=== PATIENT | male | born 1975 | race Caucasian/White ===

== ENCOUNTER 2024-04-10 14:25 | Emergency (ER) | payer OTHER, SELFPAY ==
[2024-04-10 14:45] VITALS: BP 150/79; PULSE 92; RESP 16; TEMP 36.4; O2SAT 99
--- NOTE | 2024-04-10 14:50 | ED_ITS ---
HPI - URI/Sore Throat General Chief Complaint: Upper Respiratory Infection Stated Complaint: Sore Throat, Cough, Congestion Time Seen by Provider: 04/10/24 15:00 History of Present Illness HPI Narrative: 49-year-old male with a history of hypertension and diabetes presented for complaint of sore throat, hoarse voice, nasal congestion and cough. Onset 2 days. Denies shortness of breath, wheezing nausea vomiting diarrhea, fevers or lethargy. Daughter with similar symptoms. Related Data Allergies Allergy/AdvReac Type Severity Reaction Status Date / Time No Known Allergies Allergy Verified 04/10/24 14:49 Review of Systems Review of Systems: per HPI [facility] Past Medical History Medical History (Updated 04/10/24 @ 15:08 by Jelena Guillermo, CUSTOMER SUPPORT ADVISOR) Diabetes Exam Narrative: GENERAL: well-appearing, no acute distress. EYES: conjunctivae clear ENT: Mucous membranes moist. Right TM pearly mendez with normal light reflex; Left TM erythematous, bulging and intact; canal not erythematous, no drainage no tragal tenderness. Oropharynx erythematous without lesions. Tonsils not enlarged and without exudate. Hoarse voice. No drooling, no trismus, uvula midline. No tripod positioning, hot potato voice, or soft palate swelling. NECK: Supple. No lymphadenopathy CHEST: Clear to auscultation, breath sounds equal. No respiratory distress, spe aks in full sentences. HEART: Regular rate and rhythm. No murmur heard. SKIN: Warm, dry, no rash. NEURO: Alert and oriented x3. Course Course Emergency Course: Patient is aware of diagnosis, understands and agrees to treatment plan. Anticipatory guidance given. Patient agrees to follow-up as directed and is aware of reasons to seek care at the emergency department. Portions of this record may have been created with voice recognition software Level of Care: Express Care Visit Vital Signs Vital signs: Vital Signs Temperature 97.6 F 04/10/24 14:45 Pulse Rate 92 04/10/24 14:45 Respiratory Rate 16 04/10/24 14:45 Blood Pressure 150/79 H 04/10/24 14:45 Pulse Oximetry 99 04/10/24 14:45 Temperature 97.6 F 04/10/24 14:45 Pulse Rate 92 04/10/24 14:45 Respiratory Rate 16 04/10/24 14:45 Blood Pressure 150/79 H 04/10/24 14:45 Pulse Oximetry 99 04/10/24 14:45 MDM - URI/Sore Throat MDM Narrative Medical decision making narrative: Neg strep result reviewed with pt. noted to have left AOM on exam. Advise supportive treatments. Patient is appropriate for outpatient treatment and follow-up. Differential Diagnosis Differential diagnosis: Likely upper respiratory infection, viral infection and pharyngitis Discharge Plan Discharge Clinical Impression: Upper respiratory infection Qualifiers: URI type: unspecified URI Qualified Code(s): J06.9 - Acute upper respiratory infection, unspecified Otitis media Qualifiers: Otitis media type: suppurative Chronicity: acute Laterality: left Recurrence: non-recurrent Spontaneous tympanic membrane rupture: without spontaneous rupture Qualified Code(s): H66.002 - Acute suppurative otitis media without spontaneous rupture of ear drum, left ear Patient Disposition: Home, Self-Care Condition: Stable Instructions: Antibiotic Form, Ear Infection (ED), Upper Respiratory Infection (ED) Additional Instructions: Rapid strep swab was negative today You will be notified in a few days if the culture comes back positive for strep if symptoms are due to a viral illness, it is not treated with antibiotics. Viral symptoms can be present for up to 10-14 days. Recommendations: Flonase spray and Zyrtec for sinus congestion Cough syrup may cause drowsiness; avoid driving or take it at night time. Tylenol every 8 hours as needed for pain/fever Soft foods, cool liquids, warm tea. Gargle with warm saltwater twice a day. Chloraseptic spray and throat lozenges. Rest and stay hydrated. --Follow up with your PCP --Go to the ER immediately if you cannot swallow your saliva, trouble breathing/wheezing, throat swelling, pain is persistent and severe Patient Language: Cymro Prescriptions: New amoxicillin-pot clavulanate 875-125 mg tablet 1 tablet PO Q12H 7 Days Qty: 14 0RF Follow-up/Referrals: Ally,José Luis Devlin MD [Primary Care Provider] - Time of Disposition: 15:06
[2024-04-10 14:54] LABS: EDSTREPNEGPOS1 Negative (Negative)
--- OUTSIDE RECORDS SUMMARY | 2024-04-17 17:20 | XMS_ITS | Encounter Summary ---
Author Organization [facility] Address [address] [place] [address]. [place], [place] [phone] [place] [address] Care Team Providers Care Director Of Social Work Name Role Phone José Luis Canales MD Primary Care Provider [phone]- [phone] Encounter Details Date Type Department Care Team (Latest Contact Info) Description 11/23/2023 Punch Through Designhart Message Enc [facility] [address] [place] [phone] José Luis [place] [id number] [place] [address] Tadalafil Prescription Social History Tobacco Use Types Packs/Day Years Used Date Smoking Tobacco: Never Smokeless Tobacco: Never Comments:na Alcohol Use Standard Drinks/Week Comments Yes 0 (1 standard drink = 0.6 oz pur e alcohol) socially PHQ-2 Answer Date Recorded Patient Health Questionnaire-2 Score 0 05/07/2023 Education Answer Date Recorded What is the highest level of school you have completed or the highest degree you have received? Bachelor's degree (e.g., BA, AB, BS) 08/02/2018 Sex and Gender Information Value Date Recorded Sex Assigned at Not on file Legal Sex Male 6:09 PM CDT Gender Identity Not on file Sexual Orientation Not on file documented as of this encounter Plan of Treatment Upcoming Encounters Date Type Department Care Team (Late st Contact Info) Description 06/08/2024 1:40 PM UNARMED SECURITY OFFICER Office Visit [facility] - [address] [place] [address] [place] [address] [place] [address] Kalen Simpson, PA-C 3 [facility] [address] [place] [address] 09/30/2024 10:15 AM CDT Office Visit [facility] [address] [place] [address] Darryl Bunch MD Three [facility]. [address] [place] [address] Juliette Zavala PA 3 [facility], [address] [place] [address] documented as of this encounter Visit Diagnoses Not on filedocumented in this encounter Additional Health Concerns Assessment Noted Time PHQ-9 Depression Total Score: 0 09/19/19 21 7:53 AM CDT documented as of this encounter Care Teams Director Of Social Work Relationship Specialty Start [place] [address] [place] [address] PCP - General 07/29/22 documented as of this encounter
--- OUTSIDE RECORDS SUMMARY | 2024-04-17 17:20 | XMS_ITS | Encounter Summary ---
Author Organization [facility] Address [address] [place] [address]. [place] [address] [place] [address] Care Team Providers Care Active Directory Engineer Name Role Phone José Luis Canales MD Primary Care Provider [phone]- [phone] Encounter Details Date Type Department Care Team (Latest Contact Info) Description 02/23/2024 Travel Social History Tobacco Use Types Packs/Day Years [...] st Contact Info) Description 06/08/2024 1:40 PM VETERINARY RECEPTIONIST Office Visit [facility] Multispecialty Care - [address], [address] [place] [phone] [place] [address] [place] [address] Kalen Simpson PA-C 3 [facility] [address] [place] [address] 09/30/2024 10:15 AM CDT Office Visit [facility] [address] [place] [address] Darryl Bunch MD Three [facility]. [address] [place] [address] Juliette Zavala PA 3 [facility], [address] [place] [address] documented as of this encounter Visit Diagnoses Not on filedocumented in this encounter Additional Health Concerns Assessment Noted Time PHQ-9 Depression Total Score: 0 09/19/19 21 7:53 AM CDT documented as of this encounter Care Teams Active Directory Engineer Relationship Specialty Start [place] [address] [place] [address] PCP - General 07/29/22 documented as of this encounter
--- OUTSIDE RECORDS SUMMARY | 2024-04-17 17:20 | XMS_ITS | Encounter Summary ---
Author Organization [facility] Address [address] [place] [address]. [place], [place] [address] [place] [address] Care Team Providers Care Senior Java J2Ee Developer Name Role Phone José Luis Canales MD Primary Care Provider [phone]- [phone] Encounter Details Date Type Department Care Team (Late st Contact Info) Description 02/23/2024 MyChart Message Enc [facility] Family & Internal Medicine [facility] [id number] [place] [phone] José Luis [place]ales [place] [id number] [place] [address] Colonoscopy Social History Tobacco Use Types Packs/Day Years [...] Encounters Date Type Department Care Team (Late Contact Info) Description 06/08/2024 1:40 PM FORENSIC SCIENTIST Office Visit [facility] Multispecialty Care - [address] [place] [address] [place] [address] [place] [address] Kalen Simpson PA-C 3 [facility] [address] [place] [address] 09/30/2024 10:15 AM CDT Office Visit [facility] [address] [place] [phone] Darryl Bunch MD Three [facility]. [address] [place] [address] Juliette Zavala PA 3 [facility], [address] [place] [address] documented as of this encounter Visit Diagnoses Not on filedocumented in this encounter Additional Health Concerns Assessment Noted Time PHQ-9 Depression Total Score: 0 09/19/19 21 7:53 AM CDT documented as of this encounter Care Teams Senior Java J2Ee Developer Relationship Specialty Start [place] [address] [place] [address] PCP - General 07/29/22 documented as of this encounter
--- OUTSIDE RECORDS SUMMARY | 2024-04-17 17:20 | XMS_ITS | Clinical Summary ---
Author Organization [facility] Address [address] [place] [address]. [place], [place] [address] [place] [id number] Care Team Providers Care Wireless Communications Engineer Name Role Phone José Luis Canales MD Primary Care Provider [phone] Allergies No known active allergies Medications lisinopril-hydroC HLOROthiazide (ZESTORETIC) 20-12.5 MG tabletIndications :Essential hypertension take 1 tablet by mouth daily 90 tablet 1 4 Active lisinopril (PRINIVIL) 20 MG tabletIndications :Essential hypertension TAKE 1 TABLET(20 MG) BY MOUTH DAILY 90 tablet 1 4 Active metFORMIN ER (GLUCOPHAGE-XR) 500 MG 24 hr tabletIndications :Type 2 diabetes mellitus without complication, without long-term current use of insulin ([facility]) Take 2 tablets (1,000 mg total) by mouth daily. 180 tablet 4 Active tadalafil (CIALIS) 5 MG tabletIndications :Erectile dysfunction, unspecified erectile dysfunction type Take 1 tablet (5 mg total) by mouth daily. 90 tablet 1 4 Active SYNJARDY XR 25-1000 MG TABLET SR 24 HRIndications:Typ e 2 diabetes mellitus without complication, without long-term current use of insulin ([facility]) TAKE 1 TABLET BY MOUTH DAILY 90 tablet 1 4 Active Active Problems Problem Noted Date Diagnosed Date Family history of coronary artery disease 2023 Assessment & Plan (09/25/2023 4:04 PM CDT): Currently, his coronary calcium score is 0. His INFANTE risk score puts him at a 3.7% which is low risk for future cardiac events. I would not start stent therapy at this time. Enlarged pulmonary artery ([facility]) 09/11 Assessment & Plan (09/25/2023 4:07 PM CDT): May be related to body habitus versus sleep apnea. I don't think any further testing is warranted at this time. I discussed right heart catheterization. Precordial chest pain 08/30/2023 Assessment & Plan (09/25/2023 4:05 PM CDT): CTA coronary does not show any significant coronary artery disease can consider non-cardiac etiologies. Assessment & Plan (08/30/2023 3:32 PM CDT): Given his age and risk factors, recommend he undergo CTA coronary. Vertigo 03/11/2022 BMI 35.0-35.9,adult 07/10/2020 Assessment & Plan (09/25/2023 4:07 PM CDT): Discussed lifestyle modifications include diet and exercise. Diabetes mellitus ([facility]) 08/02/2018 Assessment & Plan (08/30/2023 3:33 PM CDT): He has diabetes, which is a coronary artery disease risk equivalent. He is currently not on statin therapy. Coronary calcium score from CTA coronary will help to determine whether or not he needs lipid-lowering therapy. Sleep apnea 09/30/2017 Essential hypertension 08/31/2012 Assessment & Plan (09/25/2023 4:05 PM CDT): Continue Lisinopril and HCTZ. Assessment & Plan (08/30/2023 3:32 PM CDT): His blood pressure is well-controlled in the office. Continue antihypertensive therapy. Resolved Problems Problem Noted Date Diagnosed Date Resolved Date Need for immunization against influenza 03/26/2021 2021 Colon cancer screening 10/10/201912/23 Encounters Date Type Department Care Team Description 04/10/2024 Scan [employer] INFO SRVCS Scanned, [facility] 03/14/[address] [address] José Luis Canales MD Information 02/23/2024 7:00 AM TRAINING AND DEVELOPMENT REP Office Visit [address] [address] José Luis Canales MD Follow Up; Diabetes 02/23/2024 Orders Only [address] [address] José Luis Canales MD 02/23/2024 MyChart Message Enc [address] [address] José Luis Canales MD Colonoscopy 02/23/2024 Travel from Last 3 Months Immunizations Name Administration Dates Next Due Fluzone (IIV3, Trivalent, 0. 5 ML Prefilled Syringe) 02/23/2024 Fluzone 6 Months+ Quad (0.5 mL Prefilled Syringe) 03/25/2021 Fluzone Adult - >Age 3 (Pref illed Syringe) 01/10/2019 Influenza (Generic) 01/10/2019, 8,12/24/2016, 016 Influenza Adult (Generic) 01/23/2020,,12/24/2016, 016 MMR (MMRII) 07/05/1992 PFIZER COVID-19 (ORIGINAL FORMULATION, PURPLE CAP) mRNA, LNP-S, PF, 30 MCG/0.3 ML DOSE 03/25/2021,08/14/2020,07/07/2020 Family History Medical History Relation Comments Heart Disease Brother 47 y/o Hypertension Father elevated psa Father Open Heart Maternal Grandmother Valve Disease Maternal Grandmother Relation Status Comments Brother Father Alive Maternal Grandmother Mother Alive Sister Alive Social History Tobacco Use Types Packs/Day Years Used Date Smoking Tobacco: Never Smokeless Tobacco: Never Tobacco Cessation:Counseling Given: No Comments:na Alcohol Use Standard Drinks/Week Comments Yes [...] on file Sexual Orientation Not on file Last Filed Vital Signs Vital Sign Reading Time Taken Comments Blood Pressure 136/86 02/23/2024 6:58 AM TRAINING AND DEVELOPMENT REP Pulse 70 02/23/2024 6:58 AM TRAINING AND DEVELOPMENT REP Temperature 37.1 ??C (98.7 ??F) 02/23/2024 6:58 AM CS T Respiratory Rate 16 02/23/2024 6:58 AM TRAINING AND DEVELOPMENT REP Oxygen Saturation 97% 02/23/2024 6:58 AM TRAINING AND DEVELOPMENT REP Inhaled Oxygen Concentration - - Weight 131.5 kg (290 lb) 02/23/2024 6:58 AM TRAINING AND DEVELOPMENT REP Height 193 cm (6' 4 ) 02/23/2024 6:58 AM TRAINING AND DEVELOPMENT REP Body Mass Index 35.3 02/23/2024 6:58 AM TRAINING AND DEVELOPMENT REP Plan of Treatment Upcoming Encounters Date Type Department Care Team (Late st Contact Info) Description 06/08/2024 1:40 PM TRAINING AND DEVELOPMENT REP Office Visit [facility] Multispecialty Care - [address] [place] [address] [place] [address] [place] [address] Kalen Simpson PA-C 3 [facility] [address] [place] [address] 09/30/2024 10:15 AM CDT [facility] [address] [place] [phone] Darryl Bunch MD Three [facility]. [address] [place] [id number] Juliette Zavala PA 3 [facility], [address] [place] [address] Health Maintenance Due Date Last Done Comments Kidney Health Evaluation 1974 Annual Physical 1977 Pneumococcal Vaccine: Pediatrics (0 to 5 Years) and At-Risk Patients (6 to 64 Years) (1 of 2 - PCV) 1980 Diabetes: Retinopathy Eye Exam 1992 Hepatitis C 1992 DTaP, Tdap and Td Vaccines (1 - Tdap) 1993 Hepatitis B Vaccines (1 of 3 - 19+ 3-dose series) 1993 COVID-19 Vaccine ( - season) 2023 03/25/2021, 08/14/2020, 07/07/2020 Zoster Vaccines (1 of 2) 2024 Lipid Panel 07/27/2024 07/28/2023, 10/22/2017 Hemoglobin A1C 08/22/2024 02/23/2024, 07/12, 01/26/2023, Additional history exists Colorectal Cancer Screening FIT-DNA (3 Years) 12/25/2024 12/25/2021, 12/25/2021 Colorectal Cancer Screening Colonoscopy (10 Years) Discontinued Influenza Adult Completed 02/23/2024, 03/13, 01/23/2020, Additional history exists Meningococcal Vaccine Aged Out No luisana tong eligible based on patient's age to complete this topic RSV Immunizations Under 20 Months Aged Out No longer eligible based on patient's age to complete this topic Procedures Procedure Name Priority Date/Time Associated Diagnosis Comments COLLECT.CAPILLARY (FNGR,HEEL,EAR) Routine 02/23/2024 7:00 AM TRAINING AND DEVELOPMENT REP Type 2 diabetes mellitus without complication, without long-term current use of insulin ([facility]) HEMOGLOBIN, GLYCOSYLATED Routine 02/23/2024 Type 2 diabetes mellitus without complication, without long-term current use of insulin ([facility]) LIPID PANEL Routine 07/28/2023 7:53 AM CDT Essential hypertension COLOGUARD (EXACT SCIENCE) Routine 12/25/2021 10:25 PM CDT Colon cancer screening COLONOSCOPY Routine TRAINING AND DEVELOPMENT REP from Last 3 Months or Most Recently Relevant to Health Maintenance Results * HEMOGLOBIN, GLYCOSYLATED (02/23/2024) HGB A1C 6.8 % -21706 [facility] 02/23/2024 José Luis Canales MD LABORATORY Final Resul t Performing Organization Address City/State/[facility] Co de Phone Number -[phone] [facility] [address] [place] [address], * LIPID PANEL (07/28/2023 7:53 AM CDT) CHOLESTEROL 123 <200 mg/dL [facility] [place], [place] HDL 45 > OR = 40 mg/dL [place] TRIGLYCERIDES 92 <150 mg/dL [place] LDL (CALCULATED) 60 mg/dL (calc) [place] Comment: Reference range: <100 Desirable range <100 mg/dL for primary prevention; ?? <70 mg/dL for patients with CHD or diabetic patients with > or = 2 CHD risk factors. LDL-C is now calculated using the Gurdeep calculation, which is a validated novel method providing better accuracy than the Friedewald equation in the estimation of LDL-C. Lemuel ROMERO et al. REJI. 2013;310(19): 1890-9912 (http://education.crowdSPRING.Retrotope/faq/FCX668) CHOL/HDL RATIO 2.7 <5.0 (calc) [facility] [place], [place] NON HDL CHOLESTEROL 78 <130 mg/dL (calc) [place] Comment: For patients with diabetes plus 1 major ASCVD risk factor, treating to a non-HDL-C goal of <100 mg/dL (LDL-C of <70 mg/dL) is considered a therapeutic option. 07/28/2023 7:53 AM CDT 07/28/2023 11:05 PM CDT Narrative Resulting Agency Comment Performing Organization Information: ?Site ID: ?Name: [facility] ?Address: [address] [place] [id number] ?Director: Carlos Brown us José Luis Canales MD LABORATORY Final Resul t [facility] - FRANK ORDERS [facility] [address], * COLOGUARD (EXACT SCIENCE) (12/25/2021 10:25 PM CDT) COLOGUARD RESULT Negative Negative [facility] (CLIA #:[id number]) Comment: NEGATIVE TEST RESULT. A negative Cologuard result indicates a low likelihood that a colorectal cancer (CRC) or advanced adenoma (adenomatous polyps with more advanced pre-malignant features) ??is present. The chance that a person with a negative Cologuard test has a colorectal cancer is less than 1 in 1500 (negative predictive value >99.9%) or has an ??advanced adenoma is less than ??5.3% (negative predictive value 94.7%). These data are based on a prospective cross-sectional study of 10,000 individuals at average risk for colorectal cancer who were screened with both Cologuard and colonoscopy. ([address]ver [address] al, N Engl J Med 2014;370(14):1286- 1297) The normal value (reference range) for this assay is negative. COLOGUARD RE-SCREENING RECOMMENDATION: Periodic colorectal cancer screening is an important part of preventive healthcare for asymptomatic individuals at average risk for colorectal cancer. ??Following a negative Cologuard result, the [place] [employer] Society and U.S. Multi-Society Task Force screening guidelines recommend a Cologuard re-screening interval of 3 years. References: [place] [employer] Guideline for Colorectal Cancer Screening: https://www.cancer.org/cancer/youlr-hscvlt-gvanro/smwpnvytn-hujxffroi-ohfjsrv/ac s-rec ommendations.html.; David DK, Adamaris GORE, Radha ColonK, Colorectal Cancer Screening: Recommendations for Physicians and Patients from the U.S. Multi-Society Task Force on Colorectal Cancer Screening , Am J Gastroenterology 2017; 112:3517-9942. TEST DESCRIPTION: Composite algorithmic analysis of stool DNA-biomarkers with hemoglobin immunoassay. ?? Quantitative values of individual biomarkers are not reportable and are not associated with individual biomarker result reference ranges. Cologuard is intended for colorectal cancer screening of adults of either sex, 45 years or older, who are at average-risk for colorectal cancer (CRC). Cologuard has been approved for use by the U.S. FDA. The performance of Cologuard was established in a cross sectional study of average-risk adults aged 50-84. Cologuard performance in patients ages 45 to 49 years was estimated by sub-group analysis of near-age groups. Colonoscopies performed for a positive result may find as the most clinically significant lesion: colorectal cancer [4.0%], advanced adenoma (including sessile serrated polyps greater than or equal to 1cm diameter) [20%] or non- advanced adenoma [31%]; or no colorectal neoplasia [45%]. These estimates are derived from a prospective cross-sectional screening study of 10,000 individuals at average risk for colorectal cancer who were screened with both Cologuard and colonoscopy. ([address]ver Lane al, N Engl J Med 2014;370(14):0514-1783.) Cologuard may produce a false negative or false positive result (no colorectal cancer or precancerous polyp present at colonoscopy follow up). A negative Cologuard test result does not guarantee the absence of CRC or advanced adenoma (pre-cancer). The current Cologuard screening interval is every 3 years. ([place] [employer] Society and U.S. Multi-Society Task Force). Cologuard performance data in a 10,000 patient pivotal study using colonoscopy as the reference method can be accessed at the following location: www.Formatta.Retrotope/results. Additional description of the Cologuard test process, warnings and precautions can be found at www.cologuard.com. STOOL STOOL SPECIMEN / Unknown 12/25/2021 10:25 PM CDT 12/27/2021 1:32 PM CDT us Jordan Moctezuma MD BODY FLUIDS AND STOOLS O RDERABLES Final Result Performing Organization Address City/[facility]/ZIP Co de Phone Number [employer] ([address]) [address] [place] [address], [employer] (CLIA #:[id number]) [address] [place] [address] * Colonoscopy ( TRAINING AND DEVELOPMENT REP) Narrative [facility] TO EPIC CONVERSION - TRAINING AND DEVELOPMENT REP Documented hx of procedure Procedure Note , Generic ConversionMD - 02/14/2018 Documented hx of procedure us Generic Conversion Md CALIX GI PROCEDURE ORDERABLES Final Result Performing Organization Address City/[facility] Co de Phone Number [facility] TO EPIC CONVERSION from Last 3 Months or Most Recently Relevant to Health Maintenance Insurance [employer] Care Teams Wireless Communications Engineer Relationship Specialty Start [place] [address] [place] [address] PCP - General 07/29/22
--- OUTSIDE RECORDS SUMMARY | 2024-04-17 17:20 | XMS_ITS | Encounter Summary ---
Author Organization [facility] Address [address] [place] [address]. [place] [address] [place] [address] Care Team Providers Care Chief Merchandising Officer Name Role Phone José Luis Canales MD Primary Care Provider [phone] Encounter Details Date Type Department Care Team (Latest Contact Info) Description 09/25/2023 Travel Social History Tobacco Use Types Packs/Day [...] st Contact Info) Description 06/08/2024 1:40 PM BUILDING COORDINATOR Office Visit [facility] Medical Group Multispecialty Care - [address], [address] [place] [phone] [place] [address] [place] [address] Kalen Simpson PA-C 3 [facility] [address] [place] [address] 09/30/2024 10:15 AM CDT Office Visit [facility] [address] [place] [address] Darryl Bunch MD Three [facility]. [address] [place] [address] Juliette Zavala PA 3 [facility], [address] [place] [address] documented as of this encounter Visit Diagnoses Not on filedocumented in this encounter Additional Health Concerns Assessment Noted Time PHQ-9 Depression Total Score: 0 09/19/19 21 7:53 AM CDT documented as of this encounter Care Teams Chief Merchandising Officer Relationship Specialty Start [place] [address] [place] [address] PCP - General 07/29/22 documented as of this encounter
--- OUTSIDE RECORDS SUMMARY | 2024-04-17 17:20 | XMS_ITS | Encounter Summary ---
Author Organization [facility] Address [address] [place] [address]. [place], [place] [id number] [place] [id number] Care Team Providers Care Type Rolling Machine Operator Name Role Phone Renaldo Canales MD Primary Care Provider [phone] Reason for Visit * Reason Comments Follow Up Diabetes Encounter Details Date Type Department Care Team (Late st Contact Info) Description 02/23/2024 7:00 AM HANDICRAFT OR HOBBY SHOP MANAGER Office Visit [facility] Family [facility] Internal Medicine [address] [id number] Renaldo Canales MD [address] [place] [address] Follow Up; Diabetes Social History Tobacco Use Types Packs/Day Years [...] on file documented as of this encounter Last Filed Vital Signs Vital Sign Reading Time Taken Comments Blood Pressure 136/86 02/23/2024 6:58 AM HANDICRAFT OR HOBBY SHOP MANAGER Pulse 70 02/23/2024 6:58 AM HANDICRAFT OR HOBBY SHOP MANAGER Temperature 37.1 ??C (98.7 ??F) 02/23/2024 6:58 AM CS T Respiratory Rate 16 02/23/2024 6:58 AM HANDICRAFT OR HOBBY SHOP MANAGER Oxygen Saturation 97% 02/23/2024 6:58 AM HANDICRAFT OR HOBBY SHOP MANAGER Inhaled Oxygen Concentration - - Weight 131.5 kg (290 lb) 02/23/2024 6:58 AM HANDICRAFT OR HOBBY SHOP MANAGER Height 193 cm (6' 4 ) 02/23/2024 6:58 AM HANDICRAFT OR HOBBY SHOP MANAGER Body Mass Index 35.3 02/23/2024 6:58 AM HANDICRAFT OR HOBBY SHOP MANAGER documented in this encounter Patient Instructions * Patient Instructions* Renaldo Canales MD - 02/23/2024 7:00 AM HANDICRAFT OR HOBBY SHOP MANAGER 1) HTN: stable on lisinopril, lisinopril-HCTZ is up to date with his vision exam and follow his renal,electrolytes and lipids 2) DM: stable on synjardy XR and will follow his hgba1-c 3) ED: stable on cialis and will follow his psa ICRAFT OR HOBBY SHOP MANAGER ICRAFT OR HOBBY SHOP MANAGER documented in this encounter Progress Notes * Renaldo Canales MD - 02/23/2024 7:00 AM CST Images from the original note were not included. Office Progress Note Reason for Visit: Follow Up and Diabetes History of Present Illness: HPI Hypertension (Follow-Up): The patient presents for follow-up of primary hypertension. The patient states he has been stable with his blood pressure control since the last visit. he has no significantinterval events. Symptoms: The patient is currently asymptomatic. Associated symptoms include no headache, no focal neurologic deficits and no memory loss. Dizziness Home monitoring: The patient checks his blood pressure sporadically.. Medications: the patient is adherent with his medication regimen.@ denies medication side effects.. Diabetes Type II (Follow-Up): The patient states he has been stable with his Type II Diabetes control since the last visit. Comorbid Illnesses: hypertension, hyperlipidemia and obesity. he has no known diabetic complications. he has no significant interval events. Symptoms: Associated symptoms include no polyuria and no polydipsia. weight loss Visual changes, rash Home monitoring: The patient checks his blood sugar sporadically.. Medications: the patient is adherent with his medication regimen.@ denies medication side effects.. Last visual exam up to date Last Foot exam up to date Pt states having some erectile difficulties unable to penetrate and denies deformity, pain, hematuria ROS: Review of Systems Constitutional: Negative for fever and malaise/fatigue. HENT: Negative for hearing loss and tinnitus. Eyes: Negative for blurred vision and double vision. Respiratory: Negative for cough, shortness of breath and wheezing. Cardiovascular: Negative for chest pain, palpitations, claudication and leg swelling. Gastrointestinal: Negative for abdominal pain and nausea. Genitourinary: Negative for dysuria, frequency and hematuria. Musculoskeletal: Negative for joint pain and myalgias. Skin: Negative for rash. Neurological: Negative for dizziness, sensory change, weakness and headaches. Endo/Heme/Allergies: Negative for polydipsia. Does not bruise/bleed easily. Psychiatric/Behavioral: Negative for depression. The patient is not nervous/anxious and does not have insomnia. Medications: Current Outpatient Medications: lisinopril (PRINIVIL) 20 MG tablet, TAKE 1 TABLET(20 MG) BY MOUTH DAILY, Disp: 90 tablet, Rfl: 1 lisinopril-hydroCHLOROthiazide (ZESTORETIC) 20-12.5 MG tablet, take 1 tablet by mouth daily, Disp: 90 tablet, Rfl: 1 metFORMIN ER (GLUCOPHAGE-XR) 500 MG 24 hr tablet, Take 2 tablets (1,000 mg total) by mouth daily., Disp: 180 tablet, Rfl: 0 SYNJARDY XR 25-1000 MG TABLET SR 24 HR, take 1 tablet by mouth daily, Disp: 90 tablet, Rfl: 1 tadalafil (CIALIS) 5 MG tablet, Take 1 tablet (5 mg total) by mouth daily., Disp: 90 tablet, Rfl: 1 Allergies: Review of patient's allergies indicates: No Known Allergies Medical History: Past Medical History: Diagnosis Date COVID-19 vaccine administered 2020 Diabetes ([facility]) Hypertension Influenza vaccine administered 2019 Surgical History: Past Surgical History: Procedure Laterality Date COLONOSCOPY STOMA DX INCLUDING COLLJ SPEC SPX 2014 Dr. Mcguire normal NONE Social History: Social History Tobacco Use Smoking status: Never Smokeless tobacco: Never Tobacco comments: na Vaping Use Vaping status: Never Used Substance Use Topics Alcohol use: Yes Comment: socially Drug use: No Comment: na Family History: Family History Problem Relation Name Age of Onset Hypertension Father DFG Other (elevated psa) Father DFG Heart Disease Brother CAG 47 y/o Open Heart Maternal Grandmother Valve Disease Maternal Grandmother PE: Physical Exam Vitals and nursing note reviewed. Constitutional: General: He is not in acute distress. HENT: Head: Normocephalic and atraumatic. Nose: Nose normal. No rhinorrhea. Eyes: General: No scleral icterus. Conjunctiva/sclera: Conjunctivae normal. Pupils: Pupils are equal, round, and reactive to light. Neck: Vascular: No carotid bruit. Cardiovascular: Rate and Rhythm: Normal rate and regular rhythm. Pulses: Normal pulses. Heart sounds: Normal heart sounds. Pulmonary: Effort: Pulmonary effort is normal. Breath sounds: No wheezing or rales. Abdominal: General: Bowel sounds are normal. There is no distension. Musculoskeletal: General: No swelling. Normal range of motion. Cervical back: Normal range of motion. Lymphadenopathy: Cervical: No cervical adenopathy. Skin: General: Skin is warm. Coloration: Skin is not jaundiced. Findings: No bruising. Neurological: General: No focal deficit present. Mental Status: He is alert and oriented to person, place, and time. Cranial Nerves: No cranial nerve deficit. Psychiatric: Mood and Affect: Mood normal. Behavior: Behavior normal. Filed Vitals: 02/23/24 0658 BP: 136/86 Pulse: 70 Resp: 16 Temp: 98.7 ??F (37.1 ??C) TempSrc: Temporal SpO2: 97% Weight: 131.5 kg (290 lb) Height: 1.93 m (6' 4 ) Body mass index is 35.3 kg/m??. Diagnoses/Impression: 1. Type 2 diabetes mellitus without complication, without long-term current use of insulin ([facility]) COLLECT.CAPILLARY (FNGR,HEEL,EAR) HEMOGLOBIN, GLYCOSYLATED Recommendations and Plan: Patient Instructions 1) HTN: stable on lisinopril, lisinopril-HCTZ is up to date with his vision exam and follow his renal,electrolytes and lipids 2) DM: stable on synjardy XR and will follow his hgba1-c 3) ED: stable on cialis and will follow his psa PCP: RENALDO CANALES MD 02/23/2024 ICRAFT OR HOBBY SHOP MANAGER * Renaldo Canales MD - 02/23/2024 7:00 AM CST Pt is aware of these results ICRAFT OR HOBBY SHOP MANAGER documented in this encounter Plan of Treatment Upcoming Encounters Date Type Department Care Team (Late st Contact Info) Description 06/08/2024 1:40 PM HANDICRAFT OR HOBBY SHOP MANAGER Office Visit [facility]pecialty [facility] - [facility] [address] [place] [address] [place] [address] [place], [place] [id number] Kalen Simpson PA-C [address] [place] [address] 09/30/2024 10:15 AM CDT Office Visit [facility] [address] [place] [id number] Darryl Bunch MD [address] [facility]. [address] [place], [place] [address] Juliette Zavala PA [address], [address] [place], [place] [id number] documented as of this encounter Procedures Procedure Name Priority Date/Time Associated Diagnosis Comments COLLECT.CAPILLARY (FNGR,HEEL,EAR) Routine 02/23/2024 7:00 AM HANDICRAFT OR HOBBY SHOP MANAGER Type 2 diabetes mellitus without complication, without long-term current use of insulin ([facility]) HEMOGLOBIN, GLYCOSYLATED Routine 02/23/2024 Type 2 diabetes mellitus without complication, without long-term current use of insulin ([facility]) documented in this encounter Results * HEMOGLOBIN, GLYCOSYLATED (02/23/2024) HGB A1C 6.8 % [id number] T [facility] 02/23/2024 us Renaldo Canales MD LABORATORY Final Resul t -[id number] [facility] [address] [place] [address], documented in this encounter Visit Diagnoses Diagnosis Type 2 diabetes mellitus without complication, without long-term current use of insulin ([facility])- Primary Need for immunization against influenza Need for prophylactic vaccination and inoculation against influenza documented in this encounter Additional Health Concerns Assessment Noted Time PHQ-9 Depression Total Score: 0 09/19/19 21 7:53 AM CDT documented as of this encounter Care Teams Type Rolling Machine Operator Relationship Specialty [place] [address] [address] [address] PCP - General 07/29/22 documented as of this encounter
--- OUTSIDE RECORDS SUMMARY | 2024-04-17 17:20 | XMS_ITS | Encounter Summary ---
Author Organization [facility] Address [address] [place] [address]. [place], [place] [id number] [place] [address] Care Team Providers Care Community Coordinator [employer] Name Role Phone José Luis Canales MD Primary Care Provider +[phone] Reason for Visit * Reason Comments Chest Pain Hypertension Encounter Details Date Type Department Care Team (Late st Contact Info) Description 09/25/2023 1:00 PM CDT [facility] [address] [place] [phone] Darryl Carrera MD [address] [address] Chest Pain; Hypertension Social History Tobacco Use Types Packs/Day Years [...] Sign Reading Time Taken Comments Blood Pressure 138/70 09/25/2023 12:42 PM CDT Pulse 75 09/25/2023 12:42 PM CDT Temperature - - Respiratory Rate - - Oxygen Saturation - - Inhaled Oxygen Concentration - - Weight 131.1 kg (289 lb) 09/25/2023 12:42 PM CDT Height 193 cm (6' 4 ) 09/25/2023 12:42 PM CDT Body Mass Index 35.18 09/25/2023 12:42 PM CDT documented in this encounter Patient Instructions * Patient Instructions* Darryl Carrera MD - 09/25/2023 1:00 PM CDT Images from the original note were not included. Patient Education Patient Education Heart Healthy Diet General With a heart healthy food plan, you will learn to make better food choices. This diet may help you lower your blood cholesterol level, manage your blood pressure, and lower your risk for heart problems. Smaller portions may also be helpful. Sodium is a type of mineral found in many foods. It helps keep the balance of fluids in your body. Too much sodium can raise your blood pressure. It can also make you take on extra water. This is called edema. Pay careful attention to how much salt or sodium is in your food. You may need to avoid salt or eat foods with less sodium. Cholesterol is a fat-like, waxy substance in your blood. It is normal to have some cholesterol in your blood because your body makes it. You also get extra cholesterol from all animal products. Theseare foods like meats, eggs, and dairy products. Too much cholesterol in your blood can block or damage your blood vessels. This can lead to a heart attack or stroke. Fats in your food have calories which give energy. Not all fats are bad. Some fats are healthy, like the fat found in fish, nuts, and olive oil. These are called unsaturated fats. They help manage body functions and lower cholesterol levels. Learn about the best fats to use in your diet and where to use them. Eating too much fat may make you more likely to weigh more than is healthy. This raises your risk of many heart problems. Fiber is found in plants. Meat and dairy products do not have fiber in them. Fiber can help you lower your unhealthy cholesterol level. You may need more water as you eat more fiber so you do not gethard stools. What lifestyle changes are needed? Eat a healthy diet and workout often. Try to use as many calories as you take in each day. What changes to diet are needed? Eat oily fish at least 2 times a week. These are fish like tuna, salmon, and mackerel. Limit sodium to no more than 2,300 mg of sodium per day. This is about 1 teaspoon (5 grams) of table salt. Use little or no salt when making food. Try other spices or seasoning instead. Limit how much cholesterol you eat to less than 300 mg per day. You can do this by having lean meats. Also eat lots of fruits, vegetables, and fat-free and low- fat dairy products. Limit how much trans fats you eat. Trans fats are found in many processed foods like stick margarine, shortening, and some fried foods. Also, lower how much hydrogenated fats you eat. They are used to make pastries, biscuits, cookies, crackers, chips, and many snack foods. Have no more than 1 drink per day of beer, wine, and mixed drinks (alcohol). Who should use this diet? A heart healthy diet is good for everyone. What foods are good to eat? Grains: Try to eat 6 to 8 servings of whole grain, high fiber foods each day. These are whole grainbread, cereals, brown rice, or pasta. Fruits and vegetables: Eat 4 to 5 servings each day. Try to pick many kinds and colors. Try to eat more that are fresh or frozen. Look for low sodium or salt- free if you choose canned. Rinse canned items before cooking or eating. Dried peas, beans, and lentils are also good. Dairy: Choose low fat (1%) or fat-free milk. Eat nonfat or low-fat products. Protein: Try to eat more low fat or lean meats like chicken and turkey. Eat less red meat and eat more fish, eggs, egg whites, and beans instead. Fats: Use good fats found in fish, nuts, and avocados. Try using olive oil, canola oil, and low-sodium and low-fat salad dressing and mayonnaise. Use corn, safflower, sunflower, and soybean oils. Condiments: Use low-sodium or salt-free broths, soups, soy sauce, and condiments. Pepper, herbs, spices, vinegar, lemon or egegik juices are great for seasoning. Sugar, cocoa powder, honey, syrup, and jams may be eaten in small amounts. Sweets: Low-fat, trans fat-free cookies, cakes, and pies; sariah crackers; animal crackers; low-fatfig bars; and sade snaps. What foods should be limited or avoided? Grains: Salted breads, rolls, crackers, quick breads, self-rising flours, biscuit mixes, regular bread crumbs, instant hot cereals, commercially-prepared rice, pasta, stuffing mixes Fruits and vegetables: Commercially-prepared potatoes and vegetable mixes, regular canned vegetables and juices, vegetables frozen with sauce or pickled vegetables, processed fruits with added sugar or salt Dairy: Whole milk, malted milk, chocolate milk, buttermilk Protein: Smoked, cured, salted, or canned meat, fish, or poultry such as willams and sausages Fats: Cut back on solid fats like butter, lard, and margarine. Condiments and snacks: Salted and canned peas, beans, and olives; salted snack foods; fried foods; soda, juices, or other sweetened drinks; commercially- softened water. Miso, salsa, ketchup, barbecuesauce, Worcestershire sauce, soy sauce, and teriyaki sauce are also high in salt. Sweets: High-fat baked goods such as muffins, donuts, pastries, commercial baked goods Helpful tips When you go to a grocery store, have a list or a meal plan. Do not shop when you are hungry to avoid cravings for foods. You need to know about the sodium and fat content of the food you eat. Read food labels with care. They will show you how much of each is in a serving. This amount is given as a percentage of the total amount you need each day. Reading the labels will help you make healthy food choices. Avoid fast foods. Watch your portions when eating out. Split an order or bring home half for another meal. Talk to a dietitian for help. Last Reviewed Date 2019-07-08 Consumer Information Use and Disclaimer This generalized information is a limited summary of diagnosis, treatment, and/or medication information. It is not meant to be comprehensive and should be used as a tool to help the user understand and/or assess potential diagnostic and treatment options. It does NOT include all information about conditions, treatments, medications, side effects, or risks that may apply to a specific patient. Itis not intended to be medical advice or a substitute for the medical advice, diagnosis, or treatment of a health care provider based on the health care provider's examination and assessment of a patient???s specific and unique circumstances. Patients must speak with a health care provider for complete information about their health, medical questions, and treatment options, including any risks orbenefits regarding use of medications. This information does not endorse any treatments or medications as safe, effective, or approved for treating a specific patient. [employer] and its affiliates disclaim any warranty or liability relating to this information or the use thereof. The use of this information is governed by the Terms of Use, available at https://www.[employer].com/en/know/ulwdmgij-hjhiqyqwmebcc-qujzs Copyright Copyright ?? 2023 [employer] and its affiliates and/or licensors. All rights reserved. documented in this encounter Progress Notes * Sangeeta Calles - 09/25/2023 4:07 PM CDTAssociated Problem(s): BMI 35.0-35.9,adult Discussed lifestyle modifications include diet and exercise. 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 I don't think any further testing is warranted at this time. I discussed right heart catheterization. * Sangeeta Calles - 09/25/2023 4:05 PM CDTAssociated Problem(s): Essential hypertension Continue Lisinopril and HCTZ. * Sangeeta Calles - 09/25/2023 4:05 PM CDTAssociated Problem(s): Precordial chest pain CTA coronary does not show any significant coronary artery disease can consider non-cardiac etiologies. * Sangeeta Calles - 09/25/2023 4:04 PM CDTAssociated Problem(s): Family history of coronary artery disease Currently, his coronary calcium score is 0. His INFANTE risk score puts him at a 3.7% which is low risk for future cardiac events. I would not start stent therapy at this time. * Darryl Carrera MD - 09/25/2023 1:00 PM CDT Reason for Visit: Chest Pain and Hypertension History of Present Illness: I had the pleasure of seeing Jeancarlos Garcia in follow-up at [facility] in [place], [place]. Since I last saw Jeancarlos Garcia, he obtained a CT scan showing pulmonary artery enlargement. There was no stenosis or plaque and his coronary calcium score was 0. There were a few areas of concern that the patient questioned. He has a history of TEGAN and utilizes a CPAP device concurrently. He also has a history of DM and is taking Metformin to help manage it. Diagnoses/Impression: In summary, Jeancarlos Garcia is a 48-year-old year old male who presents for follow-up. Recommendations and Plan: Family history of coronary artery disease Currently, his coronary calcium score is 0. His INFANTE risk score puts him at a 3.7% which is low risk for future cardiac events. I would not start stent therapy at this time. Precordial chest pain CTA coronary does not show any significant coronary artery disease can consider non-cardiac etiologies. Essential hypertension Continue Lisinopril and HCTZ. Enlarged pulmonary artery (CMS/HCC HHS/HCC) May be related to body habitus versus sleep apnea. I don't think any further testing is warranted at this time. I discussed right heart catheterization. BMI 35.0-35.9,adult Discussed lifestyle modifications include diet and exercise. Jeancarlos Garcia will see us in follow-up in 1 year. Jeancarlos Garcia voiced understanding of my recommendations and did not have any further questions. Thank you for allowing me to participate in the care of your patient. Medications: Current Outpatient Medications Medication Sig Dispense Refill lisinopril (PRINIVIL) 20 MG tablet TAKE 1 TABLET(20 MG) BY MOUTH DAILY 90 tablet 1 lisinopril-hydroCHLOROthiazide (ZESTORETIC) 20-12.5 MG tablet Take 1 tablet by mouth daily. 90 tablet 1 metFORMIN ER (GLUCOPHAGE-XR) 500 MG 24 hr tablet TAKE 2 TABLETS(1000 MG) BY MOUTH DAILY 180 tablet 1 SYNJARDY XR 25-1000 MG TABLET SR 24 HR take 1 tablet by mouth daily 90 tablet 1 tadalafil (CIALIS) 5 MG tablet Take 1 tablet (5 mg total) by mouth daily. 90 tablet 1 No current facility-administered medications for this visit. No Known Allergies Past Medical History: Diagnosis Date COVID-19 vaccine administered 2020 Diabetes (CMS/HCC [facility]) Hypertension Influenza vaccine administered 2019 Past Surgical History: Procedure Laterality Date COLONOSCOPY STOMA DX INCLUDING COLLJ SPEC SPX 2014 Dr. Mcguire normal NONE Social History Socioeconomic History Marital status: Spouse name: Danielle Number of children: 2 Highest education level: Bachelor's degree (e.g., BA, AB, BS) Tobacco Use Smoking status: Never Smokeless tobacco: Never Tobacco comments: na Vaping Use Vaping status: Never Used Substance and Sexual Activity Alcohol use: Yes Comment: socially Drug use: No Comment: na Sexual activity: Yes Partners: Female Other Topics Concern Service No Blood Transfusions No Caffeine Concern No Occupational Exposure No Sleep Concern Yes Comment: cpap Weight Concern Yes Special Diet No Exercise Yes Seat Belt Yes Wheelchair No Walker No Upper extremity braces/slings No Lower extermity braces/slings No Self Care Yes Family History Problem Relation Name Age of Onset Hypertension Father Other (elevated psa) Father Heart Disease Brother 47 y/o Open Heart Maternal Grandmother Valve Disease Maternal Grandmother Family Status Relation Name Status Mother Alive Father Alive Sister Alive Brother MGM (Not Specified) No partnership data on file Review of Systems Constitutional: Negative for chills and fever. HENT: Negative for ear pain and hearing loss. Eyes: Negative for blurred vision and pain. Respiratory: Negative for cough, shortness of breath and wheezing. Cardiovascular: Negative for chest pain, palpitations, orthopnea, claudication, leg swelling and PND. Gastrointestinal: Negative for abdominal pain, blood in stool, constipation, diarrhea, heartburn, melena, nausea and vomiting. Genitourinary: Negative for dysuria and urgency. Musculoskeletal: Negative for myalgias and neck pain. Skin: Negative for rash. Neurological: Negative for dizziness and headaches. Endo/Heme/Allergies: Negative for environmental allergies and polydipsia. Does not bruise/bleed easily. Psychiatric/Behavioral: Negative for depression. Filed Vitals: 09/25/23 1242 BP: 138/70 Pulse: 75 Weight: 131.1 kg (289 lb) Height: 1.93 m (6' 4 ) Body mass index is 35.18 kg/m??. Cardiac Exam Rate/Rhythm: Normal rate and regular rhythm. PMI: Pulses: Normal pulses. Heart Sounds: Normal heart sounds. Normal S1 sounds. Normal S2 sounds. No gallop present. No S3. NoS4. Murmurs: No murmur present Physical Exam Constitutional: Healthy Appearance. HENT: Eyes: Pupils equal, round, and reactive to light. Neck: Abdomen: Abdomen soft. Bowel sounds normal. No distension. No tenderness. No mass. Pulmonary: Effort normal. Breath sounds normal. No stridor. No rales. No wheezes. Skin: Dry. Warm. Musculoskeletal: Normal ROM. Neurological: Alert. Oriented x 3. Comments: Labs: I have personally reviewed the following labs: Lab Results Component Value Date/Time WBC 9.2 10/22/2017 06:16 AM WBC 9.2 10/22/2017 06:16 AM HGB 14.1 10/22/2017 06:16 AM HGB 14.1 10/22/2017 06:16 AM HCT 40.4 (L) 10/22/2017 06:16 AM HCT 40.4 (L) 10/22/2017 06:16 AM PLT 197 10/22/2017 06:16 AM PLT 197 10/22/2017 06:16 AM Lab Results Component Value Date/Time NA 139 07/28/2023 07:53 AM K 4.3 07/28/2023 07:53 AM CL 103 07/28/2023 07:53 AM CO2 27 07/28/2023 07:53 AM BUN 13 08/26/2023 07:58 AM CR 0.79 08/26/2023 07:58 AM GLU 133 (H) 07/28/2023 07:53 AM Lab Results Component Value Date/Time CHOL 123 07/28/2023 07:53 AM TRI 92 07/28/2023 07:53 AM HDL 45 07/28/2023 07:53 AM LDL 60 07/28/2023 07:53 AM ISangeeta scribe, completed portions of this note under the direction of DUSTY CARRERA MD. [09/25/23, 3:57 PM]. I, DARRYL CARRERA MD personally performed the services described in this documentation. I have authorized the scribe to complete the medical record entries input within this chart. I have reviewed the chart and agree that the record reflects my personal performance and is accurate and complete.[09/25/23, 3:57 PM]. Portions of this note were dictated using [employer] speech recognition software. Occasional wrong wordor sound-alike substitutions may have occurred due to the inherent limitations of voice recognition software. Please read the chart carefully and recognize, using context, where the substitutions may have occurred. 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
--- OUTSIDE RECORDS SUMMARY | 2024-04-17 17:20 | XMS_ITS | Encounter Summary ---
Author Organization [facility] Address [address] [place] [address]. [place], [place] [address] [place] [address] Care Team Providers Care Blocker And Cutter Contact Lens Name Role Phone José Luis Canales MD Primary Care Provider [phone]- [phone] Reason for Referral * Consultation (Routine) - New Request Specialty Diagnoses / Procedures Referred By Contac t Referred To Contact GASTROENTEROLOGY Diagnoses Screening for colon cancer José [place] [id number] [place] [address] Phone: tel: fax: [facility] Multispecialty Care - [address], [address] [place] [address] Phone: tel: fax: Referral ID Status Reason Start Date Expiration Date V isits Requested Visits Authorized [id number] New Request 02/23/2024 03/25/2025 1 1 HEATER OPERATOR Encounter Details Date Type Department Care Team (Late st Contact Info) Description 02/23/2024 Orders Only [facility] Family & Internal Medicine [address] [address] [place] [address] [place] [address] Social History Tobacco Use Types Packs/Day Years [...] st Contact Info) Description 06/08/2024 1:40 PM TAR HEATER OPERATOR Office Visit [facility] Medical [facility] Multispecialty Care - [facility] [address] [facility] [address] [place] [address] [place] [address] [place] [address] Kalen Simpson PA-C 3 [facility] [address] [place] [address] 09/30/2024 10:15 AM CDT [facility] [address] [place] [address] Darryl Bunch MD Three [facility]. [address] [place], [place] [address] Juliette Zavala PA [address] [place] [address], [address] [place] [address] Scheduled Referrals Name Type Priority Associated Diagnoses Orde r Schedule Ambulatory referral to Gastroenterology (OTHER) Referral Routine Screening for colon cancer Ordered: 02/23/2024 documented as of this encounter Visit Diagnoses Diagnosis Screening for colon cancer- Primary Special screening for malignant neoplasms, colon documented in this encounter Additional Health Concerns Assessment Noted Time PHQ-9 Depression Total Score: 0 09/19/19 21 7:53 AM CDT documented as of this encounter Care Teams Blocker And Cutter Contact Lens Relationship Specialty Start [place] [address] [place] [address] PCP - General 07/29/22 documented as of this encounter
--- OUTSIDE RECORDS SUMMARY | 2024-04-17 17:20 | XMS_ITS | Encounter Summary ---
Author Organization [facility] Address [address] [place] [address]. [place], [place] [address] [place] [address] Care Team Providers Care Life Science Taxonomist Name Role Phone José Luis Canales MD Primary Care Provider [phone]- [phone] Encounter Details Date Type Department Care Team (Late st Contact Info) Description 08/26/2023 Orders Only [facility] [address] [place], [place] [id number] Darryl Bunch MD Three [facility]. 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 [address] [place], [place] [address] Juliette Zavala PA 3 [facility], [address] [place] [address] documented as of this encounter Results * CREATININE (08/26/2023 7:58 AM CDT) CREATININE S/P/B 0.79 0.7 - 1.3 MG/DL 08/26/2023 9:53 AM CDT [facility] GFR ESTIMATE >90 >90 ML/MIN/1.7 3 M2 08/26/2023 9:53 AM CDT [facility] Comment: NOTE: eGFR is not calculated for patients <18 years of age. This is an estimated GFR calculation using the new CKD EPI creatinine equation without race and so does not require a correction factor for race. This estimated GFR should not be used for calculating drug doses. 08/26/2023 7:58 AM CDT Darryl Bunch MD LABORATORY Final Resul t [facility] [address] [place] [address], [place] [phone] * UREA NITROGEN, BLOOD (BUN) QUANT (08/26/2023 7:58 AM CDT) BUN 13 7 - 18 MG/DL 08/26/2023 9:53 AM CDT [facility] 08/26/2023 7:58 AM CDT us Darryl Bunch MD LABORATORY Final Resul t [facility] [address] [place] [address], [place] [phone] documented in this encounter Visit Diagnoses Diagnosis Chest pain, unspecified- Primary documented in this encounter Additional Health Concerns Assessment Noted Time PHQ-9 Depression Total Score: 0 09/19/19 21 7:53 AM CDT documented as of this encounter Care Teams Life Science Taxonomist Relationship Specialty Start [place] [address] [place] [address] PCP - General 07/29/22 documented as of this encounter
--- OUTSIDE RECORDS SUMMARY | 2024-04-17 17:20 | XMS_ITS | Encounter Summary ---
Author Organization [facility] Address [address] [place] [address]. [place], [place] [address] [place] [address] Care Team Providers Care Supervisor Gelatin Plant Name Role Phone José Luis Canales MD Primary Care Provider [phone] Reason for Visit * Reason Onset Date Comments Information 03/14/2024 Encounter Details Date Type Department Care Team (Late st Contact Info) Description 03/14/2024 Telephone [facility] Medical Group Family & Internal Medicine [facility] [address] [place] [address] [place] [address] [place] [address] Information Social History Tobacco Use Types Packs/Day Years [...] on file documented as of this encounter Progress Notes * Magdalena Rico RN - 03/15/2024 10:54 AM CST [place], I have tried to contact pt as well with no return call. Thank you. TY PROFESSIONAL * Magdalena Rico RN - 03/14/2024 10:50 AM CST Images from the original note were not included. Received the below message from our referral dept. [facility] for pt to call office. If he is still wanting GI referral for colonoscopy, please have him call [phone] to schedule apt. José Luis Calvert Please be advised that this patient has been unresponsive to our attempts to coordinate this referral. At this time there will be no additional follow up. If you find that your patient is still in need of this referral and they are willing to schedule. Please have the patient call us at [phone] to be scheduled. We will be happy to assist the patient needs at that time. Thank you TY PROFESSIONAL documented in this encounter Plan of Treatment Upcoming Encounters Date Type Department Care Team (Late st Contact Info) Description 06/08/2024 1:40 PM SAFETY PROFESSIONAL Office Visit [facility] Medical Group Multispecialty Care - [facility] [address] [facility] [place] [address] [place] [address] [place] [address] Kalen Simpson PA-C 3 [facility] [address] [place] [address] 09/30/2024 10:15 AM CDT Office Visit [facility] [address] [place] [address] Darryl Bunch MD [facility]. [address] [place] [address] Juliette Zavala PA [address] [facility], [address] [place] [address] documented as of this encounter Visit Diagnoses Not on filedocumented in this encounter Additional Health Concerns Assessment Noted Time PHQ-9 Depression Total Score: 0 09/19/19 21 7:53 AM CDT documented as of this encounter Care Teams Supervisor Gelatin Plant Relationship Specialty Start [place] [address] [place] [address] PCP - General 07/29/22 documented as of this encounter
--- OUTSIDE RECORDS SUMMARY | 2024-04-17 17:21 | XMS_ITS | Encounter Summary ---
Author Organization [facility] Address [address] [place] [address]. [place], [place] [address] [place] [address] Care Team Providers Care Hazardous Material Specialist Name Role Phone José Luis Canales MD Primary Care Provider [phone] Reason for Referral * Imaging (Routine) - Closed Specialty Diagnoses / Procedures Referred By Navdeepac t Referred To Contact RADIOLOGY Diagnoses Chest pain Procedures CTA CORONARY W Darryl Campos MD [address] [address] Phone: tel: fax: Referral ID Status Reason Start Date Expiration Date Visits Re quested Visits Authorized [id number] Closed 07/10/2023 08/09/2024 1 1 Reason for Visit * Imaging (Routine) - Closed Specialty Diagnoses / Procedures Referred By Aiyana cuevas Referred To Contact RADIOLOGY Diagnoses Chest pain Procedures CTA CORONARY W Darryl Campos MD [address] [address] Phone: tel: fax: Referral ID Status Reason Start Date Expiration Date Visits Re quested Visits Authorized [id number] Closed 07/10/2023 08/09/2024 1 1 Encounter Details Date Type Department Care Team (Late st Contact Info) Description 08/18/2023 12:41 PM CDT - 08/18/2023 11:59 PM CDT Hospital Encounter [facility] CT [address] [facility] [address] [place] [address] Darryl Carrera MD Three [facility]. [address] [place] [address] Discharge Disposition: Home or Self Care (Routine Discharge) Social History Tobacco Use Types Packs/Day Years [...] on file documented as of this encounter Medications at Time of Discharge Empagliflozin-metF ORMIN HCl ER (SYNJARDY XR) 25-1000 MG TABLET SR 24 HRIndications:Type 2 diabetes mellitus without complication, without long-term current use of insulin ([facility]) TAKE 1 TABLET BY MOUTH DAILY 90 tablet 1 03/20/2023 09/10/2023 lisinopril (PRINIVIL) 20 MG tabletIndications: Essential hypertension TAKE 1 TABLET(20 MG) BY MOUTH DAILY 90 tablet 1 07/14/2023 01/15/2024 lisinopril-hydroCH LOROthiazide (ZESTORETIC) 20-12.5 MG tabletIndications: Essential hypertension Take 1 tablet by mouth daily. 90 tablet 1 01/19/2023 01/15/2024 metFORMIN ER (GLUCOPHAGE-XR) 500 MG 24 hr tabletIndications: Type 2 diabetes mellitus without complication, without long-term current use of insulin ([facility]) TAKE 2 TABLETS(1000 MG) BY MOUTH DAILY 180 tablet 1 01/26/2023 02/09/2024 metoprolol tartrate (LOPRESSOR) 100 MG tablet TAKE ONE TABLET (100 MG) 1 HOUR PRIOR TO CTA 08/18/2023 1 tablet 07/15/2023 09/25/2023 tadalafil (CIALIS) 5 MG tabletIndications: Erectile dysfunction, unspecified erectile dysfunction type Take 1 tablet (5 mg total) by mouth daily. 90 tablet 1 07/28/2023 11/23/2023 documented as of this encounter Plan of Treatment Upcoming Encounters Date Type Department Care Team (Late st Contact Info) Description 06/08/2024 1:40 PM COLLETER Office Visit [facility] Multispecialty Care - [facility] [address] [facility] [address] [place] [address] [place] [address] [place] [address] Kalen Simpson, PA-C 3 [facility] [address] [place] [address] 09/30/2024 10:15 AM CDT [facility] [address] [place] [address] Darryl Carrera MD Three [facility]. [address] [place] [address] Juliette Zavala PA 3 [facility], [address] [place] [address] documented as of this encounter Procedures Procedure Name Priority Date/Time Associated Diagnosis Comments CTA CORONARY W SCORING Routine 08/18/2023 1:19 PM CDT Chest pain CREATININE WHOLE BLOOD Routine 08/18/2023 1:02 PM CDT documented in this encounter Results * CTA CORONARY W SCORING (08/18/2023 1:19 PM CDT) Anatomical Region Laterality Modality Chest Computed Tomogra phy, Radiographic Imaging 08/19/2023 10:2 3 AM CDT Addenda Addendum by Darryl Carrera MD on 08/24/2023 4:41 PM CDT Table formatting from the original result was not included. CT ANGIOGRAM (Cardiology Portion) Patient Name: ??Jeancarlos Garcia : ??1975 Date of Study: ??08-18-2023 Interpreting Field Marketing Coordinator: ??DARRYL CARRERA M.D. Indication: ??Hypertension, family history of sudden cardiac History: ??48-year-old male with hypertension, DMII PRE PROCEDURE DATA Baseline heart rate is 68 beats per minute. ??Blood pressure is 129/94 mmHg. A 20 gauge Heplock was inserted in the right antecubital vein and flushed with a 0.9 NACL. PROCEDURE DATA Baseline heart rate is 64 beats per minute. ?? Medication totals: Metoprolol 0 mg IVP Nitroglycerin sublingual tab times 1 Isovue contrast total is 80 ml followed by a flush of 0.9 normal saline 50 ml POST PROCEDURE DATA Post procedure heart rate is 75 beats per minute. ??Blood pressure is 24/64 mmHg. Patient tolerated procedure well. IV access discontinued and band aide dressing applied to site. TECHNIQUE Computed tomography was performed along the axial plane with 0.75 mm slice thickness utilizing IV administration of Isovue 370. FINDINGS The coronary calcium score is 0. The quality of the study is good. CARDIAC STRUCTURES Left Atrium: ??Mildly enlarged. Left Atrial Appendage: ??Windsock morphology. ?? There is no apparent left atrial appendage filling defect. Intra-atrial Septum: ??Evidence of an intra-atrial shunt concerning for a patent foramen ovale. ?? Left Ventricle: ??Cavity is normal in size. ?? Concentric left ventricular hypertrophy: ??None. Left ventricular ejection fraction: ??71%. Wall motion: ??Normal. No stigmata of prior infarction. No abnormal filling defect. Aorta: ??Aortic root measures 3.1cm, which is normal. Ascending aorta measures 3.2cm, which is normal. Pulmonary Arteries: ??Enlarged. There is no proximal filling defect. Pericardium: ??Normal thickness without significant effusion or calcium present. Cardiac Valves: ??No thickening and calcifications in the aortic and mitral valves. There is no mitral annular calcification. CORONARY ANATOMY Left Main: ??Normal. No plaque. Left Anterior Descending Artery: ??Patent with no evidence of plaque. It gives off 2 diagonal branches. First diagonal: ??Large caliber vessel. Patent with no evidence of plaque. Second diagonal: ??Small caliber vessel. Patent with no evidence of plaque. Circumflex Artery: ??Non-dominant. ??Patent with no evidence of plaque. ??It gives off 1 obtuse marginal branch. First obtuse marginal: ??Large caliber vessel. Patent with no evidence of plaque. Right Coronary Artery: ??Dominant. ??It terminates as a posterior descending and right posterolateral branch. Posterior descending artery: ??Large caliber vessel. ??Patent with no evidence of plaque. Right posterolateral branch: ??Small caliber vessel. ??Patent with no evidence of plaque. ADDITIONAL NON-CARDIAC STRUCTURES AND LUNGS READ BY RADIOLOGY COLLEAGUES. IMPRESSION Stenosis: No evidence of coronary stenosis or plaque. Ejection Fraction: ??71%. RECOMMENDATION: CAD RADS score is 0- ??Reassurance. ??Consider non-atherosclerotic causes of symptoms. Interpreting Field Marketing Coordinator: ??DARRYL CARRERA M.D. 08/23/23 Narrative 08/19/2023 10:26 AM CDT EXAMINATION: CARDIAC COMPUTED TOMOGRAPHY ANGIOGRAM, ROUTINE CORONARY CTA. LUNG OVER READ. DATE: 08/18/2023 HISTORY: ??48-year old male chest pain. COMPARISON: None. TECHNIQUE: Multidetector computerized tomography coronary angiogram was obtained using retrospective ECG gating after the administration of 80 mL of Isovue-370 intravenous contrast at 5 mL/sec with 50 mL saline push according to coronary CTA protocol. ECG tube modulation was used to reduce the radiation exposure. A dose lowering technique was used for this procedure, which may include, but is not limited to, dose reduction technique, automated exposure control, the use of iterative reconstruction, and ALARA (As Low As Reasonably Achievable) / Image Gently techniques. Medications: Administered by cardiology service. Vital signs: Recorded by cardiology service. Procedure Complications/Allergic reactions: None. Coronary CT angiogram quality: Determined by cardiology service. FINDINGS: CORONARY ARTERY ANGIOGRAM AND OTHER CARDIAC FINDINGS: Interpreted by level vial grinder. EXTRACARDIAC FINDINGS: The visible lungs contain no suspicious lung nodule, mass, consolidation. The visualized thoracic aorta is normal. Main pulmonary artery, 3.3 cm. Spondylosis. IMPRESSION: 1. Cardiac findings interpreted by level vial grinder. 2. Pulmonary hypertension. Ordered By: DARRYL CARRERA Interpreted By: Ryley He MD, 08/19/2023 10:23 AM Darryl Carrera MD CT Edited Resu lt - Final * CREATININE WHOLE BLOOD (08/18/2023 1:02 PM CDT) CREATININE WHOLE BLOOD 0.7 0.70 - 1.20 mg/dL 08/21/2023 7:04 AM CDT [facility] 08/18/2023 1:02 PM CDT Darryl Carrera MD LABORATORY Final Resul t [facility] [address] [place] [address], [place] [phone] documented in this encounter Visit Diagnoses Diagnosis Chest pain Chest pain, unspecified documented in this encounter Administered Medications Inactive Administered Medications - up to 3 most recent administrations Medication Order MAR Action Action Date Dose Rate Site iopamidol (ISOVUE-370) 76 % injection 80 mL 80 mL, Intravenous, IMG once as needed, Contrast, 1 dose, Starting on Thu08/18/23 at 1319, Until Thu08/18/23 at 1320 Given 08/18/2023 1:20 PM CDT 80 mLs Right Arm documented in this encounter Additional Health Concerns Assessment Noted Time PHQ-9 Depression Total Score: 0 09/19/19 21 7:53 AM CDT documented as of this encounter Care Teams Hazardous Material Specialist Relationship Specialty Start [place] [address] [place] [address] PCP - General 07/29/22 documented as of this encounter
--- OUTSIDE RECORDS SUMMARY | 2024-04-17 17:21 | XMS_ITS | Encounter Summary ---
Author Organization [facility] Address [address] [place] [address]. [place] [address] [place] [address] Care Team Providers Care Parts Casting Machine Operator Name Role Phone José Luis Canales MD Primary Care Provider [phone] Encounter Details Date Type Department Care Team (Latest Contact Info) Description 07/28/2023 Travel Social History Tobacco Use Types Packs/Day [...] st Contact Info) Description 06/08/2024 1:40 PM CARPET INSTALLATION SPECIALIST Office Visit [facility] Medical Group Multispecialty Care - [address], [address] [place] [address] [place] [address] [place] [address] Kalen Simpson PA-C [address] [facility] [address] [place] [address] 09/30/2024 10:15 AM CDT Office Visit [facility] [address] [place] [address] Darryl Bunch MD Three [facility]. [address] [place] [address] Juliette Zavala PA [address] [facility], [address] [place] [address] documented as of this encounter Visit Diagnoses Not on filedocumented in this encounter Additional Health Concerns Assessment Noted Time PHQ-9 Depression Total Score: 0 09/19/19 21 7:53 AM CDT documented as of this encounter Care Teams Parts Casting Machine Operator Relationship Specialty Start [place] [address] [place] [address] PCP - General 07/29/22 documented as of this encounter
--- OUTSIDE RECORDS SUMMARY | 2024-04-17 17:21 | XMS_ITS | Encounter Summary ---
Author Organization [facility] Address [address] [place] [address]. [place], [place] [address] [place] [address] Care Team Providers Care Box Car Checker Name Role Phone José Luis Canales MD Primary Care Provider [phone] Encounter Details Date Type Department Care Team (Late Contact Info) Description 07/14/2023 Edusoft Message Enc [facility] Family & Internal Medicine [facility] [address] [place] [address] [facility] Provider Due for appt Social History Tobacco Use Types Packs/Day Years [...] (Late Contact Info) Description 06/08/2024 1:40 PM JAVA SQL DEVELOPER Office Visit [facility] Multispecialty Care - [address], [address] [place] [address] [place] [address] [place] [address] Kalen Simpson PA-C 3 [facility] [address] [place] [address] 09/30/2024 10:15 AM CDT Office Visit [facility] [address] [place] [address] Darryl Bunch MD Three [facility]. [address] [place] [address] Juliette Zavala PA 3 [facility], [address] [place] [address] documented as of this encounter Visit Diagnoses Not on filedocumented in this encounter Additional Health Concerns Assessment Noted Time PHQ-9 Depression Total Score: 0 09/19/19 21 7:53 AM CDT documented as of this encounter Care Teams Box Car Checker Relationship Specialty Start [place] [address] [place] [address] PCP - General 07/29/22 documented as of this encounter
--- OUTSIDE RECORDS SUMMARY | 2024-04-17 17:21 | XMS_ITS | Encounter Summary ---
Author Organization [facility] Address [address] [place] [address]. [place], [place] [address] [place] [address] Care Team Providers Care Boat Fueler Name Role Phone Renaldo Canales MD Primary Care Provider [phone] Reason for Visit * Reason Comments Hypertension 6 month follow up Diabetes New Patient Transfer from Dr. Garcia to est. Encounter Details Date Type Department Care Team (Late st Contact Info) Description 08/01/2022 7:20 AM CDT Office Visit [facility] Medical Group Family & Internal Medicine [address] [address] Renaldo Canales MD [address] [place] [address] Hypertension (6 month follow up); Diabetes; New Patient (Transfer from Dr. Trivedi to est. ) Social History Tobacco Use Types Packs/Day Years Used Date Smoking Tobacco: Never Smokeless Tobacco: Never Tobacco Cessation:Counseling Given: No Alcohol Use Standard Drinks/Week Comments Yes 0 (1 standard drink = 0.6 oz pur e alcohol) socially PHQ-2 Answer Date Recorded Patient Health Questionnaire-2 Score 0 08/01/2022 Education Answer Date Recorded What is the highest level of school you have completed or the highest degree you have received? Bachelor's degree (e.g., BA, AB, BS) 08/02/2018 Sex and Gender Information Value Date Recorded Sex Assigned at Not on file Legal Sex Male 6:09 PM CDT Gender Identity Not on file Sexual Orientation Not on file COVID-19 Exposure Response Date Recorded In the last 10 days, have jorge luis martinez been in contact with someone who was confirmed or suspected to have Coronavirus/COVID-19? No / Unsure 08/01/2022 7:10 AM CDT documented as of this encounter Last Filed Vital Signs Vital Sign Reading Time Taken Comments Blood Pressure 124/81 08/01/2022 7:16 AM CDT Pulse 78 08/01/2022 7:16 AM CDT Temperature 36.9 ??C (98.4 ??F) 08/01/2022 7:16 AM CD T Respiratory Rate 18 08/01/2022 7:16 AM CDT Oxygen Saturation 99% 08/01/2022 7:16 AM CDT Inhaled Oxygen Concentration - - Weight 132.8 kg (292 lb 12.8 oz) 08/01/2022 7:16 AM CDT Height 193 cm (6' 4 ) 08/01/2022 7:16 AM CDT Body Mass Index 35.64 08/01/2022 7:16 AM CDT documented in this encounter Patient Instructions * Patient Instructions* Renaldo Canales MD - 08/01/2022 7:20 AM CDT 1) HTN: stable on lisinopril and HCTZ will follow his renal and electrolytes 2) DM: stable on metformin and will follow his hgba1-c and is up to date with his vision exam 3) ED: Will start cialis and discussed side effects and if any erection lasting over 4 hours to go to the ER documented in this encounter Progress Notes * Renaldo Canales MD - 08/01/2022 7:20 AM CDT Office Progress Note Reason for Visit: Hypertension (6 month follow up), Diabetes, and New Patient (Transfer from Dr. Trivedi to est. ) History of Present Illness: HPI Hypertension (Follow-Up): [...] Rfl: 1 lisinopril-hydroCHLOROthiazide (ZESTORETIC) 20-12.5 MG tablet, TAKE 1 TABLET BY MOUTH DAILY, Disp: 90 tablet, Rfl: 1 metFORMIN ER (GLUCOPHAGE-XR) 500 MG 24 hr tablet, Take 2 tablets (1,000 mg total) by mouth daily., Disp: 180 tablet, Rfl: 1 tadalafil (CIALIS) 5 MG tablet, Take 1 tablet (5 mg total) by mouth daily., Disp: 90 tablet, Rfl: 1 Glucose Blood test strip, as needed. , Disp: , Rfl: SYNJARDY XR 25-1000 MG TABLET SR 24 HR, TAKE 1 TABLET BY MOUTH DAILY, Disp: 90 tablet, Rfl: 0 Allergies: Review of patient's allergies indicates: No Known Allergies Medical History: Past Medical History: Diagnosis Date COVID-19 vaccine administered 2020 Diabetes (CMS/HCC) Hypertension Influenza vaccine administered 2019 Surgical History: Past Surgical History: Procedure Laterality Date COLONOSCOPY 2014 Dr. Mcguire normal NONE Social History: Social History Tobacco Use Smoking status: Never Smokeless tobacco: Never Vaping Use Vaping Use: Never used Substance Use Topics Alcohol use: Yes Comment: socially Drug use: No Family History: Family History Problem Relation Name Age of Onset Hypertension Father Other (elevated psa) Father PE: Physical Exam Vitals and nursing note [...] Mood normal. Behavior: Behavior normal. Filed Vitals: 08/01/22 0716 BP: 124/81 Pulse: 78 Resp: 18 Temp: 98.4 ??F (36.9 ??C) TempSrc: Temporal SpO2: 99% Weight: 132.8 kg (292 lb 12.8 oz) Height: 6' 4 (1.93 m) Body mass index is 35.64 kg/m??. Diagnoses/Impression: 1. Type 2 diabetes mellitus without complication, without long-term current use of insulin ([facility]) HEMOGLOBIN, GLYCOSYLATED COLLECT.CAPILLARY (FNGR,HEEL,EAR) metFORMIN ER (GLUCOPHAGE-XR) 500 MG 24 hr tablet 2. Essential hypertension 3. Obstructive sleep apnea syndrome 4. Erectile dysfunction, unspecified erectile dysfunction type tadalafil (CIALIS) 5 MG tablet Recommendations and Plan: Patient Instructions 1) HTN: stable on lisinopril and HCTZ will follow his renal and electrolytes 2) DM: stable on metformin and will follow his hgba1-c and is up to date with his vision exam 3) ED: Will start cialis and discussed side effects and if any erection lasting over 4 hours to go to the ER PCP: RENALDO CANALES MD 08/01/2022 * Renaldo Canales MD - 08/01/2022 7:20 AM CDT Pt is aware of these results documented in this encounter Plan of Treatment Upcoming Encounters Date Type Department Care Team (Late st Contact Info) Description 06/08/2024 1:40 PM HELPER METAL HANGING Office Visit [facility] Medical Group Multispecialty Care - [address], [address] [place] [phone] [place] [address] [place], [place] [id number] Kalen Simpson PA-C 3 [facility] [address] [place] [address] 09/30/2024 10:15 AM CDT [facility] [address] [place] [address] Darryl Bunch MD [facility]. [address] [place] [address] Juliette Zavala PA 3 [facility], [address] [place] [address] documented as of this encounter Procedures Procedure Name Priority Date/Time Associated Diagnosis Comments COLLECT.CAPILLARY (FNGR,HEEL,EAR) Routine 08/01/2022 7:26 AM CDT Type 2 diabetes mellitus without complication, without long-term current use of insulin ([facility]) HEMOGLOBIN, GLYCOSYLATED Routine 08/01/2022 Type 2 diabetes mellitus without complication, without long-term current use of insulin ([facility]) documented in this encounter Results * HEMOGLOBIN, GLYCOSYLATED (08/01/2022) HGB A1C 6.8 % [id number] [facility] 08/01/2022 us Renaldo Canales MD LABORATORY Final Resul t [id number] [facility] [address] [place] [address], documented in this encounter Visit Diagnoses Diagnosis Type 2 diabetes mellitus without complication, without long-term current use of insulin ([facility])- Primary Essential hypertension Unspecified essential hypertension Obstructive sleep apnea syndrome Obstructive sleep apnea (adult) (pediatric) Erectile dysfunction, unspecified erectile dysfunction type documented in this encounter Additional Health Concerns Assessment Noted Time PHQ-9 Depression Total Score: 0 09/19/19 21 7:53 AM CDT documented as of this encounter Care Teams Boat Fueler Relationship Specialty Start [place] [address] [place] [address] PCP - General 07/29/22 documented as of this encounter
--- OUTSIDE RECORDS SUMMARY | 2024-04-17 17:21 | XMS_ITS | Encounter Summary ---
Author Organization [facility] Address [address] [place] [address]. [place], [place] [address] [place] [address] Care Team Providers Care Manager Risk Management Name Role Phone José Luis Canales MD Primary Care Provider [phone] Encounter Details Date Type Department Care Team (Late st Contact Info) Description 08/19/2023 The Author Hub Message [facility] [address] [place] [phone] Darryl Bunch MD [address] results Social History Tobacco Use Types Packs/Day Years [...] as of this encounter Progress Notes * Andreina Cabrera RN - 08/21/2023 12:[address] Julio C Dochalo: I think his pulmonary artery size is related to his body habitus, but also possible he has TEGAN Patient admits to TEGAN and he does wear his CPAP mask a night. He is going to check in to if he is having adequate responses though with his machine (checking in to myair popeye to see sleep score) Patient reassured and had no further questions. * Andreina Cabrera RN - 08/20/2023 8:45 AM CDT See below and advise. Thank you! * Andreina Cabrera RN - 08/19/2023 3:03 PM CDT Please advise. documented in this encounter Plan of Treatment Upcoming Encounters Date Type Department Care Team (Late st Contact Info) Description 06/08/2024 1:40 PM ADDICTION PSYCHIATRIST Office Visit [facility] Medical Group Multispecialty Care - [facility] 3 [facility] [address] [place] [phone] [place] [address] [place] [address] Kalen Simpson PA-C 3 [facility] [address] [place] [address] 09/30/2024 10:15 AM CDT Office Visit [facility] [address] [place] [phone] Darryl Bunch MD Three [facility]. [address] [place] [address] Juliette Zavala PA 3 [facility], [address] [place] [address] documented as of this encounter Visit Diagnoses Not on filedocumented in this encounter Additional Health Concerns Assessment Noted Time PHQ-9 Depression Total Score: 0 09/19/19 21 7:53 AM CDT documented as of this encounter Care Teams Manager Risk Management Relationship Specialty Start [place] [address] [place] [address] PCP - General 07/29/22 documented as of this encounter
--- OUTSIDE RECORDS SUMMARY | 2024-04-17 17:21 | XMS_ITS | Encounter Summary ---
Author Organization [facility] Address [address] [place] [address]. [place], [place] [address] [place] [address] Care Team Providers Care Distribution Lineman Name Role Phone Renaldo Canales MD Primary Care Provider [phone] Reason for Referral * Surgical (Routine) - Closed Specialty Diagnoses / Procedures Referred By Contac t Referred To Contact SURGERY Diagnoses Epidermoid cyst Procedures OFFICE/OUTPATIENT NEW LOW MDM 30-44 MINUTES OFFICE/OUTPT VISIT,NEW,LEVL IV OFFICE/OUTPT VISIT,NEW,LEVL V OFFICE/OUTPT VISIT,EST,LEVL III OFFICE/OUTPT VISIT,EST,LEVL IV OFFICE/OUTPT VISIT,EST,[place] [address] [place] [address] Phone: tel: [place]: [place] [address] [facility] [address] [place] [address] Phone: tel: fax: Referral ID Status Reason Start Date Expiration Date Visits Re quested Visits Authorized [id number] Closed 01/26/2023 02/26/2024 99 99 Reason for Visit * Reason Comments Follow Up 6 month follow up Diabetes Hypertension Encounter Details Date Type Department Care Team (Late st Contact Info) Description 01/26/2023 7:00 AM CDT Office Visit [facility] Medical Group Family & Internal Medicine [facility] [address] [place] [phone] [place] [address] [place] [address] Follow Up (6 month follow up); Diabetes; Hypertension Social History Tobacco Use Types Packs/Day [...] Sign Reading Time Taken Comments Blood Pressure 131/76 01/26/2023 7:04 AM CDT Pulse 78 01/26/2023 7:01 AM CDT Temperature 36.6 ??C (97.8 ??F) 01/26/2023 7:01 AM CD T Respiratory Rate 16 01/26/2023 7:01 AM CDT Oxygen Saturation 98% 01/26/2023 7:01 AM CDT Inhaled Oxygen Concentration - - Weight 135.2 kg (298 lb) 01/26/2023 7:01 AM CDT Height 193 cm (6' 4 ) 01/26/2023 7:01 AM CDT Body Mass Index 36.27 01/26/2023 7:01 AM CDT documented in this encounter Patient Instructions * Patient Instructions* Renaldo Canales MD - 01/26/2023 7:00 AM CDT 1) HTN: stable on lisinopril, lisinopril-HCTZ and will follow his renal,electrolytes and lipids 2) DM: stable on metformin,and metformin-empagliflozin is up to date with his vision exam and will follow his hgba1-c documented in this encounter Progress Notes * Renaldo Canales MD - 01/26/2023 7:00 AM CDT Images from the original note were not included. Office Progress Note Reason for Visit: Follow Up (6 month follow up), Diabetes, and Hypertension History of Present Illness: HPI Hypertension (Follow-Up): [...] to penetrate and denies deformity, pain, hematuria Pt states tender right testicular nodule that has been growing for several years and drainage with no redness,or swollen glands ROS: Review of Systems Constitutional: Negative for [...] pain and myalgias. Skin: Negative for rash. Skin lesion Neurological: Negative for dizziness, sensory change, weakness and headaches. Endo/Heme/Allergies: Negative for polydipsia. Does not bruise/bleed easily. Psychiatric/Behavioral: Negative for depression. The patient is not nervous/anxious and does not have insomnia. Medications: Current Outpatient Medications: Empagliflozin-metFORMIN HCl ER (SYNJARDY XR) 25-1000 MG TABLET SR 24 HR, Take 1 tablet by mouth daily. PLEASE CALL OFFICE TO SCHEDULE YOUR [address] CANALES IN JANUARY., Disp: 90 tablet,Rfl: 0 Glucose Blood test strip, as needed. , Disp: , Rfl: lisinopril (PRINIVIL) 20 MG tablet, Take 1 tablet (20 mg total) by mouth daily., Disp: 90 tablet, Rfl: 1 lisinopril-hydroCHLOROthiazide (ZESTORETIC) 20-12.5 MG tablet, Take 1 tablet by mouth daily., Disp:90 tablet, Rfl: 1 metFORMIN ER (GLUCOPHAGE-XR) 500 [...] Diagnosis Date COVID-19 vaccine administered 2020 Diabetes ([facility]) ([facility]) Hypertension Influenza vaccine administered 2019 Surgical History: Past Surgical History: Procedure Laterality Date COLONOSCOPY 2014 Dr. Maynor benitez NONE Social History: Social History Tobacco Use [...] Skin is not jaundiced. Findings: No bruising. Comments: Right testicle with epidermoid cyst Neurological: General: No focal deficit present. Mental Status: He is alert and oriented to person, place, and time. Cranial Nerves: No cranial nerve deficit. Psychiatric: Mood and Affect: Mood normal. Behavior: Behavior normal. Filed Vitals: 01/26/23 0701 01/26/23 0704 BP: (!) 141/80 131/76 Pulse: 78 Resp: 16 Temp: 97.8 ??F (36.6 ??C) TempSrc: Temporal SpO2: 98% Weight: 135.2 kg (298 lb) Height: 1.93 m (6' 4 ) Body mass index is 36.27 kg/m??. Diagnoses/Impression: 1. Type 2 diabetes mellitus without complication, without long-term current use of insulin ([facility]) ([facility]) HEMOGLOBIN, GLYCOSYLATED COLLECT.CAPILLARY (FNGR,HEEL,EAR) metFORMIN ER (GLUCOPHAGE-XR) 500 MG 24 hr tablet 2. Essential hypertension 3. Epidermoid cyst Ambulatory referral to General Surgery (OTHER) 4. Erectile dysfunction, unspecified erectile dysfunction type tadalafil (CIALIS) 5 MG tablet Recommendations and Plan: Patient Instructions 1) HTN: stable on lisinopril, lisinopril-HCTZ and will follow his renal,electrolytes and lipids 2) DM: stable on metformin,and metformin-empagliflozin is up to date with his vision exam and will follow his hgba1-c PCP: RENALDO CANALES MD 01/26/2023 * Renaldo Canales MD - 01/26/2023 7:00 AM CDT Pt hgba1-c is at goal * Magdalena Rico RN - 01/26/2023 7:00 AM CDT Pt aware of results. documented in this encounter Plan of Treatment Upcoming Encounters Date Type Department Care Team (Late st Contact Info) Description 06/08/2024 1:40 PM CUSTOMER SUCCESS REPRESENTATIVE Office Visit [facility] Medical Group Multispecialty Care - [facility] 3 [facility] [address] [place] [address] [place] [address] [place], [place] [phone] Kalen Simpson PA-C 3 [facility] [address] [place] [address] 09/30/2024 10:15 AM CDT Office Visit [facility] [address] [place] [phone] Darryl Bunch MD Three [facility]. [address] [place], [place] [address] Juliette Zavala PA 3 [facility], [address] [place] [address] Scheduled Referrals Name Type Priority Associated Diagnoses Orde r Schedule Ambulatory referral to General Surgery (OTHER) Referral Routine Epidermoid cyst Ordered: 01/26/2023 documented as of this encounter Procedures Procedure Name Priority Date/Time Associated Diagnosis Comments COLLECT.CAPILLARY (FNGR,HEEL,EAR) Routine 01/26/2023 7:03 AM CDT Type 2 diabetes mellitus without complication, without long-term current use of insulin ([facility]) HEMOGLOBIN, GLYCOSYLATED Routine 01/26/2023 Type 2 diabetes mellitus without complication, without long-term current use of insulin ([facility]) documented in this encounter Results * HEMOGLOBIN, GLYCOSYLATED (01/26/2023) HGB A1C 6.8 % MG-[id number] [facility] 01/26/2023 us Renaldo Canales MD LABORATORY Final Resul t -[id number] [facility] [address] [facility] [place] [address], documented in this encounter Visit Diagnoses Diagnosis Type 2 diabetes mellitus without complication, without long-term current use of insulin ([facility])- Primary Essential hypertension Unspecified essential hypertension Epidermoid cyst Sebaceous cyst Erectile dysfunction, unspecified erectile dysfunction type documented in this encounter Additional Health Concerns Assessment Noted Time PHQ-9 Depression Total Score: 0 09/19/19 21 7:53 AM CDT documented as of this encounter Care Teams Distribution Lineman Relationship Specialty [place] [address] [facility] [place] [phone] PCP - General 07/29/22 documented as of this encounter
--- OUTSIDE RECORDS SUMMARY | 2024-04-17 17:21 | XMS_ITS | Encounter Summary ---
Author Organization [facility] Address [address] [place] [address]. [place] [address] [place] [address] Care Team Providers Care Tableman Name Role Phone José Luis Canales MD Primary Care Provider [phone] Encounter Details Date Type Department Care Team (Latest Contact Info) Description 04/30/2023 Travel Social History Tobacco Use Types Packs/Day Years Used Date Smoking Tobacco: Never Smokeless Tobacco: Never Alcohol Use Standard Drinks/Week Comments Yes 0 [...] st Contact Info) Description 06/08/2024 1:40 PM INSURANCE VERIFICATION REP Office Visit [facility] Medical Group Multispecialty Care - [address], [address] [place] [phone] [place] [address] [place] [address] Kalen Simpson PA-C [address] [place] [address] [address] [place] [address] 09/30/2024 10:15 AM CDT [facility] [address] [place] [address] Darryl Bunch MD Three [facility]. [address] [place] [address] Juliette Zavala PA 3 [facility], [address] [place] [address] documented as of this encounter Visit Diagnoses Not on filedocumented in this encounter Additional Health Concerns Assessment Noted Time PHQ-9 Depression Total Score: 0 09/19/19 21 7:53 AM CDT documented as of this encounter Care Teams Tableman Relationship Specialty Start [place] [address] [place] [address] PCP - General 07/29/22 documented as of this encounter
--- OUTSIDE RECORDS SUMMARY | 2024-04-17 17:21 | XMS_ITS | Encounter Summary ---
Author Organization [facility] Address [address] [place] [address]. [place], [place] [address] [place] [address] Care Team Providers Care Dairy Scientist Name Role Phone Renaldo Canales MD Primary Care Provider [phone] Reason for Visit * Reason Comments Follow Up Diabetes Hypertension Encounter Details Date Type Department Care Team (Late st Contact Info) Description 07/28/2023 7:20 AM CDT Office Visit [facility] Medical Group Family & Internal Medicine [facility] [address] [place] [phone] [place] [id number] [place] [address] Follow Up; Diabetes; Hypertension Social History Tobacco Use Types [...] Sign Reading Time Taken Comments Blood Pressure 129/76 07/28/2023 7:18 AM CDT Pulse 71 07/28/2023 7:18 AM CDT Temperature 36.3 ??C (97.3 ??F) 07/28/2023 7:18 AM CD T Respiratory Rate 16 07/28/2023 7:18 AM CDT Oxygen Saturation 99% 07/28/2023 7:18 AM CDT Inhaled Oxygen Concentration - - Weight 128.8 kg (284 lb) 07/28/2023 7:18 AM CDT Height 193 cm (6' 4 ) 07/28/2023 7:18 AM CDT Body Mass Index 34.57 07/28/2023 7:18 AM CDT documented in this encounter Patient Instructions * Patient Instructions* Renaldo Canales MD - 07/28/2023 7:20 AM CDT 1) HTN: stable on lisinopril-HCTZ and lisinopril,metoprolol and will follow his renal and electrolytes 2) DM: stable on synjardy and metformin and will follow his hgba1-c is up to date with his vision exam 3) HD: stable on cialis and will follow his psa documented in this encounter Progress Notes * Renaldo Canales MD - 07/28/2023 7:20 AM CDT Images from the original note were not included. Office Progress Note Reason for Visit: Follow Up, Diabetes, and Hypertension History of Present Illness: [...] XR) 25-1000 MG TABLET SR 24 HR, TAKE 1 TABLET BY MOUTH DAILY, Disp: 90 tablet, Rfl: 1 lisinopril (PRINIVIL) 20 MG tablet, TAKE 1 TABLET(20 MG) BY MOUTH DAILY, Disp: 90 tablet, Rfl: 1 lisinopril-hydroCHLOROthiazide (ZESTORETIC) 20-12.5 MG tablet, Take 1 tablet by mouth daily., Disp:90 tablet, Rfl: 1 metFORMIN ER (GLUCOPHAGE-XR) 500 MG 24 hr tablet, TAKE 2 TABLETS(1000 MG) BY MOUTH DAILY, Disp: 180tablet, Rfl: 1 metoprolol tartrate (LOPRESSOR) 100 MG tablet, TAKE ONE TABLET (100 MG) 1 HOUR PRIOR TO CTA 08/18/2023, Disp: 1 tablet, Rfl: 0 tadalafil (CIALIS) 5 MG tablet, Take 1 tablet (5 mg total) by mouth daily., Disp: 90 tablet, Rfl: 1 Allergies: Review of patient's allergies indicates: No Known Allergies Medical History: Past Medical History: Diagnosis Date COVID-19 vaccine administered 2020 Diabetes ([facility]) Hypertension Influenza vaccine administered 2019 Surgical History: [...] Mood normal. Behavior: Behavior normal. Filed Vitals: 07/28/23 0718 BP: 129/76 Pulse: 71 Resp: 16 Temp: 97.3 ??F (36.3 ??C) SpO2: 99% Weight: 128.8 kg (284 lb) Height: 1.93 m (6' 4 ) Body mass index is 34.57 kg/m??. Diagnoses/Impression: 1. Type 2 diabetes mellitus without complication, without long-term current use of insulin ([facility]) HEMOGLOBIN, GLYCOSYLATED COLLECT.CAPILLARY (FNGR,HEEL,EAR) 2. Essential hypertension LIPID PANEL COMPREHENSIVE METABOLIC PANEL 3. Erectile dysfunction, unspecified erectile dysfunction type tadalafil (CIALIS) 5 MG tablet Recommendations and Plan: Patient Instructions 1) HTN: stable on lisinopril-HCTZ and lisinopril,metoprolol and will follow his renal and electrolytes 2) DM: stable on synjardy and metformin and will follow his hgba1-c is up to date with his vision exam 3) HD: stable on cialis and will follow his psa PCP: RENALDO CANALES MD 08/02/2023 * Renaldo Canales MD - 07/28/2023 7:20 AM CDT Hgba1-c is at range and other than glucose labs are good documented in this encounter Plan of Treatment Upcoming Encounters Date Type Department Care Team (Late st Contact Info) Description 06/08/2024 1:40 PM ADVERTISING DESIGNER Office Visit [facility] Medical Group Multispecialty Care - [address] [place] [phone] [place] [address] [place] [address] Kalen Simpson PA-C 3 [facility] [address] [place] [address] 09/30/2024 10:15 AM CDT [facility] [address] [place] [phone] Darryl Bunch MD Three [facility]. [address] [place], [place] [address] Juliette Zavala PA [address] [facility], [address] [place] [address] documented as of this encounter Procedures Procedure Name Priority Date/Time Associated Diagnosis Comments COMPREHENSIVE METABOLIC PANEL Routine 07/28/2023 7:53 AM CDT Essential hypertension LIPID PANEL Routine 07/28/2023 7:53 AM CDT Essential hypertension COLLECT.CAPILLARY (FNGR,HEEL,EAR) Routine 07/28/2023 7:20 AM CDT Type 2 diabetes mellitus without complication, without long-term current use of insulin ([facility]) HEMOGLOBIN, GLYCOSYLATED Routine 07/28/2023 Type 2 diabetes mellitus without complication, without long-term current use of insulin ([facility]) documented in this encounter Results * (ABNORMAL) COMPREHENSIVE METABOLIC PANEL (07/28/2023 7:53 AM CDT) GLUCOSE 133(H) 65 - 99 mg/dL [place] [place] Comment: ? Fasting reference interval For someone without known diabetes, a glucose value >125 mg/dL indicates that they may have diabetes and this should be confirmed with a follow-up test. BUN 15 7 - 25 mg/dL [place] [place] CREATININE S/P/B 0.84 0.60 - 1.29 mg/dL [place] [place] GFR ESTIMATE 107 > OR = 60 mL/min/1. 73m2 [place] [place] BUN CREATININE RATIO SEE NOTE: (calc) [place] [place] Comment: ?? Not Reported: BUN and Creatinine are within ?? reference range. ? SODIUM S/P/B 139 135 - 146 mmol/L [place] [place] POTASSIUM S/P/B 4.3 3.5 - 5.3 mmol/L [place] [place] CHLORIDE S/P/B 103 98 - 110 mmol/L [place] [place] CO2 27 20 - 32 mmol/L [place] [place] CALCIUM S/P/B 9.6 8.6 - 10.3 mg/dL [place] [place] TOTAL PROTEIN S/P/B 7.3 6.1 - 8.1 g/dL [place] [place] ALBUMIN S/P/B 4.8 3.6 - 5.1 g/dL [place] [place] GLOBULIN 2.5 1.9 - 3.7 g/dL (calc) [place] [place] ALBUMIN/GLOBULIN RATIO 1.9 1.0 - 2.5 (calc) [place] [place] BILIRUBIN TOTAL S/P/B 0.6 0.2 - 1.2 mg/dL [place] [place] ALKALINE PHOSPHATASE S/P/B 54 36 - 130 U/L [place] [place] AST 22 10 - 40 U/L [place] [place] ALT 36 9 - 46 U/L [place] [place] 07/28/2023 7:53 AM CDT 07/28/2023 11:05 PM CDT Narrative Resulting Agency Comment Performing Organization Information: ?Site ID: SL ?Name: [facility] ?Address: [address] [place] [phone] ?Director: Carlos Brown us Renaldo Canales MD LABORATORY Final Resul t [facility] [place] [facility] [address] [address], * LIPID PANEL (07/28/2023 7:53 AM CDT) CHOLESTEROL 123 <200 mg/dL [place] [place] HDL 45 > OR = 40 mg/dL [place] [place] TRIGLYCERIDES 92 <150 mg/dL [place] [place] LDL (CALCULATED) 60 mg/dL (calc) [place] [place] Comment: Reference range: <100 Desirable range <100 mg/dL for primary prevention; ?? <70 mg/dL for patients with CHD or diabetic patients with > or = 2 CHD risk factors. LDL-C is now calculated using the Gurdeep calculation, which is a validated novel method providing better accuracy than the Friedewald equation in the estimation of LDL-C. Lemuel ROMERO et al. REJI. 2013;310(19): 2479-6645 (http://education.[employer]/faq/IET432) CHOL/HDL RATIO 2.7 <5.0 (calc) [place] [place] NON HDL CHOLESTEROL 78 <130 mg/dL (calc) [place] [place] Comment: For patients with diabetes plus 1 major ASCVD risk factor, treating to a non-HDL-C goal of <100 mg/dL (LDL-C of <70 mg/dL) is considered a therapeutic option. 07/28/2023 7:53 AM CDT 07/28/2023 11:05 PM CDT Narrative Resulting Agency Comment Performing Organization Information: ?Site ID: ?Name: [facility] ?Address: [address] [place] [phone] ?Director: Carlos Brown us Renaldo Canales MD LABORATORY Final Resul t Performing Organization Address [facility] Co de Phone Number [facility] - [place] [place] [address], * HEMOGLOBIN, GLYCOSYLATED (07/28/2023) HGB A1C 6.5 % -[id number] TREMAINE REYES 07/28/2023 Renaldo Canales MD LABORATORY Final Resul t Performing Organization Address [facility] Co de Phone Number -[phone] [address] [place] [address] [place], [place] [address] [phone] documented in this encounter Visit Diagnoses Diagnosis Type 2 diabetes mellitus without complication, without long-term current use of insulin ([facility])- Primary Essential hypertension Unspecified essential hypertension Erectile dysfunction, unspecified erectile dysfunction type documented in this encounter Additional Health Concerns Assessment Noted Time PHQ-9 Depression Total Score: 0 09/19/19 21 7:53 AM CDT documented as of this encounter Care Teams Dairy Scientist Relationship Specialty Start [place] [address] [place] [address] PCP - General 07/29/22 documented as of this encounter
--- OUTSIDE RECORDS SUMMARY | 2024-04-17 17:21 | XMS_ITS | Encounter Summary ---
Author Organization [facility] Address [address] [place] [address]. [place], [place] [id number] [place] [address] Care Team Providers Care Senior Science Consultant Name Role Phone Renaldo Canales MD Primary Care Provider [phone] Reason for Visit * Reason Comments Cyst Here for excision of right scrotal cyst * Surgical (Routine) - Closed Specialty Diagnoses / Procedures Referred By Contac t Referred To Contact SURGERY Diagnoses Epidermoid cyst Procedures OFFICE/OUTPATIENT NEW LOW MDM 30-44 MINUTES OFFICE/OUTPT VISIT,NEW,LEVL IV OFFICE/OUTPT VISIT,NEW,LEVL V OFFICE/OUTPT VISIT,EST,LEVL III OFFICE/OUTPT VISIT,EST,LEVL IV OFFICE/OUTPT VISIT,EST,[place] [address] [place] [address] Phone: tel: fax: [place] [address] [facility] [address] [place] [id number] Phone: tel: fax: Referral ID Status Reason Start Date Expiration Date Visits Re quested Visits Authorized [id number] Closed 01/26/2023 02/26/2024 99 99 Encounter Details Date Type Department Care Team (Late st Contact Info) Description 04/30/2023 3:40 PM REWIND OPERATOR Office Visit [facility] Medical Group General Surgery [facility] [address] [facility], [address] [place] [id number] Herman Martinez [place] [id number] [place] [phone] Cyst (Here for excision of right scrotal cyst) Social History Tobacco Use Types Packs/Day Years [...] Sign Reading Time Taken Comments Blood Pressure 145/81 04/30/2023 3:27 PM REWIND OPERATOR Pulse 79 04/30/2023 3:27 PM REWIND OPERATOR Temperature 36.1 ??C (97 ??F) 04/30/2023 3:27 PM REWIND OPERATOR Respiratory Rate 20 04/30/2023 3:27 PM REWIND OPERATOR Oxygen Saturation 99% 04/30/2023 3:27 PM REWIND OPERATOR Inhaled Oxygen Concentration - - Weight - - Height - - Body Mass Index - - documented in this encounter Progress Notes * Herman Martinez MD - 04/30/2023 3:40 PM CST Reason for Visit: Cyst (Here for excision of right scrotal cyst) History of Present Illness: Here for excision 1.5 cm R scrotal cyst . ROS: Review of Systems All other systems reviewed and are negative. Medications: Current Outpatient Medications: Empagliflozin-metFORMIN HCl ER (SYNJARDY XR) 25-1000 MG TABLET SR 24 HR, TAKE 1 TABLET BY MOUTH DAILY, Disp: 90 tablet, Rfl: 1 Glucose Blood [...] BY MOUTH DAILY, Disp: 180tablet, Rfl: 1 tadalafil (CIALIS) 5 MG tablet, Take 1 tablet (5 mg total) by mouth daily., Disp: 90 tablet, Rfl: 1 Review of patient's allergies indicates: No Known Allergies Past Medical History: Diagnosis Date COVID-19 vaccine administered 2020 Diabetes ([facility]/HCC) ([facility]) Hypertension Influenza vaccine administered 2019 Past Surgical History: Procedure Laterality Date COLONOSCOPY 2014 Dr. Mcguire normal NONE Social History Socioeconomic History Marital status: Spouse name: Danielle Number of children: 2 Highest education level: Bachelor's degree (e.g., BA, AB, BS) Tobacco Use Smoking status: Never Smokeless tobacco: Never Vaping Use Vaping Use: Never used Substance and Sexual Activity Alcohol use: Yes Comment: socially Drug use: No Sexual activity: Yes Partners: Female Other Topics Concern Service No Blood Transfusions No Caffeine Concern Yes Occupational Exposure No Sleep Concern Yes Comment: cpap Weight Concern Yes Exercise Yes Seat Belt Yes Wheelchair No Walker No Upper extremity braces/slings No Lower extermity braces/slings No Self Care Yes Family History Problem Relation Name Age of Onset Hypertension Father Other (elevated psa) Father Family Status Relation Name Status Mother Alive Father Alive Physical Exam Genitourinary: Comments: 1.5 cm R scrotal cyst Filed Vitals: 04/30/23 1527 BP: (!) 145/81 Pulse: 79 Resp: 20 Temp: 97 ??F (36.1 ??C) TempSrc: Core SpO2: 99% Diagnoses/Impression: 1. Scrotal cyst PATHOLOGY Recommendations and Plan: Procedures Area infiltrated with 4 cc 1 % lidocaine with epi Cyst excised using iris scissors Closed with 3-0 chromic JETT to incision F/u 1 week Reviewed and updated this visit by provider: Barbara MARTINEZ Referring Provider: Renaldo Canales MD PCP: RENALDO CANALES MD ND OPERATOR documented in this encounter Plan of Treatment Upcoming Encounters Date Type Department Care Team (Late st Contact Info) Description 06/08/2024 1:40 PM REWIND OPERATOR Office Visit [facility] Medical Group Multispecialty Care - [facility] [address] [facility] [place] [address] [place] [address] [place] [address] Kalen Simpson PA-C [address] [place] [address] 09/30/2024 10:15 AM CDT [facility] [address] [place] [address] Darryl Bunch MD Three [facility]. [address] [place] [address] Juliette Zavala PA 3 [facility], [address] [place] [address] documented as of this encounter Results * PATHOLOGY (04/30/2023 12:00 AM REWIND OPERATOR) PATHOLOGY [facility] ? Department of Laboratory Medicine ?[address] ?[place] [address] ? , extension [phone] ? Pathology Report ? Surgical Pathology Report Name: CHIRAG GARCIA ? Specimen #: [id number] Age: 12 1975 (Age: 48) ? Location: [facility] Sex: M ?Procedure Date: 04/30/2023 Hospital #: [id number] ?Date Received: 05/01/2023 Date Reported: 05/04/2023 Provider: HERMAN MARTINEZ MD Source: Soft tissue, scrotum Clinical History: Scrotal cyst Gross Description: Received in formalin, labeled with the patient's name and date of and as right scrotal cyst is a 1.2 x 0.9 x 0.5 cm ovoid excision of white-roche wrinkled skin. ??The specimen is not oriented. ??The skin surface exhibits a 0.1 cm probable defect. ??The deep surface is inked black. ??The specimen is sectioned to reveal a 0.4 cm in diameter cystic space containing thick white material. The specimen is entirely submitted in cassette 1. Gross examination (when applicable), interpretation, and sign out were performed at [facility], [address] [place] [address]. FINAL DIAGNOSIS: SCROTUM, CYST, EXCISION: ? - EPIDERMAL INCLUSION CYST WITH ADJACENT KERATOTIC AND CALCIFIC DEBRIS, FOREIGN ? BODY GIANT CELL REACTION, AND FIBROSIS, CONSISTENT WITH PRIOR RUPTURE. Electronically Signed Out ? Gloria Vasquez M.D. [facility] 04/30/2023 05/01/2023 1:4 9 PM REWIND OPERATOR Comment:Soft tissue, scrotum us Herman Martinez MD PATHOLOGY/CYTOLOGY ORDERABLES Fi nal Result [facility] [address] [place] [address], [id number] documented in this encounter Visit Diagnoses Diagnosis Scrotal cyst- Primary Sebaceous cyst documented in this encounter Additional Health Concerns Assessment Noted Time PHQ-9 Depression Total Score: 0 09/19/19 21 7:53 AM CDT documented as of this encounter Care Teams Senior Science Consultant Relationship Specialty [place] [address] [place] [address] PCP - General 07/29/22 documented as of this encounter
--- OUTSIDE RECORDS SUMMARY | 2024-04-17 17:21 | XMS_ITS | Encounter Summary ---
Author Organization [facility] Address [address] [place] [address]. [place] [address] [place] [address] Care Team Providers Care Laboratory Associate Name Role Phone José Luis Canales MD Primary Care Provider [phone] Encounter Details Date Type Department Care Team (Latest Contact Info) Description 07/10/2023 Travel Social History Tobacco Use Types Packs/Day [...] st Contact Info) Description 06/08/2024 1:40 PM APPLIANCE SERVICE TECHNICIAN Office Visit [facility] Medical Group Multispecialty Care - [address], [address] [place] [phone] [place] [address] [place] [address] Kalen Simpson PA-C [address] [facility] [address] [place] [address] 09/30/2024 10:15 AM CDT Office Visit [facility] [address] [place] [address] Darryl Bunch MD Three [facility]. [address] [place] [address] Juliette Zavala PA [address] [facility], [address] [place] [address] documented as of this encounter Visit Diagnoses Not on filedocumented in this encounter Additional Health Concerns Assessment Noted Time PHQ-9 Depression Total Score: 0 09/19/19 21 7:53 AM CDT documented as of this encounter Care Teams Laboratory Associate Relationship Specialty Start [place] [address] [place] [address] PCP - General 07/29/22 documented as of this encounter
--- OUTSIDE RECORDS SUMMARY | 2024-04-17 17:21 | XMS_ITS | Encounter Summary ---
Author Organization [facility] Address [address] [place] [address]. [place], [place] [phone] [place] [address] Care Team Providers Care Brusher Hand Name Role Phone Renaldo Canales MD Primary Care Provider [phone] Reason for Visit * Reason Comments Mass On scrotum- not pain ful now gotten bigger- no drainage lately * Surgical (Routine) - Closed Specialty Diagnoses / Procedures Referred By Contac t Referred To Contact SURGERY Diagnoses Epidermoid cyst Procedures OFFICE/OUTPATIENT NEW LOW MDM 30-44 MINUTES OFFICE/OUTPT VISIT,NEW,LEVL IV OFFICE/OUTPT VISIT,NEW,LEVL V OFFICE/OUTPT VISIT,EST,LEVL III OFFICE/OUTPT VISIT,EST,LEVL IV OFFICE/OUTPT VISIT,EST,[place] [address] [place] [address] Phone: tel: fax: [place] [address] [facility] [address] [place] [address] Phone: tel: fax: Referral ID Status Reason Start Date Expiration Date Visits Re quested Visits Authorized [id number] Closed 01/26/2023 02/26/2024 99 99 Encounter Details Date Type Department Care Team (Late st Contact Info) Description 03/12/2023 4:00 PM AFFILIATE MARKETING MANAGER Office Visit [facility] General Surgery [address], [address] [place] [address] [place] [address] [address] Mass (On scrotum- not painful now gotten bigger- no drainage lately) Social History Tobacco Use Types Packs/Day Years [...] Sign Reading Time Taken Comments Blood Pressure 161/85 03/12/2023 3:52 PM AFFILIATE MARKETING MANAGER Pulse 89 03/12/2023 3:52 PM AFFILIATE MARKETING MANAGER Temperature 36.5 ??C (97.7 ??F) 03/12/2023 3:52 PM CS T Respiratory Rate 20 03/12/2023 3:52 PM AFFILIATE MARKETING MANAGER Oxygen Saturation 98% 03/12/2023 3:52 PM AFFILIATE MARKETING MANAGER Inhaled Oxygen Concentration - - Weight 134.7 kg (297 lb) 03/12/2023 3:52 PM AFFILIATE MARKETING MANAGER Height 193 cm (6' 4 ) 03/12/2023 3:52 PM AFFILIATE MARKETING MANAGER Body Mass Index 36.15 03/12/2023 3:52 PM AFFILIATE MARKETING MANAGER documented in this encounter Progress Notes * Herman Martinez MD - 03/12/2023 4:00 PM CST Reason for Visit: Mass (On scrotum- not painful now gotten bigger- no drainage lately) History of Present Illness: Several month hx of cyst right scrotum , increasing size ROS: Review of Systems All other systems [...] Diagnosis Date COVID-19 vaccine administered 2020 Diabetes ([facility]/HCC) ([facility]/HCC) Hypertension Influenza vaccine administered 2019 Past Surgical [...] Alive Physical Exam Genitourinary: Comments: 1.5 cm cyst superficial R scrotum Filed Vitals: 03/12/23 1552 BP: (!) 161/85 Pulse: 89 Resp: 20 Temp: 97.7 ??F (36.5 ??C) TempSrc: Core SpO2: 98% Weight: 134.7 kg (297 lb) Height: 1.93 m (6' 4 ) PainSc: 0 (0-10 Scale) Diagnoses/Impression: 1. Scrotal cyst Recommendations and Plan: Removal in the office under local anesthesia pending precert. Procedure explained along with risks and complications, understands and wishes to proceed. CARMEN Reviewed and updated this visit by provider: Barbara MARTINEZ Referring Provider: Renaldo Canales MD PCP: RENALDO CANALES MD LIATE MARKETING MANAGER documented in this encounter Plan of Treatment Upcoming Encounters Date Type Department Care Team (Late st Contact Info) Description 06/08/2024 1:40 PM AFFILIATE MARKETING MANAGER Office Visit [facility] Medical Group Multispecialty Care - [facility] [address] [facility] [place] [address] [place] [address] [place] [address] Kalen Simpson PA-C [address] [facility] [address] [place] [address] 09/30/2024 10:15 AM CDT Office Visit [facility] [address] [place] [address] Darryl Bunch MD Three [facility]. [address] [place], [place] [address] Juliette Zavala PA [address] [facility], [address] [place] [address] documented as of this encounter Visit Diagnoses Diagnosis Scrotal cyst- Primary Sebaceous cyst documented in this encounter Additional Health Concerns Assessment Noted Time PHQ-9 Depression Total Score: 0 09/19/19 21 7:53 AM CDT documented as of this encounter Care Teams Brusher Hand Relationship Specialty Start [place] [address] [place] [address] PCP - General 07/29/22 documented as of this encounter
--- OUTSIDE RECORDS SUMMARY | 2024-04-17 17:21 | XMS_ITS | Encounter Summary ---
Author Organization [facility] Address [address] [place] [address]. [place], [place] [address] [place] [address] Care Team Providers Care Campaign Management Specialist Name Role Phone José Luis Canales MD Primary Care Provider [phone] Reason for Visit * Reason Comments Consult Fhx early sudden car diac Hypertension * Consultation (Routine) - Authorized Specialty Diagnoses / Procedures Referred By Contac t Referred To Contact CARDIOLOGY / Cardiology Diagnoses Essential hypertension Family history of sudden cardiac Family history of cardiovascular disease Procedures OFFICE/OUTPATIENT NEW LOW MDM 30-44 MINUTES OFFICE/OUTPT VISIT,NEW,LEVL IV OFFICE/OUTPT VISIT,NEW,LEVL V OFFICE/OUTPT VISIT,EST,LEVL III OFFICE/OUTPT VISIT,EST,LEVL IV OFFICE/OUTPT VISIT,EST,[place] [address] [place] [address] Phone: tel: [place]: [place] [address] [facility] [place] [address] Phone: tel: fax: Referral ID Status Reason Start Date Expiration Date Visits Requested Visits Authorized [id number] Authorized Specialty Services 07/06/2023 06/11/2024 99 99 Encounter Details Date Type Department Care Team (Late st Contact Info) Description 07/10/2023 2:00 PM CDT Office Visit [facility] [address] [place] [phone] Samuel Carrera MD Three [facility]. [address] [address] Consult (Fhx early sudden cardiac ); Hypertension Social History Tobacco Use Types Packs/Day [...] Sign Reading Time Taken Comments Blood Pressure 130/80 07/10/2023 1:44 PM CDT Pulse 81 07/10/2023 1:44 PM CDT Temperature - - Respiratory Rate - - Oxygen Saturation - - Inhaled Oxygen Concentration - - Weight 130.2 kg (287 lb) 07/10/2023 1:44 PM CDT Height 193 cm (6' 4 ) 07/10/2023 1:44 PM CDT Body Mass Index 34.93 07/10/2023 1:44 PM CDT documented in this encounter Patient Instructions * Patient Instructions* Samuel Carerra MD - 07/10/2023 2:00 PM CDT Images from the original note [...] condiments. Pepper, herbs, spices, vinegar, lemon or bishop paiute juices are great for seasoning. Sugar, cocoa [...] or approved for treating a specific patient. [employer] and its affiliates disclaim any warranty or liability relating to this information or the use thereof. The use of this information is governed by the Terms of Use, available at https://www.[employer].com/en/know/hoaokrjk-vvhcjlwldoqxt-qqfte Copyright Copyright ?? 2023 [employer] and its affiliates and/or licensors. All rights reserved. documented in this encounter Progress Notes * Samuel Carrera MD - 08/30/2023 3:33 PM CDTAssociated Problem(s): Diabetes mellitus ([facility]) He has diabetes, which is a coronary artery disease risk equivalent. He is currently not on statin therapy. Coronary calcium score from CTA coronary will help to determine whether or not he needs lipid-lowering therapy. * Samuel Carrera MD - 08/30/2023 3:32 PM CDTAssociated Problem(s): Essential hypertension His blood pressure is well-controlled in the office. Continue antihypertensive therapy. * Samuel Carrera MD - 08/30/2023 3:32 PM CDTAssociated Problem(s): Precordial chest pain Given his age and risk factors, recommend he undergo CTA coronary. * Samuel Carrera MD - 07/10/2023 2:00 PM CDT Reason for Visit: Consult (Fhx early sudden cardiac ) and Hypertension History of Present Illness: I had the pleasure of seeing Chirag Garcia in consultation at the [facility] in [place], [place]. Chirag Garcia is a 48-year-old male with past medical history significant for family history of cardiovascular disease who presents in consultation for chest pain and family history of cardiovascular disease. He recently had a brother who suddenly. He also has other family members with history of cardiovascular disease. He has noticed some chest discomfort himself. He has a history of hypertension and diabetes. Diagnoses/Impression: In summary, Chirag Garcia is a 48-year-old year old male who presents in consultation for chest pain. Recommendations and Plan: Precordial chest pain Given his age and risk factors, recommend he undergo CTA coronary. Essential hypertension His blood pressure is well-controlled in the office. Continue antihypertensive therapy. Diabetes mellitus ([facility]) He has diabetes, which is a coronary artery disease risk equivalent. He is currently not on statin therapy. Coronary calcium score from CTA coronary will help to determine whether or not he needs lipid-lowering therapy. Chirag Garcia will see us in follow-up in 6 weeks. Chirag Garcia voiced understanding of my recommendations and did not have any further questions. Thank you for allowing me to participate in the care of your patient. Medications: Current Outpatient Medications Medication Sig Dispense Refill Empagliflozin-metFORMIN HCl ER (SYNJARDY XR) 25-1000 MG TABLET SR 24 HR TAKE 1 TABLET BY MOUTH DAILY 90 tablet 1 lisinopril-hydroCHLOROthiazide (ZESTORETIC) 20-12.5 MG tablet Take 1 tablet by mouth daily. 90 tablet 1 metFORMIN ER (GLUCOPHAGE-XR) 500 MG 24 hr tablet TAKE 2 TABLETS(1000 MG) BY MOUTH DAILY 180 tablet 1 lisinopril (PRINIVIL) 20 MG tablet TAKE 1 TABLET(20 MG) BY MOUTH DAILY 90 tablet 1 metoprolol tartrate (LOPRESSOR) 100 MG tablet TAKE ONE TABLET (100 MG) 1 HOUR PRIOR TO CTA tablet 0 tadalafil (CIALIS) 5 MG tablet Take 1 tablet (5 mg total) by mouth daily. 90 tablet 1 No current facility-administered medications for this visit. Review of patient's allergies indicates: No Known Allergies Past Medical History: Diagnosis Date COVID-19 vaccine administered 2020 Diabetes ([facility]) Hypertension Influenza vaccine administered 2019 Past [...] file Review of Systems Constitutional: Negative for chills, fever and weight loss. HENT: Negative for ear pain, hearing loss and sore throat. Eyes: Negative for blurred vision and double vision. Respiratory: Negative for cough, hemoptysis, shortness of breath and wheezing. Cardiovascular: Positive for chest pain. Negative for palpitations, orthopnea, claudication, leg swelling and PND. Gastrointestinal: Negative for abdominal pain, blood in stool, constipation, diarrhea, heartburn, melena, nausea and vomiting. Genitourinary: Negative for dysuria, hematuria and urgency. Musculoskeletal: Negative for joint pain and myalgias. Skin: Negative for rash. Neurological: Negative for dizziness, loss of consciousness, weakness and headaches. Endo/Heme/Allergies: Negative for environmental allergies and polydipsia. Does not bruise/bleed easily. Psychiatric/Behavioral: Negative for depression. Filed Vitals: 07/10/23 1344 BP: 130/80 Pulse: 81 Weight: 130.2 kg (287 lb) Height: 1.93 m (6' 4 ) Body mass index is 34.93 kg/m??. Cardiac Exam Rate/Rhythm: Normal rate and regular rhythm. PMI: PMI is not displaced. Pulses: Normal pulses. Carotid pulses are 2+ on the right side and 2+ on the left side. Radial pulses are 2+ on the right side and 2+ on the left side. Heart Sounds: Normal heart sounds. Normal S1 sounds. Normal S2 sounds. No gallop present. No S3. NoS4. Murmurs: Edema left: 0. Edema Right: 0. Physical Exam Constitutional: No distress. Healthy Appearance. HENT: Oropharynx clear. Eyes: Pupils equal, round, and reactive to light. Conjunctivae normal. Neck: Neck supple. Abdomen: Abdomen soft. Bowel sounds normal. No tenderness. No mass. No hepatomegaly. No splenomegaly. Abdominal aorta not palpably enlarged. No abdominal bruit present. Pulmonary: Effort normal. Breath sounds normal. No stridor. No rales. No wheezes. Skin: Dry. Warm. No rash. No cyanosis. No clubbing. No xanthoma. Musculoskeletal: No gross deformity.. Neurological: Alert. Oriented x 3. Appropriate mood and affect. Normal motor skills. Normal gait. Comments: Labs: I have personally reviewed the following labs Lab Results Component Value Date/Time WBC 9.2 [...] 07:53 AM LDL 60 07/28/2023 07:53 AM Tests: Electrocardiogram: I have reviewed the electrocardiogram from 07/10/2023 and it shows normal sinus rhythm with moderate intraventricular conduction delay. Portions of this note were dictated using [employer] speech recognition software. Occasional wrong wordor sound-alike substitutions may have occurred due to the inherent limitations of voice recognition software. Please read the chart carefully and recognize, using context, where the substitutions may have occurred. documented in this encounter Plan of Treatment Upcoming Encounters Date Type Department Care Team (Late st Contact Info) Description 06/08/2024 1:40 PM SENIOR MANUFACTURING SUPERVISOR Office Visit [facility] Multispecialty Care - [facility] [address] [facility] [place] [address] [place] [address] [place] [address] Kalen Simpson PA-C [address] [facility] [address] [place] [address] 09/30/2024 10:15 AM CDT Office Visit [facility] [address] [place] [address] Samuel Carrera MD Three [facility]. [address] [place] [address] Juliette Zavala PA [address] [facility], [address] [place], [place] [address] documented as of this encounter Procedures Procedure Name Priority Date/Time Associated Diagnosis Comments ELECTROCARDIOGRAM (NON MIDMARK ACQUIRED) Routine 07/10/2023 1:52 PM CDT Heart palpitations documented in this encounter Results * ELECTROCARDIOGRAM (07/10/2023 1:52 PM CDT) 07/10/2023 1:52 PM CDT Narrative [facility] - 07/10/2023 10:41 PM CDT ?[facility] ? Test Date: ?2023-07-10 Pat Name: ? CHIRAG RUBIOBRODIE ? Department: ?? 107 ? Room: ? Gender: ? Male ? Sdv Pilot/Navigator/Dds Operator: ?? kd : ?1975 ? Requested By: SAMUEL CARRERA Order Number: [id number] ?Reading MD: ?? Samuel Carrera ? Measurements Intervals ?[place] ? Rate: ? 79 ? P: ?44 CA: ? 181 ?QRS: ?-9 QRSD: ? 118 ?T: ?30 QT: ? 369 ? QTc: ?424 ? Interpretive Statements SINUS RHYTHM MODERATE INTRAVENTRICULAR CONDUCTION DELAY No prior ECG for comparison Procedure Note Samuel Carrera MD - 07/10/2023 [facility] Test Date: 2023-07-10 Pat Name: CHIRAG GARCIA Department: [facility] Room: Gender: Male Sdv Pilot/Navigator/Dds Operator: yadira : 1975 Requested By: SAMUEL CARRERA Order Number: [id number] Reading MD: Samuel Carrera Measurements Intervals [place] Rate: 79 P: 44 CA: 181 QRS: -9 QRSD: 118 T: 30 QT: 369 QTc: 424 Interpretive Statements SINUS RHYTHM MODERATE INTRAVENTRICULAR CONDUCTION DELAY No prior ECG for comparison us Samuel Carrera MD PROCEDURES-ORDERABLE NO KIKE RGE Final Result LENIN MARTINEZ documented in this encounter Visit Diagnoses Diagnosis Heart palpitations- Primary Palpitations Precordial chest pain Precordial pain Essential hypertension Unspecified essential hypertension Class 1 obesity due to excess calories without serious comorbidity with body mass index (BMI) of 34.0 to 34.9 in adult documented in this encounter Additional Health Concerns Assessment Noted Time PHQ-9 Depression Total Score: 0 09/19/19 21 7:53 AM CDT documented as of this encounter Care Teams Campaign Management Specialist Relationship Specialty Start [place] [address] [place] [address] PCP - General 07/29/22 documented as of this encounter
--- OUTSIDE RECORDS SUMMARY | 2024-04-17 17:21 | XMS_ITS | Encounter Summary ---
Author Organization [facility] Address [address] [place] [address]. [place], [place] [address] [place] [address] Care Team Providers Care Nylon Hot Wire Cutter Name Role Phone José Luis aCnales MD Primary Care Provider [phone] Reason for Visit * Reason Onset Date Comments Consult 05/15/2023 Encounter Details Date Type Department Care Team (Late st Contact Info) Description 05/15/[address] [address] Ann-Marie Palmer, RMA Consult Social History Tobacco Use Types Packs/Day Years [...] as of this encounter Progress Notes * Shivani Huerta - 05/19/2023 10:14 PM CST Patient called and stated he returned call to Ann-Marie on 05-15 and calling again today requesting a return call to schedule appointment. Message to Ann-Marie Palmer to schedule. EMS INTEGRATION ENGINEER * ELIEL Zamora - 05/15/2023 3:52 PM CST Left message to schedule cardiology consult per Dr Marcia Canales EMS INTEGRATION ENGINEER documented in this encounter Plan of Treatment Upcoming Encounters Date Type Department Care Team (Late st Contact Info) Description 06/08/2024 1:40 PM SYSTEMS INTEGRATION ENGINEER Office Visit [facility] Multispecialty Care - [facility] [address] [facility] [place] [address] [place] [address] [place] [address] Kalen Simpson PA-C 3 [facility] [address] [place] [address] 09/30/2024 10:15 AM CDT [facility] [address] [place] [address] Darryl Bunch MD Three [facility]. [address] [place] [address] Juliette Zavala PA [address] [facility], [address] [place] [address] documented as of this encounter Visit Diagnoses Not on filedocumented in this encounter Additional Health Concerns Assessment Noted Time PHQ-9 Depression Total Score: 0 09/19/19 21 7:53 AM CDT documented as of this encounter Care Teams Nylon Hot Wire Cutter Relationship Specialty Start [place] [address] [place] [address] PCP - General 07/29/22 documented as of this encounter
--- OUTSIDE RECORDS SUMMARY | 2024-04-17 17:21 | XMS_ITS | Encounter Summary ---
Author Organization [facility] Address [address] [place] [address]. [place], [place] [address] [place] [address] Care Team Providers Care Fitness Coordinator Name Role Phone Khadra Shore NP Primary Care Provider [phone] José Luis Canales MD Primary Care Provider [phone] Reason for Visit * Reason Onset Date Comments Medication 07/23/2022 Encounter Details Date Type Department Care Team (Late st Contact Info) Description 07/23/2022 Telephone [facility] Family & Internal Medicine [facility] [address] [place] [address] [place] [address] [facility], [address] [place] [address] Medication Social History Tobacco Use Types Packs/Day Years Used Date Smoking Tobacco: Never Smokeless Tobacco: Never Alcohol Use Standard Drinks/Week Comments Yes 0 (1 standard drink = 0.6 oz pur e alcohol) socially PHQ-2 Answer Date Recorded PHQ-2 Score - If the patient scores above 3, please move on to questions 3-9 0 03/10/2022 Education Answer Date Recorded What is the [...] as of this encounter Progress Notes * Gurpreet Cortez RN - 07/29/2022 11:21 AM CDT DANNIELLE, PCP was not changed at time of message. Khadra wanted to clarify medication list. * Gurpreet Cortez RN - 07/23/2022 4:20 PM CDT Attempted to call patient. No answer. LVM to return call to clinic. * Gurpreet Cortez RN - 07/23/2022 4:10 PM CDT ----- Message from Khadra Shore NP sent at 07/23/2022 9:52 AM CDT ----- Regarding: up date med list Please verify med list with patient. He is taking 2 meds that are duplicates. He is taking lisinopril and and lisinopril/HCTZ. He is also taking synjardy and that already has metformin in it. Thanks -ED documented in this encounter Plan of Treatment Upcoming Encounters Date Type Department Care Team (Late st Contact Info) Description 06/08/2024 1:40 PM CREATIVE ART DIRECTOR Office Visit [facility] Multispecialty Care - [address] [place] [address] [place] [address] [place] [address] Kalen Simpson PA-C [address] [facility] [address] [place] [address] 09/30/2024 10:15 AM CDT Office Visit [facility] [address] [place] [address] Darryl Bunch MD Three [facility]. [address] [place], [place] [id number] Juliette Zavala PA 3 [facility], [address] [place], [place] [phone] documented as of this encounter Visit Diagnoses Not on filedocumented in this encounter Additional Health Concerns Assessment Noted Time PHQ-9 Depression Total Score: 0 09/19/19 21 7:53 AM CDT documented as of this encounter Care Teams Fitness Coordinator Relationship Specialty [place] [address] [address], [facility] [address] [place] [address] PCP - General Nurse Practitioner Family 07/18/2207/12 [place] [address] [place] [address] PCP - General 07/29/22 documented as of this encounter
--- OUTSIDE RECORDS SUMMARY | 2024-04-17 17:21 | XMS_ITS | Encounter Summary ---
Author Organization [facility] Address [address] [place] [address]. [place] [address] [place] [address] Care Team Providers Care Mother Superior Name Role Phone José Luis Canales MD Primary Care Provider [phone] Encounter Details Date Type Department Care Team (Latest Contact Info) Description 08/26/2023 Travel Social History Tobacco Use Types Packs/Day [...] st Contact Info) Description 06/08/2024 1:40 PM MESH CUTTER Office Visit [facility] Multispecialty Care - [address], [address] [place] [address] [place] [address] [place] [address] Kalen Simpson PA-C 3 [facility] [address] [place] [address] 09/30/2024 10:15 AM CDT Office Visit [facility] [address] [place] [address] Darrly Bunch MD Three [facility]. [address] [place] [address] Juliette Zavala PA 3 [facility], [address] [place] [address] documented as of this encounter Visit Diagnoses Not on filedocumented in this encounter Additional Health Concerns Assessment Noted Time PHQ-9 Depression Total Score: 0 09/19/19 21 7:53 AM CDT documented as of this encounter Care Teams Mother Superior Relationship Specialty Start [place] [address] [place] [address] PCP - General 07/29/22 documented as of this encounter
--- OUTSIDE RECORDS SUMMARY | 2024-04-17 17:21 | XMS_ITS | Encounter Summary ---
Author Organization [facility] Address [address] [place] [address]. [place] [address] [place] [address] Care Team Providers Care Roof Cement And Paint Maker Name Role Phone José Luis Canales MD Primary Care Provider [phone] Encounter Details Date Type Department Care Team (Latest Contact Info) Description 01/26/2023 Travel Social History Tobacco Use Types Packs/Day [...] st Contact Info) Description 06/08/2024 1:40 PM POLICE MAGISTRATE Office Visit [facility] Multispecialty Care - [address], [address] [place] [phone] [place] [address] [place] [address] Kalen Simpson PA-C [address] [place] [address] [address] [place] [address] 09/30/2024 10:15 AM CDT [facility] [address] [place] [address] Darryl Bunch MD Three [facility]. [address] [place] [address] Juliette Zavala PA 3 [facility], [address] [place] [address] documented as of this encounter Visit Diagnoses Not on filedocumented in this encounter Additional Health Concerns Assessment Noted Time PHQ-9 Depression Total Score: 0 09/19/19 21 7:53 AM CDT documented as of this encounter Care Teams Roof Cement And Paint Maker Relationship Specialty Start [place] [address] [place] [address] PCP - General 07/29/22 documented as of this encounter
--- OUTSIDE RECORDS SUMMARY | 2024-04-17 17:21 | XMS_ITS | Encounter Summary ---
Author Organization [facility] Address [address] [place] [address]. [place], [place] [address] [place] [address] Care Team Providers Care Physician Executive Name Role Phone José Luis Canales MD Primary Care Provider [phone] Reason for Referral * Consultation (Routine) - Authorized Specialty Diagnoses / Procedures Referred By Contac t Referred To Contact CARDIOLOGY / Cardiology Diagnoses Essential hypertension Family history of sudden cardiac Family history of cardiovascular disease Procedures OFFICE/OUTPATIENT NEW LOW MDM 30-44 MINUTES OFFICE/OUTPT VISIT,NEW,LEVL IV OFFICE/OUTPT VISIT,NEW,LEVL V OFFICE/OUTPT VISIT,EST,LEVL III OFFICE/OUTPT VISIT,EST,LEVL IV OFFICE/OUTPT VISIT,EST,LEVL V José Luis [place]ales [place] [id number] [place] [address] Phone: tel: fax: George Meade MD [address] [place] [address] Phone: tel: fax: Referral ID Status Reason Start Date Expiration Date Visits Requested Visits Authorized [id number] Authorized Specialty Services 07/06/2023 06/11/2024 99 99 UIT MAKER Encounter Details Date Type Department Care Team (Late st Contact Info) Description 05/13/2023 Orders Only [facility] Family & Internal Medicine [address] [address] [place] [address] [place] [address] Social History Tobacco Use Types Packs/Day Years [...] st Contact Info) Description 06/08/2024 1:40 PM BISCUIT MAKER Office Visit [facility] Multispecialty Care - [facility] [address] [facility] [address] [place] [address] [place] [address] [place] [address] Kalen Simpson PA-C 3 [facility] [address] [place] [address] 09/30/2024 10:15 AM CDT Office Visit [facility] [address] [place] [address] Darryl Bunch MD Three [facility]. [address] [place] [address] Juliette Zavala PA 3 [facility], [address] [place] [address] Scheduled Referrals Name Type Priority Associated Diagnoses Orde r Schedule Ambulatory referral to Cardiology, Adult ([facility]) Referral Routine Essential hypertension Family history of sudden cardiac Family history of cardiovascular disease Ordered: 05/13/2023 documented as of this encounter Visit Diagnoses Diagnosis Essential hypertension- Primary Unspecified essential hypertension Family history of sudden cardiac Family history of sudden cardiac (SCD) Family history of cardiovascular disease Family history of other cardiovascular diseases documented in this encounter Additional Health Concerns Assessment Noted Time PHQ-9 Depression Total Score: 0 09/19/19 21 7:53 AM CDT documented as of this encounter Care Teams Physician Executive Relationship Specialty Start [place] [address] [place] [address] PCP - General 07/29/22 documented as of this encounter
--- OUTSIDE RECORDS SUMMARY | 2024-04-17 17:21 | XMS_ITS | Encounter Summary ---
Author Organization [facility] Address [address] [place] [address]. [place], [place] [address] [place] [address] Care Team Providers Care Oil Pit Attendant Name Role Phone José Luis Canales MD Primary Care Provider [phone]- [phone] Encounter Details Date Type Department Care Team (Late st Contact Info) Description 07/28/2023 8:00 AM CDT Laboratory Only [facility] [address] [place] [address] José Luis Canales MD [id number] [place] [address] Social History Tobacco Use Types Packs/Day [...] (Late Contact Info) Description 06/08/2024 1:40 PM DRIED YEAST SUPERVISOR Office Visit [facility]pec[facility]ty Care - [address] [place] [address] [place] [address] [place] [address] Kalen Simpson PAHarrisonC 3 [facility] [address] [place] [address] 09/30/2024 10:15 AM CDT Office Visit [facility] [address] [place] [address] Darryl Bunch MD Three [facility]. [address] [place] [address] Juliette Zavala PA 3 [facility], [address] [place] [address] documented as of this encounter Procedures Procedure Name Priority Date/Time Associated Diagnosis Comments COLLECTION VENOUS BLOOD VENIPUNCTURE Routine 07/28/2023 7:54 AM CDT Essential hypertension documented in this encounter Visit Diagnoses Diagnosis Essential hypertension- Primary Unspecified essential hypertension documented in this encounter Additional Health Concerns Assessment Noted Time PHQ-9 Depression Total Score: 0 09/19/19 7:53 AM CDT documented as of this encounter Care Teams Oil Pit Attendant Relationship Specialty Start [place] [address] [place] [address] PCP - General 07/29/22 documented as of this encounter
--- OUTSIDE RECORDS SUMMARY | 2024-04-17 17:21 | XMS_ITS | Encounter Summary ---
Author Organization [facility] Address [address] [place] [address]. [place], [place] [address] [place] [address] Care Team Providers Care Drop Machine Operator Name Role Phone José Luis Canales MD Primary Care Provider [phone] Reason for Visit * Reason Onset Date Comments Medication Request 07/15/2023 Encounter Details Date Type Department Care Team (Late st Contact Info) Description 07/15/2023 [facility]phone [facility] [address] [place] [place] [id number] Darryl Bunch MD [facility]. [facility] [address] [place], [place] [address] Medication Request Social History Tobacco Use Types Packs/Day Years [...] as of this encounter Progress Notes * ELIEL Benítez 07/15/2023 2:08 PM CDTAddended by: COLLINS PEREZ on: 07/15/2023 02:08 PM Modules accepted: Orders * ELIEL Benítez - 07/15/2023 2:06 PM CDT SENT SCRIPT TO PHARMACY.[facility] * Mary Black Food Preparation Supervisor - 07/15/2023 1:18 PM CDT Patient is having a coronary CTA on Thursday08/18/[address] Bunch. He will need 100 mg of Metoprolol Tartrate to take 1 hour prior to test. documented in this encounter Plan of Treatment Upcoming Encounters Date Type Department Care Team (Late st Contact Info) Description 06/08/2024 1:40 PM RECYCLABLE PRODUCTS SORTER Office Visit [facility] Multispecialty Care - [facility] 3 [facility] [address] [place] [address] [place] [address] [place] [address] Kalen Simpson PA-C 3 [facility] [address] [place] [address] 09/30/2024 10:15 AM CDT [facility] [address] [place] [address] Darryl Bunch MD Three [facility]. [address] [place] [address] Juliette Zavala PA 3 [facility], [address] [place] [address] documented as of this encounter Visit Diagnoses Not on filedocumented in this encounter Additional Health Concerns Assessment Noted Time PHQ-9 Depression Total Score: 0 09/19/19 21 7:53 AM CDT documented as of this encounter Care Teams Drop Machine Operator Relationship Specialty Start [place] [address] [place] [address] PCP - General 07/29/22 documented as of this encounter
--- OUTSIDE RECORDS SUMMARY | 2024-04-17 17:21 | XMS_ITS | Encounter Summary ---
Author Organization [facility] Address [address] [place] [address]. [place], [place] [address] [place] [address] Care Team Providers Care Coding Quality Coordinator Name Role Phone José Luis Canales MD Primary Care Provider [phone]- [phone] Encounter Details Date Type Department Care Team (Late st Contact Info) Description 05/13/2023 MyChart Message Enc [facility] Family [facility] Internal Medicine [facility] [address] [place] [address] José Luis [place]ales [place] [id number] [place] [address] Referral for Cardiac Screening Social History Tobacco Use Types Packs/Day Years [...] st Contact Info) Description 06/08/2024 1:40 PM INSPECTOR METAL CAN Office Visit [facility] Multispecialty Care - [address] [place] [address] [place] [address] [place] [address] Kalen Simpson, PA-C 3 [facility] [address] [place] [address] 09/30/2024 10:15 AM CDT Office Visit [facility] [address] [place] [address] Darryl Bunch MD Three [facility]. [address] [place] [address] Juliette Zavala PA 3 [facility], [address] [place] [address] documented as of this encounter Visit Diagnoses Not on filedocumented in this encounter Additional Health Concerns Assessment Noted Time PHQ-9 Depression Total Score: 0 09/19/19 7:53 AM CDT documented as of this encounter Care Teams Coding Quality Coordinator Relationship Specialty Start [place] [address] [place] [address] PCP - General 07/29/22 documented as of this encounter
--- OUTSIDE RECORDS SUMMARY | 2024-04-17 17:21 | XMS_ITS | Encounter Summary ---
Author Organization [facility] Address [address] [place] [address]. [place] [address] [place] [address] Care Team Providers Care Fishing Gear Mechanic Name Role Phone José Luis Canales MD Primary Care Provider [phone]- [phone] Encounter Details Date Type Department Care Team (Latest Contact Info) Description 03/12/2023 Travel Social History Tobacco Use Types Packs/Day [...] st Contact Info) Description 06/08/2024 1:40 PM INTEGRATED MARKETING INTERN Office Visit [facility] Medical Group Multispecialty Care - [address], [address] [place] [address] [place] [address] [place] [address] Kalen Simpson PA-C [address] [place] [address] [address] [place] [address] 09/30/2024 10:15 AM CDT [facility] [address] [place] [address] Darryl Bunch MD Three [facility]. [address] [place] [address] Juliette Zavala PA 3 [facility], [address] [place] [address] documented as of this encounter Visit Diagnoses Not on filedocumented in this encounter Additional Health Concerns Assessment Noted Time PHQ-9 Depression Total Score: 0 09/19/19 21 7:53 AM CDT documented as of this encounter Care Teams Fishing Gear Mechanic Relationship Specialty Start [place] [address] [place] [address] PCP - General 07/29/22 documented as of this encounter
--- OUTSIDE RECORDS SUMMARY | 2024-04-17 17:21 | XMS_ITS | Encounter Summary ---
Author Organization [facility] Address [address] [place] [address]. [place], [place] [address] [place] [address] Care Team Providers Care Lead Generation Representative Name Role Phone José Luis Canales MD Primary Care Provider [phone]- [phone] Encounter Details Date Type Department Care Team (Latest Contact Info) Description 01/19/2023 [employer] Inchart Message Enc [facility] [address] [place] [address] José Luis Canales [place] [id number] [place] [address] Prescription renewal for Lisinopril 20MG Social History Tobacco Use Types Packs/Day Years [...] st Contact Info) Description 06/08/2024 1:40 PM BOWSTRING MAKER Office Visit [facility] Multispecialty [address] [place] [address] [place] [address] [place] [address] Kalen Simpson, PA-C 3 [facility] [address] [place] [address] 09/30/2024 10:15 AM CDT Office Visit [facility] [address] [place] [address] Darryl Bunch MD Three [facility]. [address] [place] [address] Juliette Zavala PA 3 [facility], [address] [place] [address] documented as of this encounter Visit Diagnoses Diagnosis Essential hypertension Unspecified essential hypertension documented in this encounter Additional Health Concerns Assessment Noted Time PHQ-9 Depression Total Score: 0 09/19/19 7:53 AM CDT documented as of this encounter Care Teams Lead Generation Representative Relationship Specialty Start [place] [address] [place] [address] PCP - General 07/29/22 documented as of this encounter
--- OUTSIDE RECORDS SUMMARY | 2024-04-17 17:21 | XMS_ITS | Encounter Summary ---
Author Organization [facility] Address [address] [place] [address]. [place], [place] [address] [place] [address] Care Team Providers Care Cutter Machine Name Role Phone José Luis Canales MD Primary Care Provider [phone]- [phone] Encounter Details Date Type Department Care Team (Latest Contact Info) Description 04/30/2023 6:15 AM RESEARCH STATISTICIAN - 04/30/2023 11:59 PM [facility] Hospital Encounter [facility] Laboratory [address] [place] [address] [place] [address] [facility] [address] [place] [address] Discharge Disposition: Home or Self Care (Routine [...] complication, without long-term current use of insulin ([facility]) TAKE 1 TABLET BY MOUTH DAILY 90 tablet 1 03/20/2023 09/10/2023 Glucose Blood test strip as needed. 08/03/2013 07/10/2023 lisinopril (PRINIVIL) 20 MG tabletIndications: Essential hypertension Take 1 tablet (20 mg total) by mouth daily. 90 tablet 1 01/19/2023 07/14/2023 lisinopril-hydroCH LOROthiazide (ZESTORETIC) 20-12.5 MG tabletIndications: Essential hypertension Take 1 tablet by mouth daily. 90 tablet 1 01/19/2023 01/15/2024 metFORMIN ER (GLUCOPHAGE-XR) 500 MG 24 hr tabletIndications: Type 2 diabetes mellitus without complication, without long-term current use of insulin ([facility]) TAKE 2 TABLETS(1000 MG) BY MOUTH DAILY 180 tablet 1 01/26/2023 02/09/2024 tadalafil (CIALIS) 5 MG tabletIndications: Erectile dysfunction, unspecified erectile dysfunction type Take 1 tablet (5 mg total) by mouth daily. 90 tablet 1 01/26/2023 07/28/2023 documented as of this encounter Plan of Treatment Upcoming Encounters Date Type Department Care Team (Late st Contact Info) Description 06/08/2024 1:40 PM RESEARCH STATISTICIAN Office Visit [facility] Medical Group Multispecialty Care - [address], [address] [place] [phone] [place] [address] [place] [address] Kalen Simpson PA-C 3 [facility] [address] [place] [address] 09/30/2024 10:15 AM CDT [facility] [facility] [address] [place] [address] Darryl Bunch MD Three [facility]. [address] [place], [place] [address] Juliette Zavala PA 3 [facility], [address] [place], [place] [address] documented as of this encounter Procedures Procedure Name Priority Date/Time Associated Diagnosis Comments PATHOLOGY Routine 04/30/2023 12:00 AM RESEARCH STATISTICIAN Scrotal cyst documented in this encounter Results * PATHOLOGY (04/30/2023 12:00 AM RESEARCH STATISTICIAN) PATHOLOGY [facility] ? Department of Laboratory Medicine ?[address] [facility] ?[place] [address] ? , [facility] [id number] ? Pathology Report ? Surgical Pathology Report Name: CHIRAG GARCIA ? Specimen #: [id number] Age: 12 1975 (Age: 48) ? Location: [facility] Sex: M ?Procedure Date: 04/30/2023 Hospital #: [id number] ?Date Received: 05/01/2023 Date Reported: 05/04/2023 Provider: [...] interpretation, and sign out were performed at [facility], [address] [place] [address]. FINAL DIAGNOSIS: SCROTUM, CYST, EXCISION: ? - EPIDERMAL INCLUSION CYST WITH ADJACENT KERATOTIC AND CALCIFIC DEBRIS, FOREIGN ? BODY GIANT CELL REACTION, AND FIBROSIS, CONSISTENT WITH PRIOR RUPTURE. Electronically Signed Out ? Gloria Vasquez M.D. [facility] 04/30/2023 05/01/2023 1:4 9 PM RESEARCH STATISTICIAN Comment:Soft tissue, scrotum Herman Martinez MD PATHOLOGY/CYTOLOGY ORDERABLES Fi nal Result [facility] [address] [place] [address], [id number] documented in this encounter Visit Diagnoses Diagnosis Scrotal cyst Sebaceous cyst documented in this encounter Additional Health Concerns Assessment Noted Time PHQ-9 Depression Total Score: 0 09/19/19 21 7:53 AM CDT documented as of this encounter Care Teams Cutter Machine Relationship Specialty Start [place] [address] [place] [address] PCP - General 07/29/22 documented as of this encounter
--- OUTSIDE RECORDS SUMMARY | 2024-04-17 17:21 | XMS_ITS | Encounter Summary ---
Author Organization [facility] Address [address] [place] [address]. [place], [place] [address] [place] [address] Care Team Providers Care Computer Analyst Supervisor Name Role Phone José Luis Canales MD Primary Care Provider [phone] Encounter Details Date Type Department Care Team (Latest Contact Info) Description 08/01/2022 Travel Social History Tobacco Use Types Packs/Day [...] Recorded In the last 10 days, have yo u been in contact with someone who was confirmed or suspected to have Coronavirus/COVID-19? No / Unsure 08/01/2022 7:10 AM CDT documented as of this encounter Plan of Treatment Upcoming Encounters Date Type Department Care Team (Late st Contact Info) Description 06/08/2024 1:40 PM ENAMEL BURNER Office Visit [facility] Medical Group Multispecialty Care - [address] [place] [address] [place] [address] [place] [address] Kalen Simpson PA-C 3 [facility] [address] [place] [address] 09/30/2024 10:15 AM CDT Office Visit [place] [facility] [address] [place] [address] Darryl Bunch MD Three [facility]. [address] [place] [address] Juliette Zavala PA 3 [facility], [address] [place] [address] documented as of this encounter Visit Diagnoses Not on filedocumented in this encounter Additional Health Concerns Assessment Noted Time PHQ-9 Depression Total Score: 0 09/19/19 21 7:53 AM CDT documented as of this encounter Care Teams Computer Analyst Supervisor Relationship Specialty Start [place] [address] [place] [address] PCP - General 07/29/22 documented as of this encounter
--- OUTSIDE RECORDS SUMMARY | 2024-04-17 17:21 | XMS_ITS | Encounter Summary ---
Author Organization [facility] Address [address] [place] [address]. [place] [address] [place] [address] Care Team Providers Care Oxyhydrogen Welder Name Role Phone José Luis Canales MD Primary Care Provider [phone] Encounter Details Date Type Department Care Team (Latest Contact Info) Description 05/07/2023 Travel Social History Tobacco Use Types Packs/Day [...] st Contact Info) Description 06/08/2024 1:40 PM SPACE SYSTEMS OPERATIONS SUPERINTENDENT Office Visit [facility] Medical Group Multispecialty Care - [address], [address] [place] [address] [place] [address] [place] [address] Kalen Simpson PA-C 3 [facility] [address] [place] [address] 09/30/2024 10:15 AM CDT Office Visit [place] [facility] [address] [place] [address] Darryl Bunch MD Three [facility]. [address] [place] [address] Juliette Zavala PA 3 [facility], [address] [place] [address] documented as of this encounter Visit Diagnoses Not on filedocumented in this encounter Additional Health Concerns Assessment Noted Time PHQ-9 Depression Total Score: 0 09/19/19 21 7:53 AM CDT documented as of this encounter Care Teams Oxyhydrogen Welder Relationship Specialty Start [place] [address] [place] [address] PCP - General 07/29/22 documented as of this encounter
--- OUTSIDE RECORDS SUMMARY | 2024-04-17 17:21 | XMS_ITS | Encounter Summary ---
Author Organization [facility] Address [address] [place] [address]. [place], [place] [address] [place] [address] Care Team Providers Care Stretching Press Operator Name Role Phone Renaldo Canales MD Primary Care Provider [phone] Reason for Visit * Reason Comments Cyst Scrotal cyst * Surgical (Routine) - Closed Specialty Diagnoses / Procedures Referred By Contac t Referred To Contact SURGERY Diagnoses Epidermoid cyst Procedures OFFICE/OUTPATIENT NEW LOW MDM 30-44 MINUTES OFFICE/OUTPT VISIT,NEW,LEVL IV OFFICE/OUTPT VISIT,NEW,LEVL V OFFICE/OUTPT VISIT,EST,LEVL III OFFICE/OUTPT VISIT,EST,LEVL IV OFFICE/OUTPT VISIT,EST,[place] [address] [place] [id number] Phone: tel: fax: [place] [address] [facility] [address] [place] [address] Phone: tel: fax: Referral ID Status Reason Start Date Expiration Date Visits Re quested Visits Authorized [id number] Closed 01/26/2023 02/26/2024 99 99 Encounter Details Date Type Department Care Team (Late st Contact Info) Description 05/07/2023 4:00 PM SPOT CLEANER Office Visit [facility] Medical [facility] General Surgery [facility] [address] [facility], [address] [place] [address] [place] [address] [facility] [address] [place] [address] Cyst (Scrotal cyst) Social History Tobacco Use Types Packs/Day [...] Sign Reading Time Taken Comments Blood Pressure 136/88 05/07/2023 4:27 PM SPOT CLEANER Pulse 84 05/07/2023 4:27 PM SPOT CLEANER Temperature 36.2 ??C (97.2 ??F) 05/07/2023 4:27 PM CS T Respiratory Rate 17 05/07/2023 4:27 PM SPOT CLEANER Oxygen Saturation 98% 05/07/2023 4:27 PM SPOT CLEANER Inhaled Oxygen Concentration - - Weight 133.4 kg (294 lb) 05/07/2023 4:27 PM SPOT CLEANER Height 193 cm (6' 4 ) 05/07/2023 4:27 PM SPOT CLEANER Body Mass Index 35.79 05/07/2023 4:27 PM SPOT CLEANER documented in this encounter Progress Notes * Herman Martinez MD - 05/07/2023 4:00 PM CST Reason for Visit: Cyst (Scrotal cyst) History of Present Illness: 1 week s/p excision scrotal cyst , doing well , no complaints Path showed ruptured epidermal inclusion cyst ROS: Review of Systems All other systems [...] vaccine administered 2020 Diabetes ([facility]) ([facility]) Hypertension Influenza vaccine administered 2019 Past Surgical History: Procedure Laterality Date COLONOSCOPY 2014 Dr. Maynor benitez NONE Social History Socioeconomic History Marital status: Spouse name: Danielle Number of children: 2 Highest education level: Bachelor's degree (e.g., BA, AB, BS) Tobacco Use Smoking status: Never Smokeless tobacco: Never Tobacco comments: na Vaping Use Vaping Use: Never used Substance [...] Alive Father Alive Physical Exam Genitourinary: Comments: Incision healing well Filed Vitals: 05/07/23 1627 BP: 136/88 Pulse: 84 Resp: 17 Temp: 97.2 ??F (36.2 ??C) TempSrc: Core SpO2: 98% Weight: 133.4 kg (294 lb) Height: 1.93 m (6' 4 ) Diagnoses/Impression: 1. Scrotal cyst Recommendations and Plan: Doing well Path reviewed with patient showed ruptured epidermal inclusion cyst\ F/u on prn basis Reviewed and updated this visit by provider: Barbara MARTINEZ Referring Provider: No ref. provider found PCP: RENALDO CANALES MD CLEANER documented in this encounter Plan of Treatment Upcoming Encounters Date Type Department Care Team (Late st Contact Info) Description 06/08/2024 1:40 PM SPOT CLEANER Office Visit [facility] Medical Group Multispecialty Care - [facility] 3 [facility] [address] [place] [address] [place] [address] [place] [address] Kalen Simpson PA-C 3 [facility] [address] [place] [address] 09/30/2024 10:15 AM CDT Office Visit [facility] [address] [place] [address] Darryl Bunch MD Three [facility]. [address] [place] [address] Juliette Zavala PA 3 [facility], [address] [place] [address] documented as of this encounter Visit Diagnoses Diagnosis Scrotal cyst- Primary Sebaceous cyst documented in this encounter Additional Health Concerns Assessment Noted Time PHQ-9 Depression Total Score: 0 09/19/19 21 7:53 AM CDT documented as of this encounter Care Teams Stretching Press Operator Relationship Specialty Start [place] [address] [place] [address] PCP - General 07/29/22 documented as of this encounter
--- OUTSIDE RECORDS SUMMARY | 2024-04-17 17:21 | XMS_ITS | Encounter Summary ---
Author Organization [facility] Address [address] [place] [address]. [place], [place] [address] [place] [address] Care Team Providers Care Cesspool Cleaner Name Role Phone José Luis Canales MD Primary Care Provider [phone] Encounter Details Date Type Department Care Team (Late st Contact Info) Description 08/26/2023 7:30 AM CDT - 08/26/2023 11:59 PM CDT Hospital Encounter [facility] [address] [place] [address] Darryl Bunch MD [address] [id number] Discharge Disposition: Home or Self Care (Routine [...] complication, without long-term current use of insulin ([facility]) TAKE 1 TABLET BY MOUTH DAILY 90 [...] complication, without long-term current use of insulin ([facility]) TAKE 2 TABLETS(1000 MG) BY MOUTH DAILY [...] st Contact Info) Description 06/08/2024 1:40 PM GROCERY STORE COURTESY CLERK Office Visit [facility] Medical Group Multispecialty Care - [address] [place] [address] [place] [address] [place] [address] Kalen Simpson PA-C 3 [facility] [address] [place] [address] 09/30/2024 10:15 AM CDT Office Visit [place] [facility] [address] [place] [address] Darryl Bunch MD Three [facility]. [address] [place], [place] [id number] Juliette Zavala PA 3 [facility], [address] [place], [place] [id number] documented as of this encounter Procedures Procedure Name Priority Date/Time Associated Diagnosis Comments UREA NITROGEN, BLOOD (BUN) QUANT Routine 08/26/2023 7:58 AM CDT Chest pain, unspecified CREATININE Routine 08/26/2023 7:58 AM CDT Chest pain, unspecified documented in this encounter Results * CREATININE (08/26/2023 7:58 AM CDT) CREATININE S/P/B 0.79 0.7 - 1.3 MG/DL 08/26/2023 9:53 AM CDT [facility] GFR ESTIMATE >90 >90 ML/MIN/1.7 3 M2 08/26/2023 9:53 AM CDT [facility] Comment: NOTE: eGFR is not calculated for patients <18 years of age. This is an estimated GFR calculation using the new CKD EPI creatinine equation without race and so does not require a correction factor for race. This estimated GFR should not be used for calculating drug doses. 08/26/2023 7:58 AM CDT us Darryl Bunch MD LABORATORY Final Resul t [facility] [address] [place] [address], [place] [phone] * UREA NITROGEN, BLOOD (BUN) QUANT (08/26/2023 7:58 AM CDT) BUN 13 7 - 18 MG/DL 08/26/2023 9:53 AM CDT [facility] 08/26/2023 7:58 AM CDT us Darryl Bunch MD LABORATORY Final Resul t [facility] [address] [place] [address], documented in this encounter Visit Diagnoses Diagnosis Chest pain, unspecified documented in this encounter Additional Health Concerns Assessment Noted Time PHQ-9 Depression Total Score: 0 09/19/19 21 7:53 AM CDT documented as of this encounter Care Teams Cesspool Cleaner Relationship Specialty Start [place] [address] [place] [address] PCP - General 07/29/22 documented as of this encounter
--- OUTSIDE RECORDS SUMMARY | 2024-04-17 17:21 | XMS_ITS | Encounter Summary ---
Author Organization [facility] Address [address] [place] [address]. [place] [address] [place] [address] Care Team Providers Care 3D Designer Name Role Phone José Luis Canales MD Primary Care Provider [phone] Encounter Details Date Type Department Care Team (Latest Contact Info) Description 08/18/2023 Travel Social History Tobacco Use Types Packs/Day [...] st Contact Info) Description 06/08/2024 1:40 PM HEART DOCTOR Office Visit [facility] Medical Group Multispecialty Care - [address], [address] [place] [address] [place] [address] [place] [address] Kalen Simpson PA-C 3 [facility] [address] [place] [address] 09/30/2024 10:15 AM CDT Office Visit [facility] [address] [place] [address] Darryl Bunch MD Three [facility]. [address] [place] [address] Juliette Zavala PA 3 [facility], [address] [place] [address] documented as of this encounter Visit Diagnoses Not on filedocumented in this encounter Additional Health Concerns Assessment Noted Time PHQ-9 Depression Total Score: 0 09/19/19 21 7:53 AM CDT documented as of this encounter Care Teams 3D Designer Relationship Specialty Start [place] [address] [place] [address] PCP - General 07/29/22 documented as of this encounter
--- OUTSIDE RECORDS SUMMARY | 2024-04-17 17:21 | XMS_ITS | Encounter Summary ---
Author Organization [facility] Address [address] [place] [address]. [place], [place] [address] [place] [address] Care Team Providers Care Painter Hand Name Role Phone José Luis Canales MD Primary Care Provider [phone] Encounter Details Date Type Department Care Team (Late st Contact Info) Description 08/21/2023 MyChart Message Enc [facility] Family & Internal Medicine [facility] [address] [place] [address] José Luis [place]ales [place] [id number] [place] [address] Required blood work Social History Tobacco Use Types Packs/Day Years [...] (Late Contact Info) Description 06/08/2024 1:40 PM CLERICAL WAREHOUSE WORKER Office Visit [facility] Multispecialty Care - [address] [place] [address] [place] [address] [place] [address] Kalen Simpson, PA-C 3 [facility] [address] [place] [address] 09/30/2024 10:15 AM CDT Office Visit [place] [place] [facility] [address] [place] [address] Darryl Bunch MD Three [facility]. [address] [place] [address] Juliette Zavala PA 3 [facility], [address] [place] [address] documented as of this encounter Visit Diagnoses Not on filedocumented in this encounter Additional Health Concerns Assessment Noted Time PHQ-9 Depression Total Score: 0 09/19/19 21 7:53 AM CDT documented as of this encounter Care Teams Painter Hand Relationship Specialty Start [place] [address] [place] [address] PCP - General 07/29/22 documented as of this encounter
--- OUTSIDE RECORDS SUMMARY | 2024-04-17 17:21 | XMS_ITS | Encounter Summary ---
Author Organization [facility] Address [address] [place] [address]. [place], [place] [address] [place] [address] Care Team Providers Care Battery Tester Field Name Role Phone José Luis Canales MD Primary Care Provider [phone]- [phone] Encounter Details Date Type Department Care Team (Late st Contact Info) Description 09/23/2022 Medication Management [facility] Family & Internal Medicine [facility] [address] [place] [address] José Luis [place]ales [place] [id number] [place] [address] Social History Tobacco Use Types Packs/Day [...] (Late Contact Info) Description 06/08/2024 1:40 PM PRIVATE WATCHMAN Office Visit [facility] Multispecialty Care - [address], [address] [place] [address] Joés [place] [address] [place] [address] Kalen Simpson PA-C 3 [facility] [address] [place] [address] 09/30/2024 10:15 AM CDT Office Visit [facility] [address] [place] [address] Darryl Bunch MD Three [facility]. [address] [place] [address] Juliette Zavala PA 3 [facility], [address] [place] [address] documented as of this encounter Visit Diagnoses Diagnosis Type 2 diabetes mellitus without complication, without long-term current use of insulin ([facility]) documented in this encounter Additional Health Concerns Assessment Noted Time PHQ-9 Depression Total Score: 0 09/19/19 21 7:53 AM CDT documented as of this encounter Care Teams Battery Tester Field Relationship Specialty Start [place] [address] [place] [address] PCP - General 07/29/22 documented as of this encounter
--- OUTSIDE RECORDS SUMMARY | 2024-04-17 17:21 | XMS_ITS | Encounter Summary ---
Author Organization [facility] Address [address] [place] [address]. [place], [place] [address] [place] [address] Care Team Providers Care Wire Straightener Name Role Phone José Luis Canales MD Primary Care Provider [phone] Reason for Referral * Imaging (Routine) - Closed Specialty Diagnoses / Procedures Referred By Contac t Referred To Contact RADIOLOGY Diagnoses Chest pain Procedures CTA CORONARY W SCORING Darryl Carrera MD [facility]. [facility] [address] [place] [address] Phone: tel: fax: Referral ID Status Reason Start Date Expiration Date Visits Re quested Visits Authorized [id number] Closed 07/10/2023 08/09/2024 1 1 Encounter Details Date Type Department Care Team (Late st Contact Info) Description 07/10/2023 Orders Only [facility], [address] [place], [place] [address] Darryl Carrera MD [facility]. [facility] [address] [place], [place] [address] Social History Tobacco Use Types Packs/Day Years [...] st Contact Info) Description 06/08/2024 1:40 PM FISH AND WILDLIFE SCIENTIFIC AID Office Visit [facility] Medical Group Multispecialty Care - [facility] 3 [facility]., [address] [place] [address] [place] [address] [place] [address] Kalen Simpson PA-C 3 [facility] [address] [place] [address] 09/30/2024 10:15 AM CDT Office Visit [facility] [address] [place] [address] Darryl Carrera MD Three [facility]. [address] [place], [place] [address] Juliette Zavala PA 3 [facility], [address] [place], [place] [address] documented as of this encounter Results * CTA CORONARY W SCORING (08/18/2023 1:19 PM CDT) Anatomical Region Laterality Modality Chest Computed Tomogra phy, Radiographic Imaging 08/19/2023 10:2 3 AM CDT Addenda Addendum by Darryl Carrera MD on 08/24/2023 4:41 PM CDT Table formatting from the original result was not included. CT ANGIOGRAM (Cardiology Portion) Patient Name: ??Jeancarlos Garcia : ??1975 Date of Study: ??08-18-2023 Interpreting Rod Puller And Coiler: ??DARRYL CARRERA M.D. Indication: ??Hypertension, family history [...] ??Reassurance. ??Consider non-atherosclerotic causes of symptoms. Interpreting Rod Puller And Coiler: ??DARRYL CARRERA M.D. 08/23/23 Narrative 08/19/2023 10:26 [...] ANGIOGRAM AND OTHER CARDIAC FINDINGS: Interpreted by digital account manager. EXTRACARDIAC FINDINGS: The visible lungs contain no suspicious lung nodule, mass, consolidation. The visualized thoracic aorta is normal. Main pulmonary artery, 3.3 cm. Spondylosis. IMPRESSION: 1. Cardiac findings interpreted by digital account manager. 2. Pulmonary hypertension. Ordered By: DARRYL CARRERA Interpreted By: Ryley He MD, 08/19/2023 10:[address] Edited Resu lt - Final documented in this encounter Visit Diagnoses Diagnosis Chest pain- Primary Chest pain, unspecified Chest pain Chest pain, unspecified documented in this encounter Additional Health Concerns Assessment Noted Time PHQ-9 Depression Total Score: 0 09/19/19 21 7:53 AM CDT documented as of this encounter Care Teams Wire Straightener Relationship Specialty Start [place] [address] [place] [address] PCP - General 07/29/22 documented as of this encounter
--- OUTSIDE RECORDS SUMMARY | 2024-04-17 17:21 | XMS_ITS | Encounter Summary ---
Author Organization [facility] Address [address] [place] [address]. [place], [place] [address] [place] [address] Care Team Providers Care Tablet Making Machine Operator Name Role Phone José Luis Canales MD Primary Care Provider [phone] Encounter Details Date Type Department Care Team (Late st Contact Info) Description 07/15/2023 Orders Only [facility], [facility] [address] [place], [place] [address] Darryl Bunch MD [facility]. [facility] [address] [place], [place] [phone] Social History Tobacco Use Types Packs/Day Years [...] (Late Contact Info) Description 06/08/2024 1:40 PM PAINT PREP TECHNICIAN Office Visit [facility] Medical Group Multispecialty Care - [address] [place] [address] [place] [address] [place] [address] Kalen Simpson, PA-C 3 [facility] [address] [place] [address] 09/30/2024 10:15 AM CDT Office Visit [place] [facility] [address] [place] [address] Darryl Bunch MD Three [facility]. [address] [place] [address] Juliette Zavala PA 3 [facility], [address] [place] [address] Scheduled Orders Name Type Priority Associated Diagnoses Orde r Schedule BUN Lab Routine Chest pain Essential hypertension Expected: 07/15/2023 (Approximate), Expires: 07/14/2024 CREATININE Lab Routine Chest pain Essential hypertension Expected: 07/15/2023 (Approximate), Expires: 07/14/2024 documented as of this encounter Visit Diagnoses Diagnosis Chest pain- Primary Chest pain, unspecified Essential hypertension Unspecified essential hypertension documented in this encounter Additional Health Concerns Assessment Noted Time PHQ-9 Depression Total Score: 0 09/19/19 21 7:53 AM CDT documented as of this encounter Care Teams Tablet Making Machine Operator Relationship Specialty Start [place] [address] [place] [address] PCP - General 07/29/22 documented as of this encounter
--- OUTSIDE RECORDS SUMMARY | 2024-04-17 17:21 | XMS_ITS | Encounter Summary ---
Author Organization [facility] Address [address] [place] [address]. [place], [place] [address] [place] [address] Care Team Providers Care Online Content Editor Name Role Phone José Luis Canales MD Primary Care Provider [phone] Reason for Visit * Reason Onset Date Comments Schedule Test 07/15/2023 Encounter Details Date Type Department Care Team (Late st Contact Info) Description 07/15/2023 Telephone [facility], [facility] [address] [place] [address] Darryl Bunch MD [facility]. [facility] [address] [place], [place] [address] Schedule Test Social History Tobacco Use Types Packs/Day Years [...] as of this encounter Progress Notes * Mary Black, Nurse Anesthesia Program Director - 07/15/2023 12:40 PM CDT Left 2 messages for patient to call regarding his coronary CTA order by Dr. Bunch on 07/10/23 documented in this encounter Plan of Treatment Upcoming Encounters Date Type Department Care Team (Late st Contact Info) Description 06/08/2024 1:40 PM MANAGER OF EMPLOYEE RELATIONS Office Visit [facility] Medical Group Multispecialty Care - [facility] 3 [facility] [address] [place] [address] [place] [address] [place] [address] Kalen Simpson PA-C 3 [facility] [address] [place] [address] 09/30/2024 10:15 AM CDT Office Visit [place] [facility] [address] [place] [address] Darryl Bunch MD Three [facility]. [address] [place], [place] [address] Juliette Zavala PA 3 [facility], [address] [place] [address] documented as of this encounter Visit Diagnoses Not on filedocumented in this encounter Additional Health Concerns Assessment Noted Time PHQ-9 Depression Total Score: 0 09/19/19 21 7:53 AM CDT documented as of this encounter Care Teams Online Content Editor Relationship Specialty Start [place] [address] [place] [address] PCP - General 07/29/22 documented as of this encounter
--- OUTSIDE RECORDS SUMMARY | 2024-04-17 17:22 | XMS_ITS | Encounter Summary ---
Author Organization [facility] Address [address] [place] [address]. [place], [place] [address] [place] [address] Care Team Providers Care Hose Mender Name Role Phone Jordan Moctezuma MD Primary Care Provider U triciaailclara Reason for Visit * Reason Comments Lab (SCAN) Encounter Details Date Type Department Care Team (Latest Contact Info) Description 03/03/2022 Scan HEALTH INFO SRVCS Scanned, Doc Med [facility] Lab (SCAN) Social History Tobacco Use Types Packs/Day Years [...] suspected to have Coronavirus/COVID-19? No / Unsure 03/10/2022 7:49 AM FABRIC COATING SUPERVISOR documented as of this encounter Plan of Treatment Upcoming Encounters Date Type Department Care Team (Late st Contact Info) Description 06/08/2024 1:40 PM FABRIC COATING SUPERVISOR Office Visit [facility] Medical Group Multispecialty Care - [address] [place] [address] [place] [address] [place] [address] Kalen Simpson, PA-C 3 [facility] [address] [place] [address] 09/30/2024 10:15 AM CDT Office Visit [place] [facility] [address] [place] [address] Darryl Bunch MD Three [facility]. [address] [place], [place] [address] Juliette Zavala PA 3 [facility], [address] [place] [address] documented as of this encounter Procedures Procedure Name Priority Date/Time Associated Diagnosis Comments OUTSIDE LAB (SCAN ORDER) Routine 03/03/2022 documented in this encounter Results * OUTSIDE LAB (SCAN) (03/03/2022) HGB A1C 7.1 % HSHS ONBASE 03/03/2022 us Doc Med Group Scanned SCANNING Final Resu lt HS ONBASE documented in this encounter Visit Diagnoses Not on filedocumented in this encounter Additional Health Concerns Assessment Noted Time PHQ-9 Depression Total Score: 0 09/19/19 7:53 AM CDT documented as of this encounter Care Teams Hose Mender Relationship Specialty Start Date End Date Jordan Moctezuma MD PCP - General INTERNAL MEDICINE 08/02/18 07/17/22 documented as of this encounter
--- OUTSIDE RECORDS SUMMARY | 2024-04-17 17:22 | XMS_ITS | Encounter Summary ---
Author Organization [facility] Address [address] [place] [address]. [place], [place] [id number] [place] [address] Care Team Providers Care Supervisor Boiler Repair Name Role Phone Jordan Tuttle MD Primary Care Provider Gustavo simmons Reason for Visit * Reason Comments Hypertension Encounter Details Date Type Department Care Team (Late st Contact Info) Description 08/02/2018 8:00 AM CDT Office Visit [facility] Group Family & Internal Medicine [address] [address] Jordan Tuttle MD Hypertension Social History Tobacco Use Types Packs/Day Years Used Date Smoking Tobacco: Never Smokeless Tobacco: Never Alcohol Use Standard Drinks/Week Comments Yes 0 (1 standard drink = 0.6 oz pur e alcohol) socially Education Answer Date Recorded What is the [...] Sign Reading Time Taken Comments Blood Pressure 132/90 08/02/2018 8:06 AM CDT Pulse 78 08/02/2018 8:06 AM CDT Temperature 36.3 ??C (97.3 ??F) 08/02/2018 8:06 AM CD T Respiratory Rate 16 08/02/2018 8:06 AM CDT Oxygen Saturation 99% 08/02/2018 8:06 AM CDT Inhaled Oxygen Concentration - - Weight 140.1 kg (308 lb 12.8 oz) 08/02/2018 8:06 AM CDT Height 190.5 cm (6' 3 ) 08/02/2018 8:06 AM CDT Body Mass Index 38.6 08/02/2018 8:06 AM CDT documented in this encounter Progress Notes * Jordan Tuttle MD - 08/02/2018 8:00 AM CDT Reason for Visit: Hypertension Filed Vitals: 08/02/18 08 BP: 132/90 Pulse: 78 Resp: 16 Temp: 97.3 ??F (36.3 ??C) SpO2: 99% Weight: (!) 140.1 kg (308 lb 12.8 oz) Height: 6' 3 (1.905 m) Body mass index is 38.6 kg/m??. History of Present Illness: HPI good morning this is office visit in Mr. Arshad he is a pleasant 43-year-old gentleman with a history of sleep apnea hypertension diabetes type 2 he has been doing very well with his diet in this is recovering from the winter he said but now that the weather is nice he is going to start going out and doing more activities his A1c today is 8.1 which is not as good as last time. I told him that I will see him back in 3 months I want him to work harder with diet and exercise. If this time theA1c is not below 7 I am going to add some other medications to his regimen could be pioglitazone could be Jardiance or similar or it could be even Janumet there is a different options at this time he refers no problems no shortness of breath or chest pains no dizzy spells he refers having a little bit of queasiness sometimes when he does not eat anything with the metformin so I recommended to change the Metformin with some type of food so he has been attending lunch and dinner. ROS: Review of Systems Constitutional: Negative. HENT: Negative. Eyes: Negative. Respiratory: Negative. Cardiovascular: Negative. Gastrointestinal: Negative. Genitourinary: Negative. Musculoskeletal: Negative. Skin: Negative. Neurological: Negative. Psychiatric/Behavioral: Negative. Medications: Current Outpatient Medications: ??? Glucose Blood (ACCU-CHEK LUCRECIA) test strip, daily., Disp: , Rfl: ??? lisinopril 20 MG tablet, Take 1 tablet (20 mg total) by mouth daily., Disp: 90 tablet, Rfl: 0 ??? lisinopril-hydrochlorothiazide 20-12.5 MG tablet, Take 1 tablet by mouth daily., Disp: 90 tablet, Rfl: 0 ??? metFORMIN ER 500 MG 24 hr tablet, Take 2 tablets (1,000 mg total) by mouth 2 (two) times daily., Disp: 360 tablet, Rfl: 0 No Known Allergies No past medical history on file. Past Surgical History: Procedure Laterality Date ??? COLONOSCOPY 2014 Dr. Mcguire normal ??? NONE Social History Socioeconomic History ??? Marital status: Spouse name: Danielle ??? Number of children: 2 ??? Years of education: Not on file ??? Highest education level: Bachelor's degree (e.g., BA, AB, BS) Occupational History ??? Not on file Social Needs ??? Financial resource strain: Not on file ??? Food insecurity: Worry: Not on file Inability: Not on file ??? Transportation needs: Medical: Not on file Non-medical: Not on file Tobacco Use ??? Smoking status: Never Smoker ??? Smokeless tobacco: Never Used Substance and Sexual Activity ??? Alcohol use: Yes Comment: socially ??? Drug use: No ??? Sexual activity: Yes Partners: Female Lifestyle ??? Physical activity: Days per week: Not on file Minutes per session: Not on file ??? Stress: Not on file Relationships ??? Social connections: Talks on phone: Not on file Gets together: Not on file Attends jewish service: Not on file Active member of club or organization: Not on file Attends meetings of clubs or organizations: Not on file Relationship status: Not on file ??? Intimate partner violence: Fear of current or ex partner: Not on file Emotionally abused: Not on file Physically abused: Not on file Forced sexual activity: Not on file Other Topics Concern ??? Service No ??? Blood Transfusions No ??? Caffeine Concern Yes ??? Occupational Exposure No ??? Hobby Hazards Not Asked ??? Sleep Concern Yes Comment: cpap ??? Stress Concern Not Asked ??? Weight Concern Yes ??? Special Diet Not Asked ??? Back Care Not Asked ??? Exercise Yes ??? Bike Helmet Not Asked ??? Seat Belt Yes ??? Self-Exams Not Asked ??? Wheelchair Not Asked ??? Walker Not Asked ??? Upper extremity braces/slings Not Asked ??? Lower extermity braces/slings Not Asked ??? Self Care Yes Social History Narrative ??? Not on file Family History Problem Relation Name Age of Onset ??? Hypertension Father ??? Other (elevated psa) Father Family Status Relation Name Status ??? Mother Alive ??? Father Alive Physical Exam Constitutional: He is oriented to person, place, and time. He appears well- developed and well-nourished. HENT: Head: Normocephalic and atraumatic. Mouth/Throat: Oropharynx is clear and moist. Eyes: EOM are normal. Pupils are equal, round, and reactive to light. Neck: Normal range of motion. Neck supple. Cardiovascular: Normal rate, regular rhythm and normal heart sounds. Exam reveals no gallop and no friction rub. No murmur heard. Pulmonary/Chest: Effort normal and breath sounds normal. No respiratory distress. He has no wheezes. He has no rales. He exhibits no tenderness. Abdominal: Soft. Bowel sounds are normal. He exhibits no distension and no mass. There is no tenderness. There is no rebound and no guarding. Musculoskeletal: Normal range of motion. He exhibits no edema, tenderness or deformity. Neurological: He is alert and oriented to person, place, and time. He has normal reflexes. No cranial nerve deficit. Coordination normal. Skin: Skin is warm and dry. No rash noted. No erythema. Psychiatric: He has a normal mood and affect. His behavior is normal. Judgment and thought content normal. Nursing note and vitals reviewed. Results for orders placed or performed in visit on 08/02/18 HEMOGLOBIN, GLYCOSYLATED Result Value Ref Range HGB A1C 8.1 (A) Assessment Encounter Diagnose(s) ICD-10-CM ICD-9-CM SNOMED CT(R) 1. Diabetes mellitus (CMS/HCC) E11.9 250.00 DIABETES MELLITUS HEMOGLOBIN, GLYCOSYLATED COLLECT.CAPILLARY (FNGR,HEEL,EAR) 2. Essential hypertension I10 401.9 ESSENTIAL HYPERTENSION 3. Hypertension, unspecified type I10 401.9 HYPERTENSIVE DISORDER lisinopril 20 MG tablet lisinopril-hydrochlorothiazide 20-12.5 MG tablet 4. Type 2 diabetes mellitus without complication, without long-term current use of insulin ([facility]) E11.9 250.00 TYPE 2 DIABETES MELLITUS WITHOUT COMPLICATION metFORMIN ER 500 MG 24 hr tablet 5. Obstructive sleep apnea syndrome G47.33 327.23 OBSTRUCTIVE SLEEP APNEA SYNDROME Plan Orders Placed This Encounter ??? COLLECT.CAPILLARY (FNGR,HEEL,EAR) ??? HEMOGLOBIN, GLYCOSYLATED ??? Glucose Blood (ACCU-CHEK LUCRECIA) test strip ??? lisinopril 20 MG tablet ??? lisinopril-hydrochlorothiazide 20-12.5 MG tablet ??? metFORMIN ER 500 MG 24 hr tablet Continue current medications again he is going to work with his diet and exercise and I will see him back in 3 months Follow up FU 3 MONTHS JORDAN TUTTLE MD 08/02/2018 8:29 AM documented in this encounter Plan of Treatment Upcoming Encounters Date Type Department Care Team (Late st Contact Info) Description 06/08/2024 1:40 PM BOOK ILLUSTRATOR Office Visit [facility] Multispecialty Care - [facility] [address] [facility] [place] [id number] [place] [address] [place] [address] Kalen Simpson PA-C [address] [facility] [address] [place] [address] 09/30/2024 10:15 AM CDT [facility] [address] [place] [phone] Darryl Bunch MD [address] [facility]. [address] [place] [address] Juliette Zavala PA [address] [facility], [address] [place] [address] documented as of this encounter Procedures Procedure Name Priority Date/Time Associated Diagnosis Comments HEMOGLOBIN, GLYCOSYLATED Today 08/02/2018 8:19 AM CDT Type 2 diabetes mellitus without complication, unspecified whether mcfp insulin use ([facility]) COLLECT.CAPILLARY (FNGR,HEEL,EAR) Routine 08/02/2018 Type 2 diabetes mellitus without complication, unspecified whether mcfp insulin use ([facility]) documented in this encounter Results * (ABNORMAL) HEMOGLOBIN, GLYCOSYLATED (08/02/2018 8:19 AM CDT) HGB A1C 8.1(A) [address] ([id number]), [place] 08/02/2018 8:19 AM CDT Jordan Tuttle MD LABORATORY Final Re sult Performing Organization Address City/State/[facility] Co de Phone Number [address] ([id number]), [place] [address] [place] [address], * COLLECT.CAPILLARY (FNGR,HEEL,EAR) (08/02/2018) Jordan Tuttle MD PROCEDURES-UNRESULTED Fi nal Result documented in this encounter Visit Diagnoses Diagnosis Type 2 diabetes mellitus without complication, unspecified whether mcfp insulin use ([facility])- Primary Essential hypertension Unspecified essential hypertension Obstructive sleep apnea syndrome Obstructive sleep apnea (adult) (pediatric) documented in this encounter Care Teams Supervisor Boiler Repair Relationship Specialty Start Date End Date Jordan Tuttle MD PCP - General INTERNAL MEDICINE 08/02/18 07/17/22 documented as of this encounter
--- OUTSIDE RECORDS SUMMARY | 2024-04-17 17:22 | XMS_ITS | Encounter Summary ---
Author Organization [facility] Address [address] [place] [address]. [place], [place] [address] [place] [address] Care Team Providers Care Senior Communications Specialist Name Role Phone Jordan Moctezuma MD Primary Care Provider U Khadra Leonardo NP Primary Care Provider [phone] José Luis Canales MD Primary Care Provider [phone] Encounter Details Date Type Department Care Team (Late st Contact Info) Description 07/08/2022 [facility] Message Enc [facility] Family & Internal Medicine [facility] [id number] [place] [address] Jordan Moctezuma MD Prescription request from 08/07 Social History Tobacco Use Types Packs/Day Years [...] as of this encounter Progress Notes * Jordyn Lakhani RN - 07/08/2022 2:54 PM CDT Please advise documented in this encounter Plan of Treatment Upcoming Encounters Date Type Department Care Team (Late st Contact Info) Description 06/08/2024 1:40 PM YOUTH PROGRAM DIRECTOR Office Visit [facility] Multispecialty Care - [facility] [address] [facility] [place] [address] [place] [address] [place] [address] Kalen Simpson PA-C [address] [facility] [address] [place] [address] 09/30/2024 10:15 AM CDT Office Visit [facility] [address] [place] [address] Darryl Bunch MD Three [facility]. [address] [place], [place] [phone] Juliette Zavala PA [address] [facility], [address] [place], [place] [address] documented as of this encounter Visit Diagnoses Not on filedocumented in this encounter Additional Health Concerns Assessment Noted Time PHQ-9 Depression Total Score: 0 09/19/19 7:53 AM CDT documented as of this encounter Care Teams Senior Communications Specialist Relationship Specialty Start Date End Date Jordan Moctezuma MD PCP - General INTERNAL MEDICINE 08/02/18 07/17/22 [place] [address] [facility] [address] [place], [place] [phone] PCP - General Nurse Practitioner Family 07/18/2207/12 [place] [address] [place] [address] PCP - General 07/29/22 documented as of this encounter
--- OUTSIDE RECORDS SUMMARY | 2024-04-17 17:22 | XMS_ITS | Encounter Summary ---
Author Organization [facility] Address [address] [place] [address]. [place], [place] [address] [place] [address] Care Team Providers Care Principal Technical Specialist Name Role Phone Jordan Tuttle MD Primary Care Provider U iris Reason for Visit * Reason Comments Follow Up 6 month follow up fo r DM and HTN Encounter Details Date Type Department Care Team (Late st Contact Info) Description 07/10/2020 8:00 AM CDT Office Visit [facility] [address] [place] [address] Jordan Tuttle MD Follow Up (6 month follow up for DM and HTN) Social History Tobacco Use Types Packs/Day Years Used Date Smoking Tobacco: Never Smokeless Tobacco: Never Alcohol Use Standard Drinks/Week Comments Yes 0 (1 standard drink = 0.6 oz pur e alcohol) socially PHQ-2 Answer Date Recorded PHQ-2 Score 0 03/20/2019 Education Answer Date Recorded What is the [...] Exposure Response Date Recorded In the last month, have you been in contact with someone who was confirmed or suspected to have Coronavirus / COVID-19? No / Unsure 07/10/2020 7:48 AM CDT documented as of this encounter Last Filed Vital Signs Vital Sign Reading Time Taken Comments Blood Pressure 128/72 07/10/2020 7:56 AM CDT Pulse 73 07/10/2020 7:56 AM CDT Temperature 35.7 ??C (96.3 ??F) 07/10/2020 7:56 AM CD T Respiratory Rate 16 07/10/2020 7:56 AM CDT Oxygen Saturation 96% 07/10/2020 7:56 AM CDT Inhaled Oxygen Concentration - - Weight 132.5 kg (292 lb) 07/10/2020 7:56 AM CDT Height 193 cm (6' 4 ) 07/10/2020 7:56 AM CDT Body Mass Index 35.54 07/10/2020 7:56 AM CDT documented in this encounter Progress Notes * Jordan Tuttle MD - 07/10/2020 8:00 AM CDT Reason for Visit: Follow Up (6 month follow up for DM and HTN) Filed Vitals: 07/10/20 0756 BP: 128/72 Pulse: 73 Resp: 16 Temp: 96.3 ??F (35.7 ??C) TempSrc: Temporal SpO2: 96% Weight: 132.5 kg (292 lb) Height: 6' 4 (1.93 m) Body mass index is 35.54 kg/m??. History of Present Illness: HPI good morning office visit in Mr. Jeancarlos Garcia is a pleasant 45-year-old gentleman with a history of hypertension and diabetes type 2 obesity with a BMI 35.4 comes today for regular follow-up he lost few pounds since last time he has been working from home. His A1c today came back at 6.7 which is similar to last time so he will continue with the current medications that he is taking them on a regular basis with good tolerance. Encouraged him to exercise whenever possible try to lose someweight also I would like him to have some blood test before the next appointment in 6 months. He has a history of sleep apnea and has been using his CPAP machine for the last 10 years he wonders somedays if the machine is working properly is an old machine. At this time I would like to proceed with a new sleep study and see we can also get him a new machineHe feels tired sometimes and he uses the machine every single night for at least 8 hours ROS: Review of Systems Constitutional: Negative. HENT: Negative. Respiratory: Negative. He has a sleep apnea and he does not sleep without the machine for the last 10 years plus Cardiovascular: Negative. Gastrointestinal: Negative. Genitourinary: Negative. Musculoskeletal: Negative. Psychiatric/Behavioral: Negative. Medications: Current Outpatient Medications: ??? Glucose Blood (ACCU-CHEK LUCRECIA) test strip, as needed. , Disp: , Rfl: ??? lisinopril 20 MG tablet, Take 1 tablet (20 mg total) by mouth daily., Disp: 90 tablet, Rfl: 0 ??? lisinopril-hydroCHLOROthiazide 20-12.5 MG tablet, Take 1 tablet by mouth daily., Disp: 90 tablet, Rfl: 0 ??? metFORMIN ER 500 MG 24 hr tablet, Take 2 tablets (1,000 mg total) by mouth daily., Disp: 180 tablet, Rfl: 0 ??? SYNJARDY XR 25-1000 MG TABLET SR 24 HR, TAKE 1 TABLET BY MOUTH DAILY, Disp: 90 tablet, Rfl: 0 No Known Allergies Past Medical History: Diagnosis Date ??? Diabetes (CMS/HCC) ??? Hypertension Past Surgical History: Procedure Laterality Date ??? COLONOSCOPY 2014 Dr. Mcguire normal ??? NONE Social History Socioeconomic History ??? Marital status: Spouse name: Danielle ??? Number of children: 2 ??? Years of education: Not on file ??? Highest education level: Bachelor's degree (e.g., BA, AB, BS) Occupational History ??? Not on file Social Needs ??? Financial resource strain: Not on file ??? Food insecurity Worry: Not on file Inability: Not on file ??? Transportation needs Medical: Not on file Non-medical: Not on file Tobacco Use ??? Smoking status: Never Smoker ??? Smokeless tobacco: Never Used Substance and Sexual Activity ??? Alcohol use: Yes Comment: socially ??? Drug use: No ??? Sexual activity: Yes Partners: Female Lifestyle ??? Physical activity Days per week: Not on file Minutes per session: Not on file ??? Stress: Not on file Relationships ??? Social connections Talks on phone: Not on file Gets together: Not on file Attends hoahaoism service: Not on file Active member of club or organization: Not on file Attends meetings of clubs or organizations: Not on file Relationship status: Not on file ??? Intimate partner violence Fear of current or ex partner: Not [...] Yes ??? Self-Exams Not Asked ??? Wheelchair No ??? Walker No ??? Upper extremity braces/slings No ??? Lower extermity braces/slings No ??? Self Care Yes Social History Narrative ??? Not on file Family History Problem Relation Name Age of Onset ??? Hypertension Father ??? Other (elevated psa) Father Family Status Relation Name Status ??? Mother Alive ??? Father Alive Physical Exam Constitutional: He is oriented to person, place, and time. He appears well- developed and well-nourished. BMI 35.5 Cardiovascular: Normal rate and regular rhythm. Pulmonary/Chest: Effort normal and breath sounds normal. Musculoskeletal: Normal range of motion. Neurological: He is alert and oriented to person, place, and time. Psychiatric: He has a normal mood and affect. Results for orders placed or performed in visit on 07/10/20 HEMOGLOBIN, GLYCOSYLATED Result Value Ref Range HGB A1C 6.7 % Assessment Encounter Diagnose(s) ICD-10-CM ICD-9-CM SNOMED CT(R) 1. Type 2 diabetes mellitus without complication, without long-term current use of insulin ([facility]) E11.9 250.00 TYPE 2 DIABETES MELLITUS WITHOUT COMPLICATION HEMOGLOBIN, GLYCOSYLATED COMPREHENSIVE METABOLIC PANEL LIPID PANEL COMPREHENSIVE METABOLIC PANEL LIPID PANEL 2. Obstructive sleep apnea syndrome G47.33 327.23 OBSTRUCTIVE SLEEP APNEA SYNDROME Sleep Lab Assessment (G0463) TSH W/REFLEX TSH W/REFLEX 3. Essential hypertension I10 401.9 ESSENTIAL HYPERTENSION COMPREHENSIVE METABOLIC PANEL COMPREHENSIVE METABOLIC PANEL 4. Health care maintenance Z00.00 V70.0 PATIENT ENCOUNTER STATUS COMPREHENSIVE METABOLIC PANEL CBC W/DIFF AUTOMATED LIPID PANEL TSH W/REFLEX COMPREHENSIVE METABOLIC PANEL CBC W/DIFF AUTOMATED LIPID PANEL TSH W/REFLEX Plan at this time he is going to continue with his usual medications they are well-tolerated and heis very compliant with them his blood pressure and diabetes seems to be well controlled I will see him back in 6 months I also going to put a consultation for a new a sleep study and perhaps a new CPAP machine. Orders Placed This Encounter ??? HEMOGLOBIN, GLYCOSYLATED ??? COMPREHENSIVE METABOLIC PANEL ??? CBC W/DIFF AUTOMATED ??? LIPID PANEL ??? TSH W/REFLEX ??? Sleep Lab Assessment (G0463) Follow up FU 6 MONTHS JORDAN TUTTLE MD 07/10/2020 9:33 AM documented in this encounter Plan of Treatment Upcoming Encounters Date Type Department Care Team (Late st Contact Info) Description 06/08/2024 1:40 PM UNDERWEAR CUTTER Office Visit [facility] Multispecialty Care - [facility] [address] [facility] [place] [address] [place] [address] [place] [address] Kalen Simpson, PA-C [address] [facility] [address] [place] [address] 09/30/2024 10:15 AM CDT [facility] [address] [place] [address] Darryl Bunch MD Three [facility]. [address] [place], [place] [id number] Juliette Zavala PA [address] [facility], [address] [place], [place] [address] documented as of this encounter Procedures Procedure Name Priority Date/Time Associated Diagnosis Comments HEMOGLOBIN, GLYCOSYLATED Routine 07/10/2020 Type 2 diabetes mellitus without complication, without long-term current use of insulin ([facility]) documented in this encounter Results * HEMOGLOBIN, GLYCOSYLATED (07/10/2020) HGB A1C 6.7 % [id number] [place] 07/10/2020 us Jordan Tuttle MD LABORATORY Final Re sult [id number] [address] [place] [address] [place] [address], documented in this encounter Visit Diagnoses Diagnosis Type 2 diabetes mellitus without complication, without long-term current use of insulin ([facility])- Primary Obstructive sleep apnea syndrome Obstructive sleep apnea (adult) (pediatric) Essential hypertension Unspecified essential hypertension Health care maintenance Unspecified general medical examination BMI 35.0-35.9,adult Body Mass Index 35.0-35.9, adult documented in this encounter Care Teams Principal Technical Specialist Relationship Specialty Start Date End Date Jordan Tuttle MD PCP - General INTERNAL MEDICINE 08/02/18 07/17/22 documented as of this encounter
--- OUTSIDE RECORDS SUMMARY | 2024-04-17 17:22 | XMS_ITS | Encounter Summary ---
Author Organization [facility] Address [address] [place] [address]. [place], [place] [address] [place] [address] Care Team Providers Care Right Of Way Worker Name Role Phone Jordan Moctezuma MD Primary Care Provider Gustavo simmons Encounter Details Date Type Department Care Team (Latest Contact Info) Description 10/09/2020 Scan HEALTH INFO SRVCS Scanned, Documents Social History Tobacco Use Types Packs/Day Years Used Date Smoking Tobacco: Never Smokeless Tobacco: Never Alcohol Use Standard Drinks/Week Comments Yes 0 (1 standard drink = 0.6 oz pur e alcohol) socially PHQ-2 Answer Date Recorded PHQ-2 Score - If the patient scores above 3, please move on to questions 3-9 0 09/18/2020 Education Answer Date Recorded What is the [...] have Coronavirus / COVID-19? No / Unsure 09/18/2020 7:46 AM CDT documented as of this encounter Plan of Treatment Upcoming Encounters Date Type Department Care Team (Late st Contact Info) Description 06/08/2024 1:40 PM SUBASSEMBLER Office Visit [facility] Medical Group Multispecialty Care - [facility] [address] [facility], [address] [place] [address] [place] [address] [place] [address] Kalen Simpson, PA-C [address] [facility] [address] [place] [address] 09/30/2024 10:15 AM CDT Office Visit [facility] [address] [place] [address] Darryl Bunch MD Three [facility]. [address] [place] [address] Juliette Zavala PA 3 [facility], [address] [place] [address] documented as of this encounter Visit Diagnoses Not on filedocumented in this encounter Additional Health Concerns Assessment Noted Time PHQ-9 Depression Total Score: 0 09/19/19 7:53 AM CDT documented as of this encounter Care Teams Right Of Way Worker Relationship Specialty Start Date End Date Jordan Moctezuma MD PCP - General INTERNAL MEDICINE 08/02/18 07/17/22 documented as of this encounter
--- OUTSIDE RECORDS SUMMARY | 2024-04-17 17:22 | XMS_ITS | Encounter Summary ---
Author Organization [facility] Address [address] [place] [address]. [place], [place] [address] [place] [address] Care Team Providers Care Receptionist Scheduler Name Role Phone Unavailable Primary Care Provider Unavailabl e Encounter Details Date Type Department Care Team (Late st Contact Info) Description 01/16/2016 Abstract [facility] Medical Group Family & Internal Medicine - [place] [address] [place] [address] Jordan Moctezuma MD Social History Tobacco Use Types Packs/Day Years Used Date Smoking Tobacco: Never Assessed Sex and Gender Information Value Date Recorded Sex Assigned at Not on file Legal Sex Male 6:09 PM CDT Gender Identity Not on file Sexual Orientation Not on file documented as of this encounter Last Filed Vital Signs Vital Sign Reading Time Taken Comments Blood Pressure 124/72 01/16/2016 4:14 PM CDT Pulse 80 01/16/2016 4:14 PM CDT Temperature - - Respiratory Rate - - Oxygen Saturation - - Inhaled Oxygen Concentration - - Weight 147 kg (324 lb) 01/16/2016 4:14 PM CDT Height - - Body Mass Index 40.5 05/08/2014 4:07 PM IMAGING SPECIALIST documented in this encounter Progress Notes * Jordan Moctezuma MD - 01/16/2016 4:15 PM CDT Reason For Visit Chronic Recheck Visit Chief Complaint Routine check up, discuss HTN, DM Discuss the results of recent labs Refill meds History of Present Illness HPI Free Text: A 40-year-old gentleman with hypertension and diabetes. He is at 324 pounds, so not too much changein his weight. Blood test, sugar 147, BUN and creatinine is fine, AST and ALT slightly elevated 43 and 91. He said that he always had a slight liver enzymes elevation, has been checked for different things in the past. Everything had been negative. His A1c dropped from 7.8 to 7.0, so I encouraged him to continue doing a good job with the diabetes. I encouraged him to try to lose some weight. I told him that I am going to see him back in 3 months and I want him to cut down with his weight close to 300 in the next 3 months. He said that he is going to try that. Hypertension (Follow-Up): The patient presents for follow-up of primary hypertension. The patient states he has been stable with his blood pressure control since the last visit. He has no comorbid illnesses. He has no significant interval events. Symptoms: The patient is currently asymptomatic. Associated symptoms include no headache, no focal neurologic deficits and no memory loss. Medications: the patient is adherent with his medication regimen. He denies medication side effects. Diabetes Type II (Follow-Up): The patient states he has been doing well with his Type II Diabetes control since the last visit. Comorbid Illnesses: hypertension and obesity. He has no known diabetic complications. He has no significant interval events. Symptoms: The patient is currently asymptomatic. Associated symptoms include no polydipsia. Home monitoring: The patient checks his blood sugar sporadically. the patient reports no symptomatic hypoglycemic episodes. Medications: the patient is adherent with his medication regimen. He denies medication side effects. Review of Systems See HPI for pertinent positives. Constitutional: no fever, no chills and no headache. ENT: no earache, no sore throat, no hearing loss and no nasal discharge. Cardiovascular: no chest pain, no intermittent leg claudication, no palpitations and no lower extremity edema. Respiratory: no shortness of breath, no cough, no wheezing, no shortness of breath during exertion and no PND. Gastrointestinal: no abdominal pain, no constipation, no heartburn, no vomiting, no diarrhea and nomelena. Genitourinary: no dysuria, no incontinence, no nocturia and no inadequacy of penile erections. Integumentary: no skin lesions and no skin rash. Musculoskeletal: no arthralgias, no joint swelling, no limb pain, no joint pain and no joint stiffness. Neurological: no confusion, no dizziness, no limb weakness and no difficulty walking. Psychiatric: no anxiety. no suicidal ideation no depression Active Problems 1. BMI 40.0-44.9, adult (V85.41) (Z68.41) 2. Bright red blood per rectum (569.3) (K62.5) 3. Diabetes mellitus (250.00) (E11.9) 4. Dysuria (788.1) (R30.0) 5. Hyperglycemia (790.29) (R73.9) 6. Hypertension (401.9) (I10) Past Medical History 1. History of Acute upper respiratory infection (465.9) (J06.9) 2. History of Cough (786.2) (R05) Surgical History 1. History of Complete Colonoscopy Family History 1. No pertinent family history Social History ?? Being A Social Drinker ?? Marital History - Currently ?? Never a smoker Current Meds 1. Accu-Chek Jayleen STRP; TEST ONCE DAILY; Therapy: 03Aug2013 to (Evaluate:07Oct2016) Requested for: [id number] Recorded 2. Lisinopril 20 MG Oral Tablet; TAKE 1 TABLET BY MOUTH EVERY DAY; Therapy: 11Feb2012 to (Evaluate:04May2016) Requested for: [id number]; Last Rx:[id number] Ordered 3. Lisinopril-Hydrochlorothiazide 20-12.5 MG Oral Tablet; TAKE 1 TABLET BY MOUTH EVERY DAY; Therapy: 11Feb2012 to (Evaluate:03Feb2016) Requested for: [id number]; Last Rx:[id number] Ordered 4. MetFORMIN HCl ER (MOD) 1000 MG Oral Tablet Extended Release 24 Hour; Take 1 tablet twice a day; Therapy: 29Apr2013 to (Evaluate:15Apr2016) Requested for: [id number] Recorded Allergies 1. No Known Drug Allergies Vitals Recorded: 16Jan2016 04:14PM Temperature 98.4 F Heart Rate 80 Systolic 124 Diastolic 72 O2 Saturation 98, RA Weight 324 lb BMI Calculated 40.5 BSA Calculated 2.69 Physical Exam Constitutional His weight 324 pounds. BMI is 40.5. Eyes Conjunctiva and lids: No swelling, erythema, or discharge. Pupils and irises: Equal, round and reactive to light. Ears, Nose, Mouth, and Throat External inspection of ears and nose: Normal. Oropharynx: Normal with no erythema, edema, exudate or lesions. Pulmonary Respiratory effort: No increased work of breathing or signs of respiratory distress. Auscultation of lungs: Clear to auscultation. Cardiovascular Auscultation of heart: Normal rate and rhythm, normal S1 and S2, without murmurs. Examination of extremities for edema and/or varicosities: Normal. Abdomen Abdomen: Non-tender, no masses. Lymphatic Palpation of lymph nodes in neck: No lymphadenopathy. Musculoskeletal Gait and station: Normal. Inspection/palpation of joints, bones, and muscles: Normal. Skin Skin and subcutaneous tissue: Normal without rashes or lesions. Neurologic Cranial nerves: Cranial nerves 2-12 intact. Reflexes: 2+ and symmetric. Psychiatric Orientation to person, place and time: Normal. Mood and affect: Normal. Results/Data Compr Metabolic Prof ( CMP ) 14Jan2016 06:57AM Jordan Moctezuma Test Name Result Flag Reference Glucose 147 MG/DL H 70-105 Blood Urea Nitrogen (BUN) 10 MG/DL 8.9-20.6 Creatinine 0.90 MG/DL 0.72-1.25 Sodium (Na) 138 MMOL/L 136-145 Potassium (K) 4.1 MMOL/L 3.5-5.1 Chloride (Cl) 106 MMOL/L 98-107 Carbon Dioxide (CO2) 25.0 MMOL/L 22-29 Anion Gap 11.1 MMOL/L 10.0-24.0 OSMOLALITY CALC 277 MOSM/KG 271-290 Calcium 8.9 MG/DL 8.4-10.2 Total Bilirubin 0.6 MG/DL 0.2-1.2 Total Protein 6.8 G/DL 6.4-8.3 Albumin 4.3 G/DL 3.5-5.0 AST/GOT 43 U/L H 5-34 ALT/GPT 91 U/L H 6-55 Alkaline Phosphatase (ALKP) 65 U/L 40-115 BUN CREATININE RATIO 11.1 6.0-26.0 A:G Ratio 1.7 RATIO 1.1-1.9 Glomerular Filt Rate Calc (Report) >60 >60 GFR Reference Range: Kidney Failure - <15mL/min Chronic Kidney Disease - <60mL/min Normal Kidney Function - >60mL/min GFR calculation is not recommended for Patients less than 18 years or greater than 70 years as per the national Kidney Foundation. If the patient is -L[place]uanian, multiply results by 1.21 Hemoglobin A1C ( HA1C ) 14Jan2016 06:57AM Jordan Moctezuma Test Name Result Flag Reference Hemoglobin A1c 7.0 % H <5.7 INCREASED RISK OF DIABETES <5.7% NON-DIABETES 5.7-6.4% INCREASED RISK FOR FUTURE DIABETES > OR = 6.5 CONSISTENT WITH DIABETES STANDARDS OF MEDICAL CARE IN DIABETES-2010 DIABETES CARE, 33(SUPP 1): S1-S61,2009 Assessment 1. Diabetes mellitus (250.00) (E11.9) 2. Hyperglycemia (790.29) (R73.9) 3. Hypertension (401.9) (I10) Plan Diabetes mellitus 1. Follow-up visit in 6 months Outpatient Follow-up Status: Hold For - Scheduling Requested for: 16Jan2016 Ordered; For: Diabetes mellitus; Ordered By: Jordan Moctezuma Performed: Due: 30Jan2016 2. Hemoglobin A1C ( HA1C ); Status:Hold For - Manual Activation; Requested for:16Jul2016; Perform:[facility]; Due:[id number];Ordered; For:Diabetes mellitus; Ordered By:Jordan Moctezuma; Health Maintenance 3. Lisinopril 20 MG Oral Tablet; TAKE 1 TABLET BY MOUTH EVERY DAY Rx By: Jordan Moctezuma; Dispense: 90 Days ; #:1 X 90 Tablet Bottle; Refill: 1; For: Health Maintenance; WU = N; Verified Transmission to [id number]; Last Updated By: [facility];01/16/2016 4:48:13 PM 4. Lisinopril-Hydrochlorothiazide 20-12.5 MG Oral Tablet; TAKE 1 TABLET BY MOUTH EVERY DAY Rx By: Jordan Moctezuma; Dispense: 90 Days ; #:1 X 90 Tablet Bottle; Refill: 1; For: Health Maintenance; WU = N; Verified Transmission to [id number]; Last Updated By: [facility];01/16/2016 4:48:15 PM 5. Fluarix Quadrivalent 0.5 ML Intramuscular Suspension For: Health Maintenance; Ordered By:Jordan Moctezuma; Effective Date:16Jan2016; Administered by:Bozena Mario R.N.: 01/16/2016 5:30:00 PM; Last Updated By: Bozena Mario; 01/16/2016 5:31:30 PM Hyperglycemia 6. MetFORMIN HCl ER (MOD) 1000 MG Oral Tablet Extended Release 24 Hour; Take 1 tablet twice a day Rx By: Jordna Moctezuma; Dispense: 0 Days ; #:180 Tablet Extended Release 24 Hour; Refill: 1; For: Hyperglycemia; WU = N; Verified Transmission to [id number]; Last Updated By: David Moreno; 01/16/2016 4:48:15 PM Discussion/Summary Continue current medications. I would like to see him back in 3 months with some blood test. Signatures Electronically signed by : Jordan Moctezuma M.D.; Jan 17 2016 8:06AM IMAGING SPECIALIST (Author) documented in this encounter Plan of Treatment Upcoming Encounters Date Type Department Care Team (Late st Contact Info) Description 06/08/2024 1:40 PM IMAGING SPECIALIST Office Visit [facility] Medical Group Multispecialty Care - [facility] [address] [facility] [place] [address] [place] [address] [place] [address] Kalen Simpson PA-C [address] [facility] [address] [place] [address] 09/30/2024 10:15 AM CDT [facility] [address] [place] [id number] Darryl Bunch MD Three [facility]. [address] [place] [address] Juliette Zavala PA [address] [facility], [address] [place] [address] documented as of this encounter Visit Diagnoses Not on filedocumented in this encounter
--- OUTSIDE RECORDS SUMMARY | 2024-04-17 17:22 | XMS_ITS | Encounter Summary ---
Author Organization [facility] Address [address] [place] [address]. [place], [place] [address] [place] [address] Care Team Providers Care Sheet Turner Name Role Phone Jordan Moctezuma MD Primary Care Provider Gustavo simmons Encounter Details Date Type Department Care Team (Latest Contact Info) Description 03/25/2021 Scan HEALTH INFO SRVCS Scanned, Documents Social [...] have Coronavirus / COVID-19? No / Unsure 03/25/2021 9:56 AM KILN FIREMAN documented as of this encounter Plan of Treatment Upcoming Encounters Date Type Department Care Team (Late st Contact Info) Description 06/08/2024 1:40 PM KILN FIREMAN Office Visit [facility] Medical [facility] Multispecialty Care - [address], [address] [place] [address] [place] [address] [place] [address] Kalen Simpson, PA-C [address] [facility] [address] [place] [address] 09/30/2024 10:15 AM CDT Office Visit [facility] [address] [place] [address] Darryl Bunch MD Three [facility]. [address] [place] [address] Juliette Zavala PA 3 [facility], [address] [place] [address] documented as of this encounter Visit Diagnoses Not on filedocumented in this encounter Additional Health Concerns Assessment Noted Time PHQ-9 Depression Total Score: 0 09/19/19 7:53 AM CDT documented as of this encounter Care Teams Sheet Turner Relationship Specialty Start Date End Date Jordan Moctezuma MD PCP - General INTERNAL MEDICINE 08/02/18 07/17/22 documented as of this encounter
--- OUTSIDE RECORDS SUMMARY | 2024-04-17 17:22 | XMS_ITS | Encounter Summary ---
Author Organization [facility] Address [address] [place] [address]. [place], [place] [address] [place] [address] Care Team Providers Care Teaseler Name Role Phone Dolly Tuttle MD Primary Care Provider U iris Reason for Referral * Diagnostic Lab (Routine) - Closed Specialty Diagnoses / Procedures Referred By Contac t Referred To Contact Diagnoses Colon cancer screening Procedures COLOGUARD (EXACT SCIENCE) COLORECTAL SCREEN,QUANT RT TARGET&SIGNAL AMP OF 10 DNA MARKERS,FECAL Dolly Tuttle MD Referral ID Status Reason Start Date Expiration Date Visits Re quested Visits Authorized [id number] Closed 12/17/2021 01/14/2023 1 1 Reason for Visit * Reason Comments Follow Up Medication refills t nathaly. No concerns at this time. Encounter Details Date Type Department Care Team (Late st Contact Info) Description 12/17/2021 8:00 AM CDT Office Visit [facility] Medical Group Family & Internal Medicine [address] [address] Dolly Tuttle MD Follow Up (Medication refills today. /No concerns at this time. ) Social History Tobacco Use Types Packs/Day Years Used Date Smoking Tobacco: Never Smokeless Tobacco: Never Tobacco Cessation:Counseling Given: No Alcohol Use Standard Drinks/Week Comments Yes 0 (1 standard drink = 0.6 oz pur e alcohol) socially PHQ-2 Answer Date Recorded PHQ-2 Score - If the patient scores above 3, please move on to questions 3-9 0 12/17/2021 Education Answer Date Recorded What is the [...] suspected to have Coronavirus/COVID-19? No / Unsure 12/17/2021 7:47 AM CDT documented as of this encounter Last Filed Vital Signs Vital Sign Reading Time Taken Comments Blood Pressure 140/82 12/17/2021 7:55 AM CDT Pulse 68 12/17/2021 7:55 AM CDT Temperature 36.3 ??C (97.4 ??F) 12/17/2021 7:55 AM CD T Respiratory Rate 19 12/17/2021 7:55 AM CDT Oxygen Saturation 99% 12/17/2021 7:55 AM CDT Inhaled Oxygen Concentration - - Weight 133.6 kg (294 lb 9.6 oz) 12/17/2021 7:55 AM CDT Height 193 cm (6' 4 ) 12/17/2021 7:55 AM CDT Body Mass Index 35.86 12/17/2021 7:55 AM CDT documented in this encounter Progress Notes * Dolly Tuttle MD - 12/17/2021 8:00 AM CDT Reason for Visit: Follow Up (Medication refills today. /No concerns at this time. ) Filed Vitals: 12/17/21 0755 BP: (!) 140/82 Pulse: 68 Resp: 19 Temp: 97.4 ??F (36.3 ??C) TempSrc: Temporal SpO2: 99% Weight: 133.6 kg (294 lb 9.6 oz) Height: 6' 4 (1.93 m) Body mass index is 35.86 kg/m??. History of Present Illness: HPI good morning office visit with Mr. Jeancarlos Garcia pleasant 46-year-old gentleman with historyof hypertension diabetes type 2 comes today for a follow- up he is doing excellently well has no complaints he also has a sleep apnea and he is a little overweight with a BMI of 35.60 is encouraged him to exercise in order of course watch his diet he is in some distress at this point as he is building a new house exciting but also stressful so I will see him back in 6 months. We discussed he is colonoscopy and he agreed to proceed with a Cologuard for now ROS: Review of Systems Constitutional: Negative. Respiratory: Negative. Cardiovascular: Negative. All other systems reviewed and are negative. Medications: Current Outpatient Medications: ??? Empagliflozin-metFORMIN HCl ER (SYNJARDY XR) 25-1000 MG TABLET SR 24 HR, Take 1 tablet by mouthdaily., Disp: 90 tablet, Rfl: 1 ??? Glucose Blood test strip, as needed. , Disp: , Rfl: ??? lisinopril (PRINIVIL) 20 MG tablet, Take 1 tablet (20 mg total) by mouth daily., Disp: 90 tablet, Rfl: 1 ??? lisinopril-hydroCHLOROthiazide (ZESTORETIC) 20-12.5 MG tablet, Take 1 tablet by mouth daily., Disp: 90 tablet, Rfl: 1 ??? metFORMIN ER (GLUCOPHAGE-XR) 500 MG 24 hr tablet, Take 2 tablets (1,000 mg total) by mouth daily., Disp: 180 tablet, Rfl: 1 No Known Allergies Past Medical History: Diagnosis Date ??? COVID-19 vaccine administered 2020 ??? Diabetes (CMS/HCC) ??? Hypertension ??? Influenza vaccine administered 2019 Past Surgical History: Procedure Laterality Date ??? COLONOSCOPY 2014 Dr. Mcguire normal ??? NONE Social History Socioeconomic History ??? Marital status: Spouse name: Danielle ??? Number of children: 2 ??? Highest education level: Bachelor's degree (e.g., BA, AB, BS) Tobacco Use ??? Smoking status: Never Smoker ??? Smokeless tobacco: Never Used Vaping Use ??? Vaping Use: Never used Substance and Sexual Activity ??? Alcohol use: Yes Comment: socially ??? Drug use: No ??? Sexual activity: Yes Partners: Female Other Topics Concern ??? Service No ??? Blood Transfusions No ??? Caffeine Concern Yes ??? Occupational Exposure No ??? Sleep Concern Yes Comment: cpap ??? Weight Concern Yes ??? Exercise Yes ??? Seat Belt Yes ??? Wheelchair No ??? Walker No ??? Upper extremity braces/slings No ??? Lower extermity braces/slings No ??? Self Care Yes Family History Problem Relation Name Age of Onset ??? Hypertension Father ??? Other (elevated psa) Father Family Status Relation Name Status ??? Mother Alive ??? Father Alive Physical Exam Constitutional: Comments: BMI 35.8 Cardiovascular: Rate and Rhythm: Normal rate and regular rhythm. Pulses: Normal pulses. Heart sounds: Normal heart sounds. Pulmonary: Effort: Pulmonary effort is normal. Breath sounds: Normal breath sounds. Musculoskeletal: General: Normal range of motion. Cervical back: Normal range of motion and neck supple. Neurological: General: No focal deficit present. Mental Status: He is alert and oriented to person, place, and time. Psychiatric: Mood and Affect: Mood normal. Behavior: Behavior normal. Thought Content: Thought content normal. Judgment: Judgment normal. Results for orders placed or performed in visit on 12/17/21 A1C (BACK OFFICE) Result Value Ref Range HGB A1C 7.0 % Assessment Encounter Diagnose(s) ICD-10-CM ICD-9-CM SNOMED CT(R) 1. Type 2 diabetes mellitus without complication, without long-term current use of insulin ([facility]) E11.9 250.00 TYPE 2 DIABETES MELLITUS WITHOUT COMPLICATION A1C (BACK OFFICE) metFORMIN ER (GLUCOPHAGE-XR) 500 MG 24 hr tablet Empagliflozin-metFORMIN HCl ER (SYNJARDY XR) 25-1000 MG TABLET SR 24 HR 2. Essential hypertension I10 401.9 ESSENTIAL HYPERTENSION lisinopril (PRINIVIL) 20 MG tablet lisinopril-hydroCHLOROthiazide (ZESTORETIC) 20-12.5 MG tablet 3. Colon cancer screening Z12.11 V76.51 PATIENT ENCOUNTER STATUS PRISCA (Choisr SCIENCE) 4. BMI 35.0-35.9,adult Z68.35 V85.35 BODY MASS INDEX 30+ - OBESITY 5. Obstructive sleep apnea syndrome G47.33 327.23 OBSTRUCTIVE SLEEP APNEA SYNDROME Plan continue with the current medications for his diabetes he is aware of the fact that his A1c is7 so he is going to tackle that issue his blood pressure is well controlled I going to send an order for a CologuardOtherwise continue with his his sleep apnea therapy encouraged him to exercise he is currently taking all his medications on a regular basis include Synjardy lisinopril 2 dosages 20 at night and 20/12.5 in the morning also metformin 1000 mg twice a day Orders Placed This Encounter ??? A1C (BACK OFFICE) ??? lisinopril (PRINIVIL) 20 MG tablet ??? lisinopril-hydroCHLOROthiazide (ZESTORETIC) 20-12.5 MG tablet ??? metFORMIN ER (GLUCOPHAGE-XR) 500 MG 24 hr tablet ??? Empagliflozin-metFORMIN HCl ER (SYNJARDY XR) 25-1000 MG TABLET SR 24 HR Follow up FU 6 MONTHS DOLLY TUTTLE MD 12/17/2021 8:29 AM * Silvia Dempsey MA - 12/17/2021 8:00 AM CDT Attempted to call patient to go over his results. Pt is aware as he saw this in [facility]. Going to see if he had any questions. documented in this encounter Plan of Treatment Upcoming Encounters Date Type Department Care Team (Late st Contact Info) Description 06/08/2024 1:40 PM EVAPORATOR OPERATOR MOLASSES Office Visit [facility] Medical Group Multispecialty Care - [address] [place] [phone] [place] [address] [place] [address] Kalen Simpson PA-C 3 [facility] [address] [place] [address] 09/30/2024 10:15 AM CDT Office Visit [facility] [address] [place] [address] Darryl Bunch MD Three [facility]. [address] [place], [place] [phone] Juliette Zavala PA 3 [facility], [address] [place], [place] [phone] documented as of this encounter Procedures Procedure Name Priority Date/Time Associated Diagnosis Comments COLOGUARD (EXACT SCIENCE) Routine 12/25/2021 10:25 PM CDT Colon cancer screening HEMOGLOBIN, GLYCOSYLATED Routine 12/17/2021 8:17 AM CDT Type 2 diabetes mellitus without complication, without long-term current use of insulin ([facility]) documented in this encounter Results * COLOGUARD (EXACT SCIENCE) (12/25/2021 10:25 PM CDT) COLOGUARD RESULT Negative Negative [facility] (CLIA #:[id number]) Comment: NEGATIVE TEST RESULT. A negative Cologuard [...] cancer. ??Following a negative Cologuard result, the [place] Cancer Society and U.S. Multi-Society Task Force screening guidelines recommend a Cologuard re-screening interval of 3 years. References: [place] [employer] Society Guideline for Colorectal Cancer Screening: https://www.cancer.org/cancer/nospo-tqicnm-pivvyp/aqwzvngik-wbqkpmacp-moelgfe/ac s-rec ommendations.html.; David DK, Adamaris GORE, Radha ColonK, Colorectal Cancer Screening: Recommendations for Physicians and Patients from the U.S. Multi-Society Task Force on Colorectal Cancer Screening , Am J Gastroenterology 2017; 112:3027-9901. TEST DESCRIPTION: Composite algorithmic analysis of stool [...] ([address] al, N Engl J Med 2014;370(14):0723-3428.) Cologuard may produce a false negative or false positive result (no colorectal cancer or precancerous polyp present at colonoscopy follow up). A negative Cologuard test result does not guarantee the absence of CRC or advanced adenoma (pre-cancer). The current Cologuard screening interval is every 3 years. ([place] Cancer Society and U.S. Multi-Society Task Force). Cologuard performance data in a 10,000 patient pivotal study using colonoscopy as the reference method can be accessed at the following location: www.exactThe [place].com/results. Additional description of the Cologuard test process, warnings and precautions can be found at www.cologListnerdrd.com. STOOL STOOL SPECIMEN / Unknown 12/25/2021 10:25 PM CDT 12/27/2021 1:32 PM CDT Dolly Tuttle MD BODY FLUIDS AND STOOLS O RDERABLES Final Result [facility] ([address] [facility]) [address] [place] [address], [employer] (CLIA #:[id number]) [address] [place] [address] * A1C (BACK OFFICE) (12/17/2021 8:17 AM CDT) HGB A1C 7.0 % [id number] [facility] 12/17/2021 8:17 AM CDT Dolly Tuttle MD LABORATORY Final Re sult Performing Organization Address [facility] Co de Phone Number [phone] [facility] [address] [address] [place] [address], documented in this encounter Visit Diagnoses Diagnosis Type 2 diabetes mellitus without complication, without long-term current use of insulin ([facility])- Primary Essential hypertension Unspecified essential hypertension Colon cancer screening Special screening for malignant neoplasms, colon BMI 35.0-35.9,adult Body Mass Index 35.0-35.9, adult Obstructive sleep apnea syndrome Obstructive sleep apnea (adult) (pediatric) documented in this encounter Additional Health Concerns Assessment Noted Time PHQ-9 Depression Total Score: 0 09/19/19 21 7:53 AM CDT documented as of this encounter Care Teams Teaseler Relationship Specialty Start Date End Date Dolly Tuttle MD PCP - General INTERNAL MEDICINE 08/02/18 07/17/22 documented as of this encounter
--- OUTSIDE RECORDS SUMMARY | 2024-04-17 17:22 | XMS_ITS | Encounter Summary ---
Author Organization [facility] Address [address] [place] [address]. [place], [place] [phone] [place] [address] Care Team Providers Care Wall Man Name Role Phone Jordan Moctezuma MD Primary Care Provider Gustavo simmons Reason for Visit * Reason Onset Date Comments Medication Information 10/24/2020 see note Encounter Details Date Type Department Care Team (Late st Contact Info) Description 10/24/2020 Telephone [facility] Medical Group Family & Internal Medicine [address] [phone] Jordan Moctezuma MD Medication Information (see note) Social History Tobacco Use Types Packs/Day Years [...] Progress Notes * Jordyn Lakhani RN - 10/24/2020 12:48 PM CDT Received a request from [facility]-Prescription Care Management-noting they would like to change medication prescribed (Synjardy XR 25-1000) changed to Pioglitazone 15/850mg-message left to have patient call to see if this change is ok with patient-then will ask MD documented in this encounter Plan of Treatment Upcoming Encounters Date Type Department Care Team (Late st Contact Info) Description 06/08/2024 1:40 PM FIRE MANAGER Office Visit [facility] Medical Group Multispecialty Care - [facility] 3 [facility] [address] [place] [address] [place] [address] [place] [address] Kalen Simpson PA-C 3 [facility] [address] [place] [address] 09/30/2024 10:15 AM CDT Office Visit [facility] [address] [place] [address] Darryl Bunch MD Three [facility]. [address] [place] [address] Juliette Zavala PA 3 [facility], [address] [place] [address] documented as of this encounter Visit Diagnoses Not on filedocumented in this encounter Additional Health Concerns Assessment Noted Time PHQ-9 Depression Total Score: 0 09/19/19 7:53 AM CDT documented as of this encounter Care Teams Wall Man Relationship Specialty Start Date End Date Jordan Moctezuma MD PCP - General INTERNAL MEDICINE 08/02/18 07/17/22 documented as of this encounter
--- OUTSIDE RECORDS SUMMARY | 2024-04-17 17:22 | XMS_ITS | Encounter Summary ---
Author Organization [facility] Address [address] [place] [address]. [place] [address] [place] [address] Care Team Providers Care Pathology Technician Name Role Phone Jordan Moctezuma MD Primary Care Provider Gustavo simmons Encounter Details Date Type Department Care Team (Latest Contact Info) Description 03/10/2022 Travel Social History Tobacco Use Types Packs/Day [...] Coronavirus/COVID-19? No / Unsure 03/10/2022 7:49 AM PRODUCTION OPERATIONS INSPECTOR documented as of this encounter Plan of Treatment Upcoming Encounters Date Type Department Care Team (Late st Contact Info) Description 06/08/2024 1:40 PM PRODUCTION OPERATIONS INSPECTOR Office Visit [facility] Medical Group Multispecialty Care - [address], [address] [place] [address] [place] [address] [place] [address] Kalen Simpson, PA-C 3 [facility] [address] [place] [address] 09/30/2024 10:15 AM CDT [facility] [address] [place] [address] Darryl Bunch MD Three [facility]. [address] [place], [place] [address] Juliette Zavala PA 3 [facility], [address] [place] [address] documented as of this encounter Visit Diagnoses Not on filedocumented in this encounter Additional Health Concerns Assessment Noted Time PHQ-9 Depression Total Score: 0 09/19/19 21 7:53 AM CDT documented as of this encounter Care Teams Pathology Technician Relationship Specialty Start Date End Date Jordan Moctezuma MD PCP - General INTERNAL MEDICINE 08/02/18 07/17/22 documented as of this encounter
--- OUTSIDE RECORDS SUMMARY | 2024-04-17 17:22 | XMS_ITS | Encounter Summary ---
Author Organization [facility] Address [address] [place] [address]. [place], [place] [address] [place] [address] Care Team Providers Care Asset Recovery Specialist Name Role Phone Jordan Moctezuma MD Primary Care Provider Gustavo simmons Reason for Visit * Reason Onset Date Comments Medication 01/05/2020 Encounter Details Date Type Department Care Team (Late st Contact Info) Description 01/05/2020 Telephone [facility] Medical Group Family & Internal Medicine [address] [address] Jordan Moctezuma MD Medication Social History Tobacco Use Types Packs/Day [...] as of this encounter Progress Notes * Myah Ibarra LPN - 01/05/2020 2:41 PM CDT I called Nigel back and per Jeancarlos Sal should have both scripts, Lisinopril 20mg and the combo Lisinopril/HCTZ, he understood and was thankful for the call * Donna Randolph - 01/05/2020 12:10 PM CDT Nigel called from [facility] asking a question regarding Lisinopril. He states he is on Lisinopril 20 mg and Lisinopril combo. Is he to be taking both types? Nigel is just wanting to makesure this correct. CB # [phone] documented in this encounter Plan of Treatment Upcoming Encounters Date Type Department Care Team (Late st Contact Info) Description 06/08/2024 1:40 PM GENERAL FARMWORKER Office Visit [facility] Medical Group Multispecialty Care - [facility] 3 [facility] [address] [place] [address] [place] [address] [place] [address] Kalen iSmpson PA-C 3 [facility] [address] [place] [address] 09/30/2024 10:15 AM CDT Office Visit [facility] [address] [place] [address] Darryl Bunch MD Three [facility]. [address] [place] [address] Juliette Zavala PA 3 [facility], [address] [place] [address] documented as of this encounter Visit Diagnoses Not on filedocumented in this encounter Care Teams Asset Recovery Specialist Relationship Specialty Start Date End Date Jordan Moctezuma MD PCP - General INTERNAL MEDICINE 08/02/18 07/17/22 documented as of this encounter
--- OUTSIDE RECORDS SUMMARY | 2024-04-17 17:22 | XMS_ITS | Encounter Summary ---
Author Organization [facility] Address [address] [place] [address]. [place], [place] [address] [place] [address] Care Team Providers Care Ice Cream Shop Associate Name Role Phone Jordan Moctezuma MD Primary Care Provider Gustavo simmons Encounter Details Date Type Department Care Team (Late Contact Info) Description 10/10/2019 Orders Only [facility] Family & Internal Medicine - [address] [address] Jordan Moctezuma MD Social History Tobacco [...] have Coronavirus / COVID-19? No / Unsure 10/10/2019 7:49 AM CDT documented as of this encounter Plan of Treatment Upcoming Encounters Date Type Department Care Team (Late st Contact Info) Description 06/08/2024 1:40 PM QUANTITATIVE RESEARCH ANALYST Office Visit [facility] Multispecialty Care - [address] [place] [address] [place] [address] [place] [address] Kalen Simpson, PA-C 3 [facility] [address] [place] [address] 09/30/2024 10:15 AM CDT [facility] [address] [place] [address] Darryl Bunch MD Three [facility]. [address] [place] [address] Juliette Zavala PA 3 [facility], [address] [place] [address] documented as of this encounter Visit Diagnoses Diagnosis Type 2 diabetes mellitus without complication, without long-term current use of insulin ([facility]) Essential hypertension Unspecified essential hypertension Health care maintenance Unspecified general medical examination documented in this encounter Care Teams Ice Cream Shop Associate Relationship Specialty Start Date End Date Jordan Moctezuma MD PCP - General INTERNAL MEDICINE 08/02/18 07/17/22 documented as of this encounter
--- OUTSIDE RECORDS SUMMARY | 2024-04-17 17:22 | XMS_ITS | Encounter Summary ---
Author Organization [facility] Address [address] [place] [address]. [place], [place] [address] [place] [address] Care Team Providers Care Concrete Stone Finishing Supervisor Name Role Phone Unavailable Primary Care Provider Unavailabl e Encounter Details Date Type Department Care Team (Latest Contact Info) Description 07/21/2016 Abstract [facility] Medical Group Jordan Moctezuma MD Social History Tobacco Use [...] st Contact Info) Description 06/08/2024 1:40 PM PERSONAL FINANCE INSTRUCTOR Office Visit [facility] Medical [facility] Multispecialty Care - [address] [place] [address] [place] [address] [place] [address] Kalen Simpson PA-C 3 [facility] [address] [place] [address] 09/30/2024 10:15 AM CDT Office Visit [facility] [address] [facility] [place] [address] Darryl Bunch MD Three [facility]. [address] [place], [place] [address] Juliette Zavala PA 3 [facility], [address] [place] [address] documented as of this encounter Procedures Procedure Name Priority Date/Time Associated Diagnosis Comments HEMOGLOBIN, GLYCOSYLATED Routine 07/21/2016 6:36 AM CDT documented in this encounter Results * (ABNORMAL) HEMOGLOBIN, GLYCOSYLATED (07/21/2016 6:36 AM CDT) HGB A1C 8.9(H) <5.7 % [facility] T O EPIC CONVERSION Comment: Result Comment: ?? INCREASED RISK OF DIABETES <5.7% ?NON-DIABETES 5.7-6.4% INCREASED RISK FOR FUTURE DIABETES > OR = 6.5 CONSISTENT WITH DIABETES ?? STANDARDS OF MEDICAL CARE IN DIABETES-2010 DIABETES CARE, 33(SUPP 1): S1-S61,2010 07/21/2016 6:36 AM CDT 07/21/2016 6:36 AM CDT Narrative [facility] TO EPIC CONVERSION - 07/21/2016 5:49 PM CDT Result Communication: No patient communication needed at this time us Jordan Moctezuma MD LABORATORY Final Re sult [facility] TO EPIC CONVERSION documented in this encounter Visit Diagnoses Not on filedocumented in this encounter
--- OUTSIDE RECORDS SUMMARY | 2024-04-17 17:22 | XMS_ITS | Encounter Summary ---
Author Organization [facility] Address [address] [place] [address]. [place] [address] [place] [address] Care Team Providers Care Geotechnical Field Technician Name Role Phone Jordan Moctezuma MD Primary Care Provider Gustavo simmons Encounter Details Date Type Department Care Team (Latest Contact Info) Description 03/22/2021 Travel Social History Tobacco Use Types Packs/Day [...] have Coronavirus / COVID-19? No / Unsure 03/22/2021 8:58 AM BLENDER / COOK documented as of this encounter Plan of Treatment Upcoming Encounters Date Type Department Care Team (Late st Contact Info) Description 06/08/2024 1:40 PM BLENDER / COOK [facility] - [facility] [address] [facility], [address] [place] [address] [place] [address] [place] [address] Kalen Simpson PA-C 3 [facility] [address] [place] [address] 09/30/2024 10:15 AM CDT [facility] [address] [place] [address] Darryl Bunch MD Three [facility]. [address] [place], [place] [address] Juliette Zavala PA 3 [facility], [address] [place] [address] documented as of this encounter Visit Diagnoses Not on filedocumented in this encounter Additional Health Concerns Assessment Noted Time PHQ-9 Depression Total Score: 0 09/19/19 7:53 AM CDT documented as of this encounter Care Teams Geotechnical Field Technician Relationship Specialty Start Date End Date Jordan Moctezuma MD PCP - General INTERNAL MEDICINE 08/02/18 07/17/22 documented as of this encounter
--- OUTSIDE RECORDS SUMMARY | 2024-04-17 17:22 | XMS_ITS | Encounter Summary ---
Author Organization [facility] Address [address] [place] [address]. [place], [place] [address] [place] [address] Care Team Providers Care House Calls Nurse Practitioner Name Role Phone Unavailable Primary Care Provider Unavailabl e Encounter Details Date Type Department Care Team (Latest Contact Info) Description 10/12/2015 Abstract [facility] Medical Group Jordan Moctezuma MD Social [...] st Contact Info) Description 06/08/2024 1:40 PM LEARNING PROGRAM MANAGER Office Visit [facility] Medical [facility] Multispecialty Care - [address] [place] [address] [place] [address] [place] [address] Kalen Simpson PA-C 3 [facility] [address] [place] [address] 09/30/2024 10:15 AM CDT Office Visit [facility] [address] [facility] [phone] Darryl Bunch MD Three [facility]. [address] [place], [place] [address] Juliette Zavala PA 3 [facility], [address] [place] [address] documented as of this encounter Procedures Procedure Name Priority Date/Time Associated Diagnosis Comments ALBUMIN URINE RANDOM WO/CREATININE Routine 10/12/2015 7:07 AM CDT documented in this encounter Results * URINE MICROALBUMIN (10/12/2015 7:07 AM CDT) MICROALBUMIN (U) 0.9 <30.0 mg/dL [facility] TO EPIC CONVERSION 10/12/2015 7:07 AM CDT 10/12/2015 7:07 AM CDT Narrative [facility] TO [facility] CONVERSION - 10/12/2015 7:40 AM CDT Result Communication: No patient communication needed at this time us Jordan Moctezuma MD LABORATORY Final Re sult [facility] TO EPIC CONVERSION documented in this encounter Visit Diagnoses Not on filedocumented in this encounter
--- OUTSIDE RECORDS SUMMARY | 2024-04-17 17:22 | XMS_ITS | Encounter Summary ---
Author Organization [facility] Address [address] [place] [address]. [place], [place] [address] [place] [address] Care Team Providers Care Shale Miner Blasting Name Role Phone Unavailable Primary Care Provider Unavailabl e Encounter Details Date Type Department Care Team (Latest Contact Info) Description 10/12/2015 Abstract [facility] Medical Group Jordan Moctezuma MD Social History [...] st Contact Info) Description 06/08/2024 1:40 PM KINDERGARTEN AIDE Office Visit [facility] Medical [facility] Multispecialty Care - [address] [place] [address] [place] [address] [place] [address] Kalen Simpson PA-C 3 [facility] [address] [place] [address] 09/30/2024 10:15 AM CDT Office Visit [facility] [address] [place] [address] Darryl Bunch MD Three [facility]. [address] [place], [place] [id number] Juliette Zavala PA 3 [facility], [address] [place], [place] [address] documented as of this encounter Procedures Procedure Name Priority Date/Time Associated Diagnosis Comments COMPREHENSIVE METABOLIC PNL W DBIL Routine 10/12/2015 7:07 AM CDT documented in this encounter Results * (ABNORMAL) COMPREHENSIVE METABOLIC PNL W DBIL (10/12/2015 7:07 AM CDT) GLUCOSE 148(H) 70 - 105 MG/DL [facility] TO [facility]IC CONVERSION BUN 11 8.9 - 20.6 MG/DL [facility] TO [facility]IC CONVERSION CREATININE S/P/B 0.89 0.72 - 1.25 MG/DL [facility] TO EPIC CONVERSION SODIUM S/P/B 136 136 - 145 MMOL/L [facility] TO EPIC CONVERSION POTASSIUM S/P/B 3.9 3.5 - 5.1 MMOL/L [facility] TO EPIC CONVERSION CHLORIDE S/P/B 104 98 - 107 MMOL/L [facility] TO EPIC CONVERSION CO2 25.0 22 - 29 MMOL/L [facility] TO EPIC CONVERSION ANION GAP 10.9 10.0 - 24.0 MMOL/L [facility] TO EPIC CONVERSION OSMOLALITY (CALC) 274 271 - 290 MOSM/KG [facility] TO [facility]IC CONVERSION CALCIUM S/P/B 9.0 8.4 - 10.2 MG/DL [facility] TO EPIC CONVERSION BILIRUBIN TOTAL S/P/B 0.7 0.2 - 1.2 MG/DL [facility] TO EPIC CONVERSION BILIRUBIN DIRECT S/P/B 0.3 0.0 - 0.5 MG/DL [facility] TO EPIC CONVERSION BILIRUBIN INDIRECT S/P/B 0.4 0.0 - 1.1 MG/DL [facility] TO EPIC CONVERSION TOTAL PROTEIN S/P/B 6.9 6.4 - 8.3 G/DL [facility] TO EPIC CONVERSION ALBUMIN S/P/B 4.4 3.5 - 5.0 G/DL [facility] TO EPIC CONVERSION AST 43(H) 5 - 34 U/L [facility] TO EPIC CONVERSION ALT 64(H) 6 - 55 U/L [facility] TO EPIC CONVERSION ALKALINE PHOSPHATASE S/P/B 59 40 - 115 U/L [facility] TO EPIC CONVERSION BUN CREATININE RATIO 12.4 6.0 - 26.0 [facility] TO [facility]IC CONVERSION A/G RATIO 1.8 1.1 - 1.9 RATIO [facility] TO EPIC CONVERSION GFR ESTIMATE >60 ?? GFR Reference Range: Kidney Failure - <15mL/min Chronic Kidney Disease - <60mL/min Normal Kidney Function - >60mL/min GFR calculation is not recommended for Patients less than 18 years or greater than 70 years as per the national Kidney Foundation. If the patient is -Kathryn n, multiply results by 1.21 >60 ml/min/1 .73 m2 [facility] TO EPIC CONVERSION 10/12/2015 7:07 AM CDT 10/12/2015 7:07 AM CDT Narrative [facility] TO EPIC CONVERSION - 10/12/2015 2:30 PM CDT Result Communication: No patient communication needed at this time us Jordan Moctezuma MD LABORATORY Final Re sult [facility] TO EPIC CONVERSION documented in this encounter Visit Diagnoses Not on filedocumented in this encounter
--- OUTSIDE RECORDS SUMMARY | 2024-04-17 17:22 | XMS_ITS | Encounter Summary ---
Author Organization [facility] Address [address] [place] [address]. [place], [place] [address] [place] [address] Care Team Providers Care Real Estate Leasing Manager Name Role Phone Jordan Moctezuma MD Primary Care Provider U Khadra Leonardo NP Primary Care Provider [phone] José Luis Canales MD Primary Care Provider [phone] Encounter Details Date Type Department Care Team (Late st Contact Info) Description 03/12/2022 MyChart Message Enc [facility] Medical Group Family & Internal Medicine [facility] [address] [place] [address] Jordan Moctezuma MD ENT Referral Social History Tobacco Use Types Packs/Day Years [...] Coronavirus/COVID-19? No / Unsure 03/10/2022 7:49 AM RN SURGERY documented as of this encounter Progress Notes * Jordyn Lakhani RN - 03/13/2022 12:45 PM CST Please advise-ok for referral? SURGERY documented in this encounter Plan of Treatment Upcoming Encounters Date Type Department Care Team (Late st Contact Info) Description 06/08/2024 1:40 PM RN SURGERY Office Visit [facility] Multispecialty Care - [facility] 3 [facility] [address] [place] [address] [place] [address] [place] [address] Kalen Simpson, PA-C 3 [facility] [address] [place] [address] 09/30/2024 10:15 AM CDT [facility] [address] [place] [address] Darryl Bunch MD Three [facility]. [address] [place] [address] Juliette Zavala PA 3 [facility], [address] [place] [address] documented as of this encounter Visit Diagnoses Not on filedocumented in this encounter Additional Health Concerns Assessment Noted Time PHQ-9 Depression Total Score: 0 09/19/19 21 7:53 AM CDT documented as of this encounter Care Teams Real Estate Leasing Manager Relationship Specialty Start Date End Date Jordan Moctezuma MD PCP - General INTERNAL MEDICINE 08/02/18 07/17/22 [place] [address] Jose Guadalupe Chamorro, [facility] [address] [place] [address] PCP - General Nurse Practitioner Family 07/18/2207/12 [place] [address] [address] [place] [address] PCP - General 07/29/22 documented as of this encounter
--- OUTSIDE RECORDS SUMMARY | 2024-04-17 17:22 | XMS_ITS | Encounter Summary ---
Author Organization [facility] Address [address] [place] [address]. [address] [address] Care Team Providers Care Shake Maker Name Role Phone Jordan Tuttle MD Primary Care Provider Gustavo simmons Reason for Visit * Reason Comments Diabetes 6mo ck Hypertension Sleep Problem Encounter Details Date Type Department Care Team (Late st Contact Info) Description 10/10/2019 8:00 AM CDT Office Visit [facility] Medical Group Family & Internal Medicine [address] [address] Jordan Tuttle MD Diabetes (6mo ck ); Hypertension; Sleep Problem Social History Tobacco Use Types Packs/Day Years [...] Sign Reading Time Taken Comments Blood Pressure 128/70 10/10/2019 8:01 AM CDT Pulse 75 10/10/2019 8:01 AM CDT Temperature 36.7 ??C (98.1 ??F) 10/10/2019 8:01 AM CD T Respiratory Rate 16 10/10/2019 8:01 AM CDT Oxygen Saturation 98% 10/10/2019 8:01 AM CDT Inhaled Oxygen Concentration - - Weight 134.7 kg (297 lb) 10/10/2019 8:01 AM CDT Height 193 cm (6' 4 ) 10/10/2019 8:01 AM CDT Body Mass Index 36.15 10/10/2019 8:01 AM CDT documented in this encounter Progress Notes * Jordan Tuttle MD - 10/10/2019 8:00 AM CDT Reason for Visit: Diabetes (6mo ck ); Hypertension; and Sleep Problem Filed Vitals: 10/10/19 0801 BP: 128/70 Pulse: 75 Resp: 16 Temp: 98.1 ??F (36.7 ??C) TempSrc: Temporal SpO2: 98% Weight: 134.7 kg (297 lb) Height: 6' 4 (1.93 m) Body mass index is 36.15 kg/m??. History of Present Illness: HPI good morning office visit in Mr. 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 HENT: Negative. Eyes: Negative. Respiratory: Negative. Cardiovascular: Negative. Gastrointestinal: Negative. Musculoskeletal: Negative. Skin: Negative. Neurological: Negative. Psychiatric/Behavioral: Negative. Medications: Current Outpatient Medications: ??? Glucose Blood (ACCU-CHEK LUCRECIA) test strip, as needed. , Disp: , Rfl: ??? LISINOPRIL 20 MG tablet, TAKE 1 TABLET(20 MG) BY MOUTH DAILY, Disp: 90 tablet, Rfl: 0 ??? LISINOPRIL-HYDROCHLOROTHIAZIDE 20-12.5 MG tablet, TAKE 1 TABLET BY MOUTH DAILY, Disp: 90 tablet, Rfl: 0 ??? METFORMIN ER 500 MG 24 hr tablet, TAKE 2 TABLETS(1000 MG) BY MOUTH DAILY, Disp: 180 tablet, Rfl: 0 ??? SYNJARDY XR 25-1000 MG TABLET SR 24 HR, TAKE 1 TABLET BY MOUTH DAILY., Disp: 90 tablet, Rfl: 1 No Known Allergies Past [...] file Gets together: Not on file Attends sikh service: Not on file Active member of [...] He appears well- developed and well-nourished. HENT: Mouth/Throat: Oropharynx is clear and moist. Eyes: Pupils are equal, round, and reactive to light. EOM are normal. Neck: Normal range of motion. Neck supple. [...] orders placed or performed in visit on 10/10/19 HEMOGLOBIN, GLYCOSYLATED Result Value Ref Range HGB A1C 6.7 (A) % Assessment Encounter Diagnose(s) ICD-10-CM ICD-9-CM SNOMED CT(R) 1. Diabetes mellitus (CMS/HCC) E11.9 250.00 DIABETES MELLITUS HEMOGLOBIN, GLYCOSYLATED COLLECT.CAPILLARY (FNGR,HEEL,EAR) COMPREHENSIVE METABOLIC PANEL 2. Essential hypertension I10 401.9 ESSENTIAL HYPERTENSION COMPREHENSIVE METABOLIC PANEL 3. Health care maintenance Z00.00 V70.0 PATIENT ENCOUNTER STATUS CBC W/DIFF AUTOMATED COMPREHENSIVE METABOLIC PANEL LIPID PANEL TSH W/REFLEX Plan he will continue with the current medications encouraged him to exercise also I would like to obtain some blood test before the next appointment in 6 months. Orders Placed This Encounter ??? COLLECT.CAPILLARY (FNGR,HEEL,EAR) ??? HEMOGLOBIN, GLYCOSYLATED ??? CBC W/DIFF AUTOMATED ??? COMPREHENSIVE METABOLIC PANEL ??? LIPID PANEL ??? TSH W/REFLEX Follow up FU 6 MONTHS JORDAN TUTTLE MD 10/10/2019 8:26 AM documented in this encounter Plan of Treatment Upcoming Encounters Date Type Department Care Team (Late st Contact Info) Description 06/08/2024 1:40 PM DRY CHAIN OFFBEARER Office Visit [facility] Multispecialty Care - [facility] [address] [facility] [address] [place] [address] [place] [address] [place] [address] Kalen Simpson, PA-C 3 [facility] [address] [place] [address] 09/30/2024 10:15 AM CDT Office Visit [facility] [address] [place] [address] Darryl Bunch MD Three [facility]. [address] [place] [address] Juliette Zavala PA 3 [facility], [address] [place], [place] [address] documented as of this encounter Procedures Procedure Name Priority Date/Time Associated Diagnosis Comments COLLECT.CAPILLARY (FNGR,HEEL,EAR) Routine 10/10/2019 8:10 AM CDT Type 2 diabetes mellitus without complication, without long-term current use of insulin ([facility]) HEMOGLOBIN, GLYCOSYLATED Today 10/10/2019 Type 2 diabetes mellitus without complication, without long-term current use of insulin ([facility]) documented in this encounter Results * (ABNORMAL) HEMOGLOBIN, GLYCOSYLATED (10/10/2019) HGB A1C 6.7(A) % [facility] ([id number]), [place] 10/10/2019 us Jordan Tuttle MD LABORATORY Final Re sult [facility] ([id number]), [place] [address] [place] [address], documented in this encounter Visit Diagnoses Diagnosis Type 2 diabetes mellitus without complication, without long-term current use of insulin ([facility])- Primary Essential hypertension Unspecified essential hypertension Health care maintenance Unspecified general medical examination Obstructive sleep apnea syndrome Obstructive sleep apnea (adult) (pediatric) documented in this encounter Care Teams Shake Maker Relationship Specialty Start Date End Date Jordan Tuttle MD PCP - General INTERNAL MEDICINE 08/02/18 07/17/22 documented as of this encounter
--- OUTSIDE RECORDS SUMMARY | 2024-04-17 17:22 | XMS_ITS | Encounter Summary ---
Author Organization [facility] Address [address] [place] [address]. [place], [place] [id number] [place] [address] Care Team Providers Care Triage Technician Name Role Phone Unavailable Primary Care Provider Unavailabl e Encounter Details Date Type Department Care Team (Late st Contact Info) Description 02/02/2018 Abstract [facility] Medical Group Family & Internal Medicine - [place] [address] [place] [address] Jordan Moctezuma MD Social History [...] Reading Time Taken Comments Blood Pressure 130/80 02/02/2018 8:07 AM CDT Pulse 86 02/02/2018 8:07 AM CDT Temperature - - Respiratory Rate - - Oxygen Saturation - - Inhaled Oxygen Concentration - - Weight 139.9 kg (308 lb 6.1 oz) 02/02/2018 8:07 AM CDT Height 190.5 cm (6' 3 ) 02/02/2018 8:07 AM CDT Body Mass Index 38.54 02/02/2018 8:07 AM CDT documented in this encounter Progress Notes * Jordan Moctezuma MD - 02/02/2018 8:00 AM CDT Chief Complaint here for hypertension, TEGAN and DM. History of Present Illness A 42-year-old gentleman with history of hypertension, diabetes type 2, obstructive sleep apnea. He did very well. He has no complaints. He gained 2 pounds. He is pretty tall 62 and 308 pounds. He is probably around 100 pounds, overweight. BMI 38.5. His A1c dropped which I am happy to see that 7.6 from 8.9 so he will continue doing what he is doing. He was doing partial fasting but he is going to do a little longer fasting once a week and see if that reset his metabolic system. He is going to get a flu shot today. Obstructive Sleep Apnea (Follow-Up): The patient is being seen for follow-up of obstructive sleep apnea. The patient reports doing well. He has had no significant interval events. The patient is currently asymptomatic. Hypertension (Follow-Up): The patient presents for follow-up of primary hypertension. The patient states he has been doing well with his blood pressure control since the last visit. He has no comorbid illnesses. He has no significant interval events. Symptoms: The patient is currently asymptomatic. Associated symptoms include no headache, no focal neurologic deficits and no memory loss. Disease Management: the patient is doing well with his blood pressure goals.. PHQ-2 Depression Questionnaire: Over the past 2 weeks, how often have you been bothered by the following problems^2 1.) Little interest or pleasure in doing things^2 Not at all. 2.) Feeling down, depressed or hopeless^2 Not at all. TOTAL SCORE: (0-2) Negative Screening. Diabetes Type II (Follow-Up): The patient states he has been doing well with his Type II Diabetes control since the last visit. Comorbid Illnesses: hypertension and obesity. He has no significant interval events. Symptoms: The patient is currently asymptomatic. Medications: the patient is adherent with his medication regimen. He denies medication side effects.. Due For: 7.6. Review of Systems See HPI for pertinent positives. Constitutional: no fever, no chills and no headache. ENT: no earache, no sore throat, no hearing loss and no nasal discharge. Cardiovascular: no chest pain, no intermittent leg claudication, no lower extremity edema and no palpitations. Respiratory: no shortness of breath, no cough, no PND, no shortness of breath during exertion and no wheezing. Gastrointestinal: no abdominal pain, no constipation, no heartburn, no melena, no diarrhea and no vomiting. Genitourinary: no dysuria, no inadequacy of penile erections, no nocturia and no incontinence. Integumentary: no skin lesions and no skin rash. Musculoskeletal: no arthralgias, no joint swelling, no limb pain, no joint stiffness and no joint pain. Neurological: no confusion, no dizziness and no difficulty walking. Psychiatric: no anxiety. no suicidal ideation no depression Active Problems 1. BMI 38.0-38.9,adult (V85.38) (Z68.38) 2. BMI 40.0-44.9, adult (V85.41) (Z68.41) 3. Bright red blood per rectum (569.3) (K62.5) 4. Diabetes mellitus (250.00) (E11.9) 5. Dysuria (788.1) (R30.0) 6. Hyperglycemia (790.29) (R73.9) 7. Hypertension (401.9) (I10) 8. Influenza vaccine needed (V04.81) (Z23) 9. Shoulder pain, left (719.41) (M25.512) 10. Sleep apnea (780.57) (G47.30) Past Medical History 1. History of Acute upper respiratory infection (465.9) (J06.9) 2. History of Cough (786.2) (R05) Surgical History 1. History of Complete Colonoscopy Family History Father 1. No pertinent family history Social History ?? Being A Social Drinker ?? Marital History - Currently ?? Never a smoker Current Meds 1. Accu-Chek Jayleen STRP; TEST ONCE DAILY; Therapy: 03Aug2013 to (Evaluate:07Oct2016) Requested for: [id number] Recorded 2. Lisinopril 20 MG Oral Tablet; TAKE 1 TABLET BY MOUTH EVERY DAY; Therapy: 11Feb2012 to (Evaluate:15Apr2018) Requested for: 15Jan2018; Last Rx:[id number] Ordered 3. Lisinopril-Hydrochlorothiazide 20-12.5 MG Oral Tablet; TAKE 1 TABLET BY MOUTH EVERY DAY; Therapy: 11Feb2012 to (Evaluate:15Apr2018) Requested for: 15Jan2018; Last Rx:[id number] Ordered 4. MetFORMIN HCl ER 500 MG Oral Tablet Extended Release 24 Hour; TAKE 2 TABLETS BY MOUTH TWICE A DAY; Therapy: 23Jul2016 to (Evaluate:[id number]) Requested for: 30Sep2017; Last Rx:[id number] Ordered Allergies 1. No Known Drug Allergies Immunizations Influenza --- Series1: 16-Jan-2016; Series2: 24-Dec-2016 Vitals Recorded: 02Feb2018 08:07AM Temperature 98.2 F Heart Rate 86 Respiration 20 Systolic 130 Diastolic 80 O2 Saturation 97 Height 6 ft 3 in Weight 308 lb 6 oz BMI Calculated 38.54 BSA Calculated 2.64 Physical Exam Constitutional General appearance: No acute distress, well appearing and well nourished. Eyes Conjunctiva and lids: No swelling, erythema, [...] time: Normal. Mood and affect: Normal. Results/Data *A1C In Office 02Feb2018 08:18AM Jordan Moctezuma Test Name Result Flag Reference A1C 7.6 A 4.2 - 6.5 % HbA1C Counseling The patient was counseled regarding diagnostic results, instructions for management, risk factor reductions, prognosis, impressions, risks and benefits of treatment options and importance of compliance with treatment. total time of encounter was 25 minutes and 15 minutes was spent counseling. Assessment 1. Hypertension (401.9) (I10) 2. Sleep apnea (780.57) (G47.30) 3. BMI 38.0-38.9,adult (V85.38) (Z68.38) 4. Diabetes mellitus (250.00) (E11.9) Plan Diabetes mellitus, Hypertension 1. Follow-up visit in 3 months Outpatient Follow-up Status: Complete Done: 02Feb2018 Ordered; For: Diabetes mellitus, Hypertension; Ordered By: Jordan Moctezuma Performed: Due: 16Feb2018; Last Updated By: Roopa Balbuena; 02/02/2018 9:42:32 AM Influenza vaccine needed 2. Fluzone Quadrivalent 0.5 ML Intramuscular Suspension Prefilled Syringe For: Influenza vaccine needed; Ordered By:Jordan Moctezuma; Effective Date:02Feb2018; Administered by: Hazel Vega: 02/02/2018 8:34:00 AM; Last Updated By: Hazel Vega; 02/02/2018 8:34:49 AM Discussion/Summary I will see him back in 3 months. I told him once the A1c is below 7, we can switch to every 6 months. We need to get this under control and I told him that if he can lose 20 pounds between now and then the next 3 months that will be a big accomplishment when it comes to his diabetes so he is going to try to do that. Otherwise, everything looks good. We will encourage him to do the best he can. I like the fasting because it is a lifestyle that we can maintain for a long period of time. Negative adult depression screen.. Signatures Electronically signed by : Jordan Moctezuma M.D.; Feb 03 2018 7:49AM SALES REPRESENTATIVE [employer]MS (Author) documented in this encounter Plan of Treatment Upcoming Encounters Date Type Department Care Team (Late st Contact Info) Description 06/08/2024 1:40 PM SALES REPRESENTATIVE [employer] Office Visit [facility] Medical Group Multispecialty Care - [facility] [address] [place] [address] [place] [address] [place] [address] Kalen Simpson, JEAN CLAUDEC [address] [facility] [address] [place] [address] 09/30/2024 10:15 AM CDT [facility] [address] [place] [address] Darryl Bunch MD Three [facility]. [address] [place], [place] [address] Juliette Zavala PA [address], [address] [place], [place] [address] documented as of this encounter Procedures Procedure Name Priority Date/Time Associated Diagnosis Comments HEMOGLOBIN, GLYCOSYLATED Routine 02/02/2018 8:18 AM CDT documented in this encounter Results * (ABNORMAL) HEMOGLOBIN, GLYCOSYLATED (02/02/2018 8:18 AM CDT) HGB A1C 7.6(A) 4.2 - 6.5 % HbA1C [facility] TO EPIC CONVERSION 02/02/2018 8:18 AM CDT 02/02/2018 8:18 AM CDT Narrative [facility] TO EPIC CONVERSION - 02/02/2018 8:17 AM CDT Result Communication: No patient communication needed at this time Jordan Moctezuma MD LABORATORY Final Re sult [facility] TO EPIC CONVERSION documented in this encounter Visit Diagnoses Not on filedocumented in this encounter
--- OUTSIDE RECORDS SUMMARY | 2024-04-17 17:22 | XMS_ITS | Encounter Summary ---
Author Organization [facility] Address [address] [place] [address]. [address] [address] Care Team Providers Care Corporate Quality Engineer Name Role Phone Jordan Tuttle MD Primary Care Provider Gustavo simmons Reason for Visit * Reason Comments Diabetes 3mo ck . doing well Hypertension Encounter Details Date Type Department Care Team (Late st Contact Info) Description 04/12/2019 8:00 AM SUPERVISOR PIPELINE Office Visit [facility] Medical Group Family & Internal Medicine [address] [address] Jordan Tuttle MD Diabetes (3mo ck . doing well); Hypertension Social History Tobacco Use Types Packs/Day [...] Sign Reading Time Taken Comments Blood Pressure 122/70 04/12/2019 8:06 AM SUPERVISOR PIPELINE Pulse 78 04/12/2019 8:06 AM SUPERVISOR PIPELINE Temperature 36.1 ??C (97 ??F) 04/12/2019 8:06 AM SUPERVISOR PIPELINE Respiratory Rate 16 04/12/2019 8:06 AM SUPERVISOR PIPELINE Oxygen Saturation 98% 04/12/2019 8:06 AM SUPERVISOR PIPELINE Inhaled Oxygen Concentration - - Weight 133.6 kg (294 lb 9.6 oz) 04/12/2019 8:06 AM SUPERVISOR PIPELINE Height 193 cm (6' 4 ) 04/12/2019 8:06 AM SUPERVISOR PIPELINE Body Mass Index 35.86 04/12/2019 8:06 AM SUPERVISOR PIPELINE documented in this encounter Progress Notes * Jordan Tuttle MD - 04/12/2019 8:00 AM CST Reason for Visit: Diabetes (3mo ck . doing well) and Hypertension Filed Vitals: 04/12/19 0806 BP: 122/70 Pulse: 78 Resp: 16 Temp: 97 ??F (36.1 ??C) SpO2: 98% Weight: 133.6 kg (294 lb 9.6 oz) Height: 6' 4 (1.93 m) Body mass index is 35.86 kg/m??. History of Present Illness: HPI good morning of his visit in Mr. Jeancarlos Garcia he is a pleasant 44-year-old gentleman with ahistory of diabetes hypertension and sleep apnea he tells me that the addition of Synjardy has bertha good for him indeed the A1c dropped to 6.4 from the 8.5 so that is excellent he also lost few pounds so encouraged him to continue doing so he is motivated and I think with the results he is going to be super motivated he has no complaints whatsoever still using his CPAP machine every single night ROS: Review of Systems Constitutional: Negative. HENT: Negative. Eyes: Negative. Respiratory: Negative. Cardiovascular: Negative. Gastrointestinal: Negative. Genitourinary: Negative. Musculoskeletal: Negative. Skin: Negative. Neurological: Negative. Psychiatric/Behavioral: Negative. Medications: Current Outpatient Medications: ??? Empagliflozin-metFORMIN HCl ER (SYNJARDY XR) 25-1000 MG TABLET SR 24 HR, Take 25 mg by mouth daily AND 1,000 mg daily., Disp: 90 tablet, Rfl: 1 ??? Glucose Blood (ACCU-CHEK LUCRECIA) test strip, as needed. , Disp: , Rfl: ??? lisinopril-hydrochlorothiazide 20-12.5 MG tablet, Take 1 tablet by mouth daily., Disp: 90 tablet, Rfl: 0 ??? METFORMIN ER 500 MG 24 hr tablet, TAKE 2 TABLETS(1000 MG) BY MOUTH DAILY, Disp: 180 tablet, Rfl: 0 ??? lisinopril 20 MG tablet, Take 1 tablet (20 mg total) by mouth daily., Disp: 90 tablet, Rfl: 0 No Known [...] file Gets together: Not on file Attends yarsani service: Not on file Active member of [...] orders placed or performed in visit on 04/12/19 HEMOGLOBIN, GLYCOSYLATED Result Value Ref Range HGB A1C 6.4 Assessment Encounter Diagnose(s) ICD-10-CM ICD-9-CM SNOMED CT(R) 1. Diabetes mellitus ([facility]) E11.9 250.00 DIABETES MELLITUS HEMOGLOBIN, GLYCOSYLATED COLLECT.CAPILLARY (FNGR,HEEL,EAR) 2. Essential hypertension I10 401.9 ESSENTIAL HYPERTENSION 3. BMI 38.0-38.9,adult Z68.38 V85.38 BODY MASS INDEX 30+ - OBESITY 4. Obstructive sleep apnea syndrome G47.33 327.23 OBSTRUCTIVE SLEEP APNEA SYNDROME Plan continue current medications medications are well-tolerated and there is consistency encouraged him to continue with watching his diet and exercising I will see him back in 6 months. Orders Placed This Encounter ??? COLLECT.CAPILLARY (FNGR,HEEL,EAR) ??? HEMOGLOBIN, GLYCOSYLATED I want him to have some blood test before the next appointment. Follow up FU 6 MONTHS JORDAN TUTTLE MD 04/12/2019 8:28 AM RVISOR PIPELINE documented in this encounter Plan of Treatment Upcoming Encounters Date Type Department Care Team (Late st Contact Info) Description 06/08/2024 1:40 PM SUPERVISOR PIPELINE Office Visit [facility] Medical Group Multispecialty Care - [facility] [address] [place] [address] [place] [address] [place] [address] Kalen Simpson PA-C [address] [facility] [address] [place] [address] 09/30/2024 10:15 AM CDT [facility] [address] [place] [address] Darryl Bunch MD Three [facility]. [address] [place], [place] [address] Juliette Zavala PA [address], [address] [place], [place] [address] documented as of this encounter Procedures Procedure Name Priority Date/Time Associated Diagnosis Comments HEMOGLOBIN, GLYCOSYLATED Today 04/12/2019 8:27 AM SUPERVISOR PIPELINE Type 2 diabetes mellitus without complication, without long-term current use of insulin ([facility]) COLLECT.CAPILLARY (FNGR,HEEL,EAR) Routine 04/12/2019 8:13 AM SUPERVISOR PIPELINE Type 2 diabetes mellitus without complication, without long-term current use of insulin ([facility]) documented in this encounter Results * HEMOGLOBIN, GLYCOSYLATED (04/12/2019 8:27 AM SUPERVISOR PIPELINE) HGB A1C 6.[id number]), [place] 04/12/2019 8:27 AM SUPERVISOR PIPELINE us Jordan Tuttle MD LABORATORY Final Re sult [facility] ([id number]), [place] [address] [place] [address], documented in this encounter Visit Diagnoses Diagnosis Type 2 diabetes mellitus without complication, without long-term current use of insulin ([facility])- Primary Essential hypertension Unspecified essential hypertension BMI 38.0-38.9,adult Body Mass Index 38.0-38.9, adult Obstructive sleep apnea syndrome Obstructive sleep apnea (adult) (pediatric) Health care maintenance Unspecified general medical examination documented in this encounter Care Teams Corporate Quality Engineer Relationship Specialty Start Date End Date Jordan Tuttle MD PCP - General INTERNAL MEDICINE 08/02/18 07/17/22 documented as of this encounter
--- OUTSIDE RECORDS SUMMARY | 2024-04-17 17:22 | XMS_ITS | Encounter Summary ---
Author Organization [facility] Address [address] [place] [address]. [place], [place] [address] [place] [address] Care Team Providers Care Carbon Paper Coating Supervisor Name Role Phone Unavailable Primary Care Provider Unavailabl e Encounter Details Date Type Department Care Team (Late st Contact Info) Description 01/14/2016 Abstract [facility] [address] [place] [address] Jordan Moctezuma MD Social History Tobacco Use [...] st Contact Info) Description 06/08/2024 1:40 PM ROTARY OPERATOR Office Visit [facility] Medical Group Multispecialty Care - [address] [place] [address] [place] [address] [place] [address] Kalen Simpson PA-C [address] [facility] [address] [place] [address] 09/30/2024 10:15 AM CDT Office Visit [facility] [address] [place] [address] Darryl Bunch MD Three [facility]. [address] [place] [address] Juliette Zavala PA 3 [facility], [address] [place], [place] [id number] documented as of this encounter Visit Diagnoses Diagnosis Hyperglycemia Other abnormal glucose documented in this encounter
--- OUTSIDE RECORDS SUMMARY | 2024-04-17 17:22 | XMS_ITS | Encounter Summary ---
Author Organization [facility] Address [address] [place] [address]. [place], [place] [address] [place] [address] Care Team Providers Care Resource Analyst Name Role Phone Unavailable Primary Care Provider Unavailabl e Encounter Details Date Type Department Care Team (Late st Contact Info) Description 10/22/2017 Abstract [facility] [address] [place] [address] Jordan Moctezuma MD Social History Tobacco Use [...] Contact Info) Description 06/08/2024 1:40 PM SUPERVISOR INTELLIGENCE ANALYST Office Visit [facility] Medical Group Multispecialty Care - [address] [place] [address] [place] [address] [place] [address] Kalen Simpson PA-C 3 [facility] [address] [place] [address] 09/30/2024 10:15 AM CDT Office Visit [facility] [address] [place] [address] Darryl Bunch MD Three [facility]. [address] [place], [place] [address] Juliette Zavala PA 3 [facility], [address] [place] [address] documented as of this encounter Procedures Procedure Name Priority Date/Time Associated Diagnosis Comments COMPREHENSIVE METABOLIC PANEL Routine 10/22/2017 6:16 AM CDT LIPID PANEL Routine 10/22/2017 6:16 AM CDT CBC W/DIFF AUTOMATED Routine 10/22/2017 6:16 AM CDT THYROID STIM HORMONE TSH Routine 10/22/2017 6:16 AM CDT documented in this encounter Results * THYROID STIM HORMONE, TSH (10/22/2017 6:16 AM CDT) TSH 2.358 0.358 - 3.74 uIU/ML 10/22/2017 7:16 AM CDT [facility] Comment: HIGH DOSES OF BIOTIN MAY INTERFERE WITH THIS TEST RESULT. CORRELATION TO CLINICAL HISTORY AND PRESENTATION RECOMMENDED. SERUM OR PLASMA SPECIMEN / Unknown 10/22/2017 6:16 AM CDT 10/22/2017 6:17 AM CDT us Generic Conversion Md [facility] Final R esult [facility] [address] [place] [address], [place] [phone] * (ABNORMAL) LIPID PANEL (10/22/2017 6:16 AM CDT) CHOLESTEROL 118 <200.0 MG/DL 10/22/2017 6:54 AM [facility] TRIGLYCERIDES 102 <150 MG/DL 10/22/2017 6:54 AM [facility] HDL 39(L) >40.0 MG/DL 10/22/2017 6:54 AM [facility] LDL (CALCULATED) 58.6 <100 MG/DL 10/23/19 18 6:54 AM [facility] NON HDL CHOLESTEROL 79 <130 MG/DL 10/22 6:54 AM [facility] CHOL/HDL RATIO 3.0 0.0 - 4.5 10/22/2017 6:54 AM [facility] VLDL CALCULATION 20 5 - 55 MG/DL 10/22/2017 6:54 AM [facility] LIPID INTERPRETATION 10/22/2017 6:54 AM [facility] Comment: [facility] CONCENSUS REPORT RECOMMENDATIONS: ?ADULT ? CHILD ??LOW RISK: ?CHOLESTEROL ? <200 ? <170 ? TRIGLYCERIDE ?<150 ?--- ?HDL ? >=60 ?--- ?LDL ? <100 ? <110 ?? BORDERLINE: ?CHOLESTEROL ? 200-239 ?? 170-199 ?TRIGLYCERIDE ?150-199 ? --- ?HDL ? 40-59 ?--- ?LDL ? 100-159 ?? 110- 129 ?? HIGH RISK: ? CHOLESTEROL ? >=240 ?>=200 ?TRIGLYCERIDE ?>=200 ? --- ?HDL ?<40 ?--- ?LDL ? >=160 ?>=130 10/22/2017 6:16 AM CDT 10/22/2017 6:17 AM CDT us Generic Conversion Md [facility] Final R esult [facility] [address] [place] [address], * (ABNORMAL) COMPREHENSIVE METABOLIC PANEL (10/22/2017 6:16 AM CDT) GLUCOSE 173(H) 70 - 99 MG/DL 10/22/2017 6:54 AM CDT [facility] BUN 11 7 - 18 MG/DL 10/22/2017 6:54 AM CDT [facility] CREATININE S/P/B 0.83 0.7 - 1.3 MG/DL 10/22/2017 6:54 AM CDT [facility] SODIUM S/P/B 137 136 - 145 MMOL/L 10/22/2017 6:54 AM CDT [facility] POTASSIUM S/P/B 3.9 3.5 - 5.1 MMOL/L 10/22/2017 6:54 AM CDT [facility] CHLORIDE S/P/B 102 100 - 108 MMOL/L 10/22/2017 6:54 AM [facility] CO2 26.4 21 - 32 MMOL/L 10/22/2017 6:54 AM [facility] CALCIUM S/P/B 8.6 8.5 - 10.1 MG/DL 10/22/2017 6:54 AM [facility] BILIRUBIN TOTAL S/P/B 0.6 0.2 - 1.2 MG/DL 10/22/2017 6:54 AM [facility] TOTAL PROTEIN S/P/B 7.3 6.4 - 8.2 G/DL 10/22/2017 6:54 AM [facility] ALBUMIN S/P/B 4.0 3.4 - 5.0 G/DL 10/22/2017 6:54 AM [facility] AST 39(H) 15 - 37 U/L 10/22/2017 6:54 AM [facility] ALT 84(H) 16 - 60 U/L 10/22/2017 6:54 AM [facility] ALKALINE PHOSPHATASE S/P/B 69 50 - 136 U/L 10/22/2017 6:54 AM [facility] ANION GAP 12.5 8 - 20 MMOL/L 10/22/2017 6:54 AM [facility] BUN CREATININE RATIO 13.3 6 - 26 10/22/2017 6:54 AM [facility] A/G RATIO 1.2 1.0 - 2.0 RATIO 10/22/2017 6:54 AM [facility] EGFR NON-AFR. AMER. >90 >90 ML/MIN/1.7 3 M2 10/22/2017 6:54 AM [facility] EGFR AFR. AMER. >90 >90 ML/MIN/1.7 3 M2 10/22/2017 6:54 AM CDT [facility] Comment: NOTE: eGFR is not calculated for patients <18 years of age. This is an estimated GFR (CKD EPI) and should not be used for calculating drug doses. 10/22/2017 6:16 AM CDT 10/22/2017 6:17 AM CDT us Generic Conversion Md [facility] Final R esult [facility] [address] [place] [address], [place] [phone] * (ABNORMAL) CBC W/DIFF AUTOMATED (10/22/2017 6:16 AM CDT) WBC 9.2 4.4 - 11.0 x10'3/uL 10/22/2017 6:38 AM CDT [facility] RBC 4.75 4.50 - 5.90 x10'6/uL 10/22/2017 6:38 AM CDT [facility] HGB 14.1 14.0 - 17.5 G/DL 10/22/2017 6:38 AM T [facility] HCT 40.4(L) 41.5 - 50.4 % 10/22/2017 6:38 AM T [facility] MCV 85.1 80.0 - 96.0 FL 10/22/2017 6:38 AM CDT [facility] MCH 29.7 26.5 - 31.4 PG 10/22/2017 6:38 AM CDT [facility] MCHC 34.9(H) 31.9 - 34.8 G/DL 10/22/2017 6:38 AM T [facility] RDW 12.2(L) 12.3 - 14.3 % 10/22/2017 6:38 AM CDT [facility] PLT 197 151 - 353 x10'3/uL 10/22/2017 6:38 AM CDT [facility] MPV 11.1 9.7 - 11.9 FL 10/22/2017 6:38 AM CDT [facility] RBC MORPHOLOGY NORMAL 10/22/2017 6:38 AM CDT [facility] PLT MORPH. NORMAL 10/22/2017 6:38 AM CDT [facility] WBC MORPHOLOGY NORMAL 10/22/2017 6:38 AM CDT [facility] LYMPHOCYTES % 36.6 15.8 - 45.0 % 10/22/2017 6:38 AM T [facility] NEUTROPHILS % 53.8 42.1 - 71.9 % 10/22/2017 6:38 AM CDT [facility] MONOCYTES % 7.4 5.7 - 12.5 % 10/22/2017 6:38 AM T [facility] EOSINOPHILS 1.2 0.0 - 5.6 % 10/22/2017 6:38 AM CDT [facility] BASOPHILS 0.5 0.0 - 1.3 % 10/22/2017 6:38 AM T [facility] ABS. NEUTROPHILS TOTAL 4.96 1.40 - 6.00 x10'3/uL 10/22/2017 6:38 AM T [facility] IMMATURE GRANS % 0.5 0.0 - 0.5 % 10/22/2017 6:38 AM T [facility] ABS. LYMPHOCYTES 3.37 0.80 - 4.70 x10'3/uL 10/22/2017 6:38 AM T [facility] 10/22/2017 6:16 AM CDT 10/22/2017 6:17 AM CDT us Generic Conversion Md [facility] Final R esult [facility] [address] [place] [address], documented in this encounter Visit Diagnoses Diagnosis Essential (primary) hypertension Unspecified essential hypertension documented in this encounter
--- OUTSIDE RECORDS SUMMARY | 2024-04-17 17:22 | XMS_ITS | Encounter Summary ---
Author Organization [facility] Address [address] [place] [address]. [place], [place] [address] [place] [address] Care Team Providers Care Mill Oiler Name Role Phone Jordan Moctezuma MD Primary Care Provider Gustavo simmons Reason for Visit * Reason Onset Date Comments Medication 01/11/2019 Encounter Details Date Type Department Care Team (Late st Contact Info) Description 01/11/2019 Telephone [facility] Family & Internal Medicine [address] [address] Jordan Moctezuma MD Medication Social [...] as of this encounter Progress Notes * Roopa Balbuena - 01/11/2019 10:44 AM CDT Patient called in and said that his medications went over to [facility] instead of [facility]. Please send the scripts to [facility]. Name of Medication: Lisinopril - Hydrochlorothiazide 20 -12.5 mg Lisinopril 20 mg Metformin 500 mg documented in this encounter Plan of Treatment Upcoming Encounters Date Type Department Care Team (Late st Contact Info) Description 06/08/2024 1:40 PM ASSOCIATE ATTORNEY Office Visit [facility] Multispecialty Care - [facility] [address] [facility] [place] [address] [place] [address] [place] [address] Kalen Simpson PA-C 3 [facility] [address] [place] [address] 09/30/2024 10:15 AM CDT Office [facility] [address] [place] [address] Darryl Bunch MD Three [facility]. [address] [place] [address] Juliette Zavala PA 3 [facility], [address] [place] [address] documented as of this encounter Visit Diagnoses Diagnosis Essential hypertension Unspecified essential hypertension Type 2 diabetes mellitus without complication, without long-term current use of insulin ([facility]) documented in this encounter Care Teams Mill Oiler Relationship Specialty Start Date End Date Jordan Moctezuma MD PCP - General INTERNAL MEDICINE 08/02/18 07/17/22 documented as of this encounter
--- OUTSIDE RECORDS SUMMARY | 2024-04-17 17:22 | XMS_ITS | Encounter Summary ---
Author Organization [facility] Address [address] [place] [address]. [place], [place] [address] [place] [address] Care Team Providers Care Tool And Die Assembler Name Role Phone Jordan Moctezuma MD Primary Care Provider Gustavo simmons Reason for Visit * Reason Comments Lab (SCAN) Encounter Details Date Type Department Care Team (Latest Contact Info) Description 02/27/2021 Scan [facility] Scanned, Documents Lab (SCAN) Social History Tobacco Use Types [...] COVID-19? No / Unsure 03/25/2021 9:56 AM CHIEF CLERK SHELTER documented as of this encounter Plan of Treatment Upcoming Encounters Date Type Department Care Team (Late st Contact Info) Description 06/08/2024 1:40 PM CHIEF CLERK SHELTER Office Visit [facility] Medical Group Multispecialty Care - [address] [place] [address] [place] [address] [place] [address] Kalen Simpson PA-C 3 [facility] [address] [place] [address] 09/30/2024 10:15 AM CDT Office Visit [facility] [address] [place] [address] Darryl Bunch MD Three [facility]. [address] [place] [address] Juliette Zavala PA 3 [facility], [address] [place] [address] documented as of this encounter Procedures Procedure Name Priority Date/Time Associated Diagnosis Comments OUTSIDE LAB (SCAN ORDER) 02/27/2021 documented in this encounter Results * OUTSIDE LAB (SCAN) (02/27/2021) 02/27/2021 Narrative 02/27/2021 Ordered by an unspecified provider. us Documents Scanned SCANNING Final Result documented in this encounter Visit Diagnoses Not on filedocumented in this encounter Additional Health Concerns Assessment Noted Time PHQ-9 Depression Total Score: 0 09/19/19 21 7:53 AM CDT documented as of this encounter Care Teams Tool And Die Assembler Relationship Specialty Start Date End Date Jordan Moctezuma MD PCP - General INTERNAL MEDICINE 08/02/18 07/17/22 documented as of this encounter
--- OUTSIDE RECORDS SUMMARY | 2024-04-17 17:22 | XMS_ITS | Encounter Summary ---
Author Organization [facility] Address [address] [place] [address]. [place], [place] [address] [place] [address] Care Team Providers Care Cargo Agent Name Role Phone Jordan Moctezuma MD Primary Care Provider Gustavo simmons Encounter Details Date Type Department Care Team (Late Contact Info) Description 03/22/2021 Patient Self-Triage MYCHART DEPARTMENT [address] [place] [address] [facility], [facility] Provider Social History Tobacco Use Types Packs/Day Years [...] COVID-19? No / Unsure 03/22/2021 8:58 AM LEATHER CUTTER documented as of this encounter Plan of Treatment Upcoming Encounters Date Type Department Care Team (Late Contact Info) Description 06/08/2024 1:40 PM LEATHER CUTTER Office Visit [facility] Group Multispecialty Care [address] [place] [address] [place] [address] [place] [address] Kalen Simpson, PA-C 3 [facility] [address] [place] [address] 09/30/2024 10:15 AM CDT Office Visit [facility] [address] [place] [address] Darryl Bunch MD Three [facility]. [address] [place] [address] Juliette Zavala PA 3 [facility], [address] [place] [address] documented as of this encounter Visit Diagnoses Not on filedocumented in this encounter Additional Health Concerns Assessment Noted Time PHQ-9 Depression Total Score: 0 09/19/19 21 7:53 AM CDT documented as of this encounter Care Teams Cargo Agent Relationship Specialty Start Date End Date Jordan Moctezuma MD PCP - General INTERNAL MEDICINE 08/02/18 07/17/22 documented as of this encounter
--- OUTSIDE RECORDS SUMMARY | 2024-04-17 17:22 | XMS_ITS | Encounter Summary ---
Author Organization [facility] Address [address] [place] [address]. [place], [place] [address] [place] [address] Care Team Providers Care Returner Name Role Phone Jordan Moctezuma MD Primary Care Provider Gustavo simmons Encounter Details Date Type Department Care Team (Latest Contact Info) Description 10/10/2019 Travel Social History Tobacco Use Types Packs/Day [...] st Contact Info) Description 06/08/2024 1:40 PM PROCESS ASSISTANT Office Visit [facility] Medical Group Multispecialty Care - [address] [place] [address] [place] [address] [place] [address] Kalen Simpson, PA-C 3 [facility] [address] [place] [address] 09/30/2024 10:15 AM CDT [facility] [address] [place] [address] Darryl Bunch MD Three [facility]. [address] [place] [address] Juliette Zavala PA 3 [facility], [address] [place] [address] documented as of this encounter Visit Diagnoses Not on filedocumented in this encounter Care Teams Returner Relationship Specialty Start Date End Date Jordan Moctezuma MD PCP - General INTERNAL MEDICINE 08/02/18 07/17/22 documented as of this encounter
--- OUTSIDE RECORDS SUMMARY | 2024-04-17 17:22 | XMS_ITS | Encounter Summary ---
Author Organization [facility] Address [address] [place] [address]. [place], [place] [address] [place] [address] Care Team Providers Care Calender Runner Name Role Phone Jordan Moctezuma MD Primary Care Provider Gustavo manningclara Encounter Details Date Type Department Care Team (Late Contact Info) Description 07/08/2022 Medication Management [facility] Family & Internal Medicine [address] [address] Jordan Moctezuma MD Social History [...] (Late Contact Info) Description 06/08/2024 1:40 PM JIGGER ARTISAN Office Visit [facility] Multispecialty Care - [address], [address] [place] [address] [place] [address] [place] [address] Kalen Simpson PA-C 3 [facility] [address] [place] [address] 09/30/2024 10:15 AM CDT Office Visit [facility] [address] [place] [address] Darryl Bunch MD Three [facility]. [address] [place], [place] [address] Juliette Zavala PA 3 [facility], [address] [place], [place] [address] documented as of this encounter Visit Diagnoses Diagnosis Diverticulitis- Primary Diverticulitis of colon (without mention of hemorrhage) documented in this encounter Additional Health Concerns Assessment Noted Time PHQ-9 Depression Total Score: 0 09/19/19 7:53 AM CDT documented as of this encounter Care Teams Calender Runner Relationship Specialty Start Date End Date Jordan Mocteuzma MD PCP - General INTERNAL MEDICINE 08/02/18 07/17/22 documented as of this encounter
--- OUTSIDE RECORDS SUMMARY | 2024-04-17 17:22 | XMS_ITS | Encounter Summary ---
Author Organization [facility] Address [address] [place] [address]. [place] [address] [place] [address] Care Team Providers Care Animal Control Specialist Name Role Phone Jordan Moctezuma MD Primary Care Provider Gustavo simmons Encounter Details Date Type Department Care Team (Latest Contact Info) Description 05/05/2020 Scan HEALTH INFO SRVCS Scanned, Documents Social [...] st Contact Info) Description 06/08/2024 1:40 PM CLUB LICENSEE Office Visit [facility] Multispecialty Care - [address], [address] [place] [address] [place] [address] [place] [address] Kalen Simpson PA-C 3 [facility] [address] [place] [address] 09/30/2024 10:15 AM CDT [facility] [address] [place] [address] Darryl Bunch MD Three [facility]. [address] [place] [address] Juliette Zavala PA 3 [facility], [address] [place] [address] documented as of this encounter Visit Diagnoses Not on filedocumented in this encounter Care Teams Animal Control Specialist Relationship Specialty Start Date End Date Jordan Moctezuma MD PCP - General INTERNAL MEDICINE 08/02/18 07/17/22 documented as of this encounter
--- OUTSIDE RECORDS SUMMARY | 2024-04-17 17:22 | XMS_ITS | Encounter Summary ---
Author Organization [facility] Address [address] [place] [address]. [place], [place] [address] [place] [address] Care Team Providers Care Counter Helper Name Role Phone Unavailable Primary Care Provider Unavailabl e Encounter Details Date Type Department Care Team (Late st Contact Info) Description 10/12/2015 Abstract [facility] [address] [place] [address] Jordan Moctezuma MD Social History Tobacco Use [...] st Contact Info) Description 06/08/2024 1:40 PM DIRECT CARE STAFFER Office Visit [facility] Medical Group Multispecialty Care - [address] [place] [address] [place] [address] [place] [address] Kalen Simpson PA-C 3 [facility] [address] [place] [address] 09/30/2024 10:15 AM CDT Office Visit [facility] [address] [place] [address] Darryl Bunch MD Three [facility]. [address] [place] [address] Juliette Zavala PA 3 [facility], [address] [place] [address] documented as of this encounter Visit Diagnoses Diagnosis Type 2 diabetes mellitus without complications (CMS/HCC HHS/HCC) Type II or unspecified type diabetes mellitus without mention of complication, not stated as uncontrolled documented in this encounter
--- OUTSIDE RECORDS SUMMARY | 2024-04-17 17:22 | XMS_ITS | Encounter Summary ---
Author Organization [facility] Address [address] [place] [address]. [place] [address] [place] [address] Care Team Providers Care Computer Assistant Name Role Phone Jordan Moctezuma MD Primary Care Provider Gustavo simmons Encounter Details Date Type Department Care Team (Latest Contact Info) Description 01/05/2020 Scan HEALTH INFO SRVCS Scanned, Documents Social [...] st Contact Info) Description 06/08/2024 1:40 PM MAPPING TECHNICIAN Office Visit [facility] Medical Group Multispecialty Care - [address], [address] [place] [address] [place] [address] [place] [address] Kalen Simpson PA-C 3 [facility] [address] [place] [address] 09/30/2024 10:15 AM CDT [facility] [address] [place] [address] Darryl Bunch MD Three [facility]. [address] [place] [address] Juliette Zavala PA 3 [facility], [address] [place] [address] documented as of this encounter Visit Diagnoses Not on filedocumented in this encounter Care Teams Computer Assistant Relationship Specialty Start Date End Date Jordan Moctezuma MD PCP - General INTERNAL MEDICINE 08/02/18 07/17/22 documented as of this encounter
--- OUTSIDE RECORDS SUMMARY | 2024-04-17 17:22 | XMS_ITS | Encounter Summary ---
Author Organization [facility] Address [address] [place] [address]. [place], [place] [address] [place] [address] Care Team Providers Care Obgyn Hospitalist Physician Name Role Phone Jordan Moctezuma MD Primary Care Provider Gustavo simmons Encounter Details Date Type Department Care Team (Latest Contact Info) Description 01/10/2019 Scan HEALTH INFO SRVCS Scanned, Documents Social [...] st Contact Info) Description 06/08/2024 1:40 PM LOAD PLANNER Office Visit [facility] Multispecialty Care - [facility] [address] [facility] [address] [place] [address] [place] [address] [place] [address] Kalen Simpson, PAHarrisonC 3 [facility] [address] [place] [address] 09/30/2024 10:15 AM CDT Office Visit [facility] [address] [place] [address] Darryl Bunch MD Three [facility]. [address] [place], [place] [address] Juliette Zavala PA 3 [facility], [address] [place] [address] documented as of this encounter Visit Diagnoses Not on filedocumented in this encounter Care Teams Obgyn Hospitalist Physician Relationship Specialty Start Date End Date Jordan Moctezuma MD PCP - General INTERNAL MEDICINE 08/02/18 07/17/22 documented as of this encounter
--- OUTSIDE RECORDS SUMMARY | 2024-04-17 17:22 | XMS_ITS | Encounter Summary ---
Author Organization [facility] Address [address] [place] [address]. [place], [place] [id number] [place] [address] Care Team Providers Care Global Account Director Name Role Phone Unavailable Primary Care Provider Unavailabl e Encounter Details Date Type Department Care Team (Latest Contact Info) Description 10/12/2015 Abstract [facility] Medical Group Jordan Moctezuma MD Social History [...] st Contact Info) Description 06/08/2024 1:40 PM SINGLE END SEWER Office Visit [facility] Medical [facility] Multispecialty Care - [address] [place] [address] [place] [address] [place] [address] Kalen Simpson PA-C 3 [facility] [address] [place] [address] 09/30/2024 10:15 AM CDT Office Visit [facility] [address] [facility] [place] [phone] Darryl Bunch MD Three [facility]. [address] [place], [place] [address] Juliette Zavala PA 3 [facility], [address] [place], [place] [address] documented as of this encounter Procedures Procedure Name Priority Date/Time Associated Diagnosis Comments LIPID W/CALC LDL Routine 10/12/2015 7:07 AM CDT HEMOGLOBIN, GLYCOSYLATED Routine 10/12/2015 7:07 AM CDT CBC W/DIFF AUTOMATED Routine 10/12/2015 7:07 AM CDT THYROID STIM HORMONE TSH Routine 10/12/2015 7:07 AM CDT documented in this encounter Results * (ABNORMAL) HEMOGLOBIN, GLYCOSYLATED (10/12/2015 7:07 AM CDT) HGB A1C 7.8(H) <5.7 % [facility] T O EPIC CONVERSION Comment: Result Comment: ?? INCREASED RISK OF DIABETES <5.7% ?NON-DIABETES 5.7-6.4% INCREASED RISK FOR FUTURE DIABETES > OR = 6.5 CONSISTENT WITH DIABETES ?? STANDARDS OF MEDICAL CARE IN DIABETES-2010 DIABETES CARE, 33(SUPP 1): S1-S61,2009 10/12/2015 7:07 AM CDT 10/12/2015 7:07 AM CDT Narrative [facility] TO EPIC CONVERSION - 10/12/2015 9:04 AM CDT Result Communication: No patient communication needed at this time us Jordan Moctezuma MD LABORATORY Final Re sult [facility] TO EPIC CONVERSION * THYROID STIM HORMONE, TSH (10/12/2015 7:07 AM CDT) TSH 2.49 0.35 - 4.94 uIU/mL [facility] TO EPIC CONVERSION 10/12/2015 7:07 AM CDT 10/12/2015 7:07 AM CDT Narrative [facility] TO EPIC CONVERSION - 10/12/2015 8:09 AM CDT Result Communication: No patient communication needed at this time us Jordan Moctezuma MD LABORATORY Final Re sult [facility] TO EPIC CONVERSION * (ABNORMAL) LIPID W/CALC LDL (10/12/2015 7:07 AM CDT) CHOLESTEROL 115 <200 MG/DL [facility] P TO EPIC CONVERSION TRIGLYCERIDES 118 <150 MG/DL [facility] OUP TO EPIC CONVERSION HDL 32(L) >45 MG/DL [facility] T O EPIC CONVERSION LDL (CALCULATED) 59.4 <130 MG/L [facility] TO EPIC CONVERSION CHOL/HDL RATIO 3.6 [facility] OUP TO EPIC CONVERSION Comment: Result Comment: ? INTERPRETATION OF RESULTS NHLBI RECOMMENDED RANGES ? CHOLESTEROL MG/DL ?LDL MG/DL ?DESIRABLE ? <200 ?<130 ?BORDERLINE ?200-239 ? 130-159 ?HIGH RISK ? >240 ?>160 ?? REFERENCE VALUE FOR HDL CHOLESTEROL ?RISK LEVEL ??MALE MG/DL ? FEMALE MG/DL ?DECREASED ?>45 ?>55 ?AVERAGE ? 45 ? 55 ?INCREASED ?<45 ?<55 10/12/2015 7:07 AM CDT 10/12/2015 7:07 AM CDT Narrative [facility] TO EPIC CONVERSION - 10/12/2015 7:48 AM CDT Result Communication: No patient communication needed at this time Jordan Moctezuma MD LABORATORY Final Re sult [facility] TO EPIC CONVERSION * CBC W/DIFF AUTOMATED (10/12/2015 7:07 AM CDT) WBC 10.0 4.4 - 11.0 x10'3/uL [facility] TO EPIC CONVERSION RBC 4.88 4.50 - 5.90 x10'6/uL [facility] TO EPIC CONVERSION HGB 14.4 14.0 - 17.5 G/DL [facility] TO EPIC CONVERSION HCT 41.7 41.5 - 50.4 % [facility] TO EPIC CONVERSION MCV 85.5 80.0 - 96.0 FL [facility] TO EPIC CONVERSION MCH 29.5 26.5 - 31.4 PG [facility] TO EPIC CONVERSION MCHC 34.5 31.9 - 34.8 G/DL [facility] TO EPIC CONVERSION RDW 12.4 12.3 - 14.3 % [facility] TO EPIC CONVERSION PLT 201 151 - 353 x10'3/uL [facility] TO EPIC CONVERSION GLUCOSE 11.4 9.7 - 11.9 FL [facility] TO EPIC CONVERSION BASOPHILS % 0.5 0.0 - 1.3 % [facility] TO EPIC CONVERSION EOSINOPHILS % 1.5 0.0 - 5.6 % [facility] TO EPIC CONVERSION NEUTROPHILS % 55.7 42.1 - 71.9 % [facility] TO EPIC CONVERSION LYMPHOCYTES % 35.3 15.8 - 45.0 % [facility] TO EPIC CONVERSION IMMATURE GRANS % 0.5 0.0 - 0.5 % [facility] TO EPIC CONVERSION ABS. NEUTROPHILS TOTAL 5.58 1.40 - 6.00 x10'3/uL [facility] TO EPIC CONVERSION WBC MORPHOLOGY NORMAL [facility] OUP TO EPIC CONVERSION PLT MORPH. NORMAL [facility] TO EPIC CONVERSION RBC MORPHOLOGY NORMAL [facility] OUP TO EPIC CONVERSION MONOCYTES 6.5 5.7 - 12.5 % [facility] TO EPIC CONVERSION 10/12/2015 7:07 AM CDT 10/12/2015 7:07 AM CDT Narrative [facility] TO EPIC CONVERSION - 10/12/2015 7:45 AM CDT Result Communication: No patient communication needed at this time us Jordan Moctezuma MD LABORATORY Final Re sult [facility] TO EPIC CONVERSION documented in this encounter Visit Diagnoses Not on filedocumented in this encounter
--- OUTSIDE RECORDS SUMMARY | 2024-04-17 17:22 | XMS_ITS | Encounter Summary ---
Author Organization [facility] Address [address] [place] [address]. [place] [address] [place] [address] Care Team Providers Care Classifier Name Role Phone Jordan Moctezuma MD Primary Care Provider Gustavo simmons Encounter Details Date Type Department Care Team (Late Contact Info) Description 03/25/2021 11:00 AM PEOPLESOFT TALEO MANAGER Flu/Imm Clinic [facility] Family & Internal Medicine [address] [address] Social History Tobacco Use Types Packs/Day Years [...] COVID-19? No / Unsure 03/25/2021 9:56 AM PEOPLESOFT TALEO MANAGER documented as of this encounter Plan of Treatment Upcoming Encounters Date Type Department Care Team (Late Contact Info) Description 06/08/2024 1:40 PM PEOPLESOFT TALEO MANAGER Office Visit [facility] Multispecialty Care - [facility] [address] [facility] [place] [address] [place] [address] [place] [address] Kalen Simpson PA-C 3 [facility] [address] [place] [address] 09/30/2024 10:15 AM CDT Office Visit [facility] [address] [place] [address] Darryl Bunch MD [address] [facility]. [address] [place] [address] Juliette Zavala PA 3 [facility], [address] [place] [address] documented as of this encounter Visit Diagnoses Diagnosis Need for prophylactic vaccination against viral disease- Primary Need for prophylactic vaccination and inoculation against other viral diseases documented in this encounter Additional Health Concerns Assessment Noted Time PHQ-9 Depression Total Score: 0 09/19/19 7:53 AM CDT documented as of this encounter Care Teams Classifier Relationship Specialty Start Date End Date Jordan Moctezuma MD PCP - General INTERNAL MEDICINE 08/02/18 07/17/22 documented as of this encounter
--- OUTSIDE RECORDS SUMMARY | 2024-04-17 17:22 | XMS_ITS | Encounter Summary ---
Author Organization [facility] Address [address] [place] [address]. [place], [place] [address] [place] [address] Care Team Providers Care Dolphin Trainer Name Role Phone Unavailable Primary Care Provider Unavailabl e Encounter Details Date Type Department Care Team (Late st Contact Info) Description 09/30/2017 Abstract [facility] Medical Group Family & Internal Medicine - [place] [address] [place] [address] Dolly Tuttle MD Social History Tobacco Use Types Packs/Day Years Used Date Smoking Tobacco: Never Assessed Sex and Gender Information Value Date Recorded Sex Assigned at Not on file Legal Sex Male 6:09 PM CDT Gender Identity Not on file Sexual Orientation Not on file documented as of this encounter Last Filed Vital Signs Vital Sign Reading Time Taken Comments Blood Pressure 130/80 09/30/2017 8:03 AM CDT Pulse 88 09/30/2017 8:03 AM CDT Temperature - - Respiratory Rate - - Oxygen Saturation - - Inhaled Oxygen Concentration - - Weight 138.9 kg (306 lb 4 oz) 09/30/2017 8:03 AM CDT Height 190.5 cm (6' 3 ) 09/30/2017 8:03 AM CDT Body Mass Index 38.28 09/30/2017 8:03 AM CDT documented in this encounter Progress Notes * Generic Conversion MD Cristiano - 09/30/2017 12:26 PM CDT Message Recorded as Task Date: 09/30/2017 11:33 AM, Created By: Dolly Tuttle Task Name: Call Patient with results Assigned To: Dolly Tuttle Regarding Patient: Donovan Garcia, Status: In Progress Comment: Dolly Tuttle - 30 Sep 2017 11:33 AM Patient xray of his shoulder was unremarkable. Rach Mina - 30 Sep 2017 12:18 PM TASK EDITED 09/30 [email or web address] Tracie Marion - 30 Sep 2017 12:26 PM TASK EDITED Pt. returned call and was informed of results and v/u. Signatures Electronically signed by : Tracie Marion MA; Sep 30 2017 12:26PM WATER AND GAS HELPER (Author) * Dolly Tuttle MD - 09/30/2017 11:33 AM CDT Verified Results XR SHOULDER 2+ VIEW LT ( Routine ) 30Sep2017 09:13AM Dolly Tuttle Test Name Result Flag Reference XR SHOULDER 2+ VIEW LT (Report) CHIRAG GARCIA ADMIT/SERVICE DATE: 09/30/17 ACCT: [id number] DISCHARGE DATE: : 1975 SEX: M ORD SITE: [facility] PT TYPE: REG CLI ORDERING MD: DOLLY TUTTLE MD STUDY DATE REPORT # ORDER # EXT ORDER ID 09/30/17 [id number] PROC CODE: [id number] PROCEDURE DESCRIPTION: XR SHOULDER 2 OR MORE VIEWS LT IMAGING STUDIES: XR SHOULDER 2 OR MORE VIEWS LT. EXAM DATE/TIME: 09/30/2017 8:53 AM. INDICATION: OTHER - SHOULDER PAIN, LEFT . COMPARISON: NO PRIOR STUDIES AVAILABLE FOR COMPARISON.. TECHNIQUE: 4 VIEWS. IMPRESSION: THE ACROMIOCLAVICULAR AND GLENOHUMERAL JOINTS LOOK INTACT. NO EVIDENCE TO SUGGEST ACUTE FRACTURE, DISLOCATION OR ABNORMAL SOFT TISSUE CALCIFICATION. ELECTRONICALLY SIGNED BY LAURA JAVED MD ON 09/30/2017 9:16 AM * Dolly Tuttle MD - 09/30/2017 8:00 AM CDT Chief Complaint here for HTN, DM. also, needs to have auth for supplies for his cpap. the cpap machine is beneficial to him. He doesn't want to go to [facility] no longer. last sleep test was 10 yrs ago. also c/o left shoulder pain. lost ROM in that shoulder. no evidence of injury. onset- May 2017 History of Present Illness A 41-year-old gentleman comes today for followup of hypertension, diabetes, and obesity. He has been gradually losing some weight and watching his diet. He is pretty tall, 6 3 and he is now 306 pounds. We started with 326 pounds, so he is trying to do the best he can. We did check his A1c today andcame back at 8.9, so even though he lost some weight, the A1c is not better, so we had a long conver sation about the issues and the fact that he can continue watching his diet or I can add more medications for his diabetes and other things, so he would like to have the opportunity to work with the order and watch his diet in general. He also has been complaining of left shoulder pain. He has a lot of limitation to the motion, so hedefinitely is going to need an orthopedic physical to reevaluate the situation as he is developing some left frozen shoulder due to a ligament problem or a tendinitis or something. Also, we are goingto get x-rays and I am going to refer him to orthopedic doctor, Dr. Alvares if he is in his insurance. Also, he does have a history of sleep apnea. He uses a machine and has been using it for about 10 years, so we are going to give him a note saying that he does use it and for his insurance to be able to pay for supplies at this current time. He seems to be tolerating it well. He said that he uses it at least all night long or close to all night long, so that is good. Symptoms: Diabetes Type II (Follow-Up): The patient states he has been doing poorly with his Type II Diabetes control since the last visit. Comorbid Illnesses: hypertension and obesity. He has no known diabetic complications. He has no significant interval events. Symptoms: The patient is currently asymptomatic. Associated symptoms include no polydipsia. Home monitoring: The patient checks his blood sugar sporadically. the patient reports no symptomatic hypoglycemic episodes.. Medications: the patient is adherent with his medication regimen. He denies medication side effects.. The patient is not doing well with his diabetes goals. PHQ-2 Depression Questionnaire: Over the past 2 weeks, how often have you been bothered by the following problems? 1.) Little interest or pleasure in doing things? Not at all. 2.) Feeling down, depressed or hopeless? Not at all. TOTAL SCORE: 0. Negative Screening Hypertension (Follow-Up): The patient presents for follow-up [...] medication regimen. He denies medication side effects.. Review of Systems See HPI for pertinent positives. Constitutional: no fever, no chills and no headache. ENT: no earache, no sore throat, no hearing loss and no nasal discharge. Cardiovascular: see HPI. Respiratory: no shortness of breath, no cough, no PND, no shortness of breath during exertion and no wheezing. Gastrointestinal: no abdominal pain, no constipation, no heartburn, no melena, no diarrhea and no vomiting. Genitourinary: no dysuria, no inadequacy of penile erections, no nocturia and no incontinence. Integumentary: no skin lesions and no skin rash. Musculoskeletal: see HPI. Neurological: no confusion, no dizziness, no limb [...] (I10) 8. Influenza vaccine needed (V04.81) (Z23) Past Medical History 1. History of Acute [...] DAILY; Therapy: 03Aug2013 to (Evaluate:07Oct2016) Requested for: [id number] Recorded 2. Lisinopril 20 MG Oral Tablet; TAKE 1 TABLET BY MOUTH EVERY DAY; Therapy: 11Feb2012 to (Evaluate:11Jan2018) Requested for: [id number]; Last Rx:[id number] Ordered 3. Lisinopril-Hydrochlorothiazide 20-12.5 MG Oral Tablet; TAKE 1 TABLET BY MOUTH EVERY DAY; Therapy: 11Feb2012 to (Evaluate:11Jan2018) Requested for: 57Huj0480; Last Rx:[id number] Ordered 4. MetFORMIN HCl ER (MOD) 1000 MG Oral Tablet Extended Release 24 Hour; Take 1 tablet twice daily; Therapy: 29Apr2013 to (Evaluate:22Jun2017) Requested for: [id number]; Last Rx:[id number] Ordered 5. MetFORMIN HCl ER 500 MG Oral Tablet Extended Release 24 Hour; TAKE 2 TABLETS BY MOUTH TWICE A DAY; Therapy: 23Jul2016 to (Evaluate:72Vji6715) Requested for: 13Jul2017; Last Rx:[id number] Ordered Allergies 1. No Known Drug Allergies Immunizations Influenza --- Series1: 16-Jan-2016; Series2: 24-Dec-2016 Vitals Recorded: 30Sep2017 08:03AM Temperature 97.9 F Heart Rate 88 Respiration 20 Systolic 130 Diastolic 80 O2 Saturation 98 Height 6 ft 3 in Weight 306 lb 4 oz BMI Calculated 38.28 BSA Calculated 2.63 Physical Exam Constitutional General appearance: No acute [...] lymph nodes in neck: No lymphadenopathy. Musculoskeletal See HPI.. Skin Skin and subcutaneous tissue: Normal without rashes or lesions. Neurologic Cranial nerves: Cranial nerves 2-12 intact. Reflexes: 2+ and symmetric. Psychiatric Orientation to person, place and time: Normal. Mood and affect: Normal. Results/Data *A1C In Office 30Sep2017 08:15AM Dolly Tuttle Test Name Result Flag Reference A1C 8.9 4.2 - 6.5 % HbA1C Assessment 1. Hypertension (401.9) (I10) 2. Diabetes mellitus (250.00) (E11.9) 3. BMI 38.0-38.9,adult (V85.38) (Z68.38) 4. Shoulder pain, left (719.41) (M25.512) 5. Sleep apnea (780.57) (G47.30) Plan Diabetes mellitus 1. MetFORMIN HCl ER 500 MG Oral Tablet Extended Release 24 Hour; TAKE 2 TABLETS BY MOUTH TWICE A DAY Rx By: Dolly Tuttle; Dispense: 90 Days ; #:360 Tablet; Refill: 0; For: Diabetes mellitus; WU = N; Verified Transmission to [facility] #[id number]; Last Updated By: [employer]; 09/30/2017 8:33:47 AM Health Maintenance 2. Lisinopril-Hydrochlorothiazide 20-12.5 MG Oral Tablet; TAKE 1 TABLET BY MOUTH EVERY DAY Rx By: Dolly Tuttle; Dispense: 90 Days ; #:90 Tablet; Refill: 0; For: Health Maintenance; WU = N; Verified Transmission to [facility] #[id number]; Last Updated By: [employer]; 09/30/2017 8:33:46 AM Hypertension 3. Lisinopril 20 MG Oral Tablet; TAKE 1 TABLET BY MOUTH EVERY DAY Rx By: Dolly Tuttle; Dispense: 90 Days ; #:90 Tablet; Refill: 0; For: Hypertension; WU = N;Verified Transmission to [facility] #[id number]; Last Updated By: David Moreno; 09/30/2017 8:33:45 AM 4. Follow-up visit in 3 months Outpatient Follow-up Status: Complete Done: 30Sep2017 Ordered; For: Hypertension; Ordered By: Dolly Tuttle Performed: Due: [id number]; Last UpdatedBy: Estefany Beaulieu; 09/30/2017 8:34:37 AM Shoulder pain, left 5. XR SHOULDER 3 VIEW LT; Status:Active; Requested for:30Sep2017; Perform:[facility] Radiology; Due:30Oct2017;Ordered; For:Shoulder pain, left; Ordered By:Dolly Tuttle; 6. Orthopedic Referral Outpatient persistent left shoulder pain with abduction limitation. apt with Dr Alvares if possible Status: Active Requested for: 30Sep2017 Ordered; For: Shoulder pain, left; Ordered By: Dolly Tuttle Performed: Due: [id number]; Last Updated By: Reynaldo Alamo; 09/30/2017 3:44:29 PM FS 09/30/17 Discussion/Summary For today, we will repeat the lisinopril, the 2 different dosages and metformin and then he is going to work with the diet and the intermittent fasting that he is aware of that. I will see him back in 3 months. I want him to check his sugars and blood pressures and let me know. His blood pressure 130/80, it is better than 140/70. Hopefully, he will take this seriously and continue working with his weight. His weight should be around 250 pounds for 6 3 tall. HIs BMI right now is 38.2. Negative adult depression screen.. Signatures Electronically signed by : Dolly Tuttle M.D.; Oct 01 2017 9:55AM WATER AND GAS HELPER (Author) documented in this encounter Plan of Treatment Upcoming Encounters Date Type Department Care Team (Late st Contact Info) Description 06/08/2024 1:40 PM WATER AND GAS HELPER Office Visit [facility] Medical Group Multispecialty Care - [facility] [address] [facility] [place] [address] [place] [address] [place] [address] Kalen Simpson PA-C 3 [facility] [address] [place] [address] 09/30/2024 10:15 AM CDT Office Visit [facility] [address] [place] [address] Darryl Bunch MD Three [facility]. [address] [place] [address] Juliette Zavala PA [address] [facility], [address] [place] [address] documented as of this encounter Procedures Procedure Name Priority Date/Time Associated Diagnosis Comments HEMOGLOBIN, GLYCOSYLATED Routine 09/30/2017 8:15 AM CDT documented in this encounter Results * HEMOGLOBIN, GLYCOSYLATED (09/30/2017 8:15 AM CDT) HGB A1C 8.9 4.2 - 6.5 % HbA1C [facility] TO EPIC CONVERSION 09/30/2017 8:15 AM CDT 09/30/2017 8:15 AM CDT Narrative [facility] TO EPIC CONVERSION - 09/30/2017 8:15 AM CDT Result Communication: No patient communication needed at this time Dolly Tuttle MD LABORATORY Final Re sult [facility] TO EPIC CONVERSION documented in this encounter Visit Diagnoses Not on filedocumented in this encounter
--- OUTSIDE RECORDS SUMMARY | 2024-04-17 17:22 | XMS_ITS | Encounter Summary ---
Author Organization [facility] Address [address] [place] [address]. [place], [place] [address] [place] [address] Care Team Providers Care Scrap Shear Operator Name Role Phone Unavailable Primary Care Provider Unavailabl e Encounter Details Date Type Department Care Team (Latest Contact Info) Description 06/02/2016 Abstract [facility] Medical Group Jordan Moctezuma MD Social [...] st Contact Info) Description 06/08/2024 1:40 PM BLACK TOP ROLLER Office Visit [facility] Medical [facility] Multispecialty Care - [address] [place] [address] [place] [address] [place] [address] Kalen Simpson PA-C 3 [facility] [address] [place] [address] 09/30/2024 10:15 AM CDT Office Visit [facility] [address] [facility] [place] [address] Darryl Bunch MD Three [facility]. [address] [place], [place] [phone] Juliette Zavala PA [address] [facility], [address] [place], [place] [id number] documented as of this encounter Visit Diagnoses Not on filedocumented in this encounter
--- OUTSIDE RECORDS SUMMARY | 2024-04-17 17:22 | XMS_ITS | Encounter Summary ---
Author Organization [facility] Address [address] [place] [address]. [place], [place] [phone] [place] [address] Care Team Providers Care Vending Machine Filler Name Role Phone Unavailable Primary Care Provider Unavailabl e Encounter Details Date Type Department Care Team (Late st Contact Info) Description 10/18/2015 Abstract [facility] Medical Group Family & Internal Medicine - [place] [address] [place] [address] Jordan Moctezuma MD Social History [...] Reading Time Taken Comments Blood Pressure 124/72 10/18/2015 4:40 PM CDT Pulse 82 10/18/2015 4:40 PM CDT Temperature - - Respiratory Rate - - Oxygen Saturation - - Inhaled Oxygen Concentration - - Weight 147.9 kg (326 lb) 10/18/2015 4:40 PM CDT Height - - Body Mass Index 40.75 05/08/2014 4:07 PM DYNAMOMETER TESTER documented in this encounter Progress Notes * Jordan Moctezuma MD - 10/18/2015 4:45 PM CDT Reason For Visit Chronic Recheck Visit Chief Complaint Routine check up, discuss HTN, DM Discuss results of recent labs Refill meds History of Present Illness HPI Free Text: A 40-year-old gentleman with a history of hypertension and diabetes. Today, he comes for followup with the medication. BP 124/72, 326 pounds, last time 32. Diabetes and hypertension. Some blood test obtained at this time. The microalbumin is negative. CBC was normal. Cholesterol 115, triglycerides 118, HDL 32, LDL 59, TSH 2.49, A1c 7.8, before 6.5. We had a long conversation regarding this issue.Glucose 148, BUN 11, creatinine 0.8, sodium 136, potassium 3.9. The rest of the blood tests okay. We have an AST of 43, upper limit 34, ALT upper limit 55. Slight elevation in liver enzymes. We are going to repeat those the next time we will do blood test and then we will go from there. Today, we ta lked about diet, we talked about exercise and medication souza, I am going to increase the metforminto 500 mg 2 pills twice a day, lisinopril the same. Hypertension (Follow-Up): The patient presents for follow-up of primary hypertension. The patient states he has been stable with his blood pressure control since the last visit. Symptoms: Diabetes Type II (Follow-Up): The patient states he has been stable with his Type II Diabetes control since the last visit. Comorbid Illnesses: hypertension. Symptoms: Review of Systems See HPI for pertinent positives. Constitutional: no fever, no chills and no headache. ENT: no earache, no sore throat, no hearing loss and no nasal discharge. Cardiovascular: no chest pain, no intermittent leg claudication, no palpitations and no lower extremity edema. Respiratory: no shortness of breath, no cough, no shortness of breath during exertion and [...] (K62.5) 3. Diabetes mellitus (250.00) (E11.9) 4. Hyperglycemia (790.29) (R73.9) 5. Hypertension (401.9) (I10) Past Medical History 1. History of Acute upper respiratory infection (465.9) (J06.9) 2. History of Cough (786.2) (R05) Surgical History 1. History of Complete Colonoscopy Family History 1. No pertinent family history Social History ?? Being A Social Drinker ?? Marital History - Currently ?? Never a smoker Current Meds 1. Accu-Chek Jayleen In Vitro Strip; TEST ONCE DAILY; Therapy: 03Aug2013 to (Evaluate:22Nov2015) Requested for: 26Jan2015; Last Rx:[id number] Ordered 2. Lisinopril 20 MG Oral Tablet; TAKE 1 TABLET BY MOUTH EVERY DAY; Therapy: 11Feb2012 to (Evaluate:[id number]) Requested for: 30Apr2015; Last Rx:30Apr2015 Ordered 3. Lisinopril-Hydrochlorothiazide 20-12.5 MG Oral Tablet; TAKE 1 TABLET BY MOUTH EVERY DAY; Therapy: 11Feb2012 to (Evaluate:[id number]) Requested for: 30Apr2015; Last Rx:30Apr2015 Ordered 4. MetFORMIN HCl ER 500 MG Oral Tablet Extended Release 24 Hour; TAKE 1 TABLET BY MOUTH TWICE DAILY; Therapy: 29Apr2013 to (Evaluate:[id number]) Requested for: 30Apr2015; Last Rx:30Apr2015 Ordered Allergies 1. No Known Drug Allergies Vitals Recorded: 18Oct2015 04:40PM Temperature 98.4 F Heart Rate 82 Systolic 124 Diastolic 72 O2 Saturation 98, RA Weight 326 lb BMI Calculated 40.75 BSA Calculated 2.7 Physical Exam Constitutional General appearance: No acute [...] time: Normal. Mood and affect: Normal. Results/Data Urine Microalbumin 12Oct2015 07:07Greg Crenshawdro Test Name Result Flag Reference Urine Microalbumin 0.9 mg/dL <30.0 CBC W Differential 12Oct2015 07:07AM Greg Moctezumadro Test Name Result Flag Reference WBC 10.0 x10'3/uL 4.4-11.0 Red Blood Cell Count (RBC) 4.88 x10'6/uL 4.50-5.90 Hemoglobin (HGB) 14.4 G/DL 14.0-17.5 Hematocrit (HCT) 41.7 % 41.5-50.4 Mean Corpuscular Volume (MCV) 85.5 FL 80.0-96.0 Mean Corpuscular Hgb (MCH) 29.5 PG 26.5-31.4 Mean Corpuscular Hgb Conc (MCH 34.5 G/DL 31.9-34.8 Red Cell Distrib Width (RDW) 12.4 % 12.3-14.3 Platelet Count (PLT) 201 x10'3/uL 151-353 Mean Platelet Volume (MPV) 11.4 FL 9.7-11.9 RBC Morphology NORMAL Platelet Evaluation NORMAL WBC Morphology NORMAL Lymphocytes % (Auto) 35.3 % 15.8-45.0 Neutrophils % (Auto) 55.7 % 42.1-71.9 MONOCYTE 6.5 % 5.7-12.5 Eosinophils % (Auto) 1.5 % 0.0-5.6 Basophils % (Auto) 0.5 % 0.0-1.3 Total Absolute Neutrophils 5.58 x10'3/uL 1.40-6.00 IMMATURE GRANULOCYTES 0.5 % 0.0-0.5 Lipid W/ Calculated LDL 12Oct2015 07:07Greg Crenshawdro Test Name Result Flag Reference CHOLESTEROL 115 MG/DL <200 TRIGLYCERIDE 118 MG/DL <150 HDL CHOLESTEROL 32 MG/DL L >45 LDL CALCULATED 59.4 MG/L <130 CHOL/HDL RATIO 3.6 INTERPRETATION OF RESULTS NHLBI RECOMMENDED RANGES CHOLESTEROL MG/DL LDL MG/DL DESIRABLE <200 <130 BORDERLINE 200-239 130-159 HIGH RISK >240 >160 REFERENCE VALUE FOR HDL CHOLESTEROL RISK LEVEL MALE MG/DL FEMALE MG/DL DECREASED >45 >55 AVERAGE 45 55 INCREASED <45 <55 Thyroid Stim Hormone ( TSH ) [id number] 07:07Jordan Crenshaw Test Name Result Flag Reference Thyroid Stim Hormone (TSH) 2.49 uIU/mL 0.35-4.94 Hemoglobin A1C ( HA1C ) [id number] 07:07Jordan Crenshaw Test Name Result Flag Reference Hemoglobin A1c 7.8 % H <5.7 INCREASED RISK OF DIABETES <5.7% NON-DIABETES 5.7-6.4% INCREASED RISK FOR FUTURE DIABETES > OR = 6.5 CONSISTENT WITH DIABETES STANDARDS OF MEDICAL CARE IN DIABETES-2010 DIABETES CARE, 33(SUPP 1): S1-S61,2009 CMP / Liver [id number] 07:07AM Jordan Moctezuma Test Name Result Flag Reference Glucose 148 MG/DL H 70-105 Blood Urea Nitrogen (BUN) 11 MG/DL 8.9-20.6 Creatinine 0.89 MG/DL 0.72-1.25 Sodium (Na) 136 MMOL/L 136-145 Potassium (K) 3.9 MMOL/L 3.5-5.1 Chloride (Cl) 104 MMOL/L 98-107 Carbon Dioxide (CO2) 25.0 MMOL/L 22-29 Anion Gap 10.9 MMOL/L 10.0-24.0 Osmolality Calc 274 MOSM/KG 271-290 Calcium 9.0 MG/DL 8.4-10.2 Total Bilirubin 0.7 MG/DL 0.2-1.2 Direct Bilirubin 0.3 MG/DL 0.0-0.5 Indirect Bilirubin 0.4 MG/DL 0.0-1.1 Total Protein 6.9 G/DL 6.4-8.3 Albumin 4.4 G/DL 3.5-5.0 AST/GOT 43 U/L H 5-34 ALT/GPT 64 U/L H 6-55 Alkaline Phosphatase (ALKP) 59 U/L 40-115 BUN Creatinine Ratio 12.4 6.0-26.0 A:G Ratio 1.8 RATIO 1.1-1.9 Glomerular Filt Rate Calc (Report) >60 >60 GFR Reference Range: Kidney Failure - <15mL/min Chronic Kidney Disease - <60mL/min Normal Kidney Function - >60mL/min GFR calculation is not recommended for Patients less than 18 years or greater than 70 years as per the national Kidney Foundation. If the patient is -[place], multiply results by 1.21 Assessment 1. Diabetes mellitus (250.00) (E11.9) 2. Hypertension (401.9) (I10) 3. Hyperglycemia (790.29) (R73.9) 4. BMI 40.0-44.9, adult (V85.41) (Z68.41) Plan Health Maintenance 1. Lisinopril 20 MG Oral Tablet; TAKE 1 TABLET BY MOUTH EVERY DAY Rx By: Jordan Moctezuma; Dispense: 90 Days ; #:1 X 90 Tablet Bottle; Refill: 0; For: Health Maintenance; WU = N; Verified Transmission to [id number]; Last Updated By: Ouroboros;10/18/2015 6:30:33 PM 2. Lisinopril-Hydrochlorothiazide 20-12.5 MG Oral Tablet; TAKE 1 TABLET BY MOUTH EVERY DAY Rx By: Jordan Moctezuma; Dispense: 90 Days ; #:1 X 90 Tablet Bottle; Refill: 0; For: Health Maintenance; WU = N; Verified Transmission to [id number]; Last Updated By: Ouroboros;10/18/2015 6:30:34 PM Hyperglycemia 3. MetFORMIN HCl ER 500 MG Oral Tablet Extended Release 24 Hour; TAKE 2 TABLET Twice daily Rx By: Jordan Moctezuma; Dispense: 90 Days ; #:1 X 360 Tablet Extended Release 24 Hour Bottle; Refill: 1; For: Hyperglycemia; WU = N; Verified Transmission to [id number]; Last Updated By:Ouroboros; 10/18/2015 6:30:34 PM 4. Compr Metabolic Prof ( CMP ); Status:Hold For - Manual Activation; Requested for:18Jan2016; Perform:[facility]; Due:17Feb2016;Ordered; For:Hyperglycemia; Ordered By:Jordan Moctezuma; 5. Hemoglobin A1C ( HA1C ); Status:Hold For - Manual Activation; Requested for:18Jan2016; Perform:[facility]; Due:17Feb2016;Ordered; For:Hyperglycemia; Ordered By:Jordan Moctezuma; 6. Follow-up visit in 3 months Outpatient Follow-up Status: Complete Done: [id number] Ordered; For: Hyperglycemia; Ordered By: Jordan Moctezuma Performed: Due: [id number]; Last Updated By: Lm Buckley; 10/18/2015 5:10:51 PM Discussion/Summary We had a long conversation regarding his diet, regarding the fact that we have to control diabetes and the best way for him will weight loss. Recommendation to cut down the carbs in half that will do. So, he is going to try that attempt and go from there. I told him that I did not want him to go ininsulin and he said me neither, so hopefully this will motivate him to do better. Signatures Electronically signed by : Jordan Moctezuma M.D.; Oct 19 2015 8:07AM DYNAMOMETER TESTER (Author) documented in this encounter Plan of Treatment Upcoming Encounters Date Type Department Care Team (Late st Contact Info) Description 06/08/2024 1:40 PM DYNAMOMETER TESTER Office Visit [facility] Medical [facility] Multispecialty Care - [address] [place] [address] [place] [address] [place] [address] Kalen Simpson PA-C 3 [facility] [address] [place] [address] 09/30/2024 10:15 AM CDT [facility] [address] [place] [address] Darryl Bunch MD Three [facility]. [address] [place], [place] [phone] Juliette Zavala PA 3 [facility], [address] [place], [place] [phone] documented as of this encounter Visit Diagnoses Not on filedocumented in this encounter
--- OUTSIDE RECORDS SUMMARY | 2024-04-17 17:22 | XMS_ITS | Encounter Summary ---
Author Organization [facility] Address [address] [place] [address]. [place] [address] [place] [address] Care Team Providers Care Plumbers And Top Helpers Name Role Phone Jordan Moctezuma MD Primary Care Provider Gustavo simmons Encounter Details Date Type Department Care Team (Late Contact Info) Description 05/02/2020 Orders Only [facility] Family & Internal Medicine - [place] [id number] [place] [phone] Kamila Watt RN Social History Tobacco Use Types Packs/Day Years [...] (Late Contact Info) Description 06/08/2024 1:40 PM WIRELESS DEVELOPMENT MANAGER Office Visit [facility] Multispecialty Care - [address], [address] [place] [address] [place] [address] [place] [address] Kalen Simpson PA-C 3 [facility] [address] [place] [address] 09/30/2024 10:15 AM CDT [facility] [address] [place] [phone] Darryl Bunch MD Three [facility]. [address] [place], [place] [address] Juliette Zavala PA 3 [facility], [address] [place] [address] documented as of this encounter Visit Diagnoses Diagnosis Essential hypertension Unspecified essential hypertension Type 2 diabetes mellitus without complication, without long-term current use of insulin ([facility]) documented in this encounter Care Teams Plumbers And Top Helpers Relationship Specialty Start Date End Date Jordan Moctezuma MD PCP - General INTERNAL MEDICINE 08/02/18 07/17/22 documented as of this encounter
--- OUTSIDE RECORDS SUMMARY | 2024-04-17 17:22 | XMS_ITS | Encounter Summary ---
Author Organization [facility] Address [address] [place] [address]. [place], [place] [address] [place] [address] Care Team Providers Care Tool Distributor Name Role Phone Jordan Tuttle MD Primary Care Provider Gustavo simmons Reason for Visit * Reason Comments Hypertension 3mo ck Diabetes Encounter Details Date Type Department Care Team (Late st Contact Info) Description 01/10/2019 8:00 AM CDT Office Visit [facility] Medical Group Family & Internal Medicine [address] [address] Jordan Tuttle MD Hypertension (3mo ck); Diabetes Social History Tobacco Use Types Packs/Day [...] Sign Reading Time Taken Comments Blood Pressure 138/84 01/10/2019 8:17 AM CDT Pulse 78 01/10/2019 8:10 AM CDT Temperature 36.1 ??C (97 ??F) 01/10/2019 8:10 AM CDT Respiratory Rate 18 01/10/2019 8:10 AM CDT Oxygen Saturation 99% 01/10/2019 8:10 AM CDT Inhaled Oxygen Concentration - - Weight 139.5 kg (307 lb 9.6 oz) 01/10/2019 8:10 AM CDT Height 190.5 cm (6' 3 ) 01/10/2019 8:10 AM CDT Body Mass Index 38.45 01/10/2019 8:10 AM CDT documented in this encounter Progress Notes * Jordan Tuttle MD - 01/10/2019 8:00 AM CDT Reason for Visit: Hypertension (3mo ck) and Diabetes Filed Vitals: 01/10/19 0810 01/10/19 08 BP: 144/84 138/84 Pulse: 78 Resp: 18 Temp: 97 ??F (36.1 ??C) SpO2: 99% Weight: (!) 139.5 kg (307 lb 9.6 oz) Height: 6' 3 (1.905 m) Body mass index is 38.45 kg/m??. History of Present Illness: HPI the morning of his visit in Mr.Bradley Garcia patient is a pleasant 43-year-old gentleman with history of attention and diabetes type 2 he stay active however his job is very sedentary he also has sleep apnea. At this point time we did an A1c that came back elevated 8.5 he is currently takingmetformin 1000 twice a day so at this time I would like to add Synjardy 25-1000 in the morning and 1000 mg of metformin at bedtime and I will see him back in 3 months and see how things are going to encourage him to decrease carbs in portion control will be nice if he can lose 20 pounds allergies he is pretty tall at 6 foot 3 inches. I will see him back in 3 months ROS: Review of Systems Constitutional: Negative. HENT: [...] file Gets together: Not on file Attends sabianist service: Not on file Active member of [...] reflexes. No cranial nerve deficit. Coordination normal. I did a foot examination was completely normal good pulses with temperature still has some hair in the toes sensation was completely normal Skin: Skin is warm and dry. No rash noted. No erythema. Psychiatric: He has a normal mood and affect. His behavior is normal. Judgment and thought content normal. Nursing note and vitals reviewed. Results for orders placed or performed in visit on 01/10/19 HEMOGLOBIN, GLYCOSYLATED Result Value Ref Range HGB A1C 8.5 (A) Assessment Encounter Diagnose(s) ICD-10-CM ICD-9-CM SNOMED CT(R) 1. Diabetes mellitus due to underlying condition with hyperosmolarity and coma, with long-term current use of insulin ([facility]) E08.01 249.20 SECONDARY DIABETES MELLITUS HEMOGLOBIN, GLYCOSYLATED Z79.4 V58.67 COLLECT.CAPILLARY (FNGR,HEEL,EAR) Empagliflozin-metFORMIN HCl ER (SYNJARDY XR) 25-1000 MG TABLET SR 24 HR 2. Essential hypertension I10 401.9 ESSENTIAL HYPERTENSION lisinopril- hydrochlorothiazide 20-12.5 MG tablet lisinopril 20 MG tablet 3. Type 2 diabetes mellitus without complication, without long-term current use of insulin ([facility]) E11.9 250.00 TYPE 2 DIABETES MELLITUS WITHOUT COMPLICATION metFORMIN ER 500 MG 24 hr tablet Plan I am going to change the morning metformin for Synjardy XR that contains 25 mg plus thousand of metformin, the p.m. dose of metformin will remain the same at at thousand milligrams at bedtime. Ispoke with him about the side effects and precautions and the fact that he need to be well-hydratedand talk to him about possible yeast infections etc. Orders Placed This Encounter ??? COLLECT.CAPILLARY (FNGR,HEEL,EAR) ??? HEMOGLOBIN, GLYCOSYLATED ??? metFORMIN ER 500 MG 24 hr tablet ??? DISCONTD: Empagliflozin-metFORMIN HCl ER (SYNJARDY XR) 25-1000 MG TABLET SR 24 HR ??? lisinopril-hydrochlorothiazide 20-12.5 MG tablet ??? lisinopril 20 MG tablet ??? Empagliflozin-metFORMIN HCl ER (SYNJARDY XR) 25-1000 MG TABLET SR 24 HR Follow up FU 3 MONTHS JORDAN TUTTLE MD 01/10/2019 9:09 AM documented in this encounter Plan of Treatment Upcoming Encounters Date Type Department Care Team (Late st Contact Info) Description 06/08/2024 1:40 PM INTERLIBRARY LOAN SPECIALIST Office Visit [facility] Medical Group Multispecialty Care - [facility] [address] [facility] [address] [place] [phone] [place] [address] [place] [address] Kalen Simpson PA-C 3 [facility] [address] [place] [address] 09/30/2024 10:15 AM CDT Office Visit [facility] [address] [place] [address] Darryl Bunch MD Three [facility]. [address] [place] [address] Juliette Zavala PA 3 [facility], [address] [place], [place] [phone] documented as of this encounter Procedures Procedure Name Priority Date/Time Associated Diagnosis Comments HEMOGLOBIN, GLYCOSYLATED Today 01/10/2019 8:25 AM CDT Diabetes mellitus due to underlying condition with hyperosmolarity and coma, with long-term current use of insulin ([facility]) COLLECT.CAPILLARY (FNGR,HEEL,EAR) Routine 01/10/2019 8:16 AM CDT Diabetes mellitus due to underlying condition with hyperosmolarity and coma, with long-term current use of insulin ([facility] HHS/HCC) documented in this encounter Results * (ABNORMAL) HEMOGLOBIN, GLYCOSYLATED (01/10/2019 8:25 AM CDT) HGB A1C 8.5(A) [place] ([id number]), [place] 01/10/2019 8:25 AM CDT us Jordan Tuttle MD LABORATORY Final Re sult [place] ([id number]), [place] [address] [place] [address], [place] [phone] documented in this encounter Visit Diagnoses Diagnosis Diabetes mellitus due to underlying condition with hyperosmolarity and coma, with long-term current use of insulin ([facility] HHS/HCC)- Primary Essential hypertension Unspecified essential hypertension Type 2 diabetes mellitus without complication, without long-term current use of insulin ([facility]) documented in this encounter Care Teams Tool Distributor Relationship Specialty Start Date End Date Jordan Tuttle MD PCP - General INTERNAL MEDICINE 08/02/18 07/17/22 documented as of this encounter
--- OUTSIDE RECORDS SUMMARY | 2024-04-17 17:22 | XMS_ITS | Encounter Summary ---
Author Organization [facility] Address [address] [place] [address]. [place], [place] [phone] [place] [address] Care Team Providers Care Emergency Dept Tech Name Role Phone Unavailable Primary Care Provider Unavailabl e Encounter Details Date Type Department Care Team (Latest Contact Info) Description 07/27/2017 Abstract [facility] Medical Group Jordan Moctezuma MD Social [...] st Contact Info) Description 06/08/2024 1:40 PM RETAIL DELIVERY DRIVER Office Visit [facility] Medical [facility] Multispecialty Care - [address] [place] [address] [place] [address] [place] [address] Kalen Simpson PA-C 3 [facility] [address] [place] [address] 09/30/2024 10:15 AM CDT Office Visit [facility] [address] [place] [place] [phone] Darryl Bunch MD Three [facility]. [address] [place], [place] [phone] Juliette Zavala PA 3 [facility], [address] [place], [place] [phone] documented as of this encounter Visit Diagnoses Not on filedocumented in this encounter
--- OUTSIDE RECORDS SUMMARY | 2024-04-17 17:22 | XMS_ITS | Encounter Summary ---
Author Organization [facility] Address [address] [place] [address]. [place] [address] [place] [address] Care Team Providers Care Shelf Drier Operator Name Role Phone Jordan Moctezuma MD Primary Care Provider Gustavo simmons Encounter Details Date Type Department Care Team (Latest Contact Info) Description 04/20/2019 Scan HEALTH INFO SRVCS Scanned, Documents Social [...] st Contact Info) Description 06/08/2024 1:40 PM CARD BOXER Office Visit [facility] Medical Group Multispecialty Care - [address], [address] [place] [phone] [place] [address] [place] [address] Kalen Simpson PA-C 3 [facility] [address] [place] [address] 09/30/2024 10:15 AM CDT [facility] [address] [place] [address] Darryl Bunch MD Three [facility]. [address] [place] [address] Juliette Zavala PA 3 [facility], [address] [place] [address] documented as of this encounter Visit Diagnoses Not on filedocumented in this encounter Care Teams Shelf Drier Operator Relationship Specialty Start Date End Date Jordan Moctezuma MD PCP - General INTERNAL MEDICINE 08/02/18 07/17/22 documented as of this encounter
--- OUTSIDE RECORDS SUMMARY | 2024-04-17 17:22 | XMS_ITS | Encounter Summary ---
Author Organization [facility] Address [address] [place] [address]. [place], [place] [address] [place] [address] Care Team Providers Care Flower Picker Name Role Phone Jordan Tuttle MD Primary Care Provider Gustavo simmons Reason for Visit * Reason Comments Lab Results Pt had labs done thr ough his work, he has them with him. Dizziness Pt having vertigo (r oom not spinning just feels a little off) with full body sweats, slightly nauseous, mild headaches. Pt states the episodes usually last 1 hr however the last one was worse and lasted the whole day. Pt states they come and go, not on a reg basis. Pt thinks it might be tapering off, but would like it checked out. Encounter Details Date Type Department Care Team (Late st Contact Info) Description 03/10/2022 8:00 AM MANAGER ANDROID Office Visit [facility] Family & Internal Medicine - [address] [address] Jordan Tuttle MD Lab Results (Pt had labs done through his work, he has them with him. ); Dizziness (Pt having vertigo (room not spinning just feels a little off) with full body sweats, slightly nauseous, mild headaches. /Pt states the episodes usually last 1 hr however the last one was worse and lasted the whole day. Pt states they come and go, not on a reg basis. Pt thinks it might be tapering off, but would like it checked out. ) Social History Tobacco Use Types Packs/Day [...] Coronavirus/COVID-19? No / Unsure 03/10/2022 7:49 AM MANAGER ANDROID documented as of this encounter Last Filed Vital Signs Vital Sign Reading Time Taken Comments Blood Pressure 141/88 03/10/2022 8:06 AM MANAGER ANDROID Pulse 78 03/10/2022 7:55 AM MANAGER ANDROID Temperature 36.8 ??C (98.3 ??F) 03/10/2022 7:55 AM CS T Respiratory Rate 18 03/10/2022 7:55 AM MANAGER ANDROID Oxygen Saturation 99% 03/10/2022 7:55 AM MANAGER ANDROID Inhaled Oxygen Concentration - - Weight 135.6 kg (299 lb) 03/10/2022 7:55 AM MANAGER ANDROID Height 193 cm (6' 4 ) 03/10/2022 7:55 AM MANAGER ANDROID Body Mass Index 36.4 03/10/2022 7:55 AM MANAGER ANDROID documented in this encounter Progress Notes * Jordan Tuttle MD - 03/10/2022 8:00 AM CST Reason for Visit: Lab Results (Pt had labs done through his work, he has them with him. ) and Dizziness (Pt having vertigo (room not spinning just feels a little off) with full body sweats, slightly nauseous, mild headaches. /Pt states the episodes usually last 1 hr however the last one was worse and lasted the whole day. Pt states they come and go, not on a reg basis. Pt thinks it might be tapering off, but wouldlike it checked out. ) Filed Vitals: 03/10/22 0755 03/10/22 0806 BP: (!) 151/89 (!) 141/88 Pulse: 78 Resp: 18 Temp: 98.3 ??F (36.8 ??C) TempSrc: Temporal SpO2: 99% Weight: 135.6 kg (299 lb) Height: 6' 4 (1.93 m) Body mass index is 36.4 kg/m??. History of Present Illness: HPI good morning office visit with Mr. Jeancarlos Garcia pleasant 46-year-old gentleman with historyof hypertension diabetes his A1c is 7.1 which is a stable so he will continue with the current medications. He discussed list few episodes of dizziness and vertigo the last episode he was pretty sickwith nausea and feeling now she did not like throwing up no visual disturbances no headache neighbor which is a physical therapist or wastewater treatment supervisor performed the Jose maneuver but he did not feel any better or any changes at this current time the problem is gone his blood pressure is slightly elevated today continue with the current medications ROS: Review of Systems Constitutional: Negative. HENT: Negative. Respiratory: Negative. Cardiovascular: Negative. Gastrointestinal: Negative. Genitourinary: Negative. Musculoskeletal: Negative. Skin: Negative. Neurological: Positive for dizziness. Episode of vertigo Psychiatric/Behavioral: Negative. Medications: Current Outpatient Medications: ??? Empagliflozin-metFORMIN HCl ER (SYNJARDY XR) 25-1000 MG TABLET SR 24 HR, Take 1 tablet by mouthdaily., Disp: 90 tablet, Rfl: 1 ??? Glucose Blood test strip, as needed. , Disp: , Rfl: ??? lisinopril (PRINIVIL) 20 MG tablet, TAKE 1 TABLET(20 MG) BY MOUTH DAILY, Disp: 90 tablet, Rfl: 1 ??? lisinopril-hydroCHLOROthiazide (ZESTORETIC) 20-12.5 MG tablet, TAKE 1 TABLET BY MOUTH DAILY, Disp: 90 tablet, Rfl: 1 ??? metFORMIN ER (GLUCOPHAGE-XR) 500 MG 24 hr tablet, TAKE 2 TABLETS(1000 MG) BY MOUTH DAILY, Disp:180 tablet, Rfl: 0 No Known Allergies Past Medical History: Diagnosis Date ??? COVID-19 vaccine administered 2020 ??? Diabetes (CMS/HCC) ??? Hypertension ??? Influenza vaccine administered 2019 Past Surgical History: Procedure Laterality Date ??? COLONOSCOPY [address] Mcguire normal ??? NONE Social History Socioeconomic History ??? Marital status: Spouse name: Danielle ??? Number of children: 2 ??? Highest education level: Bachelor's degree (e.g., BA, AB, BS) Tobacco Use ??? Smoking status: Never ??? Smokeless tobacco: Never Vaping Use ??? Vaping Use: Never used [...] Alive ??? Father Alive Physical Exam Constitutional: Appearance: Normal appearance. He is obese. Comments: BMI 36.4 Cardiovascular: Rate and Rhythm: Normal rate and regular rhythm. Pulses: Normal pulses. Heart sounds: Normal heart sounds. Pulmonary: Effort: Pulmonary effort is normal. Breath sounds: Normal breath sounds. Abdominal: General: Abdomen is flat. Palpations: Abdomen is soft. Musculoskeletal: Cervical back: Normal range of motion and neck supple. Skin: General: Skin is warm and dry. Neurological: General: No focal deficit present. Mental Status: He is alert and oriented to person, place, and time. Cranial Nerves: No cranial nerve deficit. Sensory: No sensory deficit. Motor: No weakness. Coordination: Coordination normal. Gait: Gait normal. Deep Tendon Reflexes: Reflexes normal. Psychiatric: Mood and Affect: Mood normal. Behavior: Behavior normal. Thought Content: Thought content normal. Judgment: Judgment normal. Assessment Encounter Diagnose(s) ICD-10-CM ICD-9-CM SNOMED CT(R) 1. Essential hypertension I10 401.9 ESSENTIAL HYPERTENSION 2. Type 2 diabetes mellitus without complication, without long-term current use of insulin ([facility]) E11.9 250.00 TYPE 2 DIABETES MELLITUS WITHOUT COMPLICATION 3. BMI 35.0-35.9,adult Z68.35 V85.35 BODY MASS INDEX 30+ - OBESITY 4. Obstructive sleep apnea syndrome G47.33 327.23 OBSTRUCTIVE SLEEP APNEA SYNDROME 5. Vertigo R42 780.4 VERTIGO Plan 1. Essential hypertension Continue with the current medications encouraged him to try to lose some weight and watch his salt intake 2. Type 2 diabetes mellitus without complication, without long-term current use of insulin ([facility]) Continue current medications working good for him 3. BMI 35.0-35.9,adult Definitely encouraged him to try to lose some weight that will benefit everything 4. Obstructive sleep apnea syndrome Using the CPAP machine on a regular basis 5. Vertigo Regarding his vertigo episodes he is doing fine right now but I told him if the problem continues happening to let me know at which time I will going to refer him to see an ear nose and throat the neurologic examination today is completely unremarkable No orders of the defined types were placed in this encounter. Follow up FU 6 MONTHS JORDAN TUTTLE MD 03/11/2022 2:52 PM GER ANDROID documented in this encounter Plan of Treatment Upcoming Encounters Date Type Department Care Team (Late st Contact Info) Description 06/08/2024 1:40 PM MANAGER ANDROID Office Visit [facility] Multispecialty Care - [address] [place] [phone] [place] [address] [place] [address] Kalen Simpson PA-C 3 [facility] [address] [place] [address] 09/30/2024 10:15 AM CDT [facility] [address] [place] [phone] Darryl Bunch MD [address] [facility]. [address] [place], [place] [address] Juliette Zavala PA 3 [facility], [address] [place] [address] documented as of this encounter Visit Diagnoses Diagnosis Essential hypertension- Primary Unspecified essential hypertension Type 2 diabetes mellitus without complication, without long-term current use of insulin ([facility]) BMI 35.0-35.9,adult Body Mass Index 35.0-35.9, adult Obstructive sleep apnea syndrome Obstructive sleep apnea (adult) (pediatric) Vertigo Dizziness and giddiness documented in this encounter Additional Health Concerns Assessment Noted Time PHQ-9 Depression Total Score: 0 09/19/19 21 7:53 AM CDT documented as of this encounter Care Teams Flower Picker Relationship Specialty Start Date End Date Jordan Tuttle MD PCP - General INTERNAL MEDICINE 08/02/18 07/17/22 documented as of this encounter
--- OUTSIDE RECORDS SUMMARY | 2024-04-17 17:22 | XMS_ITS | Encounter Summary ---
Author Organization [facility] Address [address] [place] [address]. [place], [place] [address] [place] [address] Care Team Providers Care Cook [employer] Cafeteria Name Role Phone Jordan Moctezuma MD Primary Care Provider Gustavo simmons Encounter Details Date Type Department Care Team (Latest Contact Info) Description 07/10/2020 Travel Social History Tobacco Use Types Packs/Day [...] st Contact Info) Description 06/08/2024 1:40 PM LAB ENGINEER Office Visit [facility] Multispecialty Care - [address], [address] [place] [phone] [place] [address] [place] [address] Kalen Simpson, PA-C 3 [facility] [address] [place] [address] 09/30/2024 10:15 AM CDT Office [facility] [address] [place] [phone] Darryl Bunch MD Three [facility]. [address] [place] [address] Juliette Zavala PA 3 [facility], [address] [place] [address] documented as of this encounter Visit Diagnoses Not on filedocumented in this encounter Care Teams [employer]eter[employer] Relationship Specialty Start Date End Date Jordan Moctezuma MD PCP - General INTERNAL MEDICINE 08/02/18 07/17/22 documented as of this encounter
--- OUTSIDE RECORDS SUMMARY | 2024-04-17 17:22 | XMS_ITS | Encounter Summary ---
Author Organization [facility] Address [address] [place] [address]. [place], [place] [address] [place] [address] Care Team Providers Care Plastic Technician Name Role Phone Jordan Moctezuma MD Primary Care Provider Gustavo simmons Reason for Visit * Reason Onset Date Comments Information 10/03/2020 see notes Encounter Details Date Type Department Care Team (Late st Contact Info) Description 10/03/2020 Telephone [facility] Family & Internal Medicine [address] [address] Jordan Moctezuma MD Information (see notes) Social History Tobacco Use Types Packs/Day Years [...] AM CDT documented as of this encounter Progress Notes * Jordyn Lakhani RN - 10/18/2020 2:02 PM CDT Detailed message left for patient that we are awaiting physician signature then it will be forwarded to supply company * Eduarda Montague LPN - 10/18/2020 1:34 PM CDT Pt called would like to know if any progress on c-pap machine has been made cb # [phone] * Jordyn Lakhani RN - 10/18/2020 9:52 AM CDT New order received and will be routed as appropriate when signed * Jordyn Lakhani RN - 10/16/2020 11:57 AM CDT Spoke to patient and he states the starting point of 4 pressure is too low-would like it to be 6-43-[id number] sent * Eduarda Montague LPN - 10/16/2020 11:44 AM CDT Pt called his new c-pap machine starts at a 4 this is too low he is use to 8 he called [employer] moni CALIX would have to write a order to have settings change Care medical supplies in [facility] Pt cb [phone] * Jordyn Lakhani RN - 10/10/2020 9:59 AM CDT Signed order form faxed back to Ashlyn as requested * Jordyn Lakhani RN - 10/09/2020 11:08 AM CDT Obtained and sent to for signature * Jordyn Lakhani RN - 10/08/2020 3:12 PM CDT Sent message to Ashlyn cabrera that patient would like set up for Cpap-she will send order * Radha Lacey - 10/08/2020 2:36 PM CDT Pt wanting a new c-pap machine Please advise CB# [phone] * Jordyn Lakhani RN - 10/03/2020 3:14 PM CDT Received a message from Ashlyn Cabrera regarding patient and his sleep study results-he was found to have mild TEGAN in July and he must follow up within one year or will need another sleep study and/or set up Cpap machine. Message left for patient to return call documented in this encounter Plan of Treatment Upcoming Encounters Date Type Department Care Team (Late st Contact Info) Description 06/08/2024 1:40 PM DIRECTOR OF TESTING Office Visit [facility] Multispecialty Care - [address] [place] [address] [place] [address] [place] [address] Kalen Simpson PA-C 3 [facility] [address] [place] [address] 09/30/2024 10:15 AM CDT [facility] [address] [place] [address] Darryl Bunch MD Three [facility]. [address] [place] [address] Juliette Zavala PA 3 [facility], [address] [place] [address] documented as of this encounter Visit Diagnoses Not on filedocumented in this encounter Additional Health Concerns Assessment Noted Time PHQ-9 Depression Total Score: 0 09/19/19 7:53 AM CDT documented as of this encounter Care Teams Plastic Technician Relationship Specialty Start Date End Date Jordan Moctezuma MD PCP - General INTERNAL MEDICINE 08/02/18 07/17/22 documented as of this encounter
--- OUTSIDE RECORDS SUMMARY | 2024-04-17 17:22 | XMS_ITS | Encounter Summary ---
Author Organization [facility] Address [address] [place] [address]. [place], [place] [address] [place] [address] Care Team Providers Care Waterworks Employee Name Role Phone Unavailable Primary Care Provider Unavailabl e Encounter Details Date Type Department Care Team (Late st Contact Info) Description 07/21/2016 Abstract [facility] [address] [place] [address] Jordan Moctezuma MD Social History Tobacco Use [...] st Contact Info) Description 06/08/2024 1:40 PM CUTTER HEAD SHARPENER Office Visit [facility] Multispecialty Care - [address] [place] [address] [place] [address] [place] [address] Kalen Simpson PA-C 3 [facility] [address] [place] [address] 09/30/2024 10:15 AM CDT Office Visit [facility] [address] [place] [address] Darryl Bunch MD Three [facility]. [address] [place] [address] Juliette Zavala PA [address] [facility], [address] [place] [address] documented as of this encounter Visit Diagnoses Diagnosis Type 2 diabetes mellitus without complications (CMS/HCC HHS/HCC) Type II or unspecified type diabetes mellitus without mention of complication, not stated as uncontrolled documented in this encounter
--- OUTSIDE RECORDS SUMMARY | 2024-04-17 17:22 | XMS_ITS | Encounter Summary ---
Author Organization [facility] Address [address] [place] [address]. 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 [address] [place], [place] [phone] Juliette Zavala PA 3 [facility], [address] [place], [place] [address] documented as of this encounter Procedures Procedure Name Priority Date/Time Associated Diagnosis Comments HEMOGLOBIN, GLYCOSYLATED Routine 01/14/2016 6:57 AM CDT COMPREHENSIVE METABOLIC PANEL Routine 01/14/2016 6:57 AM CDT documented in this encounter Results * (ABNORMAL) HEMOGLOBIN, GLYCOSYLATED (01/14/2016 6:57 AM CDT) HGB A1C 7.0(H) <5.7 % [facility] T O EPIC CONVERSION Comment: Result Comment: ?? INCREASED RISK OF DIABETES <5.7% ?NON-DIABETES 5.7-6.4% INCREASED RISK FOR FUTURE DIABETES > OR = 6.5 CONSISTENT WITH DIABETES ?? STANDARDS OF MEDICAL CARE IN DIABETES-2010 DIABETES CARE, 33(SUPP 1): S1-S61,2010 01/14/2016 6:57 AM CDT 01/14/2016 6:57 AM CDT Narrative [facility] TO EPIC CONVERSION - 01/14/2016 11:52 AM CDT Result Communication: No patient communication needed at this time us Jordan Moctezuma MD LABORATORY Final Re sult [facility] TO EPIC CONVERSION * (ABNORMAL) COMPREHENSIVE METABOLIC PANEL (01/14/2016 6:57 AM CDT) SODIUM S/P/B 138 136 - 145 MMOL/L [facility] TO EPIC CONVERSION POTASSIUM S/P/B 4.1 3.5 - 5.1 MMOL/L [facility] TO EPIC CONVERSION CHLORIDE S/P/B 106 98 - 107 MMOL/L [facility] TO EPIC CONVERSION CO2 25.0 22 - 29 MMOL/L [facility] TO EPIC CONVERSION ANION GAP 11.1 10.0 - 24.0 MMOL/L [facility] TO EPIC CONVERSION BUN 10 8.9 - 20.6 MG/DL [facility] TO EPIC CONVERSION CREATININE S/P/B 0.90 0.72 - 1.25 MG/DL [facility] TO EPIC CONVERSION GFR ESTIMATE >60 ?? GFR Reference Range: Kidney Failure - <15mL/min Chronic Kidney Disease - <60mL/min Normal Kidney Function - >60mL/min GFR calculation is not recommended for Patients less than 18 years or greater than 70 years as per the national Kidney Foundation. If the patient is -Kathryn n, multiply results by 1.21 >60 ML/MIN/1 .73 M2 [facility] TO EPIC CONVERSION BUN CREATININE RATIO 11.1 6.0 - 26.0 [facility] TO EPIC CONVERSION GLUCOSE 147(H) 70 - 105 MG/DL [facility] TO EPIC CONVERSION OSMOLALITY (CALC) 277 271 - 290 MOSM/KG [facility] TO EPIC CONVERSION CALCIUM S/P/B 8.9 8.4 - 10.2 MG/DL [facility] TO EPIC CONVERSION BILIRUBIN TOTAL S/P/B 0.6 0.2 - 1.2 MG/DL [facility] TO EPIC CONVERSION AST 43(H) 5 - 34 U/L [facility] TO EPIC CONVERSION ALT 91(H) 6 - 55 U/L [facility] TO EPIC CONVERSION ALKALINE PHOSPHATASE S/P/B 65 40 - 115 U/L [facility] TO EPIC CONVERSION TOTAL PROTEIN S/P/B 6.8 6.4 - 8.3 G/DL [facility] TO EPIC CONVERSION ALBUMIN S/P/B 4.3 3.5 - 5.0 G/DL [facility] TO EPIC CONVERSION A/G RATIO 1.7 1.1 - 1.9 RATIO [facility] TO EPIC CONVERSION 01/14/2016 6:57 AM CDT 01/14/2016 6:57 AM CDT Narrative [facility] TO EPIC CONVERSION - 01/14/2016 7:32 AM CDT Result Communication: No patient communication needed at this time us Jordan Moctezuma MD LABORATORY Final Re sult [facility] TO EPIC CONVERSION documented in this encounter Visit Diagnoses Not on filedocumented in this encounter
--- OUTSIDE RECORDS SUMMARY | 2024-04-17 17:22 | XMS_ITS | Encounter Summary ---
Author Organization [facility] Address [address] [place] [address]. 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. [address] [place] [address] Juliette Zavala PA 3 [facility], [address] [place] [address] documented as of this encounter Visit Diagnoses Not on filedocumented in this encounter
--- OUTSIDE RECORDS SUMMARY | 2024-04-17 17:22 | XMS_ITS | Encounter Summary ---
Author Organization [facility] Address [address] [place] [address]. [place], [place] [address] [place] [address] Care Team Providers Care Heavy Rail Train Operator Name Role Phone Unavailable Primary Care Provider Unavailabl e Encounter Details Date Type Department Care Team (Latest Contact Info) Description 10/20/2017 Abstract [facility] Social History Tobacco Use Types Packs/Day Years Used Date Smoking Tobacco: Never Assessed Sex and Gender Information Value Date Recorded Sex Assigned at Not on file Legal Sex Male 6:09 PM CDT Gender Identity Not on file Sexual Orientation Not on file documented as of this encounter Progress Notes * Generic Conversion MD Cristiano - 10/20/2017 1:55 PM CDT Message Recorded as Task Date: 10/05/2017 02:23 PM, Created By: Hazel Vega Task Name: Call Back Assigned To: [facility] Jose Elias Nurse Team Regarding Patient: Donovan Garcia, Status: In Progress Comment: Hazel Vega - 05 Oct 2017 2:23 PM TASK CREATED [email or web address], pharmacy recommends statin due to dx of DM, Dr. Trivedi would like lab work since no cholesterollevel since 2016. orders placed Hazel Vega - 05 Oct 2017 3:12 PM TASK IN PROGRESS Hazel Vega - 13 Oct 2017 12:16 PM TASK EDITED [email or web address] Cathy Dash - 19 Oct 2017 1:17 PM TASK EDITED Pt notified and states he would get labs done either tomorrow or morning downstairs. He was confused on the medication and requesting a call back. Hazel Vega - 20 Oct 2017 1:55 PM TASK EDITED returned call to pt. and discussed why statin medication was being recommended by insurance, pt. v/u. will have labs done Thursday or . Signatures Electronically signed by : Hazel Vega, ; Oct 20 2017 1:55PM TURN DOWN ATTENDANT (Author) documented in this encounter Plan of Treatment Upcoming Encounters Date Type Department Care Team (Late st Contact Info) Description 06/08/2024 1:40 PM TURN DOWN ATTENDANT Office Visit [facility] Multispecialty Care - [facility] 3 [facility] [address] [place] [address] [place] [address] [place] [address] Kalen Simpson PA-C 3 [facility] [address] [place] [address] 09/30/2024 10:15 AM CDT Office Visit [facility] [address] [place] [phone] Darryl Bunch MD Three [facility]. [address] [place], [place] [address] Juliette Zavala PA 3 [facility], [address] [place] [address] documented as of this encounter Visit Diagnoses Not on filedocumented in this encounter
--- OUTSIDE RECORDS SUMMARY | 2024-04-17 17:22 | XMS_ITS | Encounter Summary ---
Author Organization [facility] Address [address] [place] [address]. [place], [place] [address] [place] [address] Care Team Providers Care Provider Network Analyst Name Role Phone Unavailable Primary Care Provider Unavailabl e Encounter Details Date Type Department Care Team (Latest Contact Info) Description 10/22/2017 Abstract [facility] Medical Group Social History Tobacco Use Types Packs/Day Years Used Date Smoking Tobacco: Never Assessed Sex and Gender Information Value Date Recorded Sex Assigned at Not on file Legal Sex Male 6:09 PM CDT Gender Identity Not on file Sexual Orientation Not on file documented as of this encounter Progress Notes * Rodri Savage Md, MD - 10/22/2017 8:42 AM CDT Message Recorded as Task Date: 10/22/2017 08:42 AM, Created By: Jordan Moctezuma Task Name: Call Patient with results Assigned To: Jordan Moctezuma Regarding Patient: Donovan Garcia, Status: Active Comment: Jordan Moctezuma - 22 Oct 2017 8:42 AM Patient blood test ok except his blood sugars too high ,please work with diet as we discussed to bring things under control. Hazel Vega - 22 Oct 2017 12:54 PM TASK EDITED pt. informed, v/u Signatures Electronically signed by : Hazel Vega, ; Oct 22 2017 12:54PM HOME CARE MUSIC THERAPIST (Author) * Jordan Moctezuma MD - 10/22/2017 8:42 AM CDT Verified Results CBC W Differential 22Oct2017 06:16Jordan Crenshaw Test Name Result Flag Reference White Blood Cell Count (WBC) 9.2 x10'3/uL 4.4-11.0 Red Blood Cell Count (RBC) 4.75 x10'6/uL 4.50-5.90 Hemoglobin (HGB) 14.1 G/DL 14.0-17.5 Hematocrit (HCT) 40.4 % L 41.5-50.4 Mean Corpuscular Volume (MCV) 85.1 FL 80.0-96.0 Mean Corpuscular Hgb (MCH) 29.7 PG 26.5-31.4 Mean Corpuscular Hgb Conc (MCH 34.9 G/DL H 31.9-34.8 Red Cell Distrib Width (RDW) 12.2 % L 12.3-14.3 Platelet Count (PLT) 197 x10'3/uL 151-353 Mean Platelet Volume (MPV) 11.1 FL 9.7-11.9 Basophils % (Auto) 0.5 % 0.0-1.3 Eosinophils % (Auto) 1.2 % 0.0-5.6 Neutrophils % (Auto) 53.8 % 42.1-71.9 Lymphocytes % (Auto) 36.6 % 15.8-45.0 Immature Granulocytes 0.5 % 0.0-0.5 Total Absolute Neutrophils 4.96 x10'3/uL 1.40-6.00 WBC Morphology NORMAL Platelet Evaluation NORMAL RBC Morphology NORMAL MONOCYTES 7.4 % 5.7-12.5 ABS. LYMPHOCYTES 3.37 x10'3/uL 0.80-4.70 Compr Metabolic Prof ( CMP ) 22Oct2017 06:16Jordan Crenshaw Test Name Result Flag Reference Sodium (Na) 137 MMOL/L 136-145 Potassium (K) 3.9 MMOL/L 3.5-5.1 Chloride (Cl) 102 MMOL/L 100-108 Carbon Dioxide (CO2) 26.4 MMOL/L 21-32 Anion Gap 12.5 MMOL/L 8-20 Blood Urea Nitrogen (BUN) 11 MG/DL 7-18 Creatinine 0.83 MG/DL 0.7-1.3 Glomerular Filt Rate Calc >90 ML/MIN/1.73 M2 >90 Glomerular Filt Rate (AA) Calc >90 >90 NOTE: eGFR is not calculated for patients <18 years of age. This is an estimated GFR (CKD EPI) and should not be used for calculating drug doses. ML/MIN/1.73 M2 BUN Creatinine Ratio 13.3 6-26 Glucose 173 MG/DL H 70-99 Calcium 8.6 MG/DL 8.5-10.1 Total Bilirubin 0.6 MG/DL 0.2-1.2 AST/GOT 39 U/L H 15-37 ALT/GPT 84 U/L H 16-60 Alkaline Phosphatase (ALKP) 69 U/L 50-136 Total Protein 7.3 G/DL 6.4-8.2 Albumin 4.0 G/DL 3.4-5.0 A:G Ratio 1.2 RATIO 1.0-2.0 Lipid W/ Calculated LDL [id number] 06:16Jordan Crenshaw Test Name Result Flag Reference CHOLESTEROL 118 MG/DL <200.0 TRIGLYCERIDE 102 MG/DL <150 HDL CHOLESTEROL 39 MG/DL L >40.0 LDL CALCULATED 58.6 MG/DL <100 CHOL/HDL RATIO 3.0 0.0-4.5 NON HDL CHOLESTEROL 79 MG/DL <130 VLDL 20 MG/DL 5-55 INTERPRETATION (Report) NIH CONCENSUS REPORT RECOMMENDATIONS: ADULT CHILD LOW RISK: CHOLESTEROL <200 <170 TRIGLYCERIDE <150 --- HDL >=60 --- LDL <100 <110 BORDERLINE: CHOLESTEROL 200-239 170-199 TRIGLYCERIDE 150-199 --- HDL 40-59 --- LDL 100-159 110-129 HIGH RISK: CHOLESTEROL >=240 >=200 TRIGLYCERIDE >=200 --- HDL <40 --- LDL >=160 >=130 Thyroid Stim Hormone ( TSH ) [id number] 06:16Jordan Crenshaw Test Name Result Flag Reference Thyroid Stim Hormone (TSH) 2.358 uIU/ML 0.358-3.74 HIGH DOSES OF BIOTIN MAY INTERFERE WITH THIS TEST RESULT. CORRELATION TO CLINICAL HISTORY AND PRESENTATION RECOMMENDED. documented in this encounter Plan of Treatment Upcoming Encounters Date Type Department Care Team (Late st Contact Info) Description 06/08/2024 1:40 PM HOME CARE MUSIC THERAPIST Office Visit [facility] Medical Group Multispecialty Care - [facility] [address] [facility] [place] [address] [place] [address] [place] [address] Kalen Simpson, PA-C 3 [facility] [address] [place] [address] 09/30/2024 10:15 AM CDT Office Visit [facility] [address] [place] [address] Darryl Bunch MD Three [facility]. [address] [place] [address] Juliette Zavala PA [address] [facility], [address] [place] [address] documented as of this encounter Visit Diagnoses Not on filedocumented in this encounter
--- OUTSIDE RECORDS SUMMARY | 2024-04-17 17:22 | XMS_ITS | Encounter Summary ---
Author Organization [facility] Address [address] [place] [address]. 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, [address] [place] [address] [place] [address] [place] [address] Kalen Simpson PA-C 3 [facility] [address] [place] [address] 09/30/2024 10:15 AM CDT Office Visit [facility] [address] [place] [phone] Darryl Bunch MD Three [facility]. [address] [place], [place] [phone] Juliette Zavala PA 3 [facility], [address] [place], [place] [phone] documented as of this encounter Visit Diagnoses Not on filedocumented in this encounter Additional Health Concerns Assessment Noted Time PHQ-9 Depression Total Score: 0 09/19/19 7:53 AM CDT documented as of this encounter Care Teams Loader Helper Sorting Yard Relationship Specialty Start Date End Date Jordan Moctezuma MD PCP - General INTERNAL MEDICINE 08/02/18 07/17/22 documented as of this encounter
--- OUTSIDE RECORDS SUMMARY | 2024-04-17 17:22 | XMS_ITS | Encounter Summary ---
Author Organization [facility] Address [address] [place] [address]. [place], [place] [address] [place] [address] Care Team Providers Care Renal Medicine Physician Name Role Phone Unavailable Primary Care Provider Unavailabl e Encounter Details Date Type Department Care Team (Late st Contact Info) Description 12/24/2016 Abstract [facility] Medical Group Family & Internal Medicine - [place] [address] [place] [address] Jordan Moctezuma MD Social History [...] Sign Reading Time Taken Comments Blood Pressure 140/70 12/24/2016 8:07 AM CDT Pulse 76 12/24/2016 8:07 AM CDT Temperature - - Respiratory Rate - - Oxygen Saturation - - Inhaled Oxygen Concentration - - Weight 141.1 kg (311 lb) 12/24/2016 8:07 AM CDT Height 190.5 cm (6' 3 ) 12/24/2016 8:07 AM CDT Body Mass Index 38.87 12/24/2016 8:07 AM CDT documented in this encounter Progress Notes * Jordan Moctezuma MD - 12/24/2016 8:00 AM CDT Reason For Visit Chronic Recheck Visit History of Present Illness HPI Free Text: Donovan is a 41-year-old young gentleman comes today for followup of his usual condition, diabetes type 2 and hypertension. Blood pressure 140/70 and got repeated about 130/70. He lost 10 pounds since last time and he exercised every time. Every night, at least 2 miles, he said that he walks whenever the weather is fine. His A1c today came back at 7.7, last time 8.9 so that sound a good improvement. PHQ-2 Depression Questionnaire: Over the past 2 weeks, how often have you been bothered by the following problems? 1.) Little interest or pleasure in doing things? Not at all. 2.) Feeling down, depressed or hopeless? Not at all. TOTAL SCORE: 0. Review of Systems Constitutional: no fever, no chills and no [...] DAILY; Therapy: 03Aug2013 to (Evaluate:07Oct2016) Requested for: [id number] Recorded 2. Lisinopril 20 MG Oral Tablet; TAKE 1 TABLET BY MOUTH EVERY DAY; Therapy: 11Feb2012 to (Evaluate:18Jan2017) Requested for: [id number]; Last Rx:[id number] Ordered 3. Lisinopril-Hydrochlorothiazide 20-12.5 MG Oral Tablet; TAKE 1 TABLET BY MOUTH EVERY DAY; Therapy: 11Feb2012 to (Evaluate:18Jan2017) Requested for: [id number]; Last Rx:[id number] Ordered 4. MetFORMIN HCl ER (MOD) 1000 MG Oral Tablet Extended Release 24 Hour; Take 1 tablet twice daily; Therapy: 29Apr2013 to (Evaluate:[id number]) Requested for: [id number]; Last Rx:[id number] Ordered 5. MetFORMIN HCl ER 500 MG Oral Tablet Extended Release 24 Hour; take 2 tablet twice a day; Therapy: 23Jul2016 to (Evaluate:19Jan2017) Requested for: [id number]; Last Rx:[id number] Ordered Allergies 1. No Known Drug Allergies Immunizations Influenza --- Series1: [id number] Vitals Recorded: 24Dec2016 08:07AM Temperature 98.4 F Heart Rate 76 Respiration 20 Systolic 140 Diastolic 70 O2 Saturation 99 Height 6 ft 3 in Weight 311 lb BMI Calculated 38.87 BSA Calculated 2.65 Physical Exam Constitutional General appearance: No acute [...] of breathing or signs of respiratory distress. The lungs are clear. Cardiovascular The heart is regular. Abdomen The abdomen is soft, nontender. Lymphatic Palpation of lymph nodes in neck: No lymphadenopathy. Musculoskeletal Gait and station: Normal. Full range of motion upper and lower extremities. Inspection/palpation of joints, bones, and muscles: Normal. Skin Skin and subcutaneous tissue: Normal without rashes or lesions. Neurologic Cranial nerves: Cranial nerves 2-12 intact. Reflexes: 2+ and symmetric. Sensation: A feeling test of both feet and it showed perfect sensitivity with the monofilament. Psychiatric Orientation to person, place and time: Normal. Mood and affect: Normal. Right Foot Findings: normal foot. The toes were normal. Left Foot Findings: normal foot. The toes were normal. Monofilament Testing: normal tactile sensation with monofilament testing throughout both feet. Tactile sensation in the right foot (see image for location): number 1 was normal, number 4 was normal, number 5 was normal, number 6 was normal, number 2 was normal, number 3 was normal, number 7 was normal, number 8 was normal, number 9 was normal and number 10 was normal. Tactile sensation in the left foot (see image for location): number 1 was normal, number 4 was normal, number 5 was normal, number 6 was normal, number 2 was normal, number 3 was normal, number 7 was normal, number 8 was normal,number 9 was normal and number 10 was normal. Vascular: Capillary refills findings on the right were normal in the toes. Capillary refills findings on the left were normal in the toes. Results/Data *A1C In Office [id number] 08:20AM Jordan Moctezuma Test Name Result Flag Reference A1C 7.7 4.2 - 6.5 % HbA1C Assessment 1. BMI 38.0-38.9,adult (V85.38) (Z68.38) 2. Diabetes mellitus (250.00) (E11.9) 3. Hypertension (401.9) (I10) Plan Health Maintenance 1. Lisinopril-Hydrochlorothiazide 20-12.5 MG Oral Tablet; TAKE 1 TABLET BY MOUTH EVERY DAY Rx By: Jordan Moctezuma; Dispense: 90 Days ; #:1 X 90 Tablet Bottle; Refill: 1; For: Health Maintenance; WU = N; Verified Transmission to [facility] #[id number]; Last Updated By: [employer];12/24/2016 8:25:13 AM Hyperglycemia 2. MetFORMIN HCl ER (MOD) 1000 MG Oral Tablet Extended Release 24 Hour; Take 1 tablet twice daily Rx By: Jordan Moctezuma; Dispense: 90 Days ; #:180 Tablet Extended Release 24 Hour; Refill: 1; For: Hyperglycemia; WU = N; Verified Transmission to [facility] #[id number]; Last Updated By: [employer]; 12/24/2016 8:25:13 AM Hypertension 3. Lisinopril 20 MG Oral Tablet; TAKE 1 TABLET BY MOUTH EVERY DAY Rx By: Jordan Moctezuma; Dispense: 90 Days ; #:1 X 90 Tablet Bottle; Refill: 1; For: Hypertension; WU = N; Verified Transmission to [facility] #[id number]; Last Updated By: David Moreno; 12/24/2016 8:25:14 AM 4. Follow-up visit in 6 months Outpatient Follow-up Status: Complete Done: 24Dec2016 Ordered; For: Hypertension; Ordered By: Jordan Moctezuma Performed: Due: 07Jan2017; Last UpdatedBy: Yael Rain; 12/24/2016 12:37:29 PM Influenza vaccine needed 5. Flulaval Quadrivalent 0.5 ML Intramuscular Suspension Prefilled Syringe For: Influenza vaccine needed; Ordered By:Jordan Moctezuma; Effective Date:24Dec2016; Administered by: Rach Mina MA: 12/24/2016 5:46:00 PM; Last Updated By: Rach Mina; 12/24/2016 5:47:48 PM Discussion/Summary Encouraged him to continue doing the same thing. I am not going to change any medications. I will see him back in 6 months. Encouraged him to continue working with his numbers and go from there. He seems to be quite motivated. He denies any problem whatsoever. Negative adult depression screen. Falls risk assessment completed. Visual exam of foot completed. Monofilament foot sensation test completed. Assessment of pedal pulse completed. Signatures Electronically signed by : Jordan Moctezuma M.D.; Dec 30 2016 8:01AM AUTOMOTIVE SPECIALTY TECHNICIAN (Author) documented in this encounter Plan of Treatment Upcoming Encounters Date Type Department Care Team (Late st Contact Info) Description 06/08/2024 1:40 PM AUTOMOTIVE SPECIALTY TECHNICIAN Office Visit [facility] Medical Group Multispecialty Care - [address] [place] [address] [place] [address] [place] [address] Kalen Simpson PA-C 3 [facility] [address] [place] [address] 09/30/2024 10:15 AM CDT [facility] [address] [place] [address] Darryl Bunch MD Three [facility]. [address] [place], [place] [phone] Juliette Zavala PA 3 [facility], [address] [place], [place] [address] documented as of this encounter Procedures Procedure Name Priority Date/Time Associated Diagnosis Comments HEMOGLOBIN, GLYCOSYLATED Routine 12/24/2016 8:20 AM CDT documented in this encounter Results * HEMOGLOBIN, GLYCOSYLATED (12/24/2016 8:20 AM CDT) HGB A1C 7.7 4.2 - 6.5 % HbA1C [facility] TO EPIC CONVERSION 12/24/2016 8:20 AM CDT 12/24/2016 8:20 AM CDT Narrative [facility] TO EPIC CONVERSION - 12/24/2016 8:20 AM CDT Result Communication: No patient communication needed at this time us Jordan Moctezuma MD LABORATORY Final Re sult [facility] TO EPIC CONVERSION documented in this encounter Visit Diagnoses Not on filedocumented in this encounter
--- OUTSIDE RECORDS SUMMARY | 2024-04-17 17:22 | XMS_ITS | Encounter Summary ---
Author Organization [facility] Address [address] [place] [address]. [place] [address] [place] [address] Care Team Providers Care Greenhouse Transplanter Name Role Phone Jordan Moctezuma MD Primary Care Provider Gustavo simmons Encounter Details Date Type Department Care Team (Latest Contact Info) Description 03/25/2021 Travel Social History Tobacco Use Types Packs/Day [...] COVID-19? No / Unsure 03/25/2021 9:56 AM RESOURCE ECONOMIST documented as of this encounter Plan of Treatment Upcoming Encounters Date Type Department Care Team (Late st Contact Info) Description 06/08/2024 1:40 PM RESOURCE ECONOMIST Office Visit [facility] Medical Group Multispecialty Care - [facility] [address] [facility], [address] [place] [address] [place] [address] [place] [address] Kalen Simpson PA-C 3 [facility] [address] [place] [address] 09/30/2024 10:15 AM CDT [facility] [address] [place] [address] Darryl Bunch MD Three [facility]. [address] [place], [place] [address] Juliette Zavala PA 3 [facility], [address] [place] [address] documented as of this encounter Visit Diagnoses Not on filedocumented in this encounter Additional Health Concerns Assessment Noted Time PHQ-9 Depression Total Score: 0 09/19/19 7:53 AM CDT documented as of this encounter Care Teams Greenhouse Transplanter Relationship Specialty Start Date End Date Jordan Moctezuma MD PCP - General INTERNAL MEDICINE 08/02/18 07/17/22 documented as of this encounter
--- OUTSIDE RECORDS SUMMARY | 2024-04-17 17:22 | XMS_ITS | Encounter Summary ---
Author Organization [facility] Address [address] [place] [address]. [place] [address] [place] [address] Care Team Providers Care Staff Development Educator Name Role Phone Unavailable Primary Care Provider Unavailabl e Encounter Details Date Type Department Care Team (Latest Contact Info) Description 04/26/2015 Abstract [facility] Medical Group Social History Tobacco [...] st Contact Info) Description 06/08/2024 1:40 PM LINDERMAN OPERATOR Office Visit [facility] Medical [facility] Mult[facility]pecialty Care - [facility] [address] [facility], [address] [place] [address] [place] [address] [place] [address] Kalen Simpson PA-C 3 [facility] [address] [place] [address] 09/30/2024 10:15 AM CDT Office Visit [facility] [address] [place] [address] Darryl Bunch MD [facility]. [address] [place] [address] Juliette Zavala PA 3 [facility], [address] [place] [address] documented as of this encounter Visit Diagnoses Not on filedocumented in this encounter
--- OUTSIDE RECORDS SUMMARY | 2024-04-17 17:22 | XMS_ITS | Encounter Summary ---
Author Organization [facility] Address [address] [place] [address]. [place], [place] [address] [place] [address] Care Team Providers Care Choke Setter Name Role Phone Jordan Moctezuma MD Primary Care Provider U iris Reason for Referral * Sleep Lab (Routine) - Closed Specialty Diagnoses / Procedures Referred By Aiyana t Referred To Contact [facility] Sleep Disorders Diagnoses TEGAN (obstructive sleep apnea) Procedures Limited Channel Unattended (Home Study) ([id number]) Jordan Moctezuma MD [facility] Lab [address] [place] [address] Phone: tel: fax: Referral ID Status Reason Start Date Expiration Date Visits Re quested Visits Authorized [id number] Closed 07/23/2020 08/23/2021 1 1 Encounter Details Date Type Department Care Team (Late st Contact Info) Description 07/23/2020 Transcribe Orders [facility] Lab [address] [place], [place] [phone] Jordan Moctezuma MD Social History Tobacco Use [...] have Coronavirus / COVID-19? No / Unsure 08/06/2020 9:24 AM CDT documented as of this encounter Plan of Treatment Upcoming Encounters Date Type Department Care Team (Late st Contact Info) Description 06/08/2024 1:40 PM OTORHINOLARYNGOLOGIST Office Visit [facility] Medical Group Multispecialty Care - [facility] [address] [facility] [place] [address] [place] [address] [place] [address] Kalen Simpson PA-C 3 [facility] [address] [place] [address] 09/30/2024 10:15 AM CDT [facility] [address] [place] [address] Darryl Bunch MD Three [facility]. [address] [place], [place] [address] Juliette Zavala PA 3 [facility], [address] [place], [place] [address] documented as of this encounter Visit Diagnoses Diagnosis TEGAN (obstructive sleep apnea)- Primary Obstructive sleep apnea (adult) (pediatric) documented in this encounter Care Teams Choke Setter Relationship Specialty Start Date End Date Jordan Moctezuma MD PCP - General INTERNAL MEDICINE 08/02/18 07/17/22 documented as of this encounter
--- OUTSIDE RECORDS SUMMARY | 2024-04-17 17:22 | XMS_ITS | Encounter Summary ---
Author Organization [facility] Address [address] [place] [address]. [place], [place] [address] [place] [address] Care Team Providers Care Sports Instructor Name Role Phone Unavailable Primary Care Provider Unavailabl e Encounter Details Date Type Department Care Team (Latest Contact Info) Description 10/22/2017 Abstract [facility] Jordan Moctezuma MD Social [...] st Contact Info) Description 06/08/2024 1:40 PM ELECTRICAL JOURNEYMAN Office Visit [facility] Medical [facility] Multispecialty Care - [address] [place] [address] [place] [address] [place] [address] Kalen Simpson PA-C 3 [facility] [address] [place] [address] 09/30/2024 10:15 AM CDT Office Visit [facility] [address] [place] [phone] Darryl Bunch MD Three [facility]. [address] [place] [address] Juliette Zavala PA 3 [facility], [address] [place] [address] documented as of this encounter Procedures Procedure Name Priority Date/Time Associated Diagnosis Comments LIPID W/CALC LDL Routine 10/22/2017 6:16 AM CDT COMPREHENSIVE METABOLIC PANEL Routine 10/22/2017 6:16 AM CDT CBC W/DIFF AUTOMATED Routine 10/22/2017 6:16 AM CDT THYROID STIM HORMONE TSH Routine 10/22/2017 6:16 AM CDT documented in this encounter Results * THYROID STIM HORMONE, TSH (10/22/2017 6:16 AM CDT) TSH 2.358 0.358 - 3.74 uIU/ML [facility] TO EPIC CONVERSION Comment: Result Comment: HIGH DOSES OF BIOTIN MAY INTERFERE WITH THIS TEST RESULT. CORRELATION TO CLINICAL HISTORY AND PRESENTATION RECOMMENDED. 10/22/2017 6:16 AM CDT 10/22/2017 6:16 AM CDT Narrative [facility] TO EPIC CONVERSION - 10/22/2017 7:16 AM CDT Result Communication: Call patient with results us Jordan Moctezuma MD LABORATORY Final Re sult [facility] TO EPIC CONVERSION * (ABNORMAL) CBC W/DIFF AUTOMATED (10/22/2017 6:16 AM CDT) WBC 9.2 4.4 - 11.0 x10'3/uL [facility] TO EPIC CONVERSION RBC 4.75 4.50 - 5.90 x10'6/uL [facility] TO EPIC CONVERSION HGB 14.1 14.0 - 17.5 G/DL [facility] TO EPIC CONVERSION HCT 40.4(L) 41.5 - 50.4 % [facility] TO EPIC CONVERSION MCV 85.1 80.0 - 96.0 FL [facility] TO EPIC CONVERSION MCH 29.7 26.5 - 31.4 PG [facility] TO EPIC CONVERSION MCHC 34.9(H) 31.9 - 34.8 G/DL [facility] TO EPIC CONVERSION RDW 12.2(L) 12.3 - 14.3 % [facility] TO EPIC CONVERSION PLT 197 151 - 353 x10'3/uL [facility] TO EPIC CONVERSION MPV 11.1 9.7 - 11.9 FL [facility] TO EPIC CONVERSION BASOPHILS % 0.5 0.0 - 1.3 % [facility] TO EPIC CONVERSION EOSINOPHILS % 1.2 0.0 - 5.6 % [facility] TO EPIC CONVERSION NEUTROPHILS % 53.8 42.1 - 71.9 % [facility] TO EPIC CONVERSION LYMPHOCYTES % 36.6 15.8 - 45.0 % [facility] TO EPIC CONVERSION IMMATURE GRANS % 0.5 0.0 - 0.5 % [facility] TO EPIC CONVERSION ABS. NEUTROPHILS TOTAL 4.96 1.40 - 6.00 x10'3/uL [facility] TO EPIC CONVERSION WBC MORPHOLOGY NORMAL [facility] OUP TO EPIC CONVERSION PLT MORPH. NORMAL [facility] TO EPIC CONVERSION RBC MORPHOLOGY NORMAL [facility] OUP TO EPIC CONVERSION MONOCYTES 7.4 5.7 - 12.5 % [facility] TO EPIC CONVERSION ABS. LYMPHOCYTES 3.37 0.80 - 4.70 x10'3/uL [facility] TO EPIC CONVERSION 10/22/2017 6:16 AM CDT 10/22/2017 6:16 AM CDT Narrative [facility] TO EPIC CONVERSION - 10/22/2017 6:38 AM CDT Result Communication: Call patient with results us Jordan Moctezuma MD LABORATORY Final Re sult [facility] TO EPIC CONVERSION * (ABNORMAL) LIPID W/CALC LDL (10/22/2017 6:16 AM CDT) Pathologist [facility] CHOLESTEROL 118 <200.0 MG/DL [facility] TO EPIC CONVERSION TRIGLYCERIDES 102 <150 MG/DL [facility] TO EPIC CONVERSION HDL 39(L) >40.0 MG/DL [facility] TO EPIC CONVERSION LDL (CALCULATED) 58.6 <100 MG/DL [facility] TO EPIC CONVERSION CHOL/HDL RATIO 3.0 0.0 - 4.5 [facility] TO EPIC CONVERSION NON HDL CHOLESTEROL 79 <130 MG/DL [facility] TO EPIC CONVERSION VLDL CALCULATION 20 5 - 55 MG/DL [facility] TO EPIC CONVERSION INTERPRETATION NIH CONCENSUS REPORT RECOMMENDATI ONS: ?ADULT ?CHILD ?? LOW RISK: ?CHOLESTERO L ? <200 ? <170 ?TRIGLYCERI DE ?<150 ?--- ?HDL ? >=60 ?--- ?LDL ? <100 ? <110 ? BORDERLINE: ?CHOLESTERO L ? 200-239 ?? 170-199 ?TRIGLYCERI DE ?150-199 ? --- ?HDL ?40-59 ?--- ?LDL ? 100-159 ?? 110-129 ? HIGH RISK: ?CHOLESTERO L ? >=240 ?>=200 ?TRIGLYCERI DE ?>=200 ? --- ?HDL ?<40 ?--- ?LDL ? >=160 ?>=130 [facility] TO EPIC CONVERSION 10/22/2017 6:16 AM CDT 10/22/2017 6:16 AM CDT Narrative [facility] TO EPIC CONVERSION - 10/22/2017 6:54 AM CDT Result Communication: Call patient with results Jordan Moctezuma MD LABORATORY Final Re sult [facility] TO EPIC CONVERSION * (ABNORMAL) COMPREHENSIVE METABOLIC PANEL (10/22/2017 6:16 AM CDT) SODIUM S/P/B 137 136 - 145 MMOL/L [facility] TO EPIC CONVERSION POTASSIUM S/P/B 3.9 3.5 - 5.1 MMOL/L [facility] TO EPIC CONVERSION CHLORIDE S/P/B 102 100 - 108 MMOL/L [facility] TO EPIC CONVERSION CO2 26.4 21 - 32 MMOL/L [facility] TO EPIC CONVERSION ANION GAP 12.5 8 - 20 MMOL/L [facility] TO EPIC CONVERSION BUN 11 7 - 18 MG/DL [facility] TO EPIC CONVERSION CREATININE S/P/B 0.83 0.7 - 1.3 MG/DL [facility] TO EPIC CONVERSION GFR ESTIMATE >90 >90 ML/MIN/1 .73 M2 [facility] TO EPIC CONVERSION EGFR AFR. AMER. >90 NOTE: eGFR is not calculated for patients <18 years of age. This is an estimated GFR (CKD EPI) and should not be used for calculating drug doses. >90 ML/MIN/1 .73 M2 [facility] TO EPIC CONVERSION BUN CREATININE RATIO 13.3 6 - 26 [facility] TO EPIC CONVERSION GLUCOSE 173(H) 70 - 99 MG/DL [facility] TO EPIC CONVERSION CALCIUM S/P/B 8.6 8.5 - 10.1 MG/DL [facility] TO EPIC CONVERSION BILIRUBIN TOTAL S/P/B 0.6 0.2 - 1.2 MG/DL [facility] TO EPIC CONVERSION AST 39(H) 15 - 37 U/L [facility] TO EPIC CONVERSION ALT 84(H) 16 - 60 U/L [facility] TO EPIC CONVERSION ALKALINE PHOSPHATASE S/P/B 69 50 - 136 U/L [facility] TO EPIC CONVERSION TOTAL PROTEIN S/P/B 7.3 6.4 - 8.2 G/DL [facility] TO EPIC CONVERSION ALBUMIN S/P/B 4.0 3.4 - 5.0 G/DL [facility] TO EPIC CONVERSION A/G RATIO 1.2 1.0 - 2.0 RATIO [facility] TO EPIC CONVERSION 10/22/2017 6:16 AM CDT 10/22/2017 6:16 AM CDT Narrative [facility] TO EPIC CONVERSION - 10/22/2017 6:54 AM CDT Result Communication: Call patient with results us Jordan Moctezuma MD LABORATORY Final Re sult [facility] TO EPIC CONVERSION documented in this encounter Visit Diagnoses Not on filedocumented in this encounter
--- OUTSIDE RECORDS SUMMARY | 2024-04-17 17:22 | XMS_ITS | Encounter Summary ---
Author Organization [facility] Address [address] [place] [address]. [place] [address] [place] [address] Care Team Providers Care Physicist Cryogenics Name Role Phone Jordan Moctezuma MD Primary Care Provider Gustavo simmons Encounter Details Date Type Department Care Team (Latest Contact Info) Description 09/18/2020 Travel Social History Tobacco Use Types Packs/Day [...] st Contact Info) Description 06/08/2024 1:40 PM HOSPITAL ADMISSIONS OFFICER Office Visit [facility] Medical Group Multispecialty Care - [address], [address] [place] [address] [place] [address] [place] [address] Kalen Simpson, PA-C 3 [facility] [address] [place] [address] 09/30/2024 10:15 AM CDT [facility] [address] [place] [phone] Darryl Bunch MD Three [facility]. [address] [place], [place] [address] Juliette Zavala PA 3 [facility], [address] [place] [address] documented as of this encounter Visit Diagnoses Not on filedocumented in this encounter Additional Health Concerns Assessment Noted Time PHQ-9 Depression Total Score: 0 09/19/19 7:53 AM CDT documented as of this encounter Care Teams Physicist Cryogenics Relationship Specialty Start Date End Date Jordan Moctezuma MD PCP - General INTERNAL MEDICINE 08/02/18 07/17/22 documented as of this encounter
--- OUTSIDE RECORDS SUMMARY | 2024-04-17 17:22 | XMS_ITS | Encounter Summary ---
Author Organization [facility] Address [address] [place] [address]. [place], [place] [address] [place] [address] Care Team Providers Care Color Developer Name Role Phone Jordan Moctezuma MD Primary Care Provider Gustavo simmons Encounter Details Date Type Department Care Team (Late Contact Info) Description 03/17/2022 Orders Only [facility] [address] [address] Jordan Moctezuma MD Social History [...] Coronavirus/COVID-19? No / Unsure 03/10/2022 7:49 AM PATIENT SERVICE REP documented as of this encounter Plan of Treatment Upcoming Encounters Date Type Department Care Team (Late st Contact Info) Description 06/08/2024 1:40 PM PATIENT SERVICE REP Office Visit [facility] Mult[facility]pecialty Care - [facility] 3 [facility] [address] [place] [address] [place] [address] [place] [address] Kalen Simpson, PA-C 3 [facility] [address] [place] [address] 09/30/2024 10:15 AM CDT [facility] [address] [place] [address] Darryl Bunch MD Three [facility]. [address] [place] [address] Juliette Zavala PA 3 [facility], [address] [place] [address] documented as of this encounter Visit Diagnoses Not on filedocumented in this encounter Additional Health Concerns Assessment Noted Time PHQ-9 Depression Total Score: 0 09/19/19 21 7:53 AM CDT documented as of this encounter Care Teams Color Developer Relationship Specialty Start Date End Date Jordan Moctezuma MD PCP - General INTERNAL MEDICINE 08/02/18 07/17/22 documented as of this encounter
--- OUTSIDE RECORDS SUMMARY | 2024-04-17 17:22 | XMS_ITS | Encounter Summary ---
Author Organization [facility] Address [address] [place] [address]. [place], [place] [address] [place] [address] Care Team Providers Care Wax Pot Tender Name Role Phone Jordan Moctezuma MD Primary Care Provider Gustavo simmons Encounter Details Date Type Department Care Team (Latest Contact Info) Description 08/06/2020 Travel Social History Tobacco Use Types Packs/Day [...] Contact Info) Description 06/08/2024 1:40 PM CUSTOMER SUPPLY COORDINATOR Office Visit [facility] Medical Group Multispecialty Care - [address], [address] [place] [phone] [place] [address] [place] [address] Kalen Simpson, PA-C 3 [facility] [address] [place] [address] 09/30/2024 10:15 AM CDT Office [facility] [address] [place] [phone] Darryl Bunch MD Three [facility]. [address] [place] [address] Juliette Zavala PA 3 [facility], [address] [place] [address] documented as of this encounter Visit Diagnoses Not on filedocumented in this encounter Care Teams Wax Pot Tender Relationship Specialty Start Date End Date Jordan Moctezuma MD PCP - General INTERNAL MEDICINE 08/02/18 07/17/22 documented as of this encounter
--- OUTSIDE RECORDS SUMMARY | 2024-04-17 17:22 | XMS_ITS | Encounter Summary ---
Author Organization [facility] Address [address] [place] [address]. [place], [place] [address] [place] [address] Care Team Providers Care Associate Professor Of Pathology Name Role Phone Unavailable Primary Care Provider Unavailabl e Encounter Details Date Type Department Care Team (Late st Contact Info) Description 09/30/2017 Abstract [facility] [address] [place] [address] Jordan Moctezuma MD Social History Tobacco Use [...] st Contact Info) Description 06/08/2024 1:40 PM SUPERINTENDENT MECHANICAL Office Visit [facility] Medical Group Multispecialty Care - [address] [place] [address] [place] [address] [place] [address] Kalen Simpson PA-C 3 [facility] [address] [place] [address] 09/30/2024 10:15 AM CDT Office Visit [facility] [address] [place] [address] Darryl Bunch MD Three [facility]. [address] [place], [place] [phone] Juliette Zavala PA 3 [facility], [address] [place], [place] [phone] documented as of this encounter Visit Diagnoses Diagnosis Pain in left shoulder Pain in joint, shoulder region documented in this encounter
--- OUTSIDE RECORDS SUMMARY | 2024-04-17 17:22 | XMS_ITS | Encounter Summary ---
Author Organization [facility] Address [address] [place] [address]. [place] [id number] Care Team Providers Care Resource Development Manager Name Role Phone Jordan Moctezuma MD Primary Care Provider Gustavo simmons Reason for Referral * Sleep Lab (Routine) - Closed Specialty Diagnoses / Procedures Referred By Aiyana cuevas Referred To Contact [facility] Sleep Disorders Diagnoses TEGAN (obstructive sleep apnea) Procedures Limited Channel Unattended (Home Study) ([id number]) Jordan Moctezuma MD [facility] Lab [address] [place] [address] Phone: tel: fax: Referral ID Status Reason Start Date Expiration Date Visits Re quested Visits Authorized [id number] Closed 07/23/2020 08/23/2021 1 1 Reason for Visit * Reason Comments Obstructive Sleep Apnea * Sleep Lab (Routine) - Closed Specialty Diagnoses / Procedures Referred By Contac t Referred To Contact [facility] Sleep Disorders Diagnoses TEGAN (obstructive sleep apnea) Procedures Limited Channel Unattended (Home Study) ([id number]) Jordan Moctezuma MD [facility] Sleep Lab [address] [place] [address] Phone: tel: fax: Referral ID Status Reason Start Date Expiration Date Visits Re quested Visits Authorized [id number] Closed 07/23/2020 08/23/2021 1 1 Encounter Details Date Type Department Care Team (Late st Contact Info) Description 08/06/2020 9:25 AM CDT - 08/06/2020 11:59 PM CDT Hospital Encounter [facility] [address] [place] [address] Jordan Moctezuma MD Obstructive Sleep Apnea Discharge Disposition: Home or Self Care (Routine [...] AM CDT documented as of this encounter Medications at Time of Discharge Glucose Blood test strip as needed. 08/03/2013 4 LISINOPRIL 20 MG tabletIndications:Ess ential hypertension TAKE 1 TABLET(20 MG) BY MOUTH DAILY 90 tablet 1 07/31/2020 1 LISINOPRIL-HYDROCHLOR OTHIAZIDE 20-12.5 MG tabletIndications:Ess ential hypertension TAKE 1 TABLET BY MOUTH DAILY 90 tablet 1 07/31/2020 1 METFORMIN ER 500 MG 24 hr tabletIndications:Typ e 2 diabetes mellitus without complication, without long-term current use of insulin ([facility]/HCC [facility]/HCC) TAKE 2 TABLETS(1000 MG) BY MOUTH DAILY 180 tablet 1 07/31/2020 1 SYNJARDY XR 25-1000 MG TABLET SR 24 HRIndications:Diabete s mellitus due to underlying condition with hyperosmolarity and coma, with long-term current use of insulin (CMS/HCC HHS/HCC) TAKE 1 TABLET BY MOUTH DAILY 90 tablet 07/04/2020 documented as of this encounter Progress Notes * Deejay Hart MD - 08/06/2020 9:30 AM CDTEncounter addended by: Deejay Hart MD on: 08/14/2020 10:23 AM Actions taken: Pend clinical note, Clinical Note Signed documented in this encounter Procedure Notes * Deejay Hart MD - 08/06/2020 9:30 AM CDT [facility], [place] HOME SLEEP STUDY INTERPRETATION PATIENT NAME: Jeancarlos Garcia DATE OF : 1975 DATE OF SERVICE: 08/06/2020 Ordering Phy Exam Description Jordan Moctezuma M.D. Home Sleep Study ATTENDING PHYSICIAN: Dr. Deejay Hart REFERRING PHYSICIAN: Dr. Jordan Moctezuma SUMMARY DATA Sleep Study/ Architecture: This patient was studied using [employer] home sleep testing system. The evaluation was initiated at 08/06/2020 at 10:13 PM and was stopped at 08/07/2020 at 6:19 AM. The total recording time was 487.9 minutes with a total sleep evaluation of 486 minutes. DIAGNOSTIC Total Apnea/ Hypopnea Index: 11.5/hr Average Sleep Oxygen Saturation: 94 Minimum Sleep Oxygen Saturation: Mean Heart Rate during Sleep: 86 65.5 Assessment/Plan: Mild Obstructive Sleep Apnea. [place] treatment option should be discussed with the patient and a plan for treatment should be made. Potential health consequences and medical importance of treatment should also be discussed with the patient. This patient should maintain good sleep hygiene techniques, maintain a consistent sleep/wake schedule with adequate hours of sleep, and avoid hazardous activities when sleepy. The patient should be cautioned about factors that may potentiallyexacerbate snoring and sleep-related problems, such as MUSIC LIBRARY ASSISTANT depressants, especially at bedtime. This document was electronically signed by: Deejay Hart M.D. on 08/13/2020 at 4:12 PM. documented in this encounter Plan of Treatment Upcoming Encounters Date Type Department Care Team (Late st Contact Info) Description 06/08/2024 1:40 PM SOFTWARE TEST SPECIALIST Office Visit [facility] Medical Group Multispecialty Care - [facility] 3 [facility] [address] [place] [address] [place] [address] [place] [address] Kalen Simpson PA-C 3 [facility] [address] [place] [address] 09/30/2024 10:15 AM CDT Office Visit [facility] [address] [place] [address] Darryl Bunch MD Three [facility]. [address] [place] [address] Juliette Zavala PA 3 [facility], [address] [place] [address] documented as of this encounter Procedures Procedure Name Priority Date/Time Associated Diagnosis Comments LIMITED CHANNEL UNATTENDED (HOME STUDY) Routine 08/06/2020 9:25 AM CDT TEGAN (obstructive sleep apnea) documented in this encounter Visit Diagnoses Diagnosis TEGAN (obstructive sleep apnea) Obstructive sleep apnea (adult) (pediatric) documented in this encounter Care Teams Resource Development Manager Relationship Specialty Start Date End Date Jordan Moctezuma MD PCP - General INTERNAL MEDICINE 08/02/18 07/17/22 documented as of this encounter
--- OUTSIDE RECORDS SUMMARY | 2024-04-17 17:22 | XMS_ITS | Encounter Summary ---
Author Organization [facility] Address [address] [place] [address]. [place], [place] [address] [place] [address] Care Team Providers Care Repairer Controller Tester Name Role Phone Jordan Moctezuma MD Primary Care Provider Gustavo simmons Encounter Details Date Type Department Care Team (Latest Contact Info) Description 10/18/2020 Scan HEALTH INFO SRVCS Scanned, Documents Social [...] st Contact Info) Description 06/08/2024 1:40 PM STITCH RUBBER Office Visit [facility] Medical [facility] Multispecialty Care - [facility] 3 [facility], [address] [place] [address] [place] [address] [place] [address] Kalen Simpson, PA-C 3 [facility] [address] [place] [address] 09/30/2024 10:15 AM CDT Office Visit [facility] [place] [facility] [address] [place] [address] Darryl Bunch MD Three [facility]. [address] [place] [address] Juliette Zavala PA 3 [facility], [address] [place] [address] documented as of this encounter Visit Diagnoses Not on filedocumented in this encounter Additional Health Concerns Assessment Noted Time PHQ-9 Depression Total Score: 0 09/19/19 7:53 AM CDT documented as of this encounter Care Teams Repairer Controller Tester Relationship Specialty Start Date End Date Jordan Moctezuma MD PCP - General INTERNAL MEDICINE 08/02/18 07/17/22 documented as of this encounter
--- OUTSIDE RECORDS SUMMARY | 2024-04-17 17:22 | XMS_ITS | Encounter Summary ---
Author Organization [facility] Address [address] [place] [address]. [place] [address] [place] [address] Care Team Providers Care Welder Tool And Die Name Role Phone Jordan Moctezuma MD Primary Care Provider Gustavo simmons Encounter Details Date Type Department Care Team (Latest Contact Info) Description 12/17/2021 Travel Social History Tobacco Use Types Packs/Day [...] st Contact Info) Description 06/08/2024 1:40 PM RESIDENTIAL DRIVER Office Visit [facility] Medical Group Multispecialty Care - [address], [address] [place] [address] [place] [address] [place] [address] Kalen Simpson, PA-C 3 [facility] [address] [place] [address] 09/30/2024 10:15 AM CDT [facility] [address] [place] [address] Darryl Bunch MD Three [facility]. [address] [place], [place] [address] Juliette Zavala PA 3 [facility], [address] [place] [address] documented as of this encounter Visit Diagnoses Not on filedocumented in this encounter Additional Health Concerns Assessment Noted Time PHQ-9 Depression Total Score: 0 09/19/19 21 7:53 AM CDT documented as of this encounter Care Teams Welder Tool And Die Relationship Specialty Start Date End Date Jordan Moctezuma MD PCP - General INTERNAL MEDICINE 08/02/18 07/17/22 documented as of this encounter
--- OUTSIDE RECORDS SUMMARY | 2024-04-17 17:22 | XMS_ITS | Encounter Summary ---
Author Organization [facility] Address [address] [place] [address]. [place], [place] [address] [place] [address] Care Team Providers Care Engraving Operator Name Role Phone Jordan Tuttle MD Primary Care Provider U iris Reason for Visit * Reason Comments Acute Note c/o L Lower Abd Pain Abdominal Pain lower abd pain onset since thursday. Patient states it does not radiate to the back or to the navel. Pt states he can feel it whenever he sits after eating or moving around. Encounter Details Date Type Department Care Team (Late st Contact Info) Description 09/18/2020 8:00 AM CDT Office Visit [facility] Medical Group Family & Internal Medicine - [address] [address] Jordan Tuttle MD Acute Note (c/o L Lower Abd Pain); Abdominal Pain (lower abd pain onset since thursday. Patient states it does not radiate to the back or to the navel. Pt states he can feel it whenever he sits after eating or moving around. ) Social History Tobacco Use Types Packs/Day [...] Sign Reading Time Taken Comments Blood Pressure 124/86 09/18/2020 7:54 AM CDT Pulse 87 09/18/2020 7:54 AM CDT Temperature 36.7 ??C (98.1 ??F) 09/18/2020 7:54 AM CD T Respiratory Rate 18 09/18/2020 7:54 AM CDT Oxygen Saturation 99% 09/18/2020 7:54 AM CDT Inhaled Oxygen Concentration - - Weight 133.8 kg (295 lb) 09/18/2020 7:54 AM CDT Height 193 cm (6' 4 ) 09/18/2020 7:54 AM CDT Body Mass Index 35.91 09/18/2020 7:54 AM CDT documented in this encounter Progress Notes * Jordan Tuttle MD - 09/18/2020 8:00 AM CDT Reason for Visit: Acute Note (c/o L Lower Abd Pain) and Abdominal Pain (lower abd pain onset since thursday. Patient states it does not radiate to the back or to the navel. Pt states he can feel it whenever he sits after eating or moving around. ) Filed Vitals: 09/18/20 0754 BP: 124/86 Pulse: 87 Resp: 18 Temp: 98.1 ??F (36.7 ??C) TempSrc: Temporal SpO2: 99% Weight: 133.8 kg (295 lb) Height: 6' 4 (1.93 m) Body mass index is 35.91 kg/m??. History of Present Illness: HPI good morning office visit in Mr. Jeancarlos martinez 45-year-old gentleman with history of diabetes and hypertension he has been very well controlling those 2 issues however 3 days ago starting having some pain in the left lower quadrant of his abdomen so he comes today he had few more BMs than normal no blood no fever no chills no urinary symptoms and the pain is mostly in the front but the back ROS: Review of Systems Constitutional: Negative. Respiratory: Negative. Cardiovascular: Negative. Gastrointestinal: Positive for abdominal pain. Left lower quadrant pain Genitourinary: Negative. Medications: Current Outpatient Medications: ??? Glucose Blood (ACCU-CHEK LUCRECIA) test strip, as needed. , Disp: , Rfl: ??? LISINOPRIL 20 MG tablet, TAKE 1 TABLET(20 MG) BY MOUTH DAILY, Disp: 90 tablet, Rfl: 1 ??? LISINOPRIL-HYDROCHLOROTHIAZIDE 20-12.5 MG tablet, TAKE 1 TABLET BY MOUTH DAILY, Disp: 90 tablet, Rfl: 1 ??? METFORMIN ER 500 MG 24 hr tablet, TAKE 2 TABLETS(1000 MG) BY MOUTH DAILY, Disp: 180 tablet, Rfl: 1 ??? metroNIDAZOLE 500 MG tablet, Take 1 tablet (500 mg total) by mouth 3 (three) times daily., Disp: 21 tablet, Rfl: 0 ??? SYNJARDY XR 25-1000 MG TABLET SR 24 HR, TAKE 1 TABLET BY MOUTH DAILY, Disp: 90 tablet, Rfl: 0 No Known Allergies Past Medical History: Diagnosis Date ??? COVID-19 vaccine administered 2020 ??? Diabetes (CMS/HCC) ??? Hypertension ??? Influenza vaccine administered 2019 Past Surgical History: Procedure Laterality Date ??? COLONOSCOPY [address] Mcguire normal ??? NONE Social History Socioeconomic History ??? Marital status: Spouse name: Danielle ??? Number of children: 2 ??? Years of education: Not on file ??? Highest education level: Bachelor's degree (e.g., BA, AB, BS) Occupational History ??? Not on file Tobacco Use ??? Smoking [...] Social History Narrative ??? Not on file Social Determinants of Health Financial Resource Strain: ??? Difficulty of Paying Living Expenses: Food Insecurity: ??? Worried About Running Out of Food in the Last Year: ??? Ran Out of Food in the Last Year: Transportation Needs: ??? Lack of Transportation (Medical): ??? Lack of Transportation (Non-Medical): Physical Activity: ??? Days of Exercise per Week: ??? Minutes of Exercise per Session: Stress: ??? Feeling of Stress : Social Connections: ??? Frequency of Communication with Friends and Family: ??? Frequency of Social Gatherings with Friends and Family: ??? Attends [employer] Services: ??? Active Member of Clubs or Organizations: ??? Attends Club or Organization Meetings: ??? Marital Status: Intimate Partner Violence: ??? Fear of Current or Ex-Partner: ??? Emotionally Abused: ??? Physically Abused: ??? Sexually Abused: Family History Problem Relation Name Age of Onset ??? Hypertension Father ??? Other (elevated psa) Father Family Status Relation Name Status ??? Mother Alive ??? Father Alive Physical Exam Constitutional: He appears well-developed and well-nourished. Cardiovascular: Normal rate and regular rhythm. Pulmonary/Chest: Effort normal and breath sounds normal. Abdominal: Soft. He exhibits no mass. There is abdominal tenderness. There is no rebound and no guarding. Patient has some tenderness in the left lower quadrant area this is quite suggestive of diverticulitis no rebound. Assessment Encounter Diagnose(s) ICD-10-CM ICD-9-CM SNOMED CT(R) 1. Diverticulitis K57.92 562.11 DIVERTICULITIS metroNIDAZOLE 500 MG tablet Plan at this time recommend to drink plenty of fluids avoid popcorn however he said that he has notbeen eating that otherwise I going to treat him with metronidazole for 7 days he should get better in he did have a colonoscopy about 5 years ago which was normal. Orders Placed This Encounter ??? metroNIDAZOLE 500 MG tablet Follow up FU PRN JORDAN TUTTLE MD 09/18/2020 8:16 AM documented in this encounter Plan of Treatment Upcoming Encounters Date Type Department Care Team (Late st Contact Info) Description 06/08/2024 1:40 PM STAMPING OPERATOR Office Visit [facility] Medical Group Multispecialty Care - [facility] [address] [facility] [place] [address] [place] [address] [place] [address] Kalen Simpson, PA-C 3 [facility] [address] [place] [address] 09/30/2024 10:15 AM CDT Office Visit [facility] [address] [place] [address] Darryl Bunch MD [address] [facility]. [address] [place] [address] Juliette Zavala PA [address] [facility], [address] [place] [address] documented as of this encounter Visit Diagnoses Diagnosis Diverticulitis- Primary Diverticulitis of colon (without mention of hemorrhage) documented in this encounter Additional Health Concerns Assessment Noted Time PHQ-9 Depression Total Score: 0 09/19/19 21 7:53 AM CDT documented as of this encounter Care Teams Engraving Operator Relationship Specialty Start Date End Date Jordan Tuttle MD PCP - General INTERNAL MEDICINE 08/02/18 07/17/22 documented as of this encounter
--- OUTSIDE RECORDS SUMMARY | 2024-04-17 17:22 | XMS_ITS | Encounter Summary ---
Author Organization [facility] Address [address] [place] [address]. [place] [address] [place] [address] Care Team Providers Care Hospice Executive Director Name Role Phone Jordan Moctezuma MD Primary Care Provider Gustavo simmons Encounter Details Date Type Department Care Team (Latest Contact Info) Description 09/26/2021 Scan HEALTH INFO SRVCS Scanned, Documents Social [...] Contact Info) Description 06/08/2024 1:40 PM SUPERVISOR NUCLEAR MEDICINE Office Visit [facility] Medical Group Multispecialty Care - [facility] [address] [facility], [address] [place] [address] [place] [address] [place] [address] Kalen Simpson PA-C 3 [facility] [address] [place] [address] 09/30/2024 10:15 AM CDT Office Visit [facility] [address] [place] [address] Darryl Bunch MD Three [facility]. [address] [place], [place] [id number] Juliette Zavala PA 3 [facility], [address] [place], [place] [id number] documented as of this encounter Visit Diagnoses Not on filedocumented in this encounter Additional Health Concerns Assessment Noted Time PHQ-9 Depression Total Score: 0 09/19/19 7:53 AM CDT documented as of this encounter Care Teams Hospice Executive Director Relationship Specialty Start Date End Date Jordan Moctezuma MD PCP - General INTERNAL MEDICINE 08/02/18 07/17/22 documented as of this encounter
--- OUTSIDE RECORDS SUMMARY | 2024-04-17 17:22 | XMS_ITS | Encounter Summary ---
Author Organization [facility] Address [address] [place] [address]. [place], [place] [address] [place] [address] Care Team Providers Care Legal Services Manager Name Role Phone Jordan Moctezuma MD Primary Care Provider Gustavo clarkebeatriz Encounter Details Date Type Department Care Team (Late Contact Info) Description 10/30/2020 Medication Management [facility] Family & Internal Medicine [address] [address] Jordan Moctezuma MD Social History [...] (Late Contact Info) Description 06/08/2024 1:40 PM EQUIPMENT SERVICES ASSOCIATE Office Visit [facility] Multispecialty Care - [address], [address] [place] [address] [place] [address] [place] [address] Kalen Simpson PA-C 3 [facility] [address] [place] [address] 09/30/2024 10:15 AM CDT [facility] [address] [place] [address] Darryl Bunch MD Three [facility]. [address] [place], [place] [address] Juliette Zavala PA [address] [facility], [address] [place] [address] documented as of this encounter Visit Diagnoses Not on filedocumented in this encounter Additional Health Concerns Assessment Noted Time PHQ-9 Depression Total Score: 0 09/19/19 7:53 AM CDT documented as of this encounter Care Teams Legal Services Manager Relationship Specialty Start Date End Date Jordan Moctezuma MD PCP - General INTERNAL MEDICINE 08/02/18 07/17/22 documented as of this encounter
--- OUTSIDE RECORDS SUMMARY | 2024-04-17 17:22 | XMS_ITS | Encounter Summary ---
Author Organization [facility] Address [address] [place] [address]. [place], [place] [address] [place] [address] Care Team Providers Care Framing Mechanic Name Role Phone Unavailable Primary Care Provider Unavailabl e Encounter Details Date Type Department Care Team (Late st Contact Info) Description 07/23/2016 Abstract [facility] Medical Group Family & Internal Medicine - [place] [address] [place] [address] Jordan Moctezuma MD Social History [...] Sign Reading Time Taken Comments Blood Pressure 128/86 07/23/2016 8:08 AM CDT Pulse 77 07/23/2016 8:08 AM CDT Temperature - - Respiratory Rate - - Oxygen Saturation - - Inhaled Oxygen Concentration - - Weight 145.6 kg (321 lb) 07/23/2016 8:08 AM CDT Height 190.5 cm (6' 3 ) 07/23/2016 8:08 AM CDT Body Mass Index 40.12 07/23/2016 8:08 AM CDT documented in this encounter Progress Notes * Jordan Moctezuma MD - 07/23/2016 8:00 AM CDT Chief Complaint Patient here for 6 month follow up. Patient doing really well with no complaints History of Present Illness HPI Free Text: A 41-year-old gentleman comes today for regular followup. He has a history of hypertension and noninsulin dependent diabetes. His weight is about the same, 321, last time 324. Blood pressure 128/86. Blood pressure is very well controlled. He denies any problem. No shortness of breath or chest pains. When it comes to review of the recent blood test, he had an A1c that went up to 8.9 from 7.0. At this current time, we discussed what the different options are for him and I told him that the healthiest approach will be to lose 10 to 15 pounds in the next 3 months. Otherwise, we can change the metformin. I suggested Invokamet or Victoza to continue but he would rather work with his weight, so we are going to stay at 1000 twice a day of the metformin. Hypertension (Follow-Up): The patient presents for follow-up [...] been doing poorly with his Type II Diabetescontrol since the last visit. Comorbid Illnesses: hypertension and obesity. He has no known diabetic complications. He has no significant interval events. Symptoms: The patient is currently asymptomatic. Associated symptoms include no polydipsia. Home monitoring: The patient checks his blood sugar sporadically. the patient reports no symptomatic hypoglycemic episodes. Medications: the patient is adherent with his medication regimen. He denies medication side effects. The patient is not doing well with his diabetes goals. Review of Systems See HPI for pertinent positives. Constitutional: no fever and no chills. ENT: no earache, no sore throat, no [...] DAILY; Therapy: 03Aug2013 to (Evaluate:07Oct2016) Requested for: [id number] Recorded 2. Lisinopril 20 MG Oral Tablet; TAKE 1 TABLET BY MOUTH EVERY DAY; Therapy: 11Feb2012 to (Evaluate:14Jul2016) Requested for: 16Jan2016; Last Rx:[id number] Ordered 3. Lisinopril-Hydrochlorothiazide 20-12.5 MG Oral Tablet; TAKE 1 TABLET BY MOUTH EVERY DAY; Therapy: 11Feb2012 to (Evaluate:14Jul2016) Requested for: 16Jan2016; Last Rx:[id number] Ordered 4. MetFORMIN HCl ER (MOD) 1000 MG Oral Tablet Extended Release 24 Hour; Take 1 tablet twice a day; Therapy: 29Apr2013 to (Last Rx:16Jan2016) Requested for: 16Jan2016 Ordered Allergies 1. No Known Drug Allergies Vitals Recorded: 23Jul2016 08:08AM Heart Rate 77 Respiration 20 Systolic 128 Diastolic 86 O2 Saturation 98 Height 6 ft 3 in Weight 321 lb BMI Calculated 40.12 BSA Calculated 2.68 Physical Exam Constitutional General appearance: No acute [...] Auscultation of lungs: Clear to auscultation. Cardiovascular See HPI. Abdomen Abdomen: Non-tender, no masses. Lymphatic Palpation of lymph nodes in neck: No lymphadenopathy. Musculoskeletal Gait and station: Normal. Inspection/palpation of joints, bones, and muscles: Normal. Skin Skin and subcutaneous tissue: Normal without rashes or lesions. Neurologic Cranial nerves: Cranial nerves 2-12 intact. Reflexes: 2+ and symmetric. Psychiatric Orientation to person, place and time: Normal. Mood and affect: Normal. Results/Data Hemoglobin A1C ( HA1C ) [id number] 06:36AM Jordan Moctezuma Test Name Result Flag Reference Hemoglobin A1c 8.9 % H <5.7 INCREASED RISK OF DIABETES <5.7% NON-DIABETES 5.7-6.4% INCREASED RISK FOR FUTURE DIABETES > OR = 6.5 CONSISTENT WITH DIABETES STANDARDS OF MEDICAL CARE IN DIABETES-2010 DIABETES CARE, 33(SUPP 1): S1-S61,2010 Counseling The patient was counseled regarding diagnostic results, instructions for management, risk factor reductions, prognosis, impressions, risks and benefits of treatment options and importance of compliance with treatment. total time of encounter was 25 minutes and 15 minutes was spent counseling. Assessment 1. Diabetes mellitus (250.00) (E11.9) 2. Hypertension (401.9) (I10) 3. BMI 40.0-44.9, adult (V85.41) (Z68.41) Plan Diabetes mellitus 1. Follow-up visit in 3 months Outpatient Follow-up Status: Complete Done: 23Jul2016 Ordered; For: Diabetes mellitus; Ordered By: Jordan Moctezuma Performed: Due: 06Aug2016; Last Updated By: Yael Rain; 07/23/2016 8:38:53 AM Hyperglycemia 2. MetFORMIN HCl ER (MOD) 1000 MG Oral Tablet Extended Release 24 Hour; Take 1 tablet twice daily Rx By: Jordan Moctezuma; Dispense: 90 Days ; #:180 Tablet Extended Release 24 Hour; Refill: 0; For: Hyperglycemia; WU = N; Verified Transmission to [facility][id number]; Last Updated By: [employer]; 07/23/2016 8:25:18 AM Lisinopril 20 MG Oral Tablet; TAKE 1 TABLET BY MOUTH EVERY DAY; Therapy: 11Feb2012 to (Evaluate:[id number]) Requested for: 23Jul2016; Last Rx:[id number]; Status: ACTIVE Ordered Rx By: Jordan Moctezuma; Dispense: 90 Days ; #:1 X 90 Tablet Bottle; Refill: 0; For: Health Maintenance; WU = N; Verified Transmission to [facility] #[id number]; Last Updated By: [employer]; 07/23/2016 12:34:36 PM Lisinopril-Hydrochlorothiazide 20-12.5 MG Oral Tablet; TAKE 1 TABLET BY MOUTH EVERY DAY; Therapy: 11Feb2012 to (Evaluate:[id number]) Requested for: 23Jul2016; Last Rx:[id number]; Status: ACTIVE Ordered Rx By: Jordan Moctezuma; Dispense: 90 Days ; #:1 X 90 Tablet Bottle; Refill: 0; For: Health Maintenance; WU = N; Verified Transmission to [facility] #[id number]; Last Updated By: Inspi[employer]; 07/23/2016 12:34:34 PM Discussion/Summary Continue the same, lisinopril, blood pressure medication and see him in 3 months. We talked about exercise, diet, diminish portion size, etc. 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 I encouraged him to do better, less medication is better and healthier and cheaper. We have 2 problems, hypertension and diabetes and also obesity. His BMI is 40.1,so definitely he will lose some weight, we will definitely improve his general situation. Signatures Electronically signed by : Jordan Moctezuma M.D.; Jul 24 2016 7:55AM CAPSULE FILLER (Author) documented in this encounter Plan of Treatment Upcoming Encounters Date Type Department Care Team (Late st Contact Info) Description 06/08/2024 1:40 PM CAPSULE FILLER Office Visit [facility] Medical Group Multispecialty Care - [facility] [address] [facility] [place] [address] [place] [address] [place] [address] Kalen Simpson PA-C 3 [facility] [address] [place] [address] 09/30/2024 10:15 AM CDT Office Visit [facility] [address] [place] [address] Darryl Bunch MD Three [facility]. [address] [place] [address] Juliette Zavala PA [address] [facility], [address] [place] [address] documented as of this encounter Visit Diagnoses Not on filedocumented in this encounter
--- OUTSIDE RECORDS SUMMARY | 2024-04-17 17:22 | XMS_ITS | Encounter Summary ---
Author Organization [facility] Address [address] [place] [address]. [place], [place] [address] [place] [address] Care Team Providers Care Senior Care Specialist Name Role Phone Jordan Moctezuma MD Primary Care Provider Gustavo simmons Reason for Visit * Reason Onset Date Comments Medication Request 07/07/2022 Encounter Details Date Type Department Care Team (Late st Contact Info) Description 07/07/2022 Telephone [facility] Medical Group Family & Internal Medicine [address] [address] Jordan Moctezuma MD Medication Request Social History Tobacco Use Types [...] Progress Notes * Gurpreet Cortez RN - 07/10/2022 9:17 AM CDT Please advise. * Donna Randolph - 07/07/2022 11:32 AM CDT Donovan calling states he has had a small flare up of diverticulitis, No sever pain, just mild symptoms. States in the past Dr. Trivedi has called a script in for him. He has an appointment scheduled with Dr. Canales on 08/01/2022 Pharmacy: [facility]. Questions # [phone] Donovan documented in this encounter Plan of Treatment Upcoming Encounters Date Type Department Care Team (Late st Contact Info) Description 06/08/2024 1:40 PM BAND SAW FILER Office Visit [facility] Medical Group Multispecialty Care - [facility] [address] [facility] [place] [address] [place] [address] [place] [address] Kalen Simpson, PA-C 3 [facility] [address] [place] [address] 09/30/2024 10:15 AM CDT Office Visit [facility] [address] [place] [address] Darryl Bunch MD Three [facility]. [address] [place] [address] Juliette Zavala PA 3 [facility], [address] [place] [address] documented as of this encounter Visit Diagnoses Not on filedocumented in this encounter Additional Health Concerns Assessment Noted Time PHQ-9 Depression Total Score: 0 09/19/19 7:53 AM CDT documented as of this encounter Care Teams Senior Care Specialist Relationship Specialty Start Date End Date Jordan Moctezuma MD PCP - General INTERNAL MEDICINE 08/02/18 07/17/22 documented as of this encounter
--- OUTSIDE RECORDS SUMMARY | 2024-04-17 17:22 | XMS_ITS | Encounter Summary ---
Author Organization [facility] Address [address] [place] [address]. [place], [place] [address] [place] [address] Care Team Providers Care Ict Managers Name Role Phone Unavailable Primary Care Provider Unavailabl e Encounter Details Date Type Department Care Team (Latest Contact Info) Description 09/30/2017 Abstract [facility] Medical [facility] Jordan Tuttle MD Social History Tobacco Use Types [...] st Contact Info) Description 06/08/2024 1:40 PM HEEL COVERER MACHINE OPERATOR Office Visit [facility] Medical [facility] Multispecialty Care - [address] [place] [address] [place] [address] [place] [address] Kalen Simpson PA-C 3 [facility] [address] [place] [address] 09/30/2024 10:15 AM CDT Office Visit [facility] [address] [place] [address] Darryl Bunch MD Three [facility]. [address] [place] [address] Juliette Zavala PA 3 [facility], [address] [place] [address] documented as of this encounter Procedures Procedure Name Priority Date/Time Associated Diagnosis Comments XR SHOULDER LT MIN 2V Routine 09/30/2017 9:13 AM CDT documented in this encounter Results * XR SHOULDER LT MIN 2V (09/30/2017 9:13 AM CDT) Anatomical Region Laterality Modality Shoulder Radiographic Reyna ging 09/30/2017 9:13 AM CDT 09/30/2017 9:13 AM CDT Narrative 09/30/2017 9:19 AM CDT CHIRAG GARCIA ? ADMIT/SERVICE DATE: 09/30/17 ?? ACCT: [id number] ?DISCHARGE DATE: ?? : 1975 ??SEX: M ?ORD SITE: [facility] ?? PT TYPE: REG CLI ? ORDERING MD: JORDAN TUTTLE MD ? STUDY DATE ? REPORT # ?ORDER # ? EXT ORDER ID ?? 09/30/17 ? [id number] ? [id number] ?[id number] ? PROC CODE: ? SHLDR2+VL ? PROCEDURE DESCRIPTION: ?? XR SHOULDER 2 OR MORE VIEWS LT ? IMAGING STUDIES: ??XR SHOULDER 2 OR MORE VIEWS LT. ? EXAM DATE/TIME: 09/30/2017 8:53 AM. ? INDICATION: ??OTHER - SHOULDER PAIN, LEFT ??. ? COMPARISON: ??NO PRIOR STUDIES AVAILABLE FOR COMPARISON.. ? TECHNIQUE: 4 VIEWS. ? IMPRESSION: ? THE ACROMIOCLAVICULAR AND GLENOHUMERAL JOINTS LOOK INTACT. ? NO EVIDENCE TO SUGGEST ACUTE FRACTURE, DISLOCATION OR ABNORMAL SOFT TISSUE CALCIFICATION. ? ELECTRONICALLY SIGNED BY LAURA JAVED MD ON 09/30/2017 9:16 AM ? Procedure Note Rodri Quinonez MD - 02/03/2018 CHIRAG GARCIA ADMIT/SERVICE DATE:09/30/17 ACCT: [id number] DISCHARGE DATE: : 1975 SEX: M ORD SITE: [facility] PT TYPE: REG CLI ORDERING MD:JORDAN TUTTLE MD STUDY DATE REPORT # ORDER # EXT ORDER ID 09/30/17 [id number] PROC CODE: SHLDR2+VL PROCEDURE DESCRIPTION: XR SHOULDER 2 OR MORE VIEWS LT IMAGING STUDIES: XR SHOULDER 2 OR MORE VIEWS LT. EXAM DATE/TIME: 09/30/2017 8:53 AM. INDICATION: OTHER - SHOULDER PAIN, LEFT . COMPARISON: NO PRIOR STUDIES AVAILABLE FOR COMPARISON.. TECHNIQUE: 4 VIEWS. IMPRESSION: THE ACROMIOCLAVICULAR AND GLENOHUMERAL JOINTS LOOK INTACT. NO EVIDENCE TO SUGGEST ACUTE FRACTURE, DISLOCATION OR ABNORMAL SOFTTISSUE CALCIFICATION. ELECTRONICALLY SIGNED BY LAURA JAVED MD ON 09/30/2017 9:16 AM us Jordan Tuttle MD GENERAL IMAGING Final Re sult documented in this encounter Visit Diagnoses Not on filedocumented in this encounter
--- OUTSIDE RECORDS SUMMARY | 2024-04-17 17:22 | XMS_ITS | Encounter Summary ---
Author Organization [facility] Address [address] [place] [address]. [place], [place] [phone] [place] [address] Care Team Providers Care Manager Product Management Name Role Phone Jordan Tuttle MD Primary Care Provider Gustavo simmons Reason for Visit * Reason Comments Follow Up - Diabetes 6 month follow up o n diabetes Encounter Details Date Type Department Care Team (Late st Contact Info) Description 03/25/2021 10:00 AM HORSE RIDING COACH OR INSTRUCTOR Office Visit [facility] Family & Internal Medicine [address] [address] Jordan Tuttle MD Follow Up - Diabetes (6 month follow up on diabetes) Social History Tobacco Use Types Packs/Day Years [...] COVID-19? No / Unsure 03/25/2021 9:56 AM HORSE RIDING COACH OR INSTRUCTOR documented as of this encounter Last Filed Vital Signs Vital Sign Reading Time Taken Comments Blood Pressure 116/78 03/25/2021 10:14 AM HORSE RIDING COACH OR INSTRUCTOR Pulse 85 03/25/2021 10:14 AM HORSE RIDING COACH OR INSTRUCTOR Temperature 36 ??C (96.8 ??F) 03/25/2021 10: 14 AM HORSE RIDING COACH OR INSTRUCTOR Respiratory Rate 20 03/25/2021 10:1 4 AM HORSE RIDING COACH OR INSTRUCTOR Oxygen Saturation 98% 03/25/2021 10: 14 AM HORSE RIDING COACH OR INSTRUCTOR Inhaled Oxygen Concentration - - Weight 135.3 kg (298 lb 3.2 oz) 021 10:14 AM HORSE RIDING COACH OR INSTRUCTOR Height 193 cm (6' 4 ) 03/25/2021 10:14 AM HORSE RIDING COACH OR INSTRUCTOR Body Mass Index 36.3 03/25/2021 10:14 AM HORSE RIDING COACH OR INSTRUCTOR documented in this encounter Progress Notes * Jordan Tuttle MD - 03/25/2021 10:00 AM CST Reason for Visit: Follow Up - Diabetes (6 month follow up on diabetes) Filed Vitals: 03/25/21 1014 BP: 116/78 Pulse: 85 Resp: 20 Temp: 96.8 ??F (36 ??C) TempSrc: Temporal SpO2: 98% Weight: 135.3 kg (298 lb 3.2 oz) Height: 6' 4 (1.93 m) Body mass index is 36.3 kg/m??. History of Present Illness: HPI good morning office visit in Mr. Jeancarlos martinez 45-year-old gentleman with history of diabetes well controlled with an IM A1c of 6.8 today his current medications for diabetes include the Synjardy 25 1000 lisinopril 20 mg for blood pressure in the afternoon and lisinopril 20-12 point 5 in themorning Metformin 502 tablets daily has a history of diverticulitis and he is finishing therapy andfeeling a lot better today he is going to receive the flu shot ROS: Review of Systems Gastrointestinal: Positive for abdominal pain. He has been treated for diverticulitis and he is doing a lot better with the pain in the left lowerquadrant All other systems reviewed and are negative. [...] Disp: 90 tablet, Rfl: 1 ??? lisinopril-hydroCHLOROthiazide 20-12.5 MG tablet, Take 1 tablet by mouth daily., Disp: 90 tablet, Rfl: 1 ??? metFORMIN ER 500 MG 24 hr tablet, Take 2 tablets (1,000 mg total) by mouth daily., Disp: 180 tablet, Rfl: 1 ??? metroNIDAZOLE 500 MG tablet, Take 1 tablet (500 mg total) by mouth 3 (three) times daily for 10days., Disp: 30 tablet, Rfl: 0 ??? sulfamethoxazole-trimethoprim (BACTRIM DS) 800-160 MG tablet, Take 1 tablet by mouth 2 (two) times daily., Disp: 14 tablet, Rfl: 0 No Known Allergies Past [...] Social Determinants of Health Financial Resource Strain: Not on file Food Insecurity: Not on file Transportation Needs: Not on file Physical Activity: Not on file Stress: Not on file Social Connections: Not on file Intimate Partner Violence: Not on file Family History Problem Relation Name Age of Onset ??? Hypertension Father ??? Other (elevated psa) Father Family Status Relation Name Status ??? Mother Alive ??? Father Alive Physical Exam Constitutional: Appearance: Normal appearance. He is obese. Cardiovascular: Rate and Rhythm: Normal rate and [...] and Affect: Mood normal. Behavior: Behavior normal. Results for orders placed or performed in visit on 03/25/21 HEMOGLOBIN, GLYCOSYLATED Result Value Ref Range HGB A1C 6.8 % Assessment Encounter Diagnose(s) ICD-10-CM ICD-9-CM SNOMED CT(R) 1. Type 2 diabetes mellitus without complication, without long-term current use of insulin (CMS/[facility]) E11.9 250.00 TYPE 2 DIABETES MELLITUS WITHOUT COMPLICATION HEMOGLOBIN, GLYCOSYLATED COLLECT.CAPILLARY (FNGR,HEEL,EAR) metFORMIN ER 500 MG 24 hr tablet Empagliflozin-metFORMIN HCl ER (SYNJARDY XR) 25-1000 MG TABLET SR 24 HR 2. Essential hypertension I10 401.9 ESSENTIAL HYPERTENSION lisinopril 20 MG tablet lisinopril-hydroCHLOROthiazide 20-12.5 MG tablet 3. Need for immunization against influenza Z23 V04.81 NEEDS INFLUENZA IMMUNIZATION [08389] FLU VACCQUAD 6 MONTHS+ 0.5 ML (SINGLE DOSE SYRINGE FLUZONE, FLUARIX, FLULAVAL OR SINGLE DOSE VIAL FLUZONE) 4. Obstructive sleep apnea syndrome G47.33 327.23 OBSTRUCTIVE SLEEP APNEA SYNDROME Plan so today his A1c is well controlled so diabetes is doing fine with the current approach continue with that his blood pressure is well controlled he will be nice if he were able to lose some weight his BMI is 36.3 he is going to be getting a flu shot today and he is still using his CPAP machinefor his sleep apnea with good tolerance definitely losing weight will benefit everything including his sleep apnea Orders Placed This Encounter ??? COLLECT.CAPILLARY (FNGR,HEEL,EAR) ??? HEMOGLOBIN, GLYCOSYLATED ??? [21276] FLU VACC QUAD 6 MONTHS+ 0.5 ML (SINGLE DOSE SYRINGE FLUZONE, FLUARIX, FLULAVAL OR SINGLE DOSE VIAL FLUZONE) ??? lisinopril 20 MG tablet ??? lisinopril-hydroCHLOROthiazide 20-12.5 MG tablet ??? metFORMIN ER 500 MG 24 hr tablet ??? Empagliflozin-metFORMIN HCl ER (SYNJARDY XR) 25-1000 MG TABLET SR 24 HR I will see him back in 6 months since his A1c is below 7 Follow up FU 6 MONTHS JORDAN TUTTLE MD 03/26/2021 4:29 PM E RIDING COACH OR INSTRUCTOR documented in this encounter Plan of Treatment Upcoming Encounters Date Type Department Care Team (Late st Contact Info) Description 06/08/2024 1:40 PM HORSE RIDING COACH OR INSTRUCTOR Office Visit [facility] Multispecialty Care - [facility] [address] [facility], [address] [place] [address] [place] [address] [place], [place] [phone] Kalen Simpson PA-C 3 [facility] [address] [place] [address] 09/30/2024 10:15 AM CDT [facility] [address] [place] [address] Darryl Bunch MD Three [facility]. [address] [place] [address] Juliette Zavala PA 3 [facility], [address] [place] [address] documented as of this encounter Procedures Procedure Name Priority Date/Time Associated Diagnosis Comments COLLECT.CAPILLARY (FNGR,HEEL,EAR) Routine 03/25/2021 10:11 AM HORSE RIDING COACH OR INSTRUCTOR Type 2 diabetes mellitus without complication, without long-term current use of insulin ([facility]) HEMOGLOBIN, GLYCOSYLATED Routine 03/25/2021 Type 2 diabetes mellitus without complication, without long-term current use of insulin ([facility]) documented in this encounter Results * HEMOGLOBIN, GLYCOSYLATED (03/25/2021) HGB A1C 6.8 % [id number] BRE[address] AVILESM[address] [place] 03/25/2021 us Jordan Tuttle MD LABORATORY Final Re sult [id number] [address] [place] [address] [place] [address], [place] [phone] documented in this encounter Visit Diagnoses Diagnosis Type 2 diabetes mellitus without complication, without long-term current use of insulin ([facility])- Primary Essential hypertension Unspecified essential hypertension Need for immunization against influenza Need for prophylactic vaccination and inoculation against influenza Obstructive sleep apnea syndrome Obstructive sleep apnea (adult) (pediatric) documented in this encounter Additional Health Concerns Assessment Noted Time PHQ-9 Depression Total Score: 0 09/19/19 21 7:53 AM CDT documented as of this encounter Care Teams Manager Product Management Relationship Specialty Start Date End Date Jordan Tuttle MD PCP - General INTERNAL MEDICINE 08/02/18 07/17/22 documented as of this encounter
--- OUTSIDE RECORDS SUMMARY | 2024-04-17 17:22 | XMS_ITS | Encounter Summary ---
Author Organization [facility] Address [address] [place] [address]. [place], [place] [address] [place] [address] Care Team Providers Care Patient Access Representative Name Role Phone Jordan Moctezuma MD Primary Care Provider Gustavo simmons Reason for Visit * Reason Onset Date Comments Medication Request 03/18/2021 Encounter Details Date Type Department Care Team (Late st Contact Info) Description 03/18/2021 Telephone [facility] Family & Internal Medicine [address] [address] Jordan Moctezuma MD Medication Request [...] COVID-19? No / Unsure 03/22/2021 8:58 AM SIGNAL FITTER documented as of this encounter Progress Notes * Eduarda Montague LPN - 03/18/2021 1:48 PM CST Duplicate AL FITTER * Jordyn Lakhani RN - 03/18/2021 12:15 PM CST Message left for patient to return call AL FITTER * Jordyn Lakhani RN - 03/18/2021 10:29 AM CST Please advise AL FITTER * Radha Lacey - 03/18/2021 10:22 AM CST PT CALLED HE HAVING FLARE UP OF DIVERTICULITIS HE HAD THIS LAST YR AND GOT ABX FOR IT HE HAS APPT 1WEEK FROM TODAY BUT WOULD IIKE TO GET ABX FOR THIS NOW SO IT DOESN'T GET ANY WORST [place] [phone] Future appointment scheduled: Future Appointments Date Time Provider Department Center 03/25/2021 10:00 AM Jordan Moctezmua MD [id number] AL FITTER documented in this encounter Plan of Treatment Upcoming Encounters Date Type Department Care Team (Late st Contact Info) Description 06/08/2024 1:40 PM SIGNAL FITTER Office Visit [facility] Multispecialty Care - [facility] [address] [facility] [place] [address] [place] [address] [place] [address] Kalen Simpson, PAHarrisonC [address] [facility] [address] [place] [address] 09/30/2024 10:15 AM CDT [facility] [address] [place] [address] Darryl Bunch MD Three [facility]. [address] [place] [address] Juliette Zavala PA 3 [facility], [address] [place], [place] [address] documented as of this encounter Visit Diagnoses Diagnosis Diverticulitis- Primary Diverticulitis of colon (without mention of hemorrhage) documented in this encounter Additional Health Concerns Assessment Noted Time PHQ-9 Depression Total Score: 0 09/19/19 21 7:53 AM CDT documented as of this encounter Care Teams Patient Access Representative Relationship Specialty Start Date End Date Jordan Moctezuma MD PCP - General INTERNAL MEDICINE 08/02/18 07/17/22 documented as of this encounter
--- OUTSIDE RECORDS SUMMARY | 2024-04-17 17:22 | XMS_ITS | Encounter Summary ---
Author Organization [facility] Address [address] [place] [address]. [place], [place] [address] [place] [address] Care Team Providers Care Electric Motor Mechanic Name Role Phone Unavailable Primary Care Provider Unavailabl e Encounter Details Date Type Department Care Team (Late st Contact Info) Description 12/12/2015 Abstract [facility] Family & Internal Medicine - [place] [address] [place] [address] Jordan Moctezuma MD Social History [...] Sign Reading Time Taken Comments Blood Pressure 132/70 12/12/2015 9:13 AM CDT Pulse 80 12/12/2015 9:13 AM CDT Temperature - - Respiratory Rate - - Oxygen Saturation - - Inhaled Oxygen Concentration - - Weight 146.1 kg (322 lb) 12/12/2015 9:13 AM CDT Height - - Body Mass Index 40.25 05/08/2014 4:07 PM SHIPPING/RECEIVING CLERK documented in this encounter Progress Notes * Jordan Moctezuma MD - 12/12/2015 9:00 AM CDT Reason For Visit Acute Visit Chief Complaint 1. Urinary Frequency C/O urinary frequency, and discomfort for 1 week History of Present Illness HPI Free Text: A 40-year-old man comes today with 1 week of discomfort with urination. He is . He denies any rough sex or anything like that. No blood in the urine. No fever. No chills. No back pain. No extra marital affairs. Everything seems to be not out of the usual. Not peeing more often, no frequency just burning. At this time, I encouraged him to drink plenty of fluids stay away from too much caffeine. The urinalysis in our office here was completely normal and the urine aspect was completely normal and clear. Urinary Frequency: Donovan Garcia presents with complaints of gradual onset of intermittent episodes of moderate urinary frequency. Episodes started 1 week ago. Associated symptoms include urinary urgency and fever. Review of Systems See HPI for pertinent [...] no vomiting, no diarrhea and nomelena. Genitourinary: see HPI. Integumentary: no skin lesions and no skin [...] Strip; TEST ONCE DAILY; Therapy: 03Aug2013 to (Evaluate:07Oct2016) Requested for: 12Dec2015 Recorded 2. Lisinopril 20 MG Oral Tablet; TAKE 1 TABLET BY MOUTH EVERY DAY; Therapy: 11Feb2012 to (Evaluate:04May2016) Requested for: [id number]; Last Rx:[id number] Ordered 3. Lisinopril-Hydrochlorothiazide 20-12.5 MG Oral Tablet; TAKE 1 TABLET BY MOUTH EVERY DAY; Therapy: 11Feb2012 to (Evaluate:03Feb2016) Requested for: [id number]; Last Rx:[id number] Ordered 4. MetFORMIN HCl ER 500 MG Oral Tablet Extended Release 24 Hour; TAKE 1 TABLET BY MOUTH TWICE DAILY; Therapy: 29Apr2013 to (Evaluate:03Feb2016) Requested for: [id number]; Last Rx:[id number] Ordered Allergies 1. No Known Drug Allergies Vitals Recorded: 12Dec2015 09:13AM Temperature 98.4 F Heart Rate 80 Systolic 132 Diastolic 70 O2 Saturation 98, RA Weight 322 lb BMI Calculated 40.25 BSA Calculated 2.69 Physical Exam Constitutional He put few pounds from last time. Eyes Conjunctiva and lids: No swelling, erythema, [...] time: Normal. Mood and affect: Normal. Results/Data *Urine dip auto In Office 12Dec2015 09:42AM Jordan Moctezuma Test Name Result Flag Reference Color Yellow Clarity Clear Glucose Negative Bilirubin Negative Ketones Negative Specific [place] 1.010 Blood Negative pH 6.0 5.0 - 7.0 Protein Negative Urobilinogen 0.2 E.U./dL Nitrites Negative Leukocytes Negative Assessment 1. Dysuria (788.1) (R30.0) 2. Diabetes mellitus (250.00) (E11.9) Discussion/Summary I encouraged him to may be take 500 mg twice a day of vitamin C and stay away from caffeine and drink plenty of fluids. I told him if the problem continues, come back and see us, we may need to do something different. The Urinalysis like I said was completely normal. So, I did not even send it for culture, microscopic examination or anything like that. Signatures Electronically signed by : Jordan Moctezuma M.D.; Dec 13 2015 7:51AM SHIPPING/RECEIVING CLERK (Author) documented in this encounter Plan of Treatment Upcoming Encounters Date Type Department Care Team (Late st Contact Info) Description 06/08/2024 1:40 PM SHIPPING/RECEIVING CLERK Office Visit [facility] Multispecialty Care - [facility] [address] [facility] [place] [address] [place] [address] [place] [address] Kalen Simpson PA-C 3 [facility] [address] [place] [address] 09/30/2024 10:15 AM CDT Office Visit [facility] [address] [place] [address] Darryl Bunch MD Three [facility]. [address] [place] [address] Juliette Zavala PA 3 [facility], [address] [place] [address] documented as of this encounter Procedures Procedure Name Priority Date/Time Associated Diagnosis Comments URINALYSIS AUTO DIP Routine 12/12/2015 9 :42 AM CDT documented in this encounter Results * URINALYSIS AUTO DIP (12/12/2015 9:42 AM CDT) COLOR (U) Yellow [facility] T O EPIC CONVERSION TRANSPARENCY Clear [facility] P TO EPIC CONVERSION GLUCOSE Negative [facility] T O EPIC CONVERSION BILIRUBIN (U) Negative [facility] UP TO EPIC CONVERSION KETONE (U) Negative [facility] TO EPIC CONVERSION SPECIFIC GRAVITY (U) 1.010 [facility] TO EPIC CONVERSION BLOOD (U) Negative [facility] T O EPIC CONVERSION PH (U) 6.0 5.0 - 7.0 [facility] T O EPIC CONVERSION PROTEIN (ELP) (U) Negative [facility] TO EPIC CONVERSION UROBILINOGEN 0.2 E.U./dL [facility] OUP TO EPIC CONVERSION NITRITES Negative [facility] T O EPIC CONVERSION LEUKOCYTES (U) Negative [facility] OUP TO EPIC CONVERSION 12/12/2015 9:42 AM CDT 12/12/2015 9:42 AM CDT Narrative [facility] TO EPIC CONVERSION - 12/12/2015 9:42 AM CDT Result Communication: No patient communication needed at this time Jordan Moctezuma MD URINE ORDERABLES Final R esult [facility] TO EPIC CONVERSION documented in this encounter Visit Diagnoses Not on filedocumented in this encounter
--- OUTSIDE RECORDS SUMMARY | 2024-04-17 17:22 | XMS_ITS | Encounter Summary ---
Author Organization [facility] Address [address] [place] [address]. [place], [place] [address] [place] [address] Care Team Providers Care Saw Sharpener Name Role Phone Jordan Moctezuma MD Primary Care Provider Gustavo simmons Encounter Details Date Type Department Care Team (Latest Contact Info) Description 01/15/2019 Scan HEALTH INFO SRVCS Scanned, Documents Social [...] st Contact Info) Description 06/08/2024 1:40 PM GREEN LUMBER GRADER Office Visit [facility] Multispecialty Care - [facility] [address] [facility] [place] [address] [place] [address] [place] [address] Kalen Simpson, PAHarrisonC 3 [facility] [address] [place] [address] 09/30/2024 10:15 AM CDT Office Visit [facility] [address] [place] [address] Darryl Bunch MD Three [facility]. [address] [place], [place] [address] Juliette Zavala PA [address] [facility], [address] [place] [address] documented as of this encounter Visit Diagnoses Not on filedocumented in this encounter Care Teams Saw Sharpener Relationship Specialty Start Date End Date Jordan Moctezuma MD PCP - General INTERNAL MEDICINE 08/02/18 07/17/22 documented as of this encounter
--- OUTSIDE RECORDS SUMMARY | 2024-04-17 17:22 | XMS_ITS | Encounter Summary ---
Author Organization [facility] Address [address] [place] [address]. [place], [place] [address] [place] [address] Care Team Providers Care Automobile Body Repair Supervisor Name Role Phone Jordan Moctezuma MD Primary Care Provider U triciaailable Reason for Referral * Consultation (Urgent) - Canceled Specialty Diagnoses / Procedures Referred By Contac t Referred To Contact OTOLARYNGOLOGY Diagnoses Vertigo Procedures OFFICE/OUTPT VISIT,NEW,LEVL III OFFICE/OUTPT VISIT,NEW,LEVL IV OFFICE/OUTPT VISIT,NEW,LEVL V OFFICE/OUTPT VISIT,EST,LEVL III OFFICE/OUTPT VISIT,EST,LEVL IV OFFICE/OUTPT VISIT,EST,LEVL V Jordan Moctezuma MD [place], [place] [address] [place] [address] Phone: tel: fax: Referral ID Status Reason Start Date Expiration Date V isits Requested Visits Authorized [id number] Canceled 03/17/2022 04/16/2023 1 1 ITY BAGGER Encounter Details Date Type Department Care Team (Late st Contact Info) Description 03/17/2022 Orders Only [facility] Medical Group Family & Internal Medicine [address] [address] Jordan Moctezuma MD Social [...] Coronavirus/COVID-19? No / Unsure 03/10/2022 7:49 AM UTILITY BAGGER documented as of this encounter Plan of Treatment Upcoming Encounters Date Type Department Care Team (Late st Contact Info) Description 06/08/2024 1:40 PM UTILITY BAGGER Office Visit [facility] Group Multispecialty Care - [facility] [address] [facility] [address] [place] [address] [place] [address] [place], [place] [phone] Kalen Simpson PA-C 3 [facility] [address] [place] [address] 09/30/2024 10:15 AM CDT Office Visit [facility] [address] [place] [address] Darryl Bunch MD Three [facility]. [address] [place], [place] [address] Juliette Zavala PA 3 [facility], [address] [place] [address] Scheduled Referrals Name Type Priority Associated Diagnoses Orde r Schedule Ambulatory referral to ENT Referral ANASTACIA Vertigo Ordered: 03/17/2022 documented as of this encounter Visit Diagnoses Diagnosis Vertigo- Primary Dizziness and giddiness documented in this encounter Additional Health Concerns Assessment Noted Time PHQ-9 Depression Total Score: 0 09/19/19 21 7:53 AM CDT documented as of this encounter Care Teams Automobile Body Repair Supervisor Relationship Specialty Start Date End Date Jordan Moctezuma MD PCP - General INTERNAL MEDICINE 08/02/18 07/17/22 documented as of this encounter
--- OUTSIDE RECORDS SUMMARY | 2024-04-17 17:23 | XMS_ITS | Encounter Summary ---
Author Organization [facility] Address [address] [place] [address]. [place] [address] [place] [address] Care Team Providers Care Polish Maker Name Role Phone Unavailable Primary Care Provider Unavailabl e Encounter Details Date Type Department Care Team (Latest Contact Info) Description 11/11/2011 Abstract [facility] Medical Group Social History Tobacco Use [...] st Contact Info) Description 06/08/2024 1:40 PM ENGRAVING PATTERNMAKER Office Visit [facility] Medical [facility]pecialty Care - [facility] 3 [facility], [address] [place] [address] [place] [address] [place] [address] Kalen Simpson PA-C [address] [facility] [address] [place] [address] 09/30/2024 10:15 AM CDT Office Visit [facility] [address] [place] [address] Darryl Bunch MD [facility] [address] [place] [address] Juliette Zavala PA 3 [facility], [address] [place] [address] documented as of this encounter Visit Diagnoses Not on filedocumented in this encounter
--- OUTSIDE RECORDS SUMMARY | 2024-04-17 17:23 | XMS_ITS | Encounter Summary ---
Author Organization [facility] Address [address] [place] [address]. [place], [place] [address] [place] [address] Care Team Providers Care Cellophane Bath Mixer Name Role Phone Unavailable Primary Care Provider Unavailabl e Encounter Details Date Type Department Care Team (Late st Contact Info) Description 05/04/2014 Abstract [facility] [address] [place] [address] Jordan Moctezuma MD Social History Tobacco Use [...] st Contact Info) Description 06/08/2024 1:40 PM CITRIX SYSTEMS ADMINISTRATOR Office Visit [facility] Medical Group Multispecialty Care - [address] [place] [address] [place] [address] [place] [address] Kalen Simpson PA-C 3 [facility] [address] [place] [address] 09/30/2024 10:15 AM CDT Office Visit [facility] [address] [place] [address] Darryl Bunch MD [address] [facility]. [address] [place] [address] Juliette Zavala PA [address] [facility], [address] [place] [address] documented as of this encounter Visit Diagnoses Diagnosis Type 2 or unspecified type diabetes mellitus (CMS/HCC HHS/HCC) documented in this encounter
--- OUTSIDE RECORDS SUMMARY | 2024-04-17 17:23 | XMS_ITS | Encounter Summary ---
Author Organization [facility] Address [address] [place] [address]. [place] [address] [place] [address] Care Team Providers Care Cellophane Wrapping Examiner Name Role Phone Unavailable Primary Care Provider Unavailabl e Encounter Details Date Type Department Care Team (Late st Contact Info) Description 10/07/2002 Abstract [facility] CONVERSION [address] [place] [address] , Generic ConversionMD Social History Tobacco Use Types Packs/Day Years [...] st Contact Info) Description 06/08/2024 1:40 PM MACHINE SHOP SUPERVISOR Office Visit [facility] Medical Group Multispecialty Care - [address], [address] [place] [address] [place] [address] [place] [address] Kalen Simpson PA-C 3 [facility] [address] [place] [address] 09/30/2024 10:15 AM CDT Office Visit [facility] [address] [place] [address] Darryl Bunch MD Three [facility]. [address] [place], [place] [phone] Juliette Zavala PA 3 [facility], [address] [place], [place] [phone] documented as of this encounter Visit Diagnoses Not on filedocumented in this encounter
--- OUTSIDE RECORDS SUMMARY | 2024-04-17 17:23 | XMS_ITS | Encounter Summary ---
Author Organization [facility] Address [address] [place] [address]. [place], [place] [address] [place] [address] Care Team Providers Care Wind Tunnel Technician Name Role Phone Unavailable Primary Care Provider Unavailabl e Encounter Details Date Type Department Care Team (Latest Contact Info) Description 11/10/2011 Abstract [facility] Medical Group Social History Tobacco Use Types Packs/Day Years Used Date Smoking Tobacco: Never Assessed Sex and Gender Information Value Date Recorded Sex Assigned at Not on file Legal Sex Male 6:09 PM CDT Gender Identity Not on file Sexual Orientation Not on file documented as of this encounter Progress Notes * Dl Singh MD - 11/10/2011 11:52 AM CDT Message Date: 10 Nov 2011 11:52 AM SUPERVISOR DRY CELL ASSEMBLY, Recorded By: Myah Reilly Calling For: Dl Singh Caller: Donovan Garcia Self (Home), Reason: Renew Medication Pt called for refill of HTN meds. Call placed to [facility]. Pt takes lisinopril 20 mg and lisinopril/HCTZ 20/12.5 both daily. Pt has 3 refills left per pharmacy. Pt informed. Signatures Electronically signed by : Myah Reilly, ; Nov 10 2011 11:55AM (Author) Electronically signed by : Dl Singh M.D.; Dec 15 2011 6:48AM (Author) RVISOR DRY CELL ASSEMBLY documented in this encounter Plan of Treatment Upcoming Encounters Date Type Department Care Team (Late st Contact Info) Description 06/08/2024 1:40 PM SUPERVISOR DRY CELL ASSEMBLY Office Visit [facility] Medical Group Multispecialty Care - [facility] [address] [facility] [address] [place] [address] [place] [address] [place] [address] Kalen Simpson PA-C 3 [facility] [address] [place] [address] 09/30/2024 10:15 AM CDT Office Visit [facility] [address] [place] [phone] Darryl Bunch MD Three [place] [facility]. [address] [place] [address] Juliette Zavala PA 3 [facility], [address] [place] [address] documented as of this encounter Visit Diagnoses Not on filedocumented in this encounter
--- OUTSIDE RECORDS SUMMARY | 2024-04-17 17:23 | XMS_ITS | Encounter Summary ---
Author Organization [facility] Address [address] [place] [address]. [place], [place] [address] [place] [address] Care Team Providers Care Water Reuse Program Manager Name Role Phone Unavailable Primary Care Provider Unavailabl e Encounter Details Date Type Department Care Team (Late st Contact Info) Description 05/08/2014 Abstract [facility] Medical Group Family & Internal Medicine - [place] [address] [place] [address] Jordan Moctezuma MD Social History [...] Reading Time Taken Comments Blood Pressure 128/70 05/08/2014 4:07 PM SOLAR DESIGNER Pulse 78 05/08/2014 4:07 PM SOLAR DESIGNER Temperature - - Respiratory Rate - - Oxygen Saturation - - Inhaled Oxygen Concentration - - Weight 148.3 kg (327 lb) 05/08/2014 4:07 PM SOLAR DESIGNER Height 190.5 cm (6' 3 ) 05/08/2014 4:07 PM SOLAR DESIGNER Body Mass Index 40.87 05/08/2014 4:07 PM SOLAR DESIGNER documented in this encounter Progress Notes * Jordan Moctezuma MD - 05/08/2014 4:00 PM CST Reason For Visit Reason For Visit: Acute Visit, Chronic Recheck Visit Chief Complaint 1. Cold Symptoms Chief Complaint Free Text: C/O congestion, cough, scratchy throat for 2 weeks Routine check up, refill MED Discuss the results of recent labs History of Present Illness HPI Free Text: A 39-year-old gentleman comes today complaining of congestion, cough, and scratchy throat for the last 2 weeks with some general feeling that he has congestion and general discomfort. He also has some blood test recently and had a basic metabolic profile showing glucose of 140, BUN 11, creatinine 0.8; the rest of the electrolytes were normal. His glycohemoglobin came back at 6.8 which was higher than 6 the last time. He has a history of diabetes and he takes lisinopril and metformin, and history of hypertension. Cold Symptoms: Donovan Garcia presents with complaints of gradual onset of constant episodes of moderate cold symptoms. Episodes started 2 weeks ago. Associated symptoms include nasal congestion, post nasal drainage, scratchy throat and productive cough, but no fever. Hypertension (Follow-Up): The patient presents for follow-up of primary hypertension. The patient states he has been stable with his blood pressure control since the last visit. He has no comorbid illnesses. He has no significant interval events. Symptoms: The patient is currently asymptomatic. Associated symptoms include no headache, no focal neurologic deficits and no memory loss. Diabetes Type II (Follow-Up): The patient states he has been doing well with his Type II Diabetes control since the last visit. Comorbid Illnesses: hypertension and obesity. He has no significant interval events. Symptoms: The patient is currently asymptomatic. Home monitoring: Glycemic control has been good. The patient reports no symptomatic hypoglycemic episodes. Medications: The patient is adherent with his medication regimen. He denies medication side effects. Review of Systems Focused-Male: See HPI for pertinent positives. Constitutional: no fever, no chills and no headache. ENT: sore throat and nasal discharge, but no earache and no hearing loss (Upper respiratory infection). Cardiovascular: no chest pain, no intermittent leg claudication, no palpitations and no lower extremity edema. Respiratory: cough, but no shortness of breath, no wheezing, no shortness of breath during exertionand no PND. Gastrointestinal: no abdominal pain, no [...] no difficulty walking. Psychiatric: no anxiety. no ideation no depression Active Problems 1. Bright red blood per rectum (569.3) (K62.5) 2. Diabetes mellitus (250.00) (E11.9) 3. Hyperglycemia (790.29) (R73.9) 4. Hypertension (401.9) (I10) Past Medical History 1. History of Complete Colonoscopy Family History 1. No pertinent family history Social History ?? Being A Social Drinker ?? Marital History - Currently ?? Never a smoker Current Meds 1. Accu-Chek Compact In Vitro Strip; TEST ONCE DAILY; Therapy: 03Aug2013 to (Evaluate:19Feb2014) Requested for: 03Aug2013; Last Rx:03Aug2013 Ordered 2. Lisinopril 20 MG Oral Tablet; TAKE 1 TABLET BY MOUTH EVERY DAY; Therapy: 11Feb2012 to (Evaluate:10May2014) Requested for: 09Feb2014; Last Rx:[id number] Ordered 3. Lisinopril-Hydrochlorothiazide 20-12.5 MG Oral Tablet; TAKE 1 TABLET BY MOUTH EVERY DAY; Therapy: 11Feb2012 to (Evaluate:10May2014) Requested for: 09Feb2014; Last Rx:[id number] Ordered 4. MetFORMIN HCl ER 500 MG Oral Tablet Extended Release 24 Hour; Take 1 tablet twice daily; Therapy: 29Apr2013 to (Evaluate:10May2014) Requested for: 09Feb2014; Last Rx:[id number] Ordered Allergies 1. No Known Drug Allergies Vitals Vital Signs [Data Includes: Current Encounter] Recorded by : Bozena Mario at 08May2014 04:07PM Temperature 98.2 F Heart Rate 78 Systolic 128 Diastolic 70 O2 Saturation 97, RA Height 6 ft 3 in Weight 327 lb Physical Exam Constitutional General appearance: No acute distress, well appearing and well nourished. Eyes Conjunctiva and lids: No swelling, erythema, or discharge. Pupils and irises: Equal, round and reactive to light. Ears, Nose, Mouth, and Throat External inspection of ears and nose: Abnormal. He does have evidence of upper respiratory infection with congestion, nasal voice, nasal congestion, perhaps some sinuses are full. Otoscopic examination: Abnormal. Tympanic membranes slightly congested. Oropharynx: Abnormal. There is posterior drainage in the back of his throat. Pulmonary Respiratory effort: No increased work of breathing or signs of respiratory distress. Auscultation of lungs: Clear to auscultation. Cardiovascular Auscultation of heart: Normal rate and rhythm, normal S1 and S2, without murmurs. Examination of extremities for edema and/or varicosities: Normal. Abdomen Abdomen: Abnormal. Prominent, soft and nontender. Lymphatic Palpation of lymph nodes in neck: No lymphadenopathy. Musculoskeletal Gait and station: Normal. Inspection/palpation of joints, bones, and muscles: Normal. Skin Skin and subcutaneous tissue: Normal without rashes or lesions. Neurologic Cranial nerves: Cranial nerves 2-12 intact. Reflexes: 2+ and symmetric. Psychiatric Orientation to person, place and time: Normal. Mood and affect: Normal. Results/Data 1 WEEKS Results Hemoglobin A1C ( HA1C ) 04May2014 04:27PM Jordan Moctezuma Test Name Result Flag Reference Hemoglobin A1c 6.8 % H <5.7 INCREASED RISK OF DIABETES <5.7% NON-DIABETES 5.7-6.4% INCREASED RISK FOR FUTURE DIABETES > OR = 6.5 CONSISTENT WITH DIABETES STANDARDS OF MEDICAL CARE IN DIABETES-2010 DIABETES CARE, 33(SUPP 1): S1-S61,2009 Basic Metabolic Prof ( BMP ) 04May2014 04:27PM Jordan Moctezuma Test Name Result Flag Reference Glucose 140 MG/DL H 70-105 Blood Urea Nitrogen (BUN) 11 MG/DL 8.9-20.6 Creatinine 0.8 MG/DL 0.72-1.25 Sodium (Na) 140 MMOL/L 136-145 Potassium (K) 4.5 MMOL/L 3.5-5.1 Chloride (Cl) 102 MMOL/L 98-107 Carbon Dioxide (CO2) 26.0 MMOL/L 22-29 Calcium 9.0 MG/DL 8.4-10.2 Anion Gap 16.5 MMOL/L 10.0-24.0 BUN Creatinine Ratio 13.8 6.0-26.0 Osmolality Calc 281 MOSM/KG 271-290 Glomerular Filt Rate Calc (Report) >60 >60 GFR Reference Range: Kidney Failure - <15mL/min Chronic Kidney Disease - <60mL/min Normal Kidney Function - >60mL/min GFR calculation is not recommended for Patients less than 18 years or greater than 70 years as per the national Kidney Foundation. If the patient is -English, multiply results by 1.21 Assessment 1. Diabetes mellitus (250.00) (E11.9) 2. Hypertension (401.9) (I10) 3. Hyperglycemia (790.29) (R73.9) 4. Acute upper respiratory infection (465.9) (J06.9) Plan 1. Start: Azithromycin 250 MG Oral Tablet; Take 2 now, then one daily Rx By: Jordan Moctezuma; Dispense: 0 Days ; #:6 Tablet; Refill: 0; For: Acute upper respiratory infection; WU = N; Verified Transmission to [facility]6926; Last Updated By: TiffanieSaatchi Art;05/08/2014 5:17:52 PM 2. Hemoglobin A1C ( HA1C ) Status: Hold For - Manual Activation Requested for: [id number] Perform: [facility] Due: [id number]; Ordered; For: Diabetes mellitus; Ordered By: Jordan Moctezuma 3. Renew: Lisinopril 20 MG Oral Tablet; TAKE 1 TABLET BY MOUTH EVERY DAY Rx By: Jordan Moctezuma; Dispense: 90 Days ; #:90 Tablet; Refill: 1; For: Health Maintenance; WU= N; Verified Transmission to [facility] #6926; Last Updated By: [employer]; 05/08/2014 5:17:51 PM 4. Renew: Lisinopril-Hydrochlorothiazide 20-12.5 MG Oral Tablet; TAKE 1 TABLET BY MOUTH EVERY DAY Rx By: Jordan Moctezuma; Dispense: 90 Days ; #:90 Tablet; Refill: 1; For: Health Maintenance; WU= N; Verified Transmission to [facility] #6926; Last Updated By: [employer]; 05/08/2014 5:17:52 PM 5. Renew: MetFORMIN HCl ER 500 MG Oral Tablet Extended Release 24 Hour; Take 1 tablet twice daily Rx By: Jordan Moctezuma; Dispense: 90 Days ; #:1 X 180 Tablet Extended Release 24 Hour Bottle; Refill: 1; For: Hyperglycemia; WU = N; Verified Transmission to [facility] #6926; Last Updated By: TiffanieSaatchi Art; 05/08/2014 5:23:00 PM 6. Follow-up visit in 6 months Outpatient Follow-up Status: Complete Done: 08May2014 Ordered; For: Hyperglycemia; Ordered By: Jordan Moctezuma Performed: Due: [id number]; Last Updated By: Thelma Jean; 05/08/2014 4:56:29 PM Discussion/Summary Discussion Summary Free Text: I emphasized to him that he will feel a lot better if he can lose at least 10 to 15 lbs. and that will benefit his diabetes and the way he feels, 327 lbs. that is pretty high. BMI is also high. We talked about the diet. We talked about discussion of decreasing his intake everyday by 300 calories that will eventually change his weight and also exercise which he said that he is pretty active so that would be easier for him and so basically, he has to be less. We will continue with his current medications and I would like to give him an antibiotic today. Recommended to drink plenty of fluids andsome expectorant. Signatures Electronically signed by : Jordan Moctezuma M.D.; May 11 2014 8:12AM SOLAR DESIGNER (Author) documented in this encounter Plan of Treatment Upcoming Encounters Date Type Department Care Team (Late st Contact Info) Description 06/08/2024 1:40 PM SOLAR DESIGNER Office Visit [facility] Medical Group Multispecialty Care - [address] [place] [address] [place] [address] [place] [address] Kalen Simpson PA-C 3 [facility] [address] [place] [address] 09/30/2024 10:15 AM CDT [facility] [address] [place] [address] Darryl Bunch MD Three [facility]. [address] [place] [address] Juliette Zavala PA 3 [facility], [address] [place], [place] [phone] documented as of this encounter Visit Diagnoses Not on filedocumented in this encounter
--- OUTSIDE RECORDS SUMMARY | 2024-04-17 17:23 | XMS_ITS | Encounter Summary ---
Author Organization [facility] Address [address] [place] [address]. [place] [address] [place] [address] Care Team Providers Care Retail Assistant Store Manager Name Role Phone Unavailable Primary Care Provider Unavailabl e Encounter Details Date Type Department Care Team (Late st Contact Info) Description 09/16/2004 Abstract [facility] CONVERSION [address] [place] [address] Jay Jefferson MD Social History Tobacco Use Types Packs/Day [...] st Contact Info) Description 06/08/2024 1:40 PM SECURITIES LENDING TRADER Office Visit [facility] Medical Group Multispecialty Care - [address], [address] [place] [address] [place] [address] [place] [address] Kalen Simpson PA-C 3 [facility] [address] [place] [address] 09/30/2024 10:15 AM CDT Office Visit [facility] [address] [place] [address] Darryl Bunch MD Three [facility]. [address] [place] [address] Juliette Zavala PA 3 [facility], [address] [place], [place] [phone] documented as of this encounter Visit Diagnoses Not on filedocumented in this encounter
--- OUTSIDE RECORDS SUMMARY | 2024-04-17 17:23 | XMS_ITS | Encounter Summary ---
Author Organization [facility] Address [address] [place] [address]. [place] [address] [place] [address] Care Team Providers Care Developer Prover Upholstering Name Role Phone Unavailable Primary Care Provider Unavailabl e Encounter Details Date Type Department Care Team (Late st Contact Info) Description 09/16/2002 Abstract [facility] CONVERSION [address] [place] [address] , Generic ConversionMD Social History Tobacco Use [...] Contact Info) Description 06/08/2024 1:40 PM RN UTILIZATION MANAGEMENT UM Office Visit [facility] Medical Group Multispecialty Care - [address], [address] [place] [address] [place] [address] [place] [address] Kalen Simpson PA-C 3 [facility] [address] [place] [address] 09/30/2024 10:15 AM CDT Office Visit [facility] [address] [place] [phone] Darryl Bunch MD Three [facility]. [address] [place], [place] [phone] Juliette Zavala PA 3 [facility], [address] [place], [place] [phone] documented as of this encounter Visit Diagnoses Not on filedocumented in this encounter
--- OUTSIDE RECORDS SUMMARY | 2024-04-17 17:23 | XMS_ITS | Encounter Summary ---
Author Organization [facility] Address [address] [place] [address]. [place], [place] [address] [place] [address] Care Team Providers Care Neurology Professor Name Role Phone Unavailable Primary Care Provider Unavailabl e Encounter Details Date Type Department Care Team (Late st Contact Info) Description 07/28/2013 Abstract [facility] - [place] [address] [place] [address] Jordan Moctezuma MD Social History [...] Contact Info) Description 06/08/2024 1:40 PM SUPERINTENDENT MENAGERIE Office Visit [facility] Multispecialty Care - [address], [address] [place] [address] [place] [address] [place] [address] Kalen Simpson PA-C 3 [facility] [address] [place] [address] 09/30/2024 10:15 AM CDT Office Visit [facility] [address] [place] [address] Darryl Bunch MD Three [facility]. [address] [place], [place] [address] Juliette Zavala PA 3 [facility], [address] [place], [place] [phone] documented as of this encounter Procedures Procedure Name Priority Date/Time Associated Diagnosis Comments COMPREHENSIVE METABOLIC PANEL Routine 07/28/2013 2:16 PM CDT documented in this encounter Results * (ABNORMAL) COMPREHENSIVE METABOLIC PANEL (07/28/2013 2:16 PM CDT) SODIUM S/P/B 140 136 - 145 MMOL/L [facility] CONVERSION POTASSIUM S/P/B 4.2 3.5 - 5.1 MMOL/L [facility] CONVERSION CHLORIDE S/P/B 104 98 - 107 MMOL/L [facility] CONVERSION CO2 27.0 22 - 29 MMOL/L [facility] CONVERSION ANION GAP 13.2 10.0 - 24.0 MMOL/L [facility] CONVERSION BUN 12 8.9 - 20.6 MG/DL [facility] CONVERSION CREATININE S/P/B 1.0 0.72 - 1.25 MG/DL [facility] TO EPIC [...] ml/min/1 .73 m2 [facility] CONVERSION BUN CREATININE RATIO 12.0 6.0 - 26.0 [facility] CONVERSION GLUCOSE 113(H) 70 - 105 MG/DL [facility] CONVERSION OSMOLALITY (CALC) 280 271 - 290 MOSM/KG [facility] CONVERSION CALCIUM S/P/B 10.1 8.4 - 10.2 MG/DL [facility] CONVERSION BILIRUBIN TOTAL S/P/B 0.5 0.2 - 1.2 MG/DL [facility] CONVERSION AST 33 5 - 34 UNITS/L [facility] CONVERSION ALT 60(H) 6 - 55 UNITS/L [facility] CONVERSION ALKALINE PHOSPHATASE S/P/B 77 40 - 115 UNITS/L [facility] CONVERSION TOTAL PROTEIN S/P/B 7.5 6.4 - 8.3 G/DL [facility] CONVERSION ALBUMIN S/P/B 4.6 3.5 - 5.0 G/DL [facility] CONVERSION A/G RATIO 1.6 1.1 - 1.9 RATIO [facility] CONVERSION 07/28/2013 2:16 PM CDT 07/28/2013 2:16 PM CDT Narrative [facility] CONVERSION - 07/28/2013 4:19 PM CDT Result Communication: No patient communication needed at this time us Jordan Moctezuma MD LABORATORY Final Re sult [facility] CONVERSION documented in this encounter Visit Diagnoses Not on filedocumented in this encounter
--- OUTSIDE RECORDS SUMMARY | 2024-04-17 17:23 | XMS_ITS | Encounter Summary ---
Author Organization [facility] Address [address] [place] [address]. [place] [address] [place] [address] Care Team Providers Care Construction Flagger Name Role Phone Unavailable Primary Care Provider Unavailabl e Encounter Details Date Type Department Care Team (Latest Contact Info) Description 05/03/2014 Abstract [facility] Medical Group Social History Tobacco Use Types [...] st Contact Info) Description 06/08/2024 1:40 PM ASSISTANT TEACHING PROFESSOR Office Visit [facility] Medical [facility] Multispecialty Care - [facility] 3 [facility], [address] [place] [address] [place] [address] [place] [address] Kalen Simpson PA-C 3 [facility] [address] [place] [address] 09/30/2024 10:15 AM CDT Office Visit [facility] [address] [place] [phone] Darryl Bunch MD [facility]. [address] [place] [address] Juliette Zavala PA [address] [place] [address] documented as of this encounter Procedures Procedure Name Priority Date/Time Associated Diagnosis Comments HEMOGLOBIN, GLYCOSYLATED Routine 05/04/2014 4:27 PM ASSISTANT TEACHING PROFESSOR BASIC METABOLIC PANEL Routine 05/04/2014 4:27 PM ASSISTANT TEACHING PROFESSOR documented in this encounter Results * (ABNORMAL) BASIC METABOLIC PANEL (05/04/2014 4:27 PM ASSISTANT TEACHING PROFESSOR) GLUCOSE 140(H) 70 - 105 MG/DL [facility] TO [facility] CONVERSION BUN 11 8.9 - 20.6 MG/DL [facility] CONVERSION CREATININE S/P/B 0.8 0.72 - 1.25 MG/DL [facility] TO [facility] CONVERSION SODIUM S/P/B 140 136 - 145 MMOL/L [facility] CONVERSION POTASSIUM S/P/B 4.5 3.5 - 5.1 MMOL/L [facility] CONVERSION CHLORIDE S/P/B 102 98 - 107 MMOL/L [facility] CONVERSION CO2 26.0 22 - 29 MMOL/L [facility] CONVERSION CALCIUM S/P/B 9.0 8.4 - 10.2 MG/DL [facility] CONVERSION ANION GAP 16.5 10.0 - 24.0 MMOL/L [facility] CONVERSION BUN CREATININE RATIO 13.8 6.0 - 26.0 [facility] CONVERSION OSMOLALITY (CALC) 281 271 - 290 MOSM/KG [facility] TO [facility] CONVERSION GFR ESTIMATE >60 ?? GFR Reference Range: Kidney Failure - <15mL/min Chronic Kidney Disease - <60mL/min Normal Kidney Function - >60mL/min GFR calculation is not recommended for Patients less than 18 years or greater than 70 years as per the national Kidney Foundation. If the patient is -Kathryn n, multiply results by 1.21 >60 ml/min/1. 73 m2 [facility] TO [facility] CONVERSION 05/04/2014 4:27 PM ASSISTANT TEACHING PROFESSOR 05/04/2014 4:27 PM ASSISTANT TEACHING PROFESSOR Narrative [facility] TO [facility] CONVERSION - 05/04/2014 4:54 PM ASSISTANT TEACHING PROFESSOR Result Communication: No patient communication needed at this time Jordan Moctezuma MD LABORATORY Final Re sult Performing Organization Address [facility] Co de Phone Number [facility] TO EP[facility] CONVERSION * (ABNORMAL) HEMOGLOBIN, GLYCOSYLATED (05/04/2014 4:27 PM ASSISTANT TEACHING PROFESSOR) HGB A1C 6.8(H) <5.7 % [facility] T O EPIC CONVERSION Comment: Result Comment: ?? INCREASED RISK OF DIABETES <5.7% ?NON-DIABETES 5.7-6.4% INCREASED RISK FOR FUTURE DIABETES > OR = 6.5 CONSISTENT WITH DIABETES ?? STANDARDS OF MEDICAL CARE IN DIABETES-2010 DIABETES CARE, 33(SUPP 1): S1-S61,2010 05/04/2014 4:27 PM ASSISTANT TEACHING PROFESSOR 05/04/2014 4:27 PM ASSISTANT TEACHING PROFESSOR Narrative [facility] CONVERSION - 05/05/2014 4:35 PM ASSISTANT TEACHING PROFESSOR Result Communication: No patient communication needed at this time Jordan Moctezuma MD LABORATORY Final Re sult Performing Organization Address [facility]/ZIP Co de Phone Number [facility] TO EP[facility] CONVERSION documented in this encounter Visit Diagnoses Not on filedocumented in this encounter
--- OUTSIDE RECORDS SUMMARY | 2024-04-17 17:23 | XMS_ITS | Encounter Summary ---
Author Organization [facility] Address [address] [place] [address]. [place] [address] [place] [address] Care Team Providers Care Marine Rigger Name Role Phone Unavailable Primary Care Provider Unavailabl e Encounter Details Date Type Department Care Team (Latest Contact Info) Description 08/17/2012 Abstract [facility] [place] [address] [address] Social History Tobacco Use Types Packs/Day Years Used Date Smoking Tobacco: Never Assessed Sex and Gender Information Value Date Recorded Sex Assigned at Not on file Legal Sex Male 6:09 PM CDT Gender Identity Not on file Sexual Orientation Not on file documented as of this encounter Last Filed Vital Signs Vital Sign Reading Time Taken Comments Blood Pressure 142/76 08/17/2012 3:30 PM CDT Pulse 84 08/17/2012 3:30 PM CDT Temperature - - Respiratory Rate - - Oxygen Saturation - - Inhaled Oxygen Concentration - - Weight 150.1 kg (331 lb) 08/17/2012 3:30 PM CDT Height - - Body Mass Index - - documented in this encounter Progress Notes * Dl Singh MD - 08/17/2012 3:00 PM CDT Reason For Visit Reason For Visit: Acute Follow-Up Visit Chief Complaint 1. Physician Consult Chief Complaint Free Text: here to discuss blood pressure & blood sugar (115)...also wants to discuss sporadic rectal bleeding History of Present Illness HPI Free Text: Eating better, walking more since last visit. JStill eats some fast food, ham, pizza, cheese. Has increased vegetables. passed bright red blood per rectum, seemed to occur at end of bowel movement, has resolved. Review of Systems Focused-Male: Constitutional: no recent weight gain, not feeling tired and no headache. Cardiovascular: no chest pain. Respiratory: no cough and no shortness of breath during exertion. . The patient presents with complaints of heartburn, radiating to the epigastrium. (early satiety and full feeling after meals). Neurological: no dizziness and no fainting. Current Meds 1. Lisinopril 20 MG Oral Tablet; TAKE 1 TABLET BY MOUTH EVERY DAY; Therapy: 11Feb2012 to (Evaluate:11May2012) Requested for: 11Feb2012; Last Rx:[id number] Ordered; For: Health Maintenance (V70.0); Rx By: Dl Singh; Dispense: 30 Days ; #:90 Tablet; Refill: 2; Verified Transmission to [id number]; Last Updated By: Mary Patel 2. Lisinopril-Hydrochlorothiazide 20-12.5 MG Oral Tablet; TAKE 1 TABLET BY MOUTH EVERY DAY; Therapy: 11Feb2012 to (Evaluate:11May2012) Requested for: 11Feb2012; Last Rx:[id number] Ordered; For: Health Maintenance (V70.0); Rx By: Dl Singh; Dispense: 30 Days ; #:90 Tablet; Refill: 2; Verified Transmission to [facility]; Last Updated By: Mary Patel Allergies 1. No Known Drug Allergies No Known Drug Allergies Vitals Vital Signs [Data Includes: Current Encounter] 17Aug2012 03:30PM Temperature 98.5 F Heart Rate 84 Respiration 20 Systolic 142 Diastolic 76 O2 Saturation 99 Weight 331 lb Physical Exam Constitutional General appearance: Abnormal. Overweight. Pulmonary Auscultation of lungs: Clear to auscultation. Cardiovascular Auscultation of heart: Normal rate and rhythm, normal S1 and S2, without murmurs. Examination of extremities for edema and/or varicosities: Normal. Results/Data 2011 FBS 122 hgb A1c 6.6 Assessment 1. Health Maintenance V70.0 2. Bright Red Blood Per Rectum 569.3 3. Hypertension 401.9 4. Hyperglycemia 790.29 Plan 1. CBC W Differential Requested for: 17Aug2012 Ordered; For: Bright Red Blood Per Rectum (569.3); Ordered By: Jaime Hermosillo Perform: [facility] Due: 24Aug2012; Last Updated By: Cesario Broussard 2. Gastroenterology Referral Outpatient Consult for adult Requested for: 31Aug2012 Ordered; For: Bright Red Blood Per Rectum (569.3); Ordered By: lD Singh Performed: Due: 14Sep2012 3. Lisinopril 20 MG Oral Tablet; TAKE 1 TABLET BY MOUTH EVERY DAY; Therapy: 11Feb2012 to (Evaluate:[id number]) Requested for: 17Aug2012; Last Rx:17Aug2012; Edited Ordered; For: Health Maintenance (V70.0); Rx By: Dl Singh; Dispense: 30 Days ; #:90 Tablet; Refill: 2; Verified Transmission to [id number] 4. Lisinopril-Hydrochlorothiazide 20-12.5 MG Oral Tablet; TAKE 1 TABLET BY MOUTH EVERY DAY; Therapy: 11Feb2012 to (Evaluate:[id number]) Requested for: 17Aug2012; Last Rx:[id number]; Edited Ordered; For: Health Maintenance (V70.0); Rx By: Dl Singh; Dispense: 30 Days ; #:90 Tablet; Refill: 2; Verified Transmission to [facility]26 5. Compr Metabolic Prof ( CMP ) Requested for: 17Aug2012 Ordered; For: Health Maintenance (V70.0); Ordered By: Jaime Hermosillo Perform: [facility] Due: 24Aug2012; Last Updated By: Cesario Broussard 6. Lipid Profile Requested for: 17Aug2012 Ordered; For: Health Maintenance (V70.0); Ordered By: Jaime Hermosillo Perform: [facility] Due: 24Aug2012; Last Updated By: Cesario Broussard 7. TSH W Reflex Free T4 Requested for: 17Aug2012 Ordered; For: Health Maintenance (V70.0); Ordered By: Jaime Hermosillo Perform: [facility] Due: 24Aug2012; Last Updated By: Cesario Broussard 8. Hemoglobin A1C Requested for: 17Aug2012 Ordered; For: Health Maintenance (V70.0), Hyperglycemia (790.29); Ordered By: Jaime Hermosillo Perform: [facility] Due: [id number]; Last Updated By: Cesario Broussard 9. Follow-up visit in 3 months Outpatient Follow-up Requested for: [id number] Ordered; For: Hypertension (401.9); Ordered By: Dl Singh Performed: Due: 17Ctl1400 3.5 hours of walking per week lose 15 lbs in next 6 months DASH website lipid clinic diet handout plant based diet handout Blood pressure with properly fitting (XL cuff) now Signatures Electronically signed by : Dl Singh M.D.; Aug 31 2012 5:14AM (Author) ONARY PHYSICAL THERAPIST documented in this encounter Plan of Treatment Upcoming Encounters Date Type Department Care Team (Late st Contact Info) Description 06/08/2024 1:40 PM PULMONARY PHYSICAL THERAPIST Office Visit [facility] Medical Group Multispecialty Care - [facility] 3 [facility] [address] [place] [address] [place] [address] [place] [address] Kalen Simpson, PA-C 3 [facility] [address] [place] [address] 09/30/2024 10:15 AM CDT Office Visit [facility] [address] [place] [address] Darryl Bunch MD Three [facility]. [address] [place] [address] Juliette Zavala PA 3 [facility], [address] [place] [address] documented as of this encounter Visit Diagnoses Not on filedocumented in this encounter
--- OUTSIDE RECORDS SUMMARY | 2024-04-17 17:23 | XMS_ITS | Encounter Summary ---
Author Organization [facility] Address [address] [place] [address]. [place] [address] [place] [address] Care Team Providers Care Rn Emergency Room Name Role Phone Unavailable Primary Care Provider Unavailabl e Encounter Details Date Type Department Care Team (Latest Contact Info) Description 12/12/2014 Abstract [facility] Medical Group Social History [...] st Contact Info) Description 06/08/2024 1:40 PM ACCOUNTS PAYABLE PROFESSIONAL Office Visit [facility] Medical [facility] Multispecialty Care - [facility] 3 [facility], [address] [place] [address] [place] [address] [place] [address] Kalen Simpson PA-C 3 [facility] [address] [place] [address] 09/30/2024 10:15 AM CDT Office Visit [facility] [address] [place] [address] Darryl Bunch MD [facility]. [address] [place] [address] Juliette Zavala PA 3 [facility], [address] [place] [address] documented as of this encounter Visit Diagnoses Not on filedocumented in this encounter
--- OUTSIDE RECORDS SUMMARY | 2024-04-17 17:23 | XMS_ITS | Encounter Summary ---
Author Organization [facility] Address [address] [place] [address]. [place], [place] [address] [place] [address] Care Team Providers Care Boat Engines Installer Name Role Phone Unavailable Primary Care Provider Unavailabl e Encounter Details Date Type Department Care Team (Late st Contact Info) Description 01/26/2015 Abstract [facility] Medical Group Family & Internal Medicine - [place] [address] [place] [address] Jordan Moctezuma MD Social History [...] Sign Reading Time Taken Comments Blood Pressure 134/70 01/26/2015 4:47 PM CDT Pulse 88 01/26/2015 4:47 PM CDT Temperature - - Respiratory Rate - - Oxygen Saturation - - Inhaled Oxygen Concentration - - Weight 147 kg (324 lb) 01/26/2015 4:47 PM CDT Height - - Body Mass Index 40.5 05/08/2014 4:07 PM OUTPATIENT SERVICES DIRECTOR documented in this encounter Progress Notes * Jordan Moctezuma MD - 01/26/2015 4:45 PM CDT Reason For Visit Chronic Recheck Visit Chief Complaint Routine check up, refill MED Discuss the results of recent labs History of Present Illness HPI Free Text: A 39-year-old gentleman, pretty healthy. However, he takes metformin, lisinopril for blood pressureand diabetes. Last A1c just now 6.5, last time 6.8, so that is good. I encouraged him to try to lose few pounds. I told him that if he lost 5 to 10 lbs. numbers will be even better, and if he lost a lot of weight, sometimes he will be able to be without diabetes medicine, if we do it within the next few years before. His pancreas quit working completely. So, he is going to try to do that. He has no complaints whatsoever. Hypertension (Follow-Up): The patient presents for follow-up of primary hypertension. The patient states he has been stable with his blood pressure control since the last visit. Symptoms: Diabetes Type II (Follow-Up): The patient states he has been stable with his Type II Diabetes control since the last visit. Comorbid Illnesses: hypertension. Symptoms: Home monitoring: The patient checks his blood sugar sporadically. Medications: The patient is adherent with his medication regimen. Review of Systems See HPI for pertinent [...] suicidal ideation no depression Active Problems 1. Acute upper respiratory infection (465.9) (J06.9) 2. Bright red blood per rectum (569.3) (K62.5) 3. Cough (786.2) (R05) 4. Diabetes mellitus (250.00) (E11.9) 5. Hyperglycemia (790.29) (R73.9) 6. Hypertension (401.9) (I10) Surgical History 1. History of Complete Colonoscopy Family History 1. No pertinent family history Social History ?? Being A Social Drinker ?? Marital History - Currently ?? Never a smoker Current Meds 1. Accu-Chek Compact STRP; TEST ONCE DAILY; Therapy: 03Aug2013 to (Evaluate:19Feb2014) Requested for: 03Aug2013; Last Rx:03Aug2013 Ordered 2. Azithromycin 250 MG Oral Tablet; Take 2 now, then one daily; Therapy: 08May2014 to (Last Rx:08May2014) Requested for: 08May2014 Ordered 3. Benzonatate 200 MG Oral Capsule; TAKE 1 CAPSULE 3 TIMES DAILY NEEDED; Therapy: 17May2014 to (Evaluate:05Feb2015) Requested for: 26Jan2015 Recorded 4. Lisinopril 20 MG Oral Tablet; TAKE 1 TABLET BY MOUTH EVERY DAY; Therapy: 11Feb2012 to (Evaluate:21Apr2015) Requested for: [id number]; Last Rx:[id number] Ordered 5. Lisinopril-Hydrochlorothiazide 20-12.5 MG Oral Tablet; TAKE 1 TABLET BY MOUTH EVERY DAY; Therapy: 11Feb2012 to (Evaluate:21Apr2015) Requested for: 27Rib0145; Last Rx:[id number] Ordered 6. MetFORMIN HCl ER 500 MG Oral Tablet Extended Release 24 Hour; TAKE 1 TABLET BY MOUTH TWICE DAILY; Therapy: 29Apr2013 to (Evaluate:21Apr2015) Requested for: 31Lbl0906; Last Rx:[id number] Ordered Allergies 1. No Known Drug Allergies Vitals Recorded: 26Jan2015 04:47PM Heart Rate 88 Systolic 134 Diastolic 70 O2 Saturation 98, RA Weight 324 lb BMI Calculated 40.5 BSA Calculated 2.69 Physical Exam Constitutional General appearance: Abnormal. He is 324 lbs. so his BMI is 40.5. Eyes Conjunctiva and lids: [...] Normal. Results/Data Hemoglobin A1C ( HA1C ) 24Jan2015 06:32AM Jordan Moctezuma Test Name Result Flag Reference Hemoglobin A1c 6.5 % H <5.7 INCREASED RISK OF DIABETES <5.7% NON-DIABETES 5.7-6.4% INCREASED RISK FOR FUTURE DIABETES > OR = 6.5 CONSISTENT WITH DIABETES STANDARDS OF MEDICAL CARE IN DIABETES-2010 DIABETES CARE, 33(SUPP 1): S1-S61,2009 Assessment 1. Hypertension (401.9) (I10) 2. Diabetes mellitus (250.00) (E11.9) 3. BMI 40.0-44.9, adult (V85.41) (Z68.41) Plan Acute upper respiratory infection 1. Azithromycin 250 MG Oral Tablet Rx By: Jordan Moctezuma; Dispense: 0 Days ; #:6 Tablet; Refill: 0; For: Acute upper respiratory infection; WU = N; Sent To: [facility] Cough 2. Benzonatate 200 MG Oral Capsule Rx By: Jordan Moctezuma; Dispense: 10 Days ; #:30 Capsule; Refill: 0; For: Cough; WU = N; Record Diabetes mellitus 3. Accu-Chek Jayleen In Vitro Strip; TEST ONCE DAILY Rx By: Jordan Moctezuma; Dispense: 100 Days ; #:100 Strip; Refill: 2; For: Diabetes mellitus; WU = N; Verified Transmission to [facility]2506; Last Updated By: David Moreno; 01/26/20154:55:17 PM 4. CBC W Differential; Status:Active; Requested for:27Jun2015; Perform:[facility]; Due:27Jul2015;Ordered; For:Diabetes mellitus; Ordered By:Jordan Moctezuma; 5. CMP / Liver; Status:Active; Requested for:27Jun2015; Perform:[facility]; Due:[id number];Ordered; For:Diabetes mellitus; Ordered By:Jordan Moctezuma; 6. Hemoglobin A1C ( HA1C ); Status:Active; Requested for:27Jun2015; Perform:. [facility]; Due:[id number];Ordered; For:Diabetes mellitus; Ordered By:Jordan Moctezuma; 7. Lipid W/ Calculated LDL; Status:Active; Requested for:27Jun2015; Perform:[facility]; Due:[id number];Ordered; For:Diabetes mellitus; Ordered By:Jordan Moctezuma; 8. Thyroid Stim Hormone ( TSH ); Status:Active; Requested for:27Jun2015; Perform:. [facility]; Due:[id number];Ordered; For:Diabetes mellitus; Ordered By:Jordan Moctezuma; 9. Urine Microalbumin; Status:Active; Requested for:26Jan2015; Perform:. [facility]; Due:[id number];Ordered; For:Diabetes mellitus; Ordered By:Jordan Moctezuma; Discussion/Summary He is going to try to lose 10 lbs. between now and the next time in 6 months I will see him. Continue current medications. Signatures Electronically signed by : Jordan Moctezuma M.D.; Jan 29 2015 7:49AM OUTPATIENT SERVICES DIRECTOR (Author) documented in this encounter Plan of Treatment Upcoming Encounters Date Type Department Care Team (Late st Contact Info) Description 06/08/2024 1:40 PM OUTPATIENT SERVICES DIRECTOR Office Visit [facility] Medical Group Multispecialty Care - [address] [place] [address] [place] [address] [place], [place] [phone] Kalen Simpson PAHarrisonC 3 [facility] [address] [place] [address] 09/30/2024 10:15 AM CDT Office Visit [facility] [address] [place] [address] Darryl Bunch MD Three [facility]. [address] [place], [place] [address] Juliette Zavala PA 3 [facility], [address] [place] [address] documented as of this encounter Visit Diagnoses Not on filedocumented in this encounter
--- OUTSIDE RECORDS SUMMARY | 2024-04-17 17:23 | XMS_ITS | Encounter Summary ---
Author Organization [facility] Address [address] [place] [address]. [place] [address] [place] [address] Care Team Providers Care Content Management Specialist Name Role Phone Unavailable Primary Care Provider Unavailabl e Encounter Details Date Type Department Care Team (Late st Contact Info) Description 08/31/2012 Abstract [facility] [address] [place], [place] [phone] Jaime Hermosillo MD [address] [place] [address] Social History Tobacco Use Types Packs/Day Years [...] st Contact Info) Description 06/08/2024 1:40 PM PUBLIC SERVICE OFFICER Office Visit [facility] Medical Group Multispecialty Care - [facility] 3 [facility] [address] [place] [address] [place] [address] [address] [place], [place] [id number] Kalen Simpson PA-C 3 [facility] [address] [place] [address] 09/30/2024 10:15 AM CDT Office Visit [facility] [address] [place] [address] Darryl Bunch MD Three [facility]. [address] [place], [place] [id number] Juliette Zavala PA 3 [facility], [address] [place], [place] [address] documented as of this encounter Visit Diagnoses Diagnosis Routine general medical examination at a health care facility documented in this encounter
--- OUTSIDE RECORDS SUMMARY | 2024-04-17 17:23 | XMS_ITS | Encounter Summary ---
Author Organization [facility] Address [address] [place] [address]. [place] [address] [place] [address] Care Team Providers Care Door Glass Installer Name Role Phone Unavailable Primary Care Provider Unavailabl e Encounter Details Date Type Department Care Team (Latest Contact Info) Description 08/18/2012 Abstract [facility] Medical Group Social History Tobacco Use Types Packs/Day Years Used Date Smoking Tobacco: Never Assessed Sex and Gender Information Value Date Recorded Sex Assigned at Not on file Legal Sex Male 6:09 PM CDT Gender Identity Not on file Sexual Orientation Not on file documented as of this encounter Progress Notes * Dl Singh MD - 08/18/2012 11:30 AM CDT Message Date: 18 Aug 2012 11:29 AM ADMITTING MANAGER, Recorded By: Ann-Marie Wren sent referral to Dr. Mcguire's office at [place], they will contact the pt with the appt Signatures Electronically signed by : Dl Singh M.D.; Sep 13 2012 6:05AM (Author) TTING MANAGER documented in this encounter Plan of Treatment Upcoming Encounters Date Type Department Care Team (Late st Contact Info) Description 06/08/2024 1:40 PM ADMITTING MANAGER Office Visit [facility] Medical Group Multispecialty Care - [facility] 3 [facility], [address] [place] [address] [place] [address] [place] [address] Kalen Simpson PA-C 3 [facility] [address] [place] [address] 09/30/2024 10:15 AM CDT Office Visit [facility] [address] [place] [address] Darryl Bunch MD Three [facility]. [address] [place], [place] [address] Juliette Zavala PA 3 [facility], [address] [place] [address] documented as of this encounter Visit Diagnoses Not on filedocumented in this encounter
--- OUTSIDE RECORDS SUMMARY | 2024-04-17 17:23 | XMS_ITS | Encounter Summary ---
Author Organization [facility] Address [address] [place] [address]. [place] [address] [place] [address] Care Team Providers Care Flour Mixer Name Role Phone Unavailable Primary Care Provider Unavailabl e Encounter Details Date Type Department Care Team (Latest Contact Info) Description 03/26/2012 Abstract [facility] Medical [facility] Social History Tobacco Use Types Packs/Day Years Used Date Smoking Tobacco: Never Assessed Sex and Gender Information Value Date Recorded Sex Assigned at Not on file Legal Sex Male 6:09 PM CDT Gender Identity Not on file Sexual Orientation Not on file documented as of this encounter Progress Notes * Dl Singh MD - 03/26/2012 11:29 AM CST Message Message: Donovan called in wanting lab results that he had done in February. Per Dr. Singh, Donovan wasadvised to make an appointment regarding an increased blood glucose level. He said he would call into make his appointment when he got his schedule MIW Signatures Electronically signed by : Mary Patel, ; Mar 26 2012 11:30AM (Author) ERY AID documented in this encounter Plan of Treatment Upcoming Encounters Date Type Department Care Team (Late st Contact Info) Description 06/08/2024 1:40 PM SURGERY AID Office Visit [facility] Medical Group Multispecialty Care - [facility] 3 [facility] [address] [place] [address] [place] [address] [place] [address] Kalen Simpson PA-C 3 [facility] [address] [place] [address] 09/30/2024 10:15 AM CDT Office Visit [facility] [address] [place] [address] Darryl Bunch MD Three [facility]. [address] [place], [place] [address] Juliette Zavala PA 3 [facility], [address] [place] [address] documented as of this encounter Visit Diagnoses Not on filedocumented in this encounter
--- OUTSIDE RECORDS SUMMARY | 2024-04-17 17:23 | XMS_ITS | Encounter Summary ---
Author Organization [facility] Address [address] [place] [address]. [place], [place] [address] [place] [address] Care Team Providers Care Felling Machine Operator Name Role Phone Unavailable Primary Care Provider Unavailabl e Encounter Details Date Type Department Care Team (Late st Contact Info) Description 01/24/2015 Abstract [facility] [address] [place] [address] Jordan Moctezuma MD Social History Tobacco Use [...] st Contact Info) Description 06/08/2024 1:40 PM AIR DRILL OPERATOR Office Visit [facility] Medical Group Multispecialty Care - [address] [place] [address] [place] [address] [place] [address] Kalen Simpson PA-C 3 [facility] [address] [place] [address] 09/30/2024 10:15 AM CDT Office Visit [facility] [address] [place] [address] Darryl Bunch MD Three [facility] [address] [place] [address] Juliette Zavala PA 3 [facility], [address] [place] [address] documented as of this encounter Visit Diagnoses Diagnosis Type 2 diabetes mellitus without complications (CMS/HCC HHS/HCC) Type II or unspecified type diabetes mellitus without mention of complication, not stated as uncontrolled documented in this encounter
--- OUTSIDE RECORDS SUMMARY | 2024-04-17 17:23 | XMS_ITS | Encounter Summary ---
Author Organization [facility] Address [address] [place] [address]. [place] [address] [place] [address] Care Team Providers Care Lining Ironer Name Role Phone Unavailable Primary Care Provider Unavailabl e Encounter Details Date Type Department Care Team (Latest Contact Info) Description 11/30/2014 Abstract [facility] Medical Group Social History Tobacco Use Types [...] st Contact Info) Description 06/08/2024 1:40 PM SECURITY LEAD Office Visit [facility] Medical [facility] Multispecialty Care - [facility] 3 [facility], [address] [place] [address] [place] [address] [place] [address] Kalen Simpson PA-C 3 [facility] [address] [place] [address] 09/30/2024 10:15 AM CDT Office Visit [facility] [address] [place] [address] Darryl Bunch MD [facility]. [address] [place] [address] Juliette Zavala PA 3 [facility], [address] [place] [address] documented as of this encounter Visit Diagnoses Not on filedocumented in this encounter
--- OUTSIDE RECORDS SUMMARY | 2024-04-17 17:23 | XMS_ITS | Encounter Summary ---
Author Organization [facility] Address [address] [place] [address]. [place] [address] [place] [address] Care Team Providers Care Rehabilitation Services Coordinator Name Role Phone Unavailable Primary Care Provider Unavailabl e Encounter Details Date Type Department Care Team (Latest Contact Info) Description 12/20/2014 Abstract [facility] Medical Group Social History Tobacco Use [...] st Contact Info) Description 06/08/2024 1:40 PM MUSIC THEORY TEACHER Office Visit [facility] Medical [facility] Multispecialty Care - [facility] [address] [facility], [address] [place] [address] [place] [address] [place] [address] Kalen Simpson PA-C 3 [facility] [address] [place] [address] 09/30/2024 10:15 AM CDT Office Visit [facility] [address] [place] [address] Darryl Bunch MD [facility]. [address] [place] [address] Juliette Zavala PA 3 [facility], [address] [place] [address] documented as of this encounter Visit Diagnoses Not on filedocumented in this encounter
--- OUTSIDE RECORDS SUMMARY | 2024-04-17 17:23 | XMS_ITS | Encounter Summary ---
Author Organization [facility] Address [address] [place] [address]. [place] [address] [place] [address] Care Team Providers Care Dispatch Manager Name Role Phone Unavailable Primary Care Provider Unavailabl e Encounter Details Date Type Department Care Team (Late st Contact Info) Description 04/28/2006 Abstract [facility] CONVERSION [address] [place], [place] [phone] Medina Mendoza MD [address] [place] [address] Social History Tobacco Use Types Packs/Day Years [...] st Contact Info) Description 06/08/2024 1:40 PM BUSINESS ANALYST SALES OPERATIONS Office Visit [facility] Medical Group Multispecialty Care - [address] [place] [address] [place] [address] [place] [address] Kalen Simpson PA-C 3 [facility] [address] [place] [address] 09/30/2024 10:15 AM CDT Office Visit [facility] [address] [place] [address] Darryl Bunch MD Three [facility]. [address] [place] [phone] Juliette Zavala PA 3 [facility], [address] [place], [place] [address] documented as of this encounter Visit Diagnoses Not on filedocumented in this encounter
--- OUTSIDE RECORDS SUMMARY | 2024-04-17 17:23 | XMS_ITS | Encounter Summary ---
Author Organization [facility] Address [address] [place] [address]. [place], [place] [address] [place] [address] Care Team Providers Care Charter Bus Driver Name Role Phone Unavailable Primary Care Provider Unavailabl e Encounter Details Date Type Department Care Team (Latest Contact Info) Description 04/29/2013 Abstract [facility] Medical Group Social History Tobacco Use Types Packs/Day Years Used Date Smoking Tobacco: Never Assessed Sex and Gender Information Value Date Recorded Sex Assigned at Not on file Legal Sex Male 6:09 PM CDT Gender Identity Not on file Sexual Orientation Not on file documented as of this encounter Progress Notes * Generic Conversion MD Cristiano - 04/29/2013 2:43 PM CST Message Recorded as Task Date: 04/19/2013 04:54 AM, Created By: lD Singh Task Name: Call Patient with results Assigned To: [facility] Nurse Team Regarding Patient: Jose Donovan, Status: In Progress Comment: Dl Singh - 19 Apr 2013 4:54 AM Patient notify that unfortunately, labs confirm diagnosis of type 2 diabetes (adult onset) I recommend that he starts metformin CR 500mg one with food at breakfast daily, and if tolerates it, increase to two at breakfast daily after two days needs appt to start fingerstick blood sugar testing and review labs with me--make popeye within a week, and also sign him up for Daisha Benitez's diabetes education classes at [facility] bring to first DM appt--can do with me or with Mary Dorado - 20 Apr 2013 2:39 PM TASK REASSIGNED: Previously Assigned To Dl Singh Please call. CarlosBryan dickson - 20 Apr 2013 3:33 PM TASK EDITED lvm to call the office. Bryan Gonzalez - 20 Apr 2013 3:33 PM TASK IN PROGRESS Bryan Gonzalez - 25 Apr 2013 10:27 AM TASK EDITED lvm to call the office. Bryan Gonzalez - 27 Apr 2013 8:48 AM TASK EDITED lvm to call the office. Mary Patel - 29 Apr 2013 2:43 PM TASK EDITED Pt notified of this and medication sent to pharmacy. Donovan stated that as of 04/13/13 his insurance changed to [employer] which Dr. Singh is not in network with so he listed Dr. Moctezuma as his PCP. I toldhim they are in our same medical group and have access to his chart so he can just start schedulingappts with them. Signatures Electronically signed by : Mary Patel, ; Apr 29 2013 2:43PM (Author) EM MILL ROLLER documented in this encounter Plan of Treatment Upcoming Encounters Date Type Department Care Team (Late st Contact Info) Description 06/08/2024 1:40 PM TANDEM MILL ROLLER Office Visit [facility] Medical Group Multispecialty Care - [facility] [address] [facility] [place] [address] [place] [address] [place] [address] Kalen Simpson PA-C 3 [facility] [address] [place] [address] 09/30/2024 10:15 AM CDT Office Visit [facility] [address] [place] [phone] Darryl Bunch MD Three [facility]. [address] [place] [address] Juliette Zavala PA 3 [facility], [address] [place], [place] [address] documented as of this encounter Visit Diagnoses Not on filedocumented in this encounter
--- OUTSIDE RECORDS SUMMARY | 2024-04-17 17:23 | XMS_ITS | Encounter Summary ---
Author Organization [facility] Address [address] [place] [address]. [place] [address] [place] [address] Care Team Providers Care Road Test Examiner Name Role Phone Unavailable Primary Care Provider Unavailabl e Encounter Details Date Type Department Care Team (Late st Contact Info) Description 06/18/2004 Abstract [facility] Emergency Room [address] [place], [place] [phone] , Rodri Savage MD Social History Tobacco [...] st Contact Info) Description 06/08/2024 1:40 PM BEAM BUILDER Office Visit [facility] Medical Group Multispecialty Care - [address] [place] [address] [place] [address] [place] [address] Kalen Simpson PA-C 3 [facility] [address] [place] [address] 09/30/2024 10:15 AM CDT Office Visit [facility] [address] [place] [address] Darryl Bunch MD Three [facility]. [address] [place] [address] Juliette Zavala PA 3 [facility], [address] [place], [place] [phone] documented as of this encounter Visit Diagnoses Not on filedocumented in this encounter
--- OUTSIDE RECORDS SUMMARY | 2024-04-17 17:23 | XMS_ITS | Encounter Summary ---
Author Organization [facility] Address [address] [place] [address]. [place], [place] [address] [place] [address] Care Team Providers Care Car Carder Name Role Phone Unavailable Primary Care Provider Unavailabl e Encounter Details Date Type Department Care Team (Latest Contact Info) Description 04/19/2013 Abstract [facility] Medical Group Social History Tobacco Use Types Packs/Day Years Used Date Smoking Tobacco: Never Assessed Sex and Gender Information Value Date Recorded Sex Assigned at Not on file Legal Sex Male 6:09 PM CDT Gender Identity Not on file Sexual Orientation Not on file documented as of this encounter Progress Notes * Dl Singh MD - 04/19/2013 4:53 AM CST Message notify that unfortunately, labs confirm diagnosis of [...] for Daisha Benitez's diabetes education classes at [facility] bring to first DM appt--can do with me or with Calos Sparks Verified Results CBC W Differential [id number] 07:07AM Dl Singh Test Name Result Flag Reference White Blood Cell Count (WBC) 8.9 K/UL 4.4-11.0 Red Blood Cell Count (RBC) 4.90 M/UL 4.5-5.9 Hemoglobin (HGB) 14.4 G/DL 14.0-17.5 Hematocrit (HCT) 42.1 % 41.5-50.4 Mean Corpuscular Volume (MCV) 85.9 FL 80-96 Mean Corpuscular Hgb (MCH) 29.4 PG 26.5-31.4 Mean Corpuscular Hgb Conc (MCH 34.2 G/DL 31.9-34.8 Red Cell Distrib Width (RDW) 11.9 % L 12.3-14.3 Platelet Count (PLT) 186 K/UL 151-353 Mean Platelet Volume (MPV) 11.2 FL 9.7-11.9 Basophils % (Auto) 0.7 % 0.0-1.3 Eosinophils % (Auto) 1.4 % 0.0-5.6 Neutrophils % (Auto) 58.7 % 42.1-71.9 Lymphocytes % (Auto) 31.5 % 15.8-45.0 Monocytes % (Auto) 7.0 % 5.7-12.5 IMMATURE GRANULOCYTES 0.7 % H 0.0-0.5 Total Absolute Neutrophils 5.2 K/UL 1.4-6.0 WBC Morphology NORMAL PLATELET EVALUATION NORMAL RBC Morphology NORMAL Compr Metabolic Prof ( CMP ) [id number] 07:07AM Dl Singh Test Name Result Flag Reference Sodium (Na) 140 MMOL/L 136-145 Potassium (K) 4.1 MMOL/L 3.5-5.1 Chloride (Cl) 103 MMOL/L 98-107 Carbon Dioxide (CO2) 29.0 MMOL/L 22-29 Blood Urea Nitrogen (BUN) 9 MG/DL 8.9-20.6 >60 GFR Reference Range: Kidney Failure - <15mL/min Chronic Kidney Disease - <60mL/min Normal Kidney Function - >60mL/min GFR calculation is not recommended for Patients less than 18 years or greater than 70 years as per the national Kidney Foundation. If the patient is -Palestinian, multiply results by 1.21 Glucose 189 MG/DL H 70-105 Calcium 9.3 MG/DL 8.4-10.2 Total Bilirubin 0.6 MG/DL 0.2-1.2 AST/GOT 54 UNITS/L H 5-34 ALT/GPT 116 UNITS/L H 6-55 Alkaline Phosphatase (ALKP) 69 UNITS/L 40-115 CREATININE 0.9 MG/DL 0.72-1.25 Total Protein 7.4 G/DL 6.4-8.3 ALBUMIN 4.1 G/DL 3.5-5.0 Anion Gap 12.1 MMOL/L 10.0-24.0 OSMOLALITY CALC 283 MOSM/KG 271-290 BUN CREATININE RATIO 10.0 6.0-26.0 A:G Ratio 1.2 RATIO 1.1-1.9 TSH W Reflex Free T4 [id number] 07:07AM Dl Singh Test Name Result Flag Reference TSH w Reflex Free T4 1.66 uIU/mL 0.35-4.94 FREE T4 NOT INDICATED Lipid W/ Calculated LDL [id number] 07:07AM Dl Singh Test Name Result Flag Reference CHOLESTEROL 138 MG/DL <200 TRIGLYCERIDE 127 MG/DL <150 HDL CHOLESTEROL 35 MG/DL L >45 LDL CALCULATED 77.6 MG/L <130 CHOL/HDL RATIO 3.94 INTERPRETATION OF RESULTS NHLBI RECOMMENDED RANGES CHOLESTEROL MG/DL LDL MG/DL DESIRABLE <200 <130 BORDERLINE 200-239 130-159 HIGH RISK >240 >160 REFERENCE VALUE FOR HDL CHOLESTEROL RISK LEVEL MALE MG/DL FEMALE MG/DL DECREASED >45 >55 AVERAGE 45 55 INCREASED <45 <55 Hemoglobin A1C [id number] 07:07AM Dl Singh Test Name Result Flag Reference Hemoglobin A1c 7.8 % H <5.7 INCREASED RISK OF DIABETES <5.7% NON-DIABETES 5.7-6.4% INCREASED RISK FOR FUTURE DIABETES > OR = 6.5 CONSISTENT WITH DIABETES STANDARDS OF MEDICAL CARE IN DIABETES-2010 DIABETES CARE, 33(SUPP 1): S1-S61,2009 R BOAT CAPTAIN documented in this encounter Plan of Treatment Upcoming Encounters Date Type Department Care Team (Late st Contact Info) Description 06/08/2024 1:40 PM RIVER BOAT CAPTAIN Office Visit [facility] Medical Group Multispecialty Care - [facility] [address] [facility] [place] [address] [place] [address] [place], [place] [phone] Kalen Simpson PA-C 3 [facility] [address] [place], [place] [address] 09/30/2024 10:15 AM CDT Office Visit [place] [facility] [address] [place] [address] Darryl Bunch MD Three [facility]. [address] [place] [phone] Juliette Zavala PA 3 [facility], [address] [place], [place] [address] documented as of this encounter Visit Diagnoses Not on filedocumented in this encounter
--- OUTSIDE RECORDS SUMMARY | 2024-04-17 17:23 | XMS_ITS | Encounter Summary ---
Author Organization [facility] Address [address] [place] [address]. [place], [place] [address] [place] [address] Care Team Providers Care Math Tutor Name Role Phone Unavailable Primary Care Provider Unavailabl e Encounter Details Date Type Department Care Team (Latest Contact Info) Description 01/24/2015 Abstract [facility] Medical Group Jordan Moctezuma MD Social History [...] st Contact Info) Description 06/08/2024 1:40 PM ELECTRONIC INSTRUMENT TRADES WORKER Office Visit [facility] Medical [facility] Multispecialty Care - [address] [place] [address] [place] [address] [place] [address] Kalen Simpson PA-C 3 [facility] [address] [place] [address] 09/30/2024 10:15 AM CDT Office Visit [facility] [address] [place] [address] Darryl Bunch MD Three [facility]. [address] [place], [place] [address] Juliette Zavala PA 3 [facility], [address] [place] [address] documented as of this encounter Procedures Procedure Name Priority Date/Time Associated Diagnosis Comments HEMOGLOBIN, GLYCOSYLATED Routine 01/24/2015 6:32 AM CDT documented in this encounter Results * (ABNORMAL) HEMOGLOBIN, GLYCOSYLATED (01/24/2015 6:32 AM CDT) HGB A1C 6.5(H) <5.7 % [facility] T O EPIC CONVERSION Comment: Result Comment: ?? INCREASED RISK OF DIABETES <5.7% ?NON-DIABETES 5.7-6.4% INCREASED RISK FOR FUTURE DIABETES > OR = 6.5 CONSISTENT WITH DIABETES ?? STANDARDS OF MEDICAL CARE IN DIABETES-2010 DIABETES CARE, 33(SUPP 1): S1-S61,2010 01/24/2015 6:32 AM CDT 01/24/2015 6:32 AM CDT Narrative [facility] TO EPIC CONVERSION - 01/24/2015 8:36 AM CDT Result Communication: No patient communication needed at this time us Jordan Moctezuma MD LABORATORY Final Re sult [facility] TO EPIC CONVERSION documented in this encounter Visit Diagnoses Not on filedocumented in this encounter
--- OUTSIDE RECORDS SUMMARY | 2024-04-17 17:23 | XMS_ITS | Encounter Summary ---
Author Organization [facility] Address [address] [place] [address]. [place], [place] [address] [place] [address] Care Team Providers Care Lodge Attendant Name Role Phone Unavailable Primary Care Provider Unavailabl e Encounter Details Date Type Department Care Team (Late st Contact Info) Description 08/03/2013 Abstract [facility] Medical Group Family & Internal Medicine - [place] [address] [place] [address] Jordan Moctezuma MD Social History [...] Sign Reading Time Taken Comments Blood Pressure 136/70 08/03/2013 4:14 PM CDT Pulse - - Temperature - - Respiratory Rate - - Oxygen Saturation - - Inhaled Oxygen Concentration - - Weight 145.6 kg (321 lb) 08/03/2013 4:14 PM CDT Height - - Body Mass Index - - documented in this encounter Progress Notes * Jordan Moctezuma MD - 08/03/2013 3:45 PM CDT Reason For Visit Reason For Visit: Chronic Recheck Visit Chief Complaint Chief Complaint Free Text: Routine check up, refill meds. Discuss results of recent labs History of Present Illness HPI Free Text: He comes today for refills and to review his recent blood test results .his weight droped 6 lbs andhis glyco A1c is remarkablly improved from 7.8 to 6.00 super.tolerating his medications well and his blood presure is acceptable. Review of Systems Focused-Male: See HPI for pertinent positives. Constitutional: Normal. ENT: normal. Cardiovascular: Normal. Respiratory: Normal. Gastrointestinal: Normal. Genitourinary: Normal. Integumentary: Normal. Musculoskeletal: Normal. Neurological: Normal. Psychiatric: Normal. Active Problems 1. Bright red blood per rectum (569.3) (K62.5) 2. Diabetes mellitus (250.00) (E11.9) 3. Hyperglycemia (790.29) (R73.9) 4. Hypertension (401.9) (I10) Past Medical History 1. History of Complete Colonoscopy Family History 1. No pertinent family history Social History ?? Being A Social Drinker ?? Marital History - Currently ?? Never a smoker Current Meds 1. Lisinopril 20 MG Oral Tablet; TAKE 1 TABLET BY MOUTH EVERY DAY; Therapy: 11Feb2012 to (Evaluate:[id number]) Requested for: 14Apr2013; Last Rx:14Apr2013 Ordered 2. Lisinopril-Hydrochlorothiazide 20-12.5 MG Oral Tablet; TAKE 1 TABLET BY MOUTH EVERY DAY; Therapy: 11Feb2012 to (Evaluate:[id number]) Requested for: 14Apr2013; Last Rx:14Apr2013 Ordered 3. MetFORMIN HCl ER 500 MG Oral Tablet Extended Release 24 Hour; Take 1 tablet twice daily; Therapy: 29Apr2013 to (Evaluate:06Feb2014) Requested for: 12May2013; Last Rx:12May2013 Ordered Allergies 1. No Known Drug Allergies Vitals Vital Signs [Data Includes: Current Encounter] Recorded by : Boznea Mario at 03Aug2013 04:14PM Systolic 136 Diastolic 70 Weight 321 lb Physical Exam Constitutional General appearance: No acute distress, well appearing and well nourished. Eyes Conjunctiva and lids: No swelling, erythema, or discharge. Pupils and irises: Equal, round and reactive to light. Ears, Nose, Mouth, and Throat External inspection of ears and nose: Normal. Pulmonary Respiratory effort: No increased work of breathing or signs of respiratory distress. Auscultation of lungs: Clear to auscultation. Cardiovascular Auscultation of heart: Normal rate and rhythm, normal S1 and S2, without murmurs. Examination of extremities for edema and/or varicosities: Normal. Abdomen Abdomen: Non-tender, no masses. Liver and spleen: No hepatomegaly or splenomegaly. Lymphatic Palpation of lymph nodes in neck: No lymphadenopathy. Musculoskeletal Gait and station: Normal. Inspection/palpation of joints, bones, and muscles: Normal. Skin Skin and subcutaneous tissue: Normal without rashes or lesions. Neurologic Cranial nerves: Cranial nerves 2-12 intact. Sensation: No sensory loss. Psychiatric Orientation to person, place and time: Normal. Mood and affect: Normal. Results/Data 1 WEEKS Results Compr Metabolic Prof ( CMP ) 28Jul2013 02:16PM Jordan Moctezuma Test Name Result Flag Reference Sodium (Na) 140 MMOL/L 136-145 Potassium (K) 4.2 MMOL/L 3.5-5.1 Chloride (Cl) 104 MMOL/L 98-107 Carbon Dioxide (CO2) 27.0 MMOL/L 22-29 Anion Gap 13.2 MMOL/L 10.0-24.0 Blood Urea Nitrogen (BUN) 12 MG/DL 8.9-20.6 Creatinine 1.0 MG/DL 0.72-1.25 Glomerular Filt Rate Calc (Report) >60 >60 GFR Reference Range: Kidney Failure - <15mL/min Chronic Kidney Disease - <60mL/min Normal Kidney Function - >60mL/min GFR calculation is not recommended for Patients less than 18 years or greater than 70 years as per the national Kidney Foundation. If the patient is -Slovak, multiply results by 1.21 BUN Creatinine Ratio 12.0 6.0-26.0 Glucose 113 MG/DL H 70-105 Osmolality Calc 280 MOSM/KG 271-290 Calcium 10.1 MG/DL 8.4-10.2 Total Bilirubin 0.5 MG/DL 0.2-1.2 AST/GOT 33 UNITS/L 5-34 ALT/GPT 60 UNITS/L H 6-55 Alkaline Phosphatase (ALKP) 77 UNITS/L 40-115 Total Protein 7.5 G/DL 6.4-8.3 Albumin 4.6 G/DL 3.5-5.0 A:G Ratio 1.6 RATIO 1.1-1.9 Hemoglobin A1C [id number] 01:30PM Jordan Moctezuma Test Name Result Flag Reference Hemoglobin A1c 6.0 % H <5.7 INCREASED RISK OF DIABETES <5.7% NON-DIABETES 5.7-6.4% INCREASED RISK FOR FUTURE DIABETES > OR = 6.5 CONSISTENT WITH DIABETES STANDARDS OF MEDICAL CARE IN DIABETES-2010 DIABETES CARE, 33(SUPP 1): S1-S61,2009 Assessment 1. Hypertension (401.9) (I10) 2. Hyperglycemia (790.29) (R73.9) 3. Diabetes mellitus (250.00) (E11.9) Plan 1. Start: Accu-Chek Compact In Vitro Strip; TEST ONCE DAILY Rx By: Jordan Moctezuma; Dispense: 100 Days ; #:100 Strip; Refill: 1; For: Diabetes mellitus; WU= N; Verified Transmission to [facility]; Last Updated By: Gio MorenoInformaat; 08/03/20134:59:39 PM 2. Hemoglobin A1C Status: Hold For - Manual Activation Requested for: 03Aug2013 Perform: [facility] Lab Due: 10Aug2013; Ordered; For: Diabetes mellitus; Ordered By: Jordan Moctezuma 3. Follow-up visit in 6 months Outpatient Follow-up Status: Hold For - Scheduling Requested for: 03Aug2013 Ordered; For: Diabetes mellitus, Hyperglycemia, Hypertension; Ordered By: Jordan Moctezuma Performed: Due: [id number] 4. Renew: Lisinopril 20 MG Oral Tablet; TAKE 1 TABLET BY MOUTH EVERY DAY Rx By: Jordan Moctezuma; Dispense: 90 Days ; #:90 Tablet; Refill: 1; For: Health Maintenance; WU= N; Faxed To: [facility] ORDER 5. Renew: Lisinopril-Hydrochlorothiazide 20-12.5 MG Oral Tablet; TAKE 1 TABLET BY MOUTH EVERY DAY Rx By: Jordan Moctezuma; Dispense: 90 Days ; #:90 Tablet; Refill: 1; For: Health Maintenance; WU= N; Faxed To: [facility] ORDER 6. Renew: MetFORMIN HCl ER 500 MG Oral Tablet Extended Release 24 Hour; Take 1 tablet twice daily Rx By: Jordan Moctezuma; Dispense: 90 Days ; #:1 X 180 Tablet Extended Release 24 Hour Bottle; Refill: 1; For: Hyperglycemia; WU = N; Faxed To: [facility] ORDER Discussion/Summary Discussion Summary Free Text: doing excellently with his DM,weight loss and watching his diet . told him if continues doing so well may some day in the future even dc his dm meds. Signatures Electronically signed by : Jordan Moctezuma M.D.; Aug 08 2013 11:12AM WORKGROUP LEADER (Author) documented in this encounter Plan of Treatment Upcoming Encounters Date Type Department Care Team (Late st Contact Info) Description 06/08/2024 1:40 PM WORKGROUP LEADER Office Visit [facility] Medical Group Multispecialty Care - [facility] [address] [facility] [place] [address] [place] [address] [place] [address] Kalen Simpson PA-C 3 [facility] [address] [place] [address] 09/30/2024 10:15 AM CDT [facility] [address] [place] [address] Draryl Bunch MD Three [facility] [address] [place] [address] Juliette Zavala PA [address] [facility], [address] [place], [place] [address] documented as of this encounter Visit Diagnoses Not on filedocumented in this encounter
--- OUTSIDE RECORDS SUMMARY | 2024-04-17 17:23 | XMS_ITS | Encounter Summary ---
Author Organization [facility] Address [address] [place] [address]. [place], [place] [address] [place] [address] Care Team Providers Care Envelope Cutter Name Role Phone Unavailable Primary Care Provider Unavailabl e Encounter Details Date Type Department Care Team (Late st Contact Info) Description 07/28/2013 Abstract [facility] [address] [place] [address] Jordan Moctezuma MD Social History Tobacco Use [...] Contact Info) Description 06/08/2024 1:40 PM SAFETY PHYSICIAN Office Visit [facility] Medical Group Multispecialty Care - [address] [place] [address] [place] [address] [place] [address] Kalen Simpson PA-C 3 [facility] [address] [place] [address] 09/30/2024 10:15 AM CDT Office Visit [facility] [facility] [address] [place] [address] Darryl Bunch MD Three [facility]. [address] [place] [address] Juliette Zavala PA 3 [facility], [address] [place] [address] documented as of this encounter Visit Diagnoses Diagnosis Type 2 or unspecified type diabetes mellitus (CMS/HCC HHS/HCC) documented in this encounter
--- OUTSIDE RECORDS SUMMARY | 2024-04-17 17:23 | XMS_ITS | Encounter Summary ---
Author Organization [facility] Address [address] [place] [address]. [place], [place] [address] [place] [address] Care Team Providers Care Golf Ball Molder Name Role Phone Unavailable Primary Care Provider Unavailabl e Encounter Details Date Type Department Care Team (Latest Contact Info) Description 01/18/2014 Abstract [facility] Medical Group Jordan Moctezuma MD Social History [...] st Contact Info) Description 06/08/2024 1:40 PM PAINTER HELPER SPRAY Office Visit [facility] Medical [facility] Multispecialty Care - [address] [place] [address] [place] [address] [place] [address] Kalen Simpson PA-C 3 [facility] [address] [place] [address] 09/30/2024 10:15 AM CDT Office Visit [facility] [address] [place] [phone] Darryl Bunch MD [facility]. [address] [place] [address] Juliette Zavala PA 3 [facility], [address] [place], [place] [phone] documented as of this encounter Visit Diagnoses Not on filedocumented in this encounter
--- OUTSIDE RECORDS SUMMARY | 2024-04-17 17:23 | XMS_ITS | Encounter Summary ---
Author Organization [facility] Address [address] [place] [address]. [place] [address] [place] [address] Care Team Providers Care Instant Potato Processing Supervisor Name Role Phone Unavailable Primary Care Provider Unavailabl e Encounter Details Date Type Department Care Team (Latest Contact Info) Description 04/08/2012 Abstract [facility] Medical Group Social History Tobacco Use [...] st Contact Info) Description 06/08/2024 1:40 PM CONTROL PANEL BUILDER Office Visit [facility] Medical [facility] Multispecialty Care - [facility] 3 [facility], [address] [place] [address] [place] [address] [place] [address] Kalen Simpson PA-C 3 [facility] [address] [place] [address] 09/30/2024 10:15 AM CDT Office Visit [facility] [address] [place] [address] Darryl Bunch MD [facility]. [address] [place] [address] Juliette Zavala PA 3 [facility], [address] [place] [address] documented as of this encounter Visit Diagnoses Not on filedocumented in this encounter
--- OUTSIDE RECORDS SUMMARY | 2024-04-17 17:23 | XMS_ITS | Encounter Summary ---
Author Organization [facility] Address [address] [place] [address]. [place] [address] [place] [address] Care Team Providers Care Solar Sales Manager Name Role Phone Unavailable Primary Care Provider Unavailabl e Encounter Details Date Type Department Care Team (Late st Contact Info) Description 04/12/2013 Abstract [facility] [address] [place] [address] [place] [address] [address] Social History Tobacco Use Types Packs/Day Years [...] Contact Info) Description 06/08/2024 1:40 PM MANAGER COMMUNICATION Office Visit [facility] Medical Group Multispecialty Care - [facility] 3 [facility] [address] [place] [address] [place] [address] [place] [address] Kalen Simpson, JEAN CLAUDEC 3 [facility] [address] [place] [address] 09/30/2024 10:15 AM CDT Office Visit [facility] [address] [place] [address] Darryl Bunch MD Three [facility]. [address] [place], [place] [phone] Juliette Zavala PA 3 [facility], [address] [place], [place] [address] documented as of this encounter Visit Diagnoses Diagnosis Routine general medical examination at a health care facility documented in this encounter
--- OUTSIDE RECORDS SUMMARY | 2024-04-17 17:23 | XMS_ITS | Encounter Summary ---
Author Organization [facility] Address [address] [place] [address]. [place] [address] [place] [address] Care Team Providers Care Tapping Machine Operator Automatic Name Role Phone Unavailable Primary Care Provider Unavailabl e Encounter Details Date Type Department Care Team (Latest Contact Info) Description 09/16/2012 Abstract [facility] Medical Group Social History Tobacco Use [...] st Contact Info) Description 06/08/2024 1:40 PM STICK PULLER Office Visit [facility] Medical [facility] Multispecialty Care - [facility] 3 [facility], [address] [place] [address] [place] [address] [place] [address] Kalen Simpson PA-C 3 [facility] [address] [place] [address] 09/30/2024 10:15 AM CDT Office Visit [facility] [address] [place] [address] Darryl Bunch MD [facility]. [address] [place] [address] Juliette Zavala PA 3 [facility], [address] [place] [address] documented as of this encounter Visit Diagnoses Not on filedocumented in this encounter
--- OUTSIDE RECORDS SUMMARY | 2024-04-17 17:23 | XMS_ITS | Encounter Summary ---
Author Organization [facility] Address [address] [place] [address]. [place] [address] [place] [address] Care Team Providers Care Clarifier Operator Helper Name Role Phone Unavailable Primary Care Provider Unavailabl e Encounter Details Date Type Department Care Team (Latest Contact Info) Description 08/31/2012 Abstract [facility] [place] [address] [address] Social History Tobacco Use Types Packs/Day Years Used Date Smoking Tobacco: Never Assessed Sex and Gender Information Value Date Recorded Sex Assigned at Not on file Legal Sex Male 6:09 PM CDT Gender Identity Not on file Sexual Orientation Not on file documented as of this encounter Last Filed Vital Signs Vital Sign Reading Time Taken Comments Blood Pressure 134/82 08/31/2012 9:20 AM CDT Pulse - - Temperature - - Respiratory Rate - - Oxygen Saturation - - Inhaled Oxygen Concentration - - Weight - - Height - - Body Mass Index - - documented in this encounter Progress Notes * JULIETTE Friedman - 08/31/2012 9:58 AM CDT Message Recorded as Task Date: 08/31/2012 05:17 AM, Created By: Dl Singh Task Name: Follow Up Assigned To: [facility] Regarding Patient: Donovan Garcia, Status: Active Comment: Dl Singh - 31 Aug 2012 5:17 AM TASK CREATED what was BP with XL (thigh) cuff? needs GI consult to set up colonoscopy for bright red blood per rectum computer locked up at time of his visit, what kind of colon problem did his father and grandmother have? ask Donovan to have labs done before a follow up visit here in 3 months to be sure his blood sugars have improved and his BP comes under good control with lifestyle changes and his current BP med. Referral was sent to Dr Danielson office 08-31-12 Current Meds 1. Lisinopril 20 MG Oral Tablet; TAKE 1 TABLET BY MOUTH EVERY DAY; Therapy: 11Feb2012 to (Evaluate:[id number]) Requested for: 12Ure6480; Last Rx:[id number] 2. Lisinopril-Hydrochlorothiazide 20-12.5 MG Oral Tablet; TAKE 1 TABLET BY MOUTH EVERY DAY; Therapy: 11Feb2012 to (Evaluate:[id number]) Requested for: 53Gde6718; Last Rx:[id number] ATING GRADER OPERATOR * JULIETTE Friedman - 08/31/2012 9:00 AM CDT Isac ENAMORADO WAS CALLING THE PATIENT TO INFORM THE PATIENT TO INFORM HIM THAT HIS APPOINTMENT WITH DR DONALDSON IS SCHEDULED FOR 09-15-2012 AT 1:30 Current Meds 1. Lisinopril 20 MG Oral Tablet; TAKE 1 TABLET BY MOUTH EVERY DAY; Therapy: 11Feb2012 to (Evaluate:[id number]) Requested for: 59Ksc9613; Last Rx:[id number] 2. Lisinopril-Hydrochlorothiazide 20-12.5 MG Oral Tablet; TAKE 1 TABLET BY MOUTH EVERY DAY; Therapy: 11Feb2012 to (Evaluate:[id number]) Requested for: [id number]; Last Rx:[id number] Signatures Electronically signed by : Faith Enamorado, ; Aug 31 2012 12:45PM (Author) Electronically signed by : ANDREW Rose; Dec 01 2012 10:59PM (Author) Electronically signed by : ANDREW Rose; Dec 01 2012 10:59PM (Author) ATING GRADER OPERATOR * JULIETTE Friedman - 08/31/2012 9:00 AM CDT Reason For Visit Acute Visit Chief Complaint He was here for bp check Active Problems 1. Bright Red Blood Per Rectum 569.3 2. Hyperglycemia 790.29 3. Hypertension 401.9 Current Meds 1. Lisinopril 20 MG Oral Tablet; TAKE 1 TABLET BY MOUTH EVERY DAY; Therapy: 11Feb2012 to (Evaluate:[id number]) Requested for: 36Mrn5100; Last Rx:[id number] 2. Lisinopril-Hydrochlorothiazide 20-12.5 MG Oral Tablet; TAKE 1 TABLET BY MOUTH EVERY DAY; Therapy: 11Feb2012 to (Evaluate:[id number]) Requested for: 45Frc9091; Last Rx:[id number] Allergies 1. No Known Drug Allergies Vitals Signs [Data Includes: Current Encounter] Systolic: 134 Diastolic: 82 Signatures Electronically signed by : Faith Enamorado, ; Aug 31 2012 9:21AM (Author) ATING GRADER OPERATOR documented in this encounter Plan of Treatment Upcoming Encounters Date Type Department Care Team (Late st Contact Info) Description 06/08/2024 1:40 PM ELEVATING GRADER OPERATOR Office Visit [facility] Medical Group Multispecialty Care - [facility] 3 [facility], [address] [place] [address] [place] [address] [place] [address] Kalen Simpson PA-C 3 [facility] [address] [place] [address] 09/30/2024 10:15 AM CDT Office [facility] [address] [place] [address] Darryl Bunch MD [facility]. [address] [place] [address] Juliette Zavala PA 3 [facility], [address] [place] [address] documented as of this encounter Visit Diagnoses Not on filedocumented in this encounter
--- OUTSIDE RECORDS SUMMARY | 2024-04-17 17:23 | XMS_ITS | Encounter Summary ---
Author Organization [facility] Address [address] [place] [address]. [place] [address] [place] [address] Care Team Providers Care Steam Power Plant Operator Name Role Phone Unavailable Primary Care Provider Unavailabl e Encounter Details Date Type Department Care Team (Latest Contact Info) Description 12/14/2014 Abstract [facility] Medical Group Social History Tobacco Use Types [...] st Contact Info) Description 06/08/2024 1:40 PM SUPPLIER DIVERSITY DIRECTOR Office Visit [facility] Medical [facility] Multispec[facility]ty Care - [facility] 3 [facility], [address] [place] [address] [place] [address] [place] [address] Kalen Simpson PA-C 3 [facility] [address] [place] [address] 09/30/2024 10:15 AM CDT Office Visit [facility] [address] [place] [address] Darryl Bunch MD [facility]. [address] [place] [address] Juliette Zavala PA 3 [facility], [address] [place] [address] documented as of this encounter Visit Diagnoses Not on filedocumented in this encounter
--- OUTSIDE RECORDS SUMMARY | 2024-04-17 17:23 | XMS_ITS | Encounter Summary ---
Author Organization [facility] Address [address] [place] [address]. [place], [place] [address] [place] [address] Care Team Providers Care Mobile Home Set Up Person Name Role Phone Unavailable Primary Care Provider Unavailabl e Encounter Details Date Type Department Care Team (Latest Contact Info) Description 08/24/2012 Abstract [facility] Medical Group Social History Tobacco Use Types Packs/Day Years Used Date Smoking Tobacco: Never Assessed Sex and Gender Information Value Date Recorded Sex Assigned at Not on file Legal Sex Male 6:09 PM CDT Gender Identity Not on file Sexual Orientation Not on file documented as of this encounter Progress Notes * Dl Singh MD - 08/24/2012 4:25 PM CDT Message Recorded as Task Date: 08/23/2012 03:21 AM, Created By: Dl Singh Task Name: Call Back Assigned To: [facility] Regarding Patient: Donovan Garcia, Status: Active Comment: Dl Singh - 23 Aug 2012 3:21 AM TASK CREATED I need a repeat resting blood pressure on Donovan using a thigh cuff on his arm. We did not have the correct cuff at the time of his visit. No charge for return for BP measurement--be sure to show it tome. Check 08-17-2012 visit plan and be sure we have done everything. Message: Called and left message for patient to come in for BP check only. [facility] 08-24-12 Signatures Electronically signed by : Dl Singh M.D.; Sep 13 2012 6:21AM (Author) ET SEWER documented in this encounter Plan of Treatment Upcoming Encounters Date Type Department Care Team (Late st Contact Info) Description 06/08/2024 1:40 PM CARPET SEWER Office Visit [facility] Medical Group Multispecialty Care - [facility] 3 [facility] [address] [place] [address] [place] [address] [place] [address] Kalen Simpson PA-C 3 [facility] [address] [place] [address] 09/30/2024 10:15 AM CDT [facility] [address] [place] [address] Darryl Bunch MD Three [facility]. [address] [place] [address] Juliette Zavala PA 3 [facility], [address] [place] [address] documented as of this encounter Visit Diagnoses Not on filedocumented in this encounter
--- OUTSIDE RECORDS SUMMARY | 2024-04-17 17:23 | XMS_ITS | Encounter Summary ---
Author Organization [facility] Address [address] [place] [address]. [place], [place] [address] [place] [address] Care Team Providers Care Irrigator Sprinkling System Name Role Phone Unavailable Primary Care Provider Unavailabl e Encounter Details Date Type Department Care Team (Latest Contact Info) Description 05/17/2014 Abstract [facility] Medical Group Social History Tobacco Use Types Packs/Day Years Used Date Smoking Tobacco: Never Assessed Sex and Gender Information Value Date Recorded Sex Assigned at Not on file Legal Sex Male 6:09 PM CDT Gender Identity Not on file Sexual Orientation Not on file documented as of this encounter Progress Notes * Rodri Savage Md, MD - 05/17/2014 1:04 PM CST Message Recorded as Task Date: 05/17/2014 11:26 AM, Created By: Bozena Mario Task Name: Follow Up Assigned To: Bozena Mario Regarding Patient: Donovan Gracia, Status: Active Comment: Bozena Mario - 17 May 2014 11:26 AM TASK CREATED Was seen 05/08/14and given Zpak for sinus congestion, cough, not feeling better has been taking Robitussin DM and Mucinex, and not helping, any thing else he can take.[facility] ( [phone] pt. cell) Bozena Mario - 17 May 2014 1:04 PM TASK EDITED order Tesselon pearles 200mg tid prn 10 days, [facility] , per Dr. Trivedi Signatures Electronically signed by : Bozena Mario, ; May 17 2014 1:04PM ARCHAEOLOGY PROFESSOR (Author) documented in this encounter Plan of Treatment Upcoming Encounters Date Type Department Care Team (Late st Contact Info) Description 06/08/2024 1:40 PM ARCHAEOLOGY PROFESSOR Office Visit [facility] Medical Group Multispecialty Care - [facility] 3 [facility] [address] [place] [address] [place] [address] [place] [address] Kalen Simpson PA-C 3 [facility] [address] [place] [address] 09/30/2024 10:15 AM CDT Office Visit [facility] [address] [place] [address] Darryl Bunch MD Three [facility]. [address] [place] [address] Juliette Zavala PA 3 [facility], [address] [place] [address] documented as of this encounter Visit Diagnoses Not on filedocumented in this encounter
--- OUTSIDE RECORDS SUMMARY | 2024-04-17 17:23 | XMS_ITS | Encounter Summary ---
Author Organization [facility] Address [address] [place] [address]. [place] [address] [place] [address] Care Team Providers Care Technical Support Engineer Name Role Phone Unavailable Primary Care Provider Unavailabl e Encounter Details Date Type Department Care Team (Latest Contact Info) Description 04/12/2013 Abstract [facility] [place] [address] [address] [id number] Social History Tobacco Use Types Packs/Day Years [...] st Contact Info) Description 06/08/2024 1:40 PM HEDIS REVIEW NURSE Office Visit [facility] Multispecialty Care - [address] [place] [address] [place] [address] [place] [address] Kalen Simpson PA-C 3 [facility] [address] [place] [address] 09/30/2024 10:15 AM CDT Office Visit [facility] [phone] [place] [address] Darryl Bunch MD Three [facility]. [address] [place], [place] [phone] Juliette Zavala PA [address] [facility], [address] [place], [place] [address] documented as of this encounter Procedures Procedure Name Priority Date/Time Associated Diagnosis Comments LIPID W/CALC LDL Routine 04/12/2013 7:07 AM HEDIS REVIEW NURSE TSH W/REFLEX Routine 04/12/2013 7:07 AM HEDIS REVIEW NURSE HEMOGLOBIN, GLYCOSYLATED Routine 04/12/2013 7:07 AM HEDIS REVIEW NURSE COMPREHENSIVE METABOLIC PANEL Routine 04/12/2013 7:07 AM HEDIS REVIEW NURSE CBC W/DIFF AUTOMATED Routine 04/12/2013 7:07 AM HEDIS REVIEW NURSE documented in this encounter Results * (ABNORMAL) CBC W/DIFF AUTOMATED (04/12/2013 7:07 AM HEDIS REVIEW NURSE) WBC 8.9 4.4 - 11.0 K/UL [facility] TO EPIC CONVERSION RBC 4.90 4.5 - 5.9 M/UL [facility] TO EPIC CONVERSION HGB 14.4 14.0 - 17.5 G/DL [facility] TO EPIC CONVERSION HCT 42.1 41.5 - 50.4 % [facility] TO EPIC CONVERSION MCV 85.9 80 - 96 FL [facility] TO EPIC CONVERSION MCH 29.4 26.5 - 31.4 PG [facility] TO EPIC CONVERSION MCHC 34.2 31.9 - 34.8 G/DL [facility] TO EPIC CONVERSION RDW 11.9(L) 12.3 - 14.3 % [facility] TO EPIC CONVERSION PLT 186 151 - 353 K/UL [facility] TO EPIC CONVERSION MPV 11.2 9.7 - 11.9 FL [facility] TO EPIC CONVERSION BASOPHILS % 0.7 0.0 - 1.3 % [facility] TO EPIC CONVERSION EOSINOPHILS % 1.4 0.0 - 5.6 % [facility] TO EPIC CONVERSION NEUTROPHILS % 58.7 42.1 - 71.9 % [facility] TO EPIC CONVERSION LYMPHOCYTES % 31.5 15.8 - 45.0 % [facility] TO EPIC CONVERSION MONOCYTES % 7.0 5.7 - 12.5 % [facility] TO EPIC CONVERSION IMMATURE GRANS % 0.7(H) 0.0 - 0.5 % [facility] TO EPIC CONVERSION ABS. NEUTROPHILS TOTAL 5.2 1.4 - 6.0 K/UL [facility] TO EPIC CONVERSION WBC MORPHOLOGY NORMAL [facility] OUP TO EPIC CONVERSION PLT MORPH. NORMAL [facility] TO EPIC CONVERSION RBC MORPHOLOGY NORMAL [facility] OUP TO EPIC CONVERSION 04/12/2013 7:07 AM HEDIS REVIEW NURSE 04/12/2013 7:07 AM HEDIS REVIEW NURSE Narrative [facility] TO EPIC CONVERSION - 04/12/2013 7:40 AM HEDIS REVIEW NURSE Result Communication: Call patient with results Dl Singh MD LABORATORY Final Result [facility] TO EPIC CONVERSION * TSH W/REFLEX (SNS) (04/12/2013 7:07 AM HEDIS REVIEW NURSE) TSH 1.66 0.35 - 4.94 uIU/mL [facility] TO EPIC CONVERSION Comment:Result Comment: FREE T4 NOT INDICATED 04/12/2013 7:07 AM HEDIS REVIEW NURSE 04/12/2013 7:07 AM HEDIS REVIEW NURSE Narrative [facility] TO EPIC CONVERSION - 04/12/2013 8:33 AM HEDIS REVIEW NURSE Result Communication: Call patient with results Dl Singh MD LABORATORY Final Result [facility] TO EPIC CONVERSION * (ABNORMAL) COMPREHENSIVE METABOLIC PANEL (04/12/2013 7:07 AM HEDIS REVIEW NURSE) SODIUM S/P/B 140 136 - 145 MMOL/L [facility] TO EPIC CONVERSION POTASSIUM S/P/B 4.1 3.5 - 5.1 MMOL/L [facility] TO EPIC CONVERSION CHLORIDE S/P/B 103 98 - 107 MMOL/L [facility] TO EPIC CONVERSION CO2 29.0 22 - 29 MMOL/L [facility] TO EPIC CONVERSION ANION GAP 12.1 10.0 - 24.0 MMOL/L [facility] TO EPIC CONVERSION BUN 9 8.9 - 20.6 MG/DL [facility] TO EPIC CONVERSION CREATININE S/P/B 0.9 0.72 - 1.25 MG/DL [facility] TO EPIC [...] [facility] TO EPIC CONVERSION BUN CREATININE RATIO 10.0 6.0 - 26.0 [facility] TO EPIC CONVERSION GLUCOSE 189(H) 70 - 105 MG/DL [facility] TO EPIC CONVERSION OSMOLALITY (CALC) 283 271 - 290 MOSM/KG [facility] TO EPIC CONVERSION CALCIUM S/P/B 9.3 8.4 - 10.2 MG/DL [facility] TO EPIC CONVERSION BILIRUBIN TOTAL S/P/B 0.6 0.2 - 1.2 MG/DL [facility] TO EPIC CONVERSION AST 54(H) 5 - 34 UNITS/L [facility] TO EPIC CONVERSION ALT 116(H) 6 - 55 UNITS/L [facility] TO EPIC CONVERSION ALKALINE PHOSPHATASE S/P/B 69 40 - 115 UNITS/L [facility] TO EPIC CONVERSION TOTAL PROTEIN S/P/B 7.4 6.4 - 8.3 G/DL [facility] TO EPIC CONVERSION ALBUMIN S/P/B 4.1 3.5 - 5.0 G/DL [facility] TO EPIC CONVERSION A/G RATIO 1.2 1.1 - 1.9 RATIO [facility] TO EPIC CONVERSION 04/12/2013 7:07 AM HEDIS REVIEW NURSE 04/12/2013 7:07 AM HEDIS REVIEW NURSE Narrative [facility] TO EPIC CONVERSION - 04/12/2013 8:08 AM HEDIS REVIEW NURSE Result Communication: Call patient with results us Dl Singh MD LABORATORY Final Result [facility] TO EPIC CONVERSION * (ABNORMAL) LIPID W/CALC LDL (04/12/2013 7:07 AM HEDIS REVIEW NURSE) CHOLESTEROL 138 <200 MG/DL [facility] P TO EPIC CONVERSION TRIGLYCERIDES 127 <150 MG/DL [facility] OUP TO EPIC CONVERSION HDL 35(L) >45 MG/DL [facility] T O EPIC CONVERSION LDL (CALCULATED) 77.6 <130 MG/L [facility] TO EPIC CONVERSION CHOL/HDL RATIO 3.94 [facility] OUP TO EPIC CONVERSION Comment: Result Comment: ? INTERPRETATION OF RESULTS NHL[employer] RECOMMENDED RANGES ? CHOLESTEROL MG/DL ?LDL MG/DL ?DESIRABLE ? <200 ?<130 ?BORDERLINE ?200-239 ? 130-159 ?HIGH RISK ? >240 ?>160 ?? REFERENCE VALUE FOR HDL CHOLESTEROL ?RISK LEVEL ??MALE MG/DL ? FEMALE MG/DL ?DECREASED ?>45 ?>55 ?AVERAGE ? 45 ? 55 ?INCREASED ?<45 ?<55 04/12/2013 7:07 AM HEDIS REVIEW NURSE 04/12/2013 7:07 AM HEDIS REVIEW NURSE Narrative [facility] TO EPIC CONVERSION - 04/12/2013 8:54 AM HEDIS REVIEW NURSE Result Communication: Call patient with results Dl Singh MD LABORATORY Final Result [facility] TO EPIC CONVERSION * (ABNORMAL) HEMOGLOBIN, GLYCOSYLATED (04/12/2013 7:07 AM HEDIS REVIEW NURSE) HGB A1C 7.8(H) <5.7 % [facility] T O EPIC CONVERSION Comment: Result Comment: ?? INCREASED RISK OF DIABETES <5.7% ?NON-DIABETES 5.7-6.4% INCREASED RISK FOR FUTURE DIABETES > OR = 6.5 CONSISTENT WITH DIABETES ?? STANDARDS OF MEDICAL CARE IN DIABETES-2010 DIABETES CARE, 33(SUPP 1): S1-S61,2010 04/12/2013 7:07 AM HEDIS REVIEW NURSE 04/12/2013 7:07 AM HEDIS REVIEW NURSE Narrative [facility] TO EPIC CONVERSION - 04/12/2013 2:49 PM HEDIS REVIEW NURSE Result Communication: Call patient with results us Dl Singh MD LABORATORY Final Result [facility] TO EPIC CONVERSION documented in this encounter Visit Diagnoses Not on filedocumented in this encounter
--- OUTSIDE RECORDS SUMMARY | 2024-04-17 17:23 | XMS_ITS | Encounter Summary ---
Author Organization [facility] Address [address] [place] [address]. [place] [address] [place] [address] Care Team Providers Care Insurance Analyst Name Role Phone Unavailable Primary Care Provider Unavailabl e Encounter Details Date Type Department Care Team (Late st Contact Info) Description 08/18/2005 Abstract [facility] CONVERSION [address] [place], [place] [phone] Danny Araujo PA [facility] [address] [place] [address] [place] [phone] Social History Tobacco Use Types Packs/Day Years [...] Contact Info) Description 06/08/2024 1:40 PM INSURANCE AND BENEFITS CLERK Office Visit [facility] Medical Group Multispecialty Care - [facility] [address] [facility] [place] [address] [place] [address] [place], [place] [phone] Kalen Simpson PA-C [address] [facility] [address] [place] [address] 09/30/2024 10:15 AM CDT Office Visit [facility] [address] [place] [phone] Darryl Bunch MD Three [facility]. [address] [place] [address] Juliette Zavala PA [address] [facility], [address] [place], [place] [phone] documented as of this encounter Visit Diagnoses Not on filedocumented in this encounter
--- OUTSIDE RECORDS SUMMARY | 2024-04-17 17:23 | XMS_ITS | Encounter Summary ---
Author Organization [facility] Address [address] [place] [address]. [place] [address] [place] [address] Care Team Providers Care Nurse Rn Bsn Name Role Phone Unavailable Primary Care Provider Unavailabl e Encounter Details Date Type Department Care Team (Late st Contact Info) Description 03/08/2012 Abstract [facility] [address] [place] [address] [place] [address] [address] Social History Tobacco Use Types Packs/Day Years [...] st Contact Info) Description 06/08/2024 1:40 PM BUCKRAM SEWER Office Visit [facility] Medical Group Multispecialty Care - [facility] [address] [facility] [place] [address] [place] [address] [place] [address] Kalen Simpson PA-C [address] [facility] [address] [place] [address] 09/30/2024 10:15 AM CDT Office Visit [facility] [address] [place] [phone] Darryl Bunch MD Three [facility]. [address] [place], [place] [phone] Juliette Zavala PA 3 [facility], [address] [place], [place] [phone] documented as of this encounter Visit Diagnoses Diagnosis Other and unspecified hyperlipidemia documented in this encounter
--- OUTSIDE RECORDS SUMMARY | 2024-04-17 17:23 | XMS_ITS | Encounter Summary ---
Author Organization [facility] Address [address] [place] [address]. [place], [place] [address] [place] [address] Care Team Providers Care Bridges And Buildings Supervisor Name Role Phone Unavailable Primary Care Provider Unavailabl e Encounter Details Date Type Department Care Team (Late st Contact Info) Description 01/23/2014 Abstract [facility] Family & Internal Medicine - [place] [address] [place] [address] Jordan Moctezuma MD Social History [...] st Contact Info) Description 06/08/2024 1:40 PM POLYMER ENGINEER Office Visit [facility] Multispecialty Care - [address], [address] [place] [phone] [place] [address] [place] [address] Kalen Simpson PA-C [address] [facility] [address] [place] [address] 09/30/2024 10:15 AM CDT Office Visit [facility] [id number] [place], [place] [address] [address] Darryl Bunch MD Three [facility]. [address] [place] [address] Juliette Zavala PA 3 [facility], [address] [place] [address] documented as of this encounter Visit Diagnoses Not on filedocumented in this encounter
--- OUTSIDE RECORDS SUMMARY | 2024-04-17 17:23 | XMS_ITS | Encounter Summary ---
Author Organization [facility] Address [address] [place] [address]. 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 Singh due to insurance change. Routine check up, refill med's Discuss results of recent labs. Young man came today to discuss results of the recent blood tests the most importantly suggest or diagnose that he has diabetes Review of Systems Focused-Male: Constitutional: Normal. ENT: normal. Cardiovascular: Normal. Respiratory: Normal. Gastrointestinal: Normal. Genitourinary: Normal. Integumentary: Normal. Musculoskeletal: Normal. Neurological: Normal. Psychiatric: Normal. Active Problems 1. Bright Red Blood Per Rectum 569.3 2. Hyperglycemia 790.29 3. Hypertension 401.9 Surgical History 1. History of Complete Colonoscopy Social History ?? Being A Social Drinker ?? Marital History - Currently ?? Never A Smoker Current Meds 1. Lisinopril 20 MG Oral Tablet; TAKE 1 TABLET BY MOUTH EVERY DAY; Therapy: 11Feb2012 to (Evaluate:[id number]) Requested for: 14Apr2013; Last Rx:14Apr2013 2. Lisinopril-Hydrochlorothiazide 20-12.5 MG Oral Tablet; TAKE 1 TABLET BY MOUTH EVERY DAY; Therapy: 11Feb2012 to (Evaluate:[id number]) Requested for: 14Apr2013; Last Rx:14Apr2013 3. MetFORMIN HCl ER 500 MG Oral Tablet Extended Release 24 Hour; TAKE ONE TABLET DAILY FOR TWO DAYS THEN INCREASE TO BID; Therapy: 29Apr2013 to (Evaluate:[id number]) Requested for: 29Apr2013; Last Rx:29Apr2013 Allergies 1. No Known Drug Allergies Vitals Vital Signs [Data Includes: Current Encounter] 12May2013 01:55PM Systolic 142 Diastolic 70 Weight 327 lb Physical Exam Constitutional General appearance: No acute distress, well appearing and well nourished. Eyes Conjunctiva and lids: No swelling, erythema, or discharge. Pupils and irises: Equal, round and reactive to light. Ears, Nose, Mouth, and Throat External inspection of ears and nose: Normal. Otoscopic examination: Tympanic membrance translucent with normal light reflex. Canals patent without erythema. Oropharynx: Normal with no erythema, edema, exudate or lesions. Pulmonary Respiratory effort: No increased work of breathing or signs of respiratory distress. Auscultation of lungs: Clear to auscultation. Cardiovascular Palpation of heart: Normal PMI, no thrills. Auscultation of heart: Normal rate and rhythm, normal S1 and S2, without murmurs. Examination of extremities for edema and/or varicosities: Normal. Abdomen Abdomen: Non-tender, no masses. Liver and spleen: No hepatomegaly or splenomegaly. Lymphatic Palpation of lymph nodes in neck: No lymphadenopathy. Musculoskeletal Gait and station: Normal. Digits and nails: Normal without clubbing or cyanosis. Inspection/palpation of joints, bones, and muscles: Normal. Skin Skin and subcutaneous tissue: Normal without rashes or lesions. Neurologic Cranial nerves: Cranial nerves 2-12 intact. Reflexes: 2+ and symmetric. Sensation: No sensory loss. Psychiatric Orientation to person, place and time: Normal. Mood and affect: Normal. Assessment 1. Diabetes Mellitus 250.00 2. Hyperglycemia 790.29 3. Hypertension 401.9 Plan 1. Follow-up visit in 3 months Outpatient Follow-up Requested for: 12May2013 Ordered; For: Diabetes Mellitus (250.00); Ordered By: Jordan Moctezuma Performed: Due: 22May2013 2. Hemoglobin A1C Requested for: 09Sep2013 Ordered; For: Diabetes Mellitus (250.00); Ordered By: Jordan Moctezuma Perform: [facility] Due: 16Sep2013 3. MetFORMIN HCl ER 500 MG Oral Tablet Extended Release 24 Hour; Take 1 tablet twice daily; Therapy: 29Apr2013 to (Evaluate:06Feb2014) Requested for: 12May2013; Last Rx:12May2013; Edited Ordered; For: Hyperglycemia (790.29); Rx By: Jordan Moctezuma; Dispense: 90 Days ; #:1 X 180 EA Bottle; Refill: 2; Verified Transmission to [facility] 435 Discussion/Summary Discussion Summary Free Text: At this time we had a long discussion regarding his weight in the correlation between that in his diabetes at this time since the glycohemoglobin is quite high the diagnosis is made of diabetes I would like to start him on metformin strongly recommend exercise and diet control explained to him the importance of losing some weight for the type of diabetes that he has he understood that and he is going to work on I would let to see him back in 3 months with a glycohemoglobin. We gave him a monitor explain her to use It to keep a record of his blood sugars and in general to become more aware of his blood sugars and how certain things that he does or it may affect his bloodsugars Signatures Electronically signed by : Jordan Moctezuma M.D.; May 14 2013 2:47PM (Author) NG SUPERVISOR documented in this encounter Plan of Treatment Upcoming Encounters Date Type Department Care Team (Late st Contact Info) Description 06/08/2024 1:40 PM TAPING SUPERVISOR Office Visit [facility] Medical Group Multispecialty Care - [facility] [address] [facility] [place] [address] [place] [address] [place] [address] Kalen Simpson PA-C [address] [facility] [address] [place] [address] 09/30/2024 10:15 AM CDT Office Visit [facility] [address] [place] [address] Darryl Bunch MD Three [facility]. [address] [place], [place] [address] Juliette Zavala PA [address] [facility], [address] [place] [address] documented as of this encounter Procedures Procedure Name Priority Date/Time Associated Diagnosis Comments HEMOGLOBIN, GLYCOSYLATED Routine 07/28/2013 1:30 PM CDT COLONOSCOPY Routine TAPING SUPERVISOR documented in this encounter Results * (ABNORMAL) HEMOGLOBIN, GLYCOSYLATED (07/28/2013 1:30 PM CDT) HGB A1C 6.0(H) <5.7 % [facility] T O EPIC CONVERSION Comment: Result Comment: ?? INCREASED RISK OF DIABETES <5.7% ?NON-DIABETES 5.7-6.4% INCREASED RISK FOR FUTURE DIABETES > OR = 6.5 CONSISTENT WITH DIABETES ?? STANDARDS OF MEDICAL CARE IN DIABETES-2010 DIABETES CARE, 33(SUPP 1): S1-S61,2010 07/28/2013 1:30 PM CDT 07/28/2013 1:30 PM CDT Narrative [facility] TO EPIC CONVERSION - 07/29/2013 2:28 PM CDT Result Communication: No patient communication needed at this time us Jordan Moctezuma MD LABORATORY Final Re sult [facility] TO EPIC CONVERSION * Colonoscopy ( TAPING SUPERVISOR) Narrative [facility] TO EPIC CONVERSION - TAPING SUPERVISOR Documented hx of procedure Procedure Note Rodri Calix MD - 02/14/2018 Documented hx of procedure us Generic Conversion Md CALIX GI PROCEDURE ORDERABLES Final Result Performing Organization Address [facility]/ZIP Co de Phone Number [facility] TO EPIC CONVERSION documented in this encounter Visit Diagnoses Not on filedocumented in this encounter
== END 2024-04-10 15:08 | disposition home or self-care (01) ==
PROVIDERS: Emergency Provider Nurse Practitioner Family; PCP Family Medicine
DX: J06.9 Acute upper respiratory infection, unspecified (principal); H66.002 Acute suppurative otitis media without spontaneous rupture of ear drum, left ear; I10 Essential (primary) hypertension; E11.9 Type 2 diabetes mellitus without complications
CPT/HCPCS: 87081; 87880; 99203; G0463

== ENCOUNTER 2024-12-23 17:50 | Emergency (ER) | payer OTHER, SELFPAY ==
--- NOTE | 2024-12-23 17:52 | ED_ITS ---
HPI - Burn/Smoke Inhalation General Chief complaint: Wound/Laceration Stated complaint: Burn on fingers Time Seen by Provider: 12/23/24 17:52 Source: patient Mode of arrival: ambulatory Limitations: no limitations History of Present Illness HPI Narrative: Jeancarlos is a 49-year-old male patient presenting to the clinic today with complaints of burn on his distal left thumb, left index, and left middle fingers. He reports that 2.5 hours ago he dropped his phone on the floor while at work and it begin to smoke. He picked the phone up to throw it outside and it burn his thumb, index finger, and middle finger of his left hand. Has blistered swann to the distal thumb, index finger, and middle finger. States he did hold cool ice water to the swann while he was driving back home. States the burn throbs at times. Rates pain 4/10 currently. Tetanus is unknown. Patient is diabetic. Related Data Home Medications ?Medication ?Instructions ?Recorded ?Confirmed ?Last Taken ?Type empagliflozin 25 mg-metformin ER PO 12/23/24 Unknown History 1,000 mg tablet,extended release 24hr (Synjardy XR) lisinopril 20 tablet 12/23/24 Unknown His tory mg-hydrochlorothiazide 12.5 mg tablet metformin 500 mg tablet,extended mg PO 12/23/24 Unkno wn History release 24 hr Allergies Allergy/AdvReac Type Severity Reaction Status Date / Time No Known Allergies Allergy Verified 12/23/24 17:59 Review of Systems Review of Systems: Pertinent positives per HPI. Patient denies any fever, chills, rash, headache, visual changes, dizziness, cough, runny nose, sore throat, shortness of breath, chest pain, palpitations, nausea, vomiting, diarrhea, constipation, abdominal pain, or any urinary issues. [facility] Past Medical History Medical History Diabetes Comments At the time of my signature, I reviewed and agree with the nursing past medical, surgical, social, and family history. There is no relevant family history pertinent to the patient complaint. Exam Narrative: General: Well-developed, well nourished, in no apparent distress Head: Normocephalic, atraumatic. Cardio: Regular rate and rhythm, s1 and s2 normal, no murmur appreciated. Resp: Clear to auscultation bilaterally, no rhonchi, rales, wheezing or rubs. Integumentary: [place], warm, and dry, blistered second-degree swann to the left d istal thumb,left index finger, and left middle finger Course Course Emergency Course: Portions of this record may have been created with voice recognition software. Level of Care: Express Care Visit Vital Signs Vital signs: Vital Signs Temperature 36.5 C 12/23/24 17:59 Pulse Rate 97 12/23/24 17:59 Respiratory Rate 14 12/23/24 17:59 Blood Pressure 147/97 H 12/23/24 17:59 Pulse Oximetry 100 12/23/24 17:59 Oxygen Delivery Room Air 12/23/24 17:59 Temperature 36.5 C 12/23/24 17:59 Pulse Rate 97 12/23/24 17:59 Respiratory Rate 14 12/23/24 17:59 Blood Pressure 147/97 H 12/23/24 17:59 Pulse Oximetry 100 12/23/24 17:59 Oxygen Delivery Room Air 12/23/24 17:59 Vital signs reviewed MDM - Burn/Smoke Inhalation MDM Narrative Medical decision making narrative: At the time of visit patient is resting comfortably on the exam table. Patient appears to be nontoxic. Complaints of burn on his distal left thumb, left index, and left middle fingers. He reports that 2.5 hours ago he dropped his phone on the floor while at work and it begin to smoke. He picked the phone up to throw it outside and it burn his thumb, index finger, and middle finger of his left hand. Has blistered swann to the distal thumb, index finger, and middle finger. States he did hold cool ice water to the swann while he was driving back home. States the burn throbs at times. Rates pain 4/10 currently. Tetanus is unknown. Patient is diabetic. Silvadene dressing and tetanus shot ordered. Medications: Silvadene dressing was applied to the wounds. Tdap 0.5 mL IM given in the clinic today Plan: Patient has second-degree swann to the left distal thumb, left distal index finger, and left distal middle finger. Silvadene with Band-Aids applied. Tetanus was given. Instructed patient to keep a tight control in his blood sugar and to watch for signs and symptoms of infection. He should have a wound check in 3 days with his PCP. Supportive measures were discussed with the patient and they voiced understanding discharge instructions and agrees to treatment plan. Return precautions reviewed Differential Diagnosis Differential diagnosis: Likely other (First degree burn, second-degree burn, third-degree burn, skin infection, cellulitis) Discharge Plan Discharge Clinical Impression: Second degree burn of multiple fingers of left hand including thumb Patient Disposition: Home Condition: Stable Instructions: Antibiotic Form, Second-Degree Burn (ED) Additional Instructions: Tdap given in the clinic today Keep wounds clean and dry Apply Silvadene dressing daily to the wounds Do not pop the blisters-the blisters may pop on their own Watch for signs and symptoms of infection-fever, worsening of redness, increase in pain, increase in swelling, purulent discharge, or streaking Follow-up with your PCP in 3 days for wound check Patient Language: Spanish Prescriptions: New silver sulfadiazine [Silvadene] 1 % cream 1 applic topical ONCE 7 Days Qty: 50 0RF Rx Instructions: apply a 1.5 mm thickness No Action lisinopril-hydrochlorothiazide 20-12.5 mg tablet metformin 500 mg tablet extended release 24 hr PO Synjardy XR 25-1,000 mg tablet, IR - ER, biphasic 24hr PO Follow-up/Referrals: UNKNOWN,DOCTOR [Primary Care Provider] Time of Disposition: 18:07 Quality NIHSS Nursing Documentation ED NIHSS nursing documentation: reviewed/agree
--- OUTSIDE RECORDS SUMMARY | 2024-12-23 17:56 | XMS_ITS | Clinical Summary ---
Author Organization [facility] Address [address] [place] [address] Care Team Providers Care It Architect Name Role Phone José Luis Canales MD Primary Care Provider [phone] Allergies No known active allergies Medications Na sulfate-K sulfate-Mg sulfate (SUPREP BOWEL PREP KIT) 17.5-3.13-1.6 GM/177ML SolutionIndicat ions:Screening for colon cancer Take 177 mLs by mouth every 12 (twelve) hours. Per GI instructions 354 mL 025 Active lisinopril-hydr oCHLOROthiazide (ZESTORETIC) 20-12.5 MG tabletIndicatio ns:Essential hypertension Take 0.5 tablets by mouth daily. 45 tablet 1 025 Active metFORMIN ER (GLUCOPHAGE-XR) 500 MG 24 hr tabletIndicatio ns:Type 2 diabetes mellitus without complication, without long-term current use of insulin ([facility]) TAKE 2 TABLETS(1000 MG) BY MOUTH DAILY 180 tablet 025 Active Additional Information Patient taking differently:1,000 mg OralNightly, Reported on 12/14/2024 SYNJARDY XR 25-1000 MG TABLET SR 24 HRIndications:T ype 2 diabetes mellitus without complication, without long-term current use of insulin ([facility]) TAKE 1 TABLET BY MOUTH DAILY 90 tablet 025 Active tadalafil (CIALIS) 5 MG tabletIndicatio ns:Erectile dysfunction, unspecified erectile dysfunction type Take 1 tablet (5 mg total) by mouth daily. 90 tablet 1 025 Active tirzepatide (MOUNJARO) 7.5 MG/0.5ML injectionIndica tions:Diabetes Mellitus Indications: Diabetes Inject 7.5mg into the skin once per week. 2 mL 5 025 Active metFORMIN ER (GLUCOPHAGE-XR) 500 MG 24 hr tabletIndicatio ns:Type 2 diabetes mellitus without complication, without long-term current use of insulin ([facility]) TAKE 2 TABLETS(1000 MG) BY MOUTH DAILY 180 tablet 025 2024 Discontinued Empagliflozin-m etFORMIN HCl ER (SYNJARDY XR) 25-1000 MG TABLET SR 24 HRIndications:T ype 2 diabetes mellitus without complication, without long-term current use of insulin ([facility]) Take 1 tablet by mouth daily. 90 tablet 025 2024 Discontinued tadalafil (CIALIS) 5 MG tabletIndicatio ns:Erectile dysfunction, unspecified erectile dysfunction type Take 1 tablet (5 mg total) by mouth daily. 90 tablet 025 2024 Discontinued(R eorder) tirzepatide (MOUNJARO) 7.5 MG/0.5ML injectionIndica tions:Diabetes Mellitus Indications: Diabetes Inject 7.5mg into the skin once per week. 2 mL 5 025 2024 Discontinued(R eorder) Active Problems Problem Noted Date Diagnosed Date Family history of coronary artery disease 2023 Assessment & Plan (09/30/2024 10:28 AM CDT): Currently, his coronary calcium score is 0. His INFANTE risk score puts him at a 3.7% which is low risk for future cardiac events. No need for statin therapy at this time. Assessment & Plan (09/25/2023 4:04 PM CDT): Currently, his coronary calcium score is 0. His INFANTE risk score puts him at a 3.7% which is low risk for future cardiac events. I would not start stent therapy at this time. 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 No need for further testing at this time. Assessment & Plan (09/25/2023 4:07 PM CDT): [...] Discussed lifestyle modifications include diet and exercise. Type 2 diabetes mellitus wit hout complication, with long-term current use of insulin ([facility]) 08/02/2018 Assessment & Plan (09/30/2024 10:34 AM CDT): Recent A1c 5.6. He is currently well-controlled on metformin-empagliflozin and Mounjaro. Assessment & Plan (08/30/2023 3:33 PM CDT): He has diabetes, which is a coronary artery disease risk equivalent. He is currently not on statin therapy. Coronary calcium score from CTA coronary will help to determine whether or not he needs lipid-lowering therapy. Sleep apnea 09/30/2017 Essential hypertension 08/31/2012 Assessment & Plan (09/30/2024 10:29 AM CDT): Blood pressure is well-controlled in office. Continue lisinopril- hydrochlorothiazide. Assessment & Plan (09/25/2023 4:05 PM CDT): Continue Lisinopril and HCTZ. Assessment & Plan (08/30/2023 3:32 PM CDT): His blood pressure is well-controlled in the office. Continue antihypertensive therapy. Resolved Problems Problem Noted Date Diagnosed Date Resolved Date Screening for colon cancer 06/08/2024 0 06/13/2024 Need for immunization against influenza 03/26/2021 2021 Colon cancer screening 10/10/201912/23 Encounters Date Type Department Care Team Description 12/06/2024 MyChart Message Enc [facility] Family Internal [address] [address] José Luis Canales MD Mounjaro Refill 11/29/2024 MyChart Message Enc [facility] Family Internal [address] [address] José Luis Canales MD Tadalafil 11/08/2024 Scan [place] SRVCS Scanned, [facility] 11/08/2024 Telephone [facility] Multispecialty Care - [address], [address] [place] [address] Yosi Renee MD Prior Authorization (Colonoscopy [id number]) 11/08/2024 MyChart Message Enc [facility] Family & Internal [facility] [address] [place] [address] José Luis Canales MD Mounjaro refill 10/27/2024 Telephone [facility] Internal [facility] [address] [place] [address] José Luis Canales MD Record Request 10/12/2024 MyChart Message Enc [facility] Family Internal [facility] [address] [place] [phone] José Luis Canales MD Mounjaro 09/30/2024 10:15 AM CDT Office Visit [facility] [phone] [place] [phone] Darryl Bunch MD Lanter, Megan N, PA Follow Up (Family history of coronary artery disease); Hypertension 09/30/2024 Travel 09/22/2024 7:40 AM CDT Office Visit [facility] Family & Internal Medicine [address] [address] José Luis Canales MD Follow Up; Diabetes 09/22/2024 Scan [facility] SRVCS Scanned, [facility] 09/22/2024 Results Follow-Up [facility] & Internal [address] [address] José Luis Canales MD HEMOGLOBIN, GLYCOSYLATED 09/22/2024 Travel from Last 3 Months Immunizations Immunization Administration Dates Next Due Fluzone (IIV3, Trivalent, 0. 5 ML Prefilled Syringe) 02/23/2024 Fluzone 6 Months+ Quad (0.5 mL Prefilled Syringe) 03/25/2021 Fluzone Adult - >Age 3 (Pref illed Syringe) 01/10/2019 Influenza (Generic) 01/10/2019, 8,12/24/2016,2015 Influenza Adult (Generic) 01/23/2020,,12/24/2016,2015 MMR (MMRII) 07/05/1992 PFIZER COVID-19 (ORIGINAL FORMULATION, [...] Date Recorded Patient Health Questionnaire-2 Score 0 06/08/2024 Education Answer Date Recorded What is the highest level of school you have completed or the highest degree you have received? Bachelor's degree (e.g., BA, AB, BS) 08/02/2018 Sex and Gender Information Value Date Recorded Sex Assigned at Male 06/13/2024 11:08 AM AUDIO VISUAL SPECIALIST Legal Sex Male 6:09 PM CDT Gender Identity Not on file Sexual Orientation Not on file Last Filed Vital Signs Vital Sign Reading Time Taken Comments Blood Pressure 130/80 09/30/2024 10:16 AM CDT Pulse 65 09/30/2024 10:16 AM CDT Temperature 36.6 C (97.8 F) 09/22/2024 7:41 AM CDT Respiratory Rate 16 09/22/2024 7:41 AM CDT Oxygen Saturation 98% 09/22/2024 7:41 AM CDT Inhaled Oxygen Concentration - - Weight 115.7 kg (255 lb) 12/14/2024 11:46 AM CDT Height 193 cm (6' 4) 09/30/2024 10:16 AM CDT Body Mass Index 31.04 09/30/2024 10:16 AM CDT Plan of Treatment Upcoming Encounters Date Type Department Care Team (Latest Contact Info) Description 12/26/2024 12:30 PM CDT Hospital Encounter [facility] [place] [address] Yosi Renee MD [address] [address] 12/26/2024 12:30 PM CDT - 12/26/2024 1:00 PM CDT Surgery [facility] Endo/[place] [address] Yosi Renee MD [address] [phone] COLONOSCOPY SCREENING 03/07/2025 8:00 AM AUDIO VISUAL SPECIALIST Office Visit [facility] Family & Internal Medicine - [place] [address] [place] [address] [place] [address] [place] [address] 10/06/2025 10:15 AM CDT Office Visit [facility] [address] [place] [phone] Darryl Bunch MD [address] [address] Scheduled Procedures Name Priority Associated Diagnoses Date/Ti me COLONOSCOPY SCREENING Screening for colon cancer 12/26/2024 12:30 PM CDT Health Maintenance Due Date Last Done Comments Kidney Health Evaluation 1974 Annual Physical 1977 Diabetes: Retinopathy Eye Exam 1992 Hepatitis C 1992 DTaP, Tdap and Td Vaccines (1 - Tdap) 1993 Hepatitis B Vaccines (1 of 3 - 19+ 3-dose series) 1993 Pneumococcal Vaccine: 50+ Years (1 of 2 - PCV) 1993 Zoster Vaccines (1 of 2) 2024 Lipid Panel 07/27/2024 07/28/2023, 10/22/2017 COVID-19 Vaccine ( - season) 2024 03/25/2021, 08/14/2020, 07/07/2020 Colorectal Cancer Screening FIT-DNA (3 Years) 12/25/2024 12/25/2021, 12/25/2021 Hemoglobin A1C 03/24/2025 09/22/2024, 06/11, 02/23/2024, Additional history exists Colorectal Cancer Screening Colonoscopy (10 Years) Discontinued PHQ-2 (Physician Morongo) Completed 06/08/2024 Meningococcal B Vaccine Aged Out No l onger eligible based on patient's age to complete this topic Meningococcal Vaccine Aged Out No luisana tong eligible based on patient's age to complete this topic RSV Immunizations Under 20 Months Aged Out No longer eligible based on patient's age to complete this topic Procedures Procedure Name Priority Date/Time Associated Diagnosis Comments COLLECT.CAPILLARY (FNGR,HEEL,EAR) Routine 09/22/2024 7:34 AM CDT Type 2 diabetes mellitus without complication, without long-term current use of insulin HEMOGLOBIN, GLYCOSYLATED Routine 09/22/2024 Type 2 diabetes mellitus without complication, without long-term current use of insulin ([facility]) LIPID PANEL Routine 07/28/2023 7:53 AM CDT Essential hypertension COLOGUARD (EXACT SCIENCE) Routine 12/25/2021 10:25 PM CDT Colon cancer screening COLONOSCOPY Routine AUDIO VISUAL SPECIALIST from Last 3 Months or Most Recently Relevant to Health Maintenance Results * HEMOGLOBIN, GLYCOSYLATED (09/22/2024) HGB A1C 5.6 % -[id number] [facility] [place] 09/22/2024 José Luis Canales MD LABORATORY Final Resul t Performing Organization Address City/State/[facility] Co de Phone Number -[phone] [facility] [address] [facility] [address], * LIPID PANEL (07/28/2023 7:53 AM CDT) CHOLESTEROL 123 <200 mg/dL [facility] [place] HDL 45 > OR = 40 mg/dL [facility] TRIGLYCERIDES 92 <150 mg/dL [facility] LDL (CALCULATED) 60 mg/dL (calc) [place] Comment: Reference range: <100 Desirable range <100 mg/dL for primary prevention; <70 mg/dL for patients with CHD or diabetic patients with > or = 2 CHD risk factors. LDL-C is now calculated using the Gurdeep calculation, which is a validated novel method providing better accuracy than the Friedewald equation in the estimation of LDL-C. Lemuel ROMERO et al. REJI. 2013;310(19): 2647-6374 (http://education.[employer]/faq/DLG493) CHOL/HDL RATIO 2.7 <5.0 (calc) [facility] NON HDL CHOLESTEROL 78 <130 mg/dL (calc) [facility] Comment: For patients with diabetes plus 1 major ASCVD risk factor, treating to a non-HDL-C goal of <100 mg/dL (LDL-C of <70 mg/dL) is considered a therapeutic option. 07/28/2023 7:53 AM CDT 07/28/2023 11:05 PM CDT Narrative Resulting Agency Comment Performing Organization Information: Site ID: SL Name: [facility] Address: [address] [place] [id number] Director: Carlos Brown José Luis Canales MD LABORATORY [facility] [place] [address] [address], * COLOGUARD (EXACT SCIENCE) (12/25/2021 10:25 PM CDT) COLOGUARD RESULT Negative Negative [employer] (CLIA #:[id number]) Comment: NEGATIVE TEST RESULT. A negative Cologuard result indicates a low likelihood that a colorectal cancer (CRC) or advanced adenoma (adenomatous polyps with more advanced pre-malignant features) is present. The chance that a person with a negative Cologuard test has a colorectal cancer is less than 1 in 1500 (negative predictive value >99.9%) or has an advanced adenoma is less than 5.3% (negative predictive value 94.7%). These data are based on a prospective cross-sectional study of 10,000 individuals at average risk for colorectal cancer who were screened with both Cologuard and colonoscopy. (Grover aLne al, N Engl J Med 2014;370(14):9303-0038) The normal value (reference range) for this assay is negative. COLOGUARD RE-SCREENING RECOMMENDATION: Periodic colorectal cancer screening is an important part of preventive healthcare for asymptomatic individuals at average risk for colorectal cancer. Following a negative Cologuard result, the [place] Cancer Society and U.S. Multi-Society Task Force screening guidelines recommend a Cologuard re-screening interval of 3 years. References: [place] Cancer Society Guideline for Colorectal Cancer Screening: https://www.cancer.org/cancer/urvyw-rwbgan-mazxne/omxsahsqe-asapqxjen-pmzovvg/ac s-rec ommendations.html.; David DK, Adamaris GORE, Radha ColonK, Colorectal Cancer Screening: Recommendations for Physicians and Patients from the U.S. Multi-Society Task Force on Colorectal Cancer Screening , Am J Gastroenterology 2017; 112:2696-1394. TEST DESCRIPTION: Composite algorithmic analysis of stool DNA-biomarkers with hemoglobin immunoassay. Quantitative values of individual biomarkers are not [...] screened with both Cologuard and colonoscopy. (Grover Sanabria, N Engl J Med 2014;370(14):7561-9705.) Cologuard may produce a false negative or false positive result (no colorectal cancer or precancerous polyp present at colonoscopy follow up). A negative Cologuard test result does not guarantee the absence of CRC or advanced adenoma (pre-cancer). The current Cologuard screening interval is every 3 years. ([place] Cancer Society and U.S. Multi-Society Task Force). Cologuard performance data in a 10,000 patient pivotal study using colonoscopy as the reference method can be accessed at the following location: www.[employer].Sidecar.me/results. Additional description of the Cologuard test process, warnings and precautions can be found at www.cologuard.com. STOOL STOOL SPECIMEN / Unknown 12/25/2021 10:25 PM CDT 12/27/2021 1:32 PM CDT Jordan Moctezuma MD BODY FLUIDS AND STOOLS O RDERABLES Final Result Performing Organization Address [facility] Co de Phone Number [facility] ([address]) [address] [place] [address], [employer] (CLIA #:[id number]) [address] [place] [address] * Colonoscopy ( AUDIO VISUAL SPECIALIST) Narrative [employer] TO EPIC CONVERSION - AUDIO VISUAL SPECIALIST Documented hx of procedure Procedure Note Rodri Calix MD - 02/14/2018 Documented hx of procedure us Generic Conversion Md CALIX GI PROCEDURE ORDERABLES Final Result Performing Organization Address [facility] Co de Phone Number [facility] TO EPIC CONVERSION from Last 3 Months or Most Recently Relevant to Health Maintenance Insurance [employer] Care Teams It Architect Relationship Specialty Start [place] [address] [place] [address] PCP - General 07/29/22
--- OUTSIDE RECORDS SUMMARY | 2024-12-23 17:57 | XMS_ITS | Encounter Summary ---
Author Organization [facility] Address [address] [place] [address] Care Team Providers Care Head Of Conservation Name Role Phone José Luis Canales MD Primary Care Provider [phone] Encounter Details Date Type Department Care Team (Late st Contact Info) Description 08/21/2023 [facility] Enc [facility] Family & Internal Medicine [facility] [address] [place] [address] [place] [address] [place] [address] Required blood work Social History Tobacco [...] Sex Assigned at Male 06/13/2024 11:08 AM TEST DEPARTMENT HELPER Legal Sex Male 6:09 PM CDT Gender Identity Not on file Sexual Orientation Not on file documented as of this encounter Plan of Treatment Upcoming Encounters Date Type Department Care Team (Latest Contact Info) Description 12/26/2024 12:30 PM CDT Hospital Encounter [facility] [place] [address] Yosi Renee MD 3 [facility] [address] [place] [address] 12/26/2024 12:30 PM CDT - 12/26/2024 1:00 PM CDT Surgery [facility] [address] Yosi Renee MD [address] [address] COLONOSCOPY SCREENING 03/07/2025 8:00 AM TEST DEPARTMENT HELPER Office Visit [facility] Family & Internal Medicine [address] [address] José Luis Canales MD [address] [place] [address] 10/06/2025 10:15 AM CDT Office Visit [place] [facility] [address] [place] [phone] Darryl Bunch MD [address] [place] [address] Scheduled Procedures Name Priority Associated Diagnoses Date/Ti me COLONOSCOPY SCREENING Screening for colon cancer 12/26/2024 12:30 PM CDT documented as of this encounter Visit Diagnoses Not on filedocumented in this encounter Additional Health Concerns Assessment Noted Time PHQ-9 Depression Total Score: 0 09/19/19 21 7:53 AM CDT documented as of this encounter Care Teams Head Of Conservation Relationship Specialty Start [place] [address] [place], [place] [phone] PCP - General 07/29/22 documented as of this encounter
--- OUTSIDE RECORDS SUMMARY | 2024-12-23 17:57 | XMS_ITS | Encounter Summary ---
Author Organization [facility] Address [facility] [place] [address] Care Team Providers Care Battery Technician Name Role Phone José Luis Canales MD Primary Care Provider [phone] Encounter Details Date Type Department Care Team (Late st Contact Info) Description 08/19/2023 nCrypted Cloud Message [facility] [address] [facility] [phone] Darryl Bunch MD [address] results Social History Tobacco Use [...] Sex Assigned at Male 06/13/2024 11:08 AM EDUCATION ASSISTANT Legal Sex Male 6:09 PM CDT Gender Identity Not on file Sexual Orientation Not on file documented as of this encounter Progress Notes * Andreina Cabrera RN - 08/21/2023 12:[address] Julio C Maldonado: I think his pulmonary artery size is [...] Description 12/26/2024 12:30 PM CDT Hospital Encounter [facility] [place] [address] Yosi Renee MD [address] [address] 12/26/2024 12:30 PM CDT - 12/26/2024 1:00 PM CDT Surgery [facility] Endo/[place] [address] Yosi Renee MD [address] [address] COLONOSCOPY SCREENING 03/07/2025 8:00 AM EDUCATION ASSISTANT Office Visit [facility] Family & Internal Medicine - [address] [address] [place] [address] [place] [address] 10/06/2025 10:15 AM CDT Office Visit [facility] [address] [place] [address] Darryl Bunch MD [address] [address] Scheduled Procedures Name Priority Associated Diagnoses Date/Ti me COLONOSCOPY SCREENING Screening for colon cancer 12/26/2024 12:30 PM CDT documented as of this encounter Visit Diagnoses Not on filedocumented in this encounter Additional Health Concerns Assessment Noted Time PHQ-9 Depression Total Score: 0 09/19/19 21 7:53 AM CDT documented as of this encounter Care Teams Battery Technician Relationship Specialty Start [place] [address] [place] [address] PCP - General 07/29/22 documented as of this encounter
--- OUTSIDE RECORDS SUMMARY | 2024-12-23 17:57 | XMS_ITS | Encounter Summary ---
Author Organization [facility] Address [address] [place] [address] Care Team Providers Care Molded Goods Embossing Press Operator Name Role Phone José Luis Canales MD Primary Care Provider [phone] Encounter Details Date Type Department Care Team (Latest Contact Info) Description 11/23/2023 ethologyt Message Enc [facility] Family & Internal Medicine [facility] [address] [place] [address] [place] [address] [place] [address] Tadalafil Prescription Social History Tobacco Use [...] Sex Assigned at Male 06/13/2024 11:08 AM NUT ORCHARDIST Legal Sex Male 6:09 PM CDT Gender Identity Not on file Sexual Orientation Not on file documented as of this encounter Plan of Treatment Upcoming Encounters Date Type Department Care Team (Latest Contact Info) Description 12/26/2024 12:30 PM CDT Hospital Encounter [facility] [address] Yosi Renee MD 3 [facility] [address] [place] [address] 12/26/2024 12:30 PM CDT - 12/26/2024 1:00 PM CDT Surgery [facility] [address] Yosi Renee MD [address] [address] COLONOSCOPY SCREENING 03/07/2025 8:00 AM NUT ORCHARDIST Office Visit [facility] Family & Internal Medicine [address] [address] José Luis Canales MD [address] [place] [address] 10/06/2025 10:15 AM CDT Office Visit [place] [facility] [id number] [place] [phone] Darryl Bunch MD [address] [place] [address] Scheduled Procedures Name Priority Associated Diagnoses Date/Ti me COLONOSCOPY SCREENING Screening for colon cancer 12/26/2024 12:30 PM CDT documented as of this encounter Visit Diagnoses Not on filedocumented in this encounter Additional Health Concerns Assessment Noted Time PHQ-9 Depression Total Score: 0 09/19/19 21 7:53 AM CDT documented as of this encounter Care Teams Molded Goods Embossing Press Operator Relationship Specialty Start Date [place] [address] [place], [place] [id number] PCP - General 07/29/22 documented as of this encounter
--- OUTSIDE RECORDS SUMMARY | 2024-12-23 17:57 | XMS_ITS | Encounter Summary ---
Author Organization [facility] Address [address] [place] [address] Care Team Providers Care Boiler Attendant Name Role Phone Jordan Moctezuma MD Primary Care Provider U Khadra Leonardo NP Primary Care Provider [phone] José Luis Canales MD Primary Care Provider [phone] Encounter Details Date Type Department Care Team (Late st Contact Info) Description 07/08/2022 Well [place] For Expecteenst Message Enc [facility] Family [facility] Internal Medicine [facility] [address] [place] [address] Jordan Moctezuma MD Prescription request from [...] Sex Assigned at Male 06/13/2024 11:08 AM AWS CONSULTANT Legal Sex Male 6:09 PM CDT Gender Identity Not on file Sexual Orientation Not on file documented as of this encounter Progress Notes * Jordyn Lakhani RN - 07/08/2022 2:54 PM CDT Please advise documented in this encounter Plan of Treatment Upcoming Encounters Date Type Department Care Team (Latest Contact Info) Description 12/26/2024 12:30 PM CDT Hospital Encounter [facility] [place] [address] Yosi Renee MD 3 [facility] [address] [place] [address] 12/26/2024 12:30 PM CDT - 12/26/2024 1:00 PM CDT Surgery [facility] [place] [address] Yosi Renee MD [address] [address] COLONOSCOPY SCREENING 03/07/2025 8:00 AM AWS CONSULTANT Office Visit [facility] Family [facility] Internal Medicine - [place] [address] [place] [address] [place] [address] [place] [address] 10/06/2025 10:15 AM CDT Office Visit [facility] [phone] Darryl Bunch MD Three [facility]. [facility] [address] [place], [place] [address] Scheduled Procedures Name Priority Associated Diagnoses Date/Ti me COLONOSCOPY SCREENING Screening for colon cancer 12/26/2024 12:30 PM CDT documented as of this encounter Visit Diagnoses Not on filedocumented in this encounter Additional Health Concerns Assessment Noted Time PHQ-9 Depression Total Score: 0 09/19/19 21 7:53 AM CDT documented as of this encounter Care Teams Boiler Attendant Relationship Specialty Start Date End Date Jordan Moctezuma MD PCP - General INTERNAL MEDICINE 08/02/18 07/17/22 [place] [address] [address] Guadalupe Chamorro, [facility] [address] [place] [address] PCP - General Nurse Practitioner Family 07/18/2207/12 [place] [address] [place] [address] PCP - General 07/29/22 documented as of this encounter
--- OUTSIDE RECORDS SUMMARY | 2024-12-23 17:57 | XMS_ITS | Encounter Summary ---
Author Organization [facility] Address [facility] [place] [address] Care Team Providers Care Reading Interventionist Name Role Phone José Luis Canales MD Primary Care Provider [phone] Encounter Details Date Type Department Care Team (Late st Contact Info) Description 05/13/[address] [facility] Family & Internal Medicine [facility] [address] [place] [address] [place] [address] [place] [address] Referral for Cardiac Screening Social History [...] Sex Assigned at Male 06/13/2024 11:08 AM FISH CAKE MAKER Legal Sex Male 6:09 PM CDT Gender Identity Not on file Sexual Orientation Not on file documented as of this encounter Plan of Treatment Upcoming Encounters Date Type Department Care Team (Latest Contact Info) Description 12/26/2024 12:30 PM CDT Hospital Encounter [facility] [place] [address] Yosi Renee MD [address] [address] 12/26/2024 12:30 PM CDT - 12/26/2024 1:00 PM CDT Surgery [facility] [address] Yosi Renee MD [address] [address] COLONOSCOPY SCREENING 03/07/2025 8:00 AM FISH CAKE MAKER Office Visit [facility] Family & Internal Medicine [address] [phone] José Luis Canales MD [address] [place] [address] 10/06/2025 10:15 AM CDT Office Visit [facility] [address] [phone] Darryl Bunch MD Three [place] [address] [place] [address] Scheduled Procedures Name Priority Associated Diagnoses Date/Ti me COLONOSCOPY SCREENING Screening for colon cancer 12/26/2024 12:30 PM CDT documented as of this encounter Visit Diagnoses Not on filedocumented in this encounter Additional Health Concerns Assessment Noted Time PHQ-9 Depression Total Score: 0 09/19/19 21 7:53 AM CDT documented as of this encounter Care Teams Reading Interventionist Relationship Specialty Start [place] [address] [place], [place] [id number] PCP - General 07/29/22 documented as of this encounter
--- OUTSIDE RECORDS SUMMARY | 2024-12-23 17:57 | XMS_ITS | Encounter Summary ---
Author Organization [facility] Address [address] [place] [address] Care Team Providers Care Salt Maker Name Role Phone José Luis Canales MD Primary Care Provider [phone] Encounter Details Date Type Department Care Team (Late st Contact Info) Description 05/11/2024 Lexyt Message Enc [facility] Family & Internal Medicine [facility] [address] [place] [address] José Luis [place]ales [place] [id number] [place] [address] Continuing cough and congestion Social History Tobacco Use Types Packs/Day Years Used Date Smoking Tobacco: Never Smokeless Tobacco: Never Comments:na Alcohol Use Standard Drinks/Week Comments Yes 0 (1 standard drink = 0.6 oz pur e alcohol) socially PHQ-2 Answer Date Recorded Patient Health Questionnaire-2 Score 0 05/12/2024 Education Answer Date Recorded What is the highest level of school you have completed or the highest degree you have received? Bachelor's degree (e.g., BA, AB, BS) 08/02/2018 Sex and Gender Information Value Date Recorded Sex Assigned at Male 06/13/2024 11:08 AM CONTRACTOR FIELD HAULING Legal Sex Male 6:09 PM CDT Gender Identity Not on file Sexual Orientation Not on file documented as of this encounter Functional Status * Over the past 2 weeks, how often have you been bothered by any of the following problems? Question Answer Date of Assessment Author Status Little interest or pleasure in doing things Not at all 05/12/2024 9:21 AM Rossy Bryan MA Active Feeling down, depressed, or hopeless Not at all 05/12/2024 9:21 AM Rossy Bryan MA Active Patient Health Questionnaire-2 Score 0 05/12/2024 9:21 AM Rossy Bryan MA Active * If you checked off any problems on this questionnaire so far, Question Answer Date of Assessment Author Status How difficult have these problems made it for you to do your work, take care of things at home, or get along with other people? Not difficult at all 05/12/2024 9:21 AM Rossy Bryan MA Active documented as of this encounter Plan of Treatment Upcoming Encounters Date Type Department Care Team (Latest Contact Info) Description 12/26/2024 12:30 PM CDT Hospital Encounter [facility] [place] [address] Yosi Renee MD [address] [address] 12/26/2024 12:30 PM CDT - 12/26/2024 1:00 PM CDT Surgery [facility] [place]o/[place] [address] Yosi Renee MD [address] [address] COLONOSCOPY SCREENING 03/07/2025 8:00 AM CONTRACTOR FIELD HAULING Office Visit [facility] Family & Internal Medicine - [place] [address] [place] [address] [place] [address] [place] [address] 10/06/2025 10:15 AM CDT Office Visit [facility] [phone] Darryl Bunch MD [address] [address] Scheduled Procedures Name Priority Associated Diagnoses Date/Ti me COLONOSCOPY SCREENING Screening for colon cancer 12/26/2024 12:30 PM CDT documented as of this encounter Visit Diagnoses Not on filedocumented in this encounter Additional Health Concerns Assessment Noted Time PHQ-9 Depression Total Score: 0 09/19/19 21 7:53 AM CDT documented as of this encounter Care Teams Salt Maker Relationship Specialty Start [place] [address] [place] [address] PCP - General 07/29/22 documented as of this encounter
--- OUTSIDE RECORDS SUMMARY | 2024-12-23 17:57 | XMS_ITS | Encounter Summary ---
Author Organization [facility] Address [address] [place] [address] Care Team Providers Care Lawnmower Repair Mechanic Name Role Phone José Luis Canales MD Primary Care Provider [phone] Encounter Details Date Type Department Care Team (Late st Contact Info) Description 09/19/2024 PadMatchert Message Enc [facility] Family & Internal Medicine - [facility] [address] [place] [address] [place] [address] [place] [address] Health Screening Results - Feb 2024 Social History Tobacco Use Types Packs/Day Years [...] Sex Assigned at Male 06/13/2024 11:08 AM CITY COUNCILMAN Legal Sex Male 6:09 PM CDT Gender Identity Not on file Sexual Orientation Not on file documented as of this encounter Plan of Treatment Upcoming Encounters Date Type Department Care Team (Latest Contact Info) Description 12/26/2024 12:30 PM CDT Hospital Encounter [facility] [place] [address] Yosi Renee MD [address] [address] 12/26/2024 12:30 PM CDT - 12/26/2024 1:00 PM CDT Surgery [facility] [place] [address] Yosi Renee MD [address] [address] COLONOSCOPY SCREENING 03/07/2025 8:00 AM CITY COUNCILMAN Office Visit [facility] Family & Internal Medicine [facility] [address] [place] [address] José Luis [place] [id number] [place] [address] 10/06/2025 10:15 AM CDT Office Visit [facility] [address] [place] [phone] Darryl Bunch MD Three [facility] [place] [address] [place] [address] Scheduled Procedures Name Priority Associated Diagnoses Date/Ti me COLONOSCOPY SCREENING Screening for colon cancer 12/26/2024 12:30 PM CDT documented as of this encounter Visit Diagnoses Not on filedocumented in this encounter Additional Health Concerns Assessment Noted Time PHQ-9 Depression Total Score: 0 06/08/19 1:39 PM CITY COUNCILMAN documented as of this encounter Care Teams Lawnmower Repair Mechanic Relationship Specialty Start [place] [address] [place], [place] [id number] PCP - General 07/29/22 documented as of this encounter
--- OUTSIDE RECORDS SUMMARY | 2024-12-23 17:57 | XMS_ITS | Encounter Summary ---
Author Organization [facility] Address [address] [place] [address] Care Team Providers Care Can Marker Name Role Phone Jordan Moctezuma MD Primary Care Provider U Khadra Leonardo NP Primary Care Provider [phone] José Luis Canales MD Primary Care Provider [phone] Encounter Details Date Type Department Care Team (Late st Contact Info) Description 03/12/2022 Dataresolve Technologiest Message Enc [facility] Family & Internal Medicine [facility] [address] [place] [address] Jordan Moctezuma MD ENT Referral Social [...] Sex Assigned at Male 06/13/2024 11:08 AM TOOL MARKER Legal Sex Male 6:09 PM CDT Gender Identity Not on file Sexual Orientation Not on file COVID-19 Exposure Response Date Recorded In the last 10 days, have yo u been in contact with someone who was confirmed or suspected to have Coronavirus/COVID-19? No / Unsure 03/10/2022 7:49 AM TOOL MARKER documented as of this encounter Progress Notes * Jordyn Lakhani RN - 03/13/2022 12:45 PM CST Please advise-ok for referral? MARKER documented in this encounter Plan of Treatment Upcoming Encounters Date Type Department Care Team (Latest Contact Info) Description 12/26/2024 12:30 PM CDT Hospital Encounter [facility] [place] [address] Yosi Renee MD 3 [facility] [address] [place] [address] 12/26/2024 12:30 PM CDT - 12/26/2024 1:00 PM CDT Surgery [facility] [place]o/[place] [address] Yosi Renee MD 3 [facility] [address] [place] [address] COLONOSCOPY SCREENING 03/07/2025 8:00 AM TOOL MARKER Office Visit [facility] Family & Internal Medicine - [address] [address] [place] [address] [place], [place] [phone] 10/06/2025 10:15 AM CDT Office Visit [facility] [phone] Darryl Bunch MD Three [facility] [address] [place] [address] Scheduled Procedures Name Priority Associated Diagnoses Date/Ti me COLONOSCOPY SCREENING Screening for colon cancer 12/26/2024 12:30 PM CDT documented as of this encounter Visit Diagnoses Not on filedocumented in this encounter Additional Health Concerns Assessment Noted Time PHQ-9 Depression Total Score: 0 09/19/19 7:53 AM CDT documented as of this encounter Care Teams Can Marker Relationship Specialty Start Date End Date Jordan Moctezuma MD PCP - General INTERNAL MEDICINE 08/02/18 07/17/22 [place] [address] [address] Chamorro, [address] [place] [address] PCP - General Nurse Practitioner Family 07/18/2207/12 [place] [address] [place] [address] PCP - General 07/29/22 documented as of this encounter
--- OUTSIDE RECORDS SUMMARY | 2024-12-23 17:57 | XMS_ITS | Encounter Summary ---
Author Organization [facility] Address [address] [place] [address] Care Team Providers Care Painter And Decorator Name Role Phone José Luis Canales MD Primary Care Provider [phone] Encounter Details Date Type Department Care Team (Late st Contact Info) Description 04/22/2024 I-DISPOt Message Enc [facility] Family & Internal Medicine [facility] [address] [place] [address] [place] [address] [place] [address] Persisting Cough Social History Tobacco Use Types Packs/Day Years [...] Sex Assigned at Male 06/13/2024 11:08 AM DRUM DRIER OPERATOR Legal Sex Male 6:09 PM CDT Gender Identity Not on file Sexual Orientation Not on file documented as of this encounter Plan of Treatment Upcoming Encounters Date Type Department Care Team (Latest Contact Info) Description 12/26/2024 12:30 PM CDT Hospital Encounter [facility] [place] [address] Yosi Renee MD 3 [facility] [address] [place] [address] 12/26/2024 12:30 PM CDT - 12/26/2024 1:[address] PM [address] [facility] [place] [address] Yosi Renee MD [address] [address] COLONOSCOPY SCREENING 03/07/2025 8:00 AM DRUM DRIER OPERATOR Office Visit [facility] Family & Internal Medicine [facility] [address] [place] [address] José Luis Canales MD [address] [place] [address] 10/06/2025 10:15 AM CDT Office Visit [facility] [address] [place] [phone] Darryl Bunch MD Three [place] [address] [place] [address] Scheduled Procedures Name Priority Associated Diagnoses Date/Ti me COLONOSCOPY SCREENING Screening for colon cancer 12/26/2024 12:30 PM CDT documented as of this encounter Visit Diagnoses Not on filedocumented in this encounter Additional Health Concerns Assessment Noted Time PHQ-9 Depression Total Score: 0 09/19/19 21 7:53 AM CDT documented as of this encounter Care Teams Painter And Decorator Relationship Specialty Start [place] [address] [place], [place] [phone] PCP - General 07/29/22 documented as of this encounter
--- OUTSIDE RECORDS SUMMARY | 2024-12-23 17:57 | XMS_ITS | Encounter Summary ---
Author Organization [facility] Address [address] [place] [address] Care Team Providers Care Slag Dumper Name Role Phone José Luis Canales MD Primary Care Provider [phone] Encounter Details Date Type Department Care Team (Late st Contact Info) Description 02/23/2024 ReGen Biologicst Message Enc [facility] Family & Internal Medicine [facility] [address] [place] [address] [place] [address] [place] [address] Colonoscopy Social History Tobacco Use Types [...] Sex Assigned at Male 06/13/2024 11:08 AM FRUCTOSE LOADER Legal Sex Male 6:09 PM CDT Gender Identity Not on file Sexual Orientation Not on file documented as of this encounter Plan of Treatment Upcoming Encounters Date Type Department Care Team (Latest Contact Info) Description 12/26/2024 12:30 PM CDT Hospital Encounter [facility] [place] [address] Yosi Reene MD 3 [facility] [address] [place] [address] 12/26/2024 12:30 PM CDT - 12/26/2024 1:00 PM CDT Surgery [facility] [place]o/[place] [address] Yosi Renee MD 3 [facility] [address] [place] [address] COLONOSCOPY SCREENING 03/07/2025 8:00 AM FRUCTOSE LOADER Office Visit [facility] Family & Internal Medicine [facility] [address] [place] [address] José Luis Canales MD [address] [place] [phone] 10/06/2025 10:15 AM CDT Office Visit [facility] [address] [place] [phone] Darryl Bunch MD Three [facility] [address] [place] [address] Scheduled Procedures Name Priority Associated Diagnoses Date/Ti me COLONOSCOPY SCREENING Screening for colon cancer 12/26/2024 12:30 PM CDT documented as of this encounter Visit Diagnoses Not on filedocumented in this encounter Additional Health Concerns Assessment Noted Time PHQ-9 Depression Total Score: 0 09/19/19 7:53 AM CDT documented as of this encounter Care Teams Slag Dumper Relationship Specialty Start Date End Date José Luis [place]ales [place] [id number] [place] [id number] PCP - General 07/29/22 documented as of this encounter
--- OUTSIDE RECORDS SUMMARY | 2024-12-23 17:57 | XMS_ITS | Encounter Summary ---
Author Organization [facility] Address [address] [place] [address] Care Team Providers Care Fast Food Services Manager Name Role Phone José Luis Canales MD Primary Care Provider [phone] Encounter Details Date Type Department Care Team (Late st Contact Info) Description 07/14/2023 [employer]J Systems Message Enc [facility] Family & Internal Medicine [facility] [address] [place] [address] [place] Provider Due for appt Social History Tobacco [...] Sex Assigned at Male 06/13/2024 11:08 AM DESIGN AND SALES CONSULTANT Legal Sex Male 6:09 PM CDT Gender Identity Not on file Sexual Orientation Not on file documented as of this encounter Plan of Treatment Upcoming Encounters Date Type Department Care Team (Latest Contact Info) Description 12/26/2024 12:30 PM CDT Hospital Encounter [facility] One Day Services [place], [place] [address] Yosi Renee MD [address] [address] 12/26/2024 12:30 PM CDT - 12/26/2024 1:00 PM CDT Surgery [facility] [place] [address] Yosi Renee MD 3 [facility] [address] [place] [address] COLONOSCOPY SCREENING 03/07/2025 8:00 AM DESIGN AND SALES CONSULTANT Office Visit [facility] Family & Internal Medicine [facility] [address] [place] [address] [place] [address] [place], [place] [phone] 10/06/2025 10:15 AM CDT Office Visit [facility] [address] [place] [phone] Darryl Bunch MD Three [facility] [address] [place] [address] Scheduled Procedures Name Priority Associated Diagnoses Date/Ti me COLONOSCOPY SCREENING Screening for colon cancer 12/26/2024 12:30 PM CDT documented as of this encounter Visit Diagnoses Not on filedocumented in this encounter Additional Health Concerns Assessment Noted Time PHQ-9 Depression Total Score: 0 09/19/19 21 7:53 AM CDT documented as of this encounter Care Teams Fast Food Services Manager Relationship Specialty Start Date [place] [address] [place], [place] [phone] PCP - General 07/29/22 documented as of this encounter
[2024-12-23 17:59] VITALS: BP 147/97; PULSE 97; RESP 14; TEMP 36.5; O2SAT 100
[2024-12-23] MEDS: SILVER SULFADIAZINE 1% CR 50 GM JAR (*BKC) 1 APPLIC TOPICAL (18:08)
[2024-12-23] MEDS: TETANUS,DIPHTHERIA,AC PERTUSSIS ADULT (0.5 ML) BOOSTRIX IM (18:08)
== END 2024-12-23 18:16 | disposition home or self-care (01) ==
PROVIDERS: Emergency Provider Nurse Practitioner Family
DX: T23.242A Burn of second degree of multiple left fingers (nail), including thumb, initial encounter (principal); X19.XXXA Contact with other heat and hot substances, initial encounter; Z23 Encounter for immunization; E11.9 Type 2 diabetes mellitus without complications; Z79.84 Long term (current) use of oral hypoglycemic drugs
CPT/HCPCS: 16020; 90471; 90715; 99213; A9270; G0463